=== PATIENT | female | born 1965 | race Caucasian/White ===

== ENCOUNTER 2017-01-20 11:27 | Inpatient (IN) | payer BC, OTHER ==
[2017-01-20] VITALS (28 sets, daily range): BP systolic 124–178; BP diastolic 64–86
[~2017-01-20] VITALS: Ht 157.5 cm; Wt 83.4 kg
[2017-01-20] MEDS: HumaLOG INSULIN (NovoLOG) PER UNIT SC SCH ×2 (12:00→18:02)
[2017-01-20] MEDS ORDERED: NS 1,000 ML IV SCH (12:17)
[2017-01-20] MEDS ORDERED: LABETALOL HCL 100 MG/20 ML VIAL IV STA ×2 (12:17→13:28)
[2017-01-20 12:26] LABS: BASO # 0.1 10^3/uL (0.0-0.2); BASO % 0.6 % (0.0-1.0); EOS % 0.1 % (0.0-3.0); IMMATURE GRANULOCYTE % 1.5 % (0-0); LYMPH # 1.6 10^3/uL (1.5-4.5); MEAN CORPUSCULAR HEMOGLOBIN 17.1 pg (27.0-33.0); MEAN CORPUSCULAR HGB CONC 26.8 g/dl (32.0-36.5); MONO # 1.4 10^3/uL (0.0-0.8); MONO % 9.8 % (0.0-5.0); PLATELET COUNT, AUTOMATED 446 10^3/uL (150-450); RED CELL DISTRIBUTION WIDTH 20.3 % (11.5-14.5); WHITE BLOOD COUNT 14.3 10^3/uL (4.0-10.0)
[2017-01-20 12:29] LABS: CONTROL LINE HCG INT CTR LINE PRESENT
[2017-01-20] MEDS ORDERED: METOCLOPRAMIDE INJ 10MG/2ML VIAL (J2765) IV ONE (12:30)
[2017-01-20 12:44] LABS: ALBUMIN 3.7 GM/DL (3.2-5.2); ALBUMIN/GLOBULIN RATIO 0.97 (1.00-1.93); ALKALINE PHOSPHATASE 171 U/L (45-117); ALT/SGPT 17 U/L (12-78); ANION GAP 9 MEQ/L (8-16); AST/SGOT 9 U/L (7-37); BILIRUBIN,DIRECT 0.1 MG/DL (0.0-0.2); BILIRUBIN,TOTAL 0.5 MG/DL (0.2-1.0); BLOOD UREA NITROGEN 14 MG/DL (7-18); CARBON DIOXIDE LEVEL 25 MEQ/L (21-32); CHLORIDE LEVEL 105 MEQ/L (98-107); CREATININE FOR GFR 0.99 MG/DL (0.55-1.02); GLOMERULAR FILTRATION RATE > 60.0 (>58); GLUCOSE, FASTING 155 MG/DL (70-105); POTASSIUM SERUM 3.7 MEQ/L (3.5-5.1); SODIUM LEVEL 139 MEQ/L (136-145); TOTAL PROTEIN 7.5 GM/DL (6.4-8.2)
[2017-01-20 13:21] LABS: INR 1.03
--- NOTE | 2017-01-20 13:30 | REP ---
CT Head without contrast HISTORY: Altered mental status COMPARISON: 08/20/2007 An acute intraparenchymal hematoma 2 cm in width is present in the left internal capsule and thalamus. A significant amount of surrounding edema is present. There is mass effect with partial effacement of the body of the left lateral and third ventricles with midline shift to the right. A small amount of intraventricular hemorrhage is present. There is minimal dilatation of of the body of the left lateral ventricle consistent with minimal hydrocephalus. There is no extra cerebral collection. There is no fracture. Mucosal thickening is present in the sphenoid sinuses. IMPRESSION: There is an acute 2 cm intraparenchymal hematoma in the left thalamus and internal capsule with mass effect and minimal midline shift to the right. A small amount of intraventricular hemorrhage is present. There is dilatation of the left lateral ventricle consistent with minimal hydrocephalus. Signed by Satinder Olivarez MD 01/20/2017 01:21 P
--- NOTE | 2017-01-20 13:46 | REP ---
Chest two views HISTORY: Altered mental status Comparison: 09/05/2011 The lungs are clear. The heart is normal in size. The pulmonary vasculature is normal in appearance. The bony structure is intact. IMPRESSION: No acute disease. Signed by Satinder Olivarez MD 01/20/2017 01:37 P
[2017-01-20] MEDS ORDERED: ACET50TAOT PO (14:08)
[2017-01-20] MEDS ORDERED: IBUPOTC PO (14:08)
[2017-01-20] MEDS ORDERED: GLUCAGON FOR INJ 1 MG VIAL (J1610) SC PRN (14:15)
[2017-01-20] MEDS ORDERED: GLUCOSE 4 GM CHEW TABLET PO PRN (14:15)
[2017-01-20] MEDS ORDERED: DEXTROSE 50% 50 ML SYRINGE IV PRN (14:15)
--- NOTE | 2017-01-20 15:17 | HPE ---
DATE OF ADMISSION: 01/20/2017 CHIEF COMPLAINT: Altered mental status. History is obtained from the who is at bedside due to the patient being unable to adequately answer questions. The patient's states that they recently traveled to [place] driving through [place]. He states that on the patient took a pretty long nap. Friday afternoon, she napped twice. He noticed that she ate slowly at dinner, and if he asked her any questions, sometimes she would say words that were out of context. On Friday, the patient was mostly alert, though the did notice more words used out of context like they did not belong in the sentences she was trying to articulate. On Friday, they drove home from [place] through [place]. The patient's states that she was complaining of headache and basically slept the entire way. He did, however, notice that last night she was breathing quite rapidly. The last thing she had to eat was yester afternoon. This morning, the patient's states that she was just not herself and brought her to the emergency room. REVIEW OF SYSTEMS: Was unable to be completely taken due to inability of the patient to answer questions. However, according to the , she had been complaining of headache, she was sweating last night, she is having some photophobia, as well as increased fatigue. The patient's denies any nausea, vomiting, diarrhea, constipation, new leg swelling, fever, chills. He is unable to answer any other questions. PAST MEDICAL HISTORY: 1. History of chronic back pain, the patient takes ibuprofen sporadically and really only when it bothers her. 2. History of kidney stones in 2011 requiring lithotripsy and eventually nephrostomy tubes. MEDICATIONS: Ibuprofen as needed for back pain, not scheduled, dose is unknown. PAST SURGICAL HISTORY: 1. Lithotripsy with eventual bilateral nephrostomy tubes in 2011. 2. Ovarian cyst as a teenager, the patient's is unable to provide more details. FAMILY HISTORY: The patient's mother has diabetes and had some type of event that resulted in dementia. The patient's reports that the patient's father is in good health. ALLERGIES: No known drug allergies. SOCIAL HISTORY: The patient does not smoke, does not consume alcohol, does not use drugs. She lives at home with her and two out of three children. All of their children are healthy and they have three cats as pets. PHYSICAL EXAMINATION: VITAL SIGNS: Temperature is 98.9 degrees, pulse is 78, respiratory rate is 16, blood pressure is 175/95 with a mean arterial pressure (MAP) 121, pulse oximetry is 98% on room air. GENERAL: The patient is sleepy. She periodically drifts back into dozing and some snoring in between questioning. She will arouse to speech as well as to touch and the blood pressure cuff. HEENT: Pupils are about 3 mm and reactive minimally but equally to light. There is no tongue deviation. Mucous membranes are moist. The patient has adequate dentition. NECK: Large. No carotid bruits. Supple, nontender. No thyromegaly is appreciated. HEART: Regular rate and rhythm. No murmurs, gallops, or rubs. LUNGS: Clear to auscultation bilaterally. No wheezes, rales, or rhonchi. BACK: No costovertebral angle (CVA) tenderness. There are some small scars from her bilateral nephrostomy tube placements. ABDOMEN: Obese, normoactive bowel sounds. No organomegaly. Nontender to palpation. EXTREMITIES: The patient continually crosses her left leg over her right. There is no swelling. Pulses are equal in the lower extremities. Right masonry supervisor strength is absent, left masonry supervisor strength is normal. SKIN: Normal turgor and perfusion. LABORATORY DATA: CBC: White count 14.3, hemoglobin 9.0, hematocrit 33.6, platelets 446. Differential: Neutrophils 77%, lymphocytes 11%, monocytes 9.8%. Chemistry: Sodium 139, potassium 3.7, chloride 107, carbon dioxide 25, BUN 14, creatinine 0.99, fasting glucose 155, calcium 9.0, total bilirubin 0.5, AST 9, ALT 17, alkaline phosphatase 171, TSH 0.553, test negative, CK-MB 1.0, creatine kinase 59, troponin less than 0.02. Coagulation: PT 13.6, INR 1.03. Toxicology: Salicylates less than 1.7, acetaminophen less than 2.0, ethyl alcohol less than 0.003. IMAGING STUDIES: Chest x-ray: No acute disease. CT head: Acute 2 cm intraparenchymal hematoma in the left thalamus and internal capsule with mass effect and minimal midline shift to the right. A small amount of intraventricular hemorrhage is present. There is dilatation of the left lateral ventricle consistent with minimal hydrocephalus. ASSESSMENT: This is a 51-year-old female presenting with altered mental status to the emergency department. Her initial blood pressure was 187/101. Head CT showed an acute 2 mg intraparenchymal hematoma in the left thalamus and internal capsule with mass effect and minimal midline shift to the right. She will be admitted to the intensive care unit (ICU). PLAN: 1. Control blood pressure. The patient is getting IV labetalol with a goal of systolic to be 140-160. 2. Consult neurosurgery, Dr. Craig is aware. 3. High risk for deep vein thrombosis (DVT). Doppler ultrasound of the lower extremities has been ordered. 4. Chronic back pain. We will await to assess when mental status has returned to normal. Critical Care time spent was 50 minutes. My preceptor for this patient encounter was Dr. Venkat Canales. The preceptor was physically present during the encounter and was fully available as needed. All aspects of the patient interview, examination, medical decision making process, and medical care plan development were reviewed and approved by the preceptor. The preceptor is aware and concurs with the plan as stated in the body of this note and will attest to such by his/her co-signature. I agree with the above, the patient was seen in the ED and is transferred now to the ICU. BP control is good with labetalol, she is febrile but there is no source for infection and the WBC is not up. I spoke with Neurosurgery and with Neurology who have been kind enough to assist with management. There is no immediate need for surgical intervention as there is no sign of elevation in ICP. Likely this is a hypertensive bleed of several days duration, we will repeat a CT in the AM to track for any progression. Her condition is critical, 50 minutes was spent in critical care at the bedside in exclusion of any time spent in the performance of procedures. ARMAAN
[2017-01-20] MEDS: LABETALOL HCL 200 MG in D5W 160 ML IV SCH ×4 (15:37→20:07)
--- NOTE | 2017-01-20 16:21 | REP ---
Clinical: Pain and swelling with high risk factors. Technique: Ramirez scale and color Doppler evaluation using linear high frequency transducer. Findings: Ultrasound examination of the right and left lower extremity deep venous structures from the common femoral vein to the popliteal vein demonstrates normal compressibility flow and wave patterns in response to respiration and augmentation. There is no evidence for deep venous thrombosis. Impression: No evidence for deep venous thrombosis. Signed by Washington Reid MD 01/20/2017 04:12 P
[2017-01-20] MEDS: PANTOPRAZOLE 40MG INJ (PROTONIX) (C9113) IV SCH (17:04)
--- NOTE | 2017-01-20 18:34 | ECGEPIP ---
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
[2017-01-20] MEDS ORDERED: PROHANCE 279.3MG/ML 15ML VIAL (A9576) As Ordered ONE (21:04)
[2017-01-21] VITALS (38 sets, daily range): BP systolic 117–181; BP diastolic 56–94
[2017-01-21] MEDS: HumaLOG INSULIN (NovoLOG) PER UNIT SC SCH ×5 (01:05→23:24)
[2017-01-21] MEDS: CHLORHEXIDINE ORAL RINSE 0.12%/15ML 120ML BOTTLE MT SCH ×3 (01:05→20:23)
[2017-01-21 05:08] LABS: BASO # 0.1 10^3/uL (0.0-0.2); BASO % 0.4 % (0.0-1.0); EOS % 0.1 % (0.0-3.0); IMMATURE GRANULOCYTE % 1.1 % (0-0); LYMPH # 1.8 10^3/uL (1.5-4.5); LYMPH % 14.8 % (24.0-44.0); MEAN CORPUSCULAR HEMOGLOBIN 16.9 pg (27.0-33.0); MEAN CORPUSCULAR HGB CONC 26.4 g/dl (32.0-36.5); MONO # 1.3 10^3/uL (0.0-0.8); MONO % 10.4 % (0.0-5.0); NEUTROPHILS % 73.2 % (36.0-66.0); RED CELL DISTRIBUTION WIDTH 19.5 % (11.5-14.5); WHITE BLOOD COUNT 12.2 10^3/uL (4.0-10.0)
[2017-01-21 05:25] LABS: PLATELET COUNT, AUTOMATED 330 10^3/uL (150-450)
[2017-01-21 05:33] LABS: ALBUMIN 3.1 GM/DL (3.2-5.2); ALBUMIN/GLOBULIN RATIO 0.86 (1.00-1.93); ALKALINE PHOSPHATASE 138 U/L (45-117); ALT/SGPT 15 U/L (12-78); ANION GAP 9 MEQ/L (8-16); AST/SGOT 6 U/L (7-37); BILIRUBIN,TOTAL 0.5 MG/DL (0.2-1.0); BLOOD UREA NITROGEN 17 MG/DL (7-18); CALCIUM LEVEL 8.5 MG/DL (8.5-10.1); CARBON DIOXIDE LEVEL 24 MEQ/L (21-32); CHLORIDE LEVEL 108 MEQ/L (98-107); CHOLESTEROL LEVEL 118 MG/DL (< 200); CREATININE FOR GFR 0.93 MG/DL (0.55-1.02); GLOMERULAR FILTRATION RATE > 60.0 (>58); GLUCOSE, FASTING 154 MG/DL (70-105); PHOSPHORUS LEVEL 3.1 MG/DL (2.5-4.9); POTASSIUM SERUM 3.3 MEQ/L (3.5-5.1); SODIUM LEVEL 141 MEQ/L (136-145); TOTAL PROTEIN 6.7 GM/DL (6.4-8.2); TRIGLYCERIDES LEVEL 114 MG/DL (<150)
--- NOTE | 2017-01-21 07:37 | CR ---
DATE OF CONSULTATION: 01/20/2017 REFERRING PHYSICIAN: Venkat Canales DO REASON FOR CONSULTATION: Left-sided basal ganglia hemorrhage. HISTORY OF PRESENT ILLNESS: Aggie Stone is a 51-year-old woman who was at her baseline state of health until they left for [place] on . They drove very early, around 4:00 a.m. They got there in the evening and she made dinner and went to sleep. Friday afternoon she took naps twice. Her noted that she ate slowly at dinner and when asked questions she would say words which were out of context. She appeared groggy at times. Friday she complained of back pain. Friday noted that she had a limp in her right leg while walking. She had decreased hand and eye coordination. She appeared sleepy and would take frequent naps. They did not seek medical attention in [place]. They drove back home on Friday. She refused to go to urgent care on Friday morning. Her finally brought her to [facility] for [facility]. She denies any headache. She denies any use of blood thinner. Most of the information was obtained from the patient's . The patient has aphasia and has difficulty following commands as well. They denied any head trauma. She does not know if she had high blood pressure in past. Her thinks that this is the first time her blood pressure was found to be high. She has history of intermittent chronic low back pain for which she takes ibuprofen sporadically. PAST MEDICAL HISTORY: Chronic back pain. History of kidney stones, lithotripsy and nephrostomy tube. 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 She denies smoking, alcohol or illicit drugs. They have three children. ALLERGIES: None. FAMILY HISTORY: Mother has diabetes and history of dementia. REVIEW OF SYSTEMS: All systems were reviewed and found to be noncontributory except as mentioned in history present illness. Review of systems was obtained from the patient's . PHYSICAL EXAMINATION: Blood pressure 161/77, pulse 95, respiratory rate 18, 98% saturation on room air, temperature 104.4. HEART: Regular rate and rhythm. LUNGS: Clear to auscultation. No pedal edema. No gross musculoskeletal abnormalities. No rash. The patient is drowsy but arousable. She is oriented to self mostly. She has expressive and receptive aphasia. She is unable to repeat. She has difficulty following two-step commands. She has mild right-sided upper motor neuron type facial weakness. She has right-sided hemiparesis with strength 4/5. She has decreased cold, pinprick, vibration sensation on right side of her body. Right plantar is upgoing. Gait could not be tested. She has right-sided dysmetria. DIAGNOSTIC STUDIES: CT scan of her head was reviewed and showed large right basal ganglia and thalamic hypodensity with 2 cm cerebral hemorrhage with 0.7 cm midline shift. ASSESSMENT: 1. Left basal ganglia and thalamic hemorrhage with 0.7 cm midline shift. 2. There is concern for underlying glioma due to large mass effect and edema. PLAN: 1. MRI brain with and without contrast. 2. MRA brain. 3. Keep systolic blood pressure below 150 and diastolic blood pressure below 90. She is currently on intravenous labetalol. 4. The patient has been evaluated by neurosurgery who did not recommend surgical intervention at this time. 5. Consider Decadron and 3% normal saline infusion based on results of her MRI scan of brain. 6. Physical and occupational therapy. 7. Avoid antiplatelet and anticoagulant agents.
--- NOTE | 2017-01-21 07:43 | REPUSA ---
MRA of the brain Clinical history: bleed. Technique: [id number] MRA images of the brain were obtained without administration of contrast. 3 -D MIP images were also obtained. Findings: The vascular structures extending from the distal carotid and vertebrobasilar arterial syst ems, through the sal[place] of [place], demonstrate normal caliber and contour. There is no evidence of an eurysm, stenosis, or thrombosis. Left basal ganglia mass effect with rightward midline shift is again noted. Impression: Unremarkable MRA examination of the brain.
--- NOTE | 2017-01-21 07:44 | REPUSA ---
MRI of the brain. Clinical history: acute bleeding. Technique: Multiecho multiplanar MRI images of the brain were obtained before and after administratio n of 60 mL of Prohance intravenous gadolinium contrast. Findings: There is a large area of T2 hyperintensity throughout the left cerebral hemisphere, predominately in the left basal ganglia. A focal area of T1 and T2 hyperintensity is seen in the medial aspect of the left basal ganglia, suspicious for a suabacute hemorrhage. Moderate mass effect is noted, with minima l rightward midline shift measuring approximately 5 mm. Restricted diffusion is seen throughout the l eft basal ganglia. Small areas of restricted diffusion are seen in the left parietal lobe. The cervic al cranial junction is intact. The orbits are unremarkable. The visualized paranasal sinuses and mast oid air cells are clear. The osseous structures and superficial soft tissues are unremarkable. The va scular structures demonstrate appropriate flow voids. There are no abnormal areas of enhancement appr eciated. Impression: 1. Findings consistent with a subacute hemorrhage in the left basal ganglia. 2. Moderate mass effect and edema is seen throughout the left cerebral hemisphere, predominant in the left basal ganglia. Minimal rightward midline shift is noted. 3. Acute infarct in the left basal ganglia and in the left parietal lobe are appreciated.
[2017-01-21] MEDS: PANTOPRAZOLE 40MG INJ (PROTONIX) (C9113) IV SCH (09:23)
--- NOTE | 2017-01-21 10:06 | REP ---
CT HEAD WITHOUT CONTRAST: HISTORY: Intraparenchymal hematoma. COMPARISON: 01/20/2017. An acute intraparenchymal hematoma 1.9 cm in width is present in the left internal capsule and thalamus. Surrounding edema is present__. There is mass effect with partial effacement of the body of the left lateral and third ventricles with minimal midline shift to the right. There is minimal dilatation of the body of the left lateral ventricle consistent with minimal hydrocephalus. These findings are unchanged compared to the previous study. There is no extracerebral collection. The visualized sinuses are clear. IMPRESSION: Acute 1.9 cm left internal capsule and thalamic intraparenchymal hematoma with edema and mass effect and midline shift to the right, unchanged compared to the previous study. There is minimal hydrocephalus. Signed by Satinder Olivarez MD 01/21/2017 11:21 A
[2017-01-21] MEDS: KCL 20MEQ in NS 1000ML 1,000 ML IV SCH (10:34)
--- NOTE | 2017-01-21 12:47 | CCN ---
DATE: 01/21/2017 CRITICAL CARE NOTE: This is hospital day #2. The patient is seen in the intensive care unit with intracranial hemorrhage. Last evening, she underwent an MRI scan, which suggested a subacute bleed and area of ischemia. Consultations have been obtained with neurosurgery and neurology. This morning she is somnolent, awakens to command and does follow commands. She is unable to verbalize and is having difficulty with swallowing. At bedside, temperature is 99.8, pulse rate 60, respirations 20, blood pressure 129/58. Intake and output for the past 24 hours 1160 in, 370 out. Since midnight, zero in, 690 out. At bedside, she is ill-appearing, somnolent but arouses to request. Her pupils are small but react. Oral mucosa is pink. There is no meningismus. Heart sounds are regular. Breath sounds are essentially clear to auscultation in all perdomo. Abdomen is soft. Bowel sounds in right lower quadrant. Extremities: Right side flaccid, left side weak. Diagnostic studies: Her sodium is 141, potassium 3.3, chloride 108, CO2 24, BUN 17, creatinine 0.93, glucose 154. White blood cell count is 12.2, hemoglobin 8, hematocrit 30, platelet count 330,000. CT and MRI imaging were reviewed. Impressions are: 1. Intracranial hemorrhage. There does not appear to be any progression in bleeding. Some increase in edema was noted this morning. 2. Hypertension. Blood pressure initially required labetalol drip. She has now been weaned off and her blood pressure is within acceptable range. 3. Hypokalemia. Will initiate intravenous (IV) fluids with supplemental potassium. 4. Deep venous thrombosis (DVT) prophylaxis being addressed with sequential hose. Ulcer prophylaxis being addressed with Protonix and glycemic control with fingerstick blood sugars and coverage. The patient's condition remains critical. Intensive care unit (ICU) care is appropriate. 58 minutes was spent in the provision of bedside critical care and coordination.
[2017-01-21] MEDS ORDERED: LABETALOL HCL 100 MG/20 ML VIAL IV STA ×2 (18:43→20:15)
[2017-01-22] VITALS (54 sets, daily range): BP systolic 76–195; BP diastolic 40–98; O2SAT 100
[2017-01-22] MEDS: KCL 20MEQ in NS 1000ML 1,000 ML IV SCH ×2 (02:10→20:58)
[2017-01-22] MEDS ORDERED: LABETALOL HCL 100 MG/20 ML VIAL IV STA (03:01)
[2017-01-22] MEDS: ACETAMINOPHEN 650 MG SUPP PR PRN ×3 (03:15→15:00)
[2017-01-22] MEDS ORDERED: LABETALOL HCL 100 MG/20 ML VIAL IV ONE (03:30)
[2017-01-22] MEDS: HumaLOG INSULIN (NovoLOG) PER UNIT SC SCH ×3 (05:23→17:46)
[2017-01-22 05:39] LABS: BASO # 0.1 10^3/uL (0.0-0.2); BASO % 0.4 % (0.0-1.0); EOS % 0.4 % (0.0-3.0); IMMATURE GRANULOCYTE % 1.3 % (0-0); LYMPH # 1.3 10^3/uL (1.5-4.5); MEAN CORPUSCULAR HEMOGLOBIN 16.7 pg (27.0-33.0); MEAN CORPUSCULAR HGB CONC 25.9 g/dl (32.0-36.5); MEAN CORPUSCULAR VOLUME 64.2 fl (80.0-96.0); MONO # 1.1 10^3/uL (0.0-0.8); MONO % 9.5 % (0.0-5.0); NEUTROPHILS # 8.5 10^3/uL (1.8-7.7); NEUTROPHILS % 76.4 % (36.0-66.0); PLATELET COUNT, AUTOMATED 338 10^3/uL (150-450); RED CELL DISTRIBUTION WIDTH 19.9 % (11.5-14.5); WHITE BLOOD COUNT 11.1 10^3/uL (4.0-10.0)
[2017-01-22 05:54] LABS: ALBUMIN/GLOBULIN RATIO 0.75 (1.00-1.93); ALKALINE PHOSPHATASE 151 U/L (45-117); ALT/SGPT 16 U/L (12-78); ANION GAP 9 MEQ/L (8-16); AST/SGOT 11 U/L (7-37); BILIRUBIN,TOTAL 0.5 MG/DL (0.2-1.0); BLOOD UREA NITROGEN 16 MG/DL (7-18); CALCIUM LEVEL 8.5 MG/DL (8.5-10.1); CARBON DIOXIDE LEVEL 23 MEQ/L (21-32); CHLORIDE LEVEL 112 MEQ/L (98-107); CHOLESTEROL LEVEL 117 MG/DL (< 200); CREATININE FOR GFR 0.81 MG/DL (0.55-1.02); GLOMERULAR FILTRATION RATE > 60.0 (>58); GLUCOSE, FASTING 158 MG/DL (70-105); POTASSIUM SERUM 3.5 MEQ/L (3.5-5.1); SODIUM LEVEL 144 MEQ/L (136-145); TRIGLYCERIDES LEVEL 110 MG/DL (<150)
[2017-01-22] MEDS: LABETALOL HCL 200 MG in D5W 160 ML IV SCH ×6 (06:50→23:11)
[2017-01-22] MEDS: niCARdipine 20 MG CAP PO SCH ×3 (09:00→20:36)
--- NOTE | 2017-01-22 09:24 | REP ---
CT HEAD WITHOUT CONTRAST: HISTORY: Intracranial hemorrhage. COMPARISON: 01/21/2017. A hypodense lesion with a 1.9 cm hemorrhagic component is present in the left basal ganglia, internal capsule and thalamus. Surrounding edema is present. There is mass effect with partial effacement of the body of the left lateral and third ventricles with minimal midline shift to the right. There is dilatation of the lateral ventricles consistent with minimal hydrocephalus. There is no extracerebral collection. IMPRESSION: 1. There has been no change in the size of the hemorrhagic lesion present in the left basal ganglia and thalamus2. Minimal hydrocephalus. Signed by Satinder Olivarez MD 01/22/2017 09:29 A
[2017-01-22] MEDS: CHLORHEXIDINE ORAL RINSE 0.12%/15ML 120ML BOTTLE MT SCH ×2 (10:40→20:24)
[2017-01-22] MEDS: PANTOPRAZOLE 40MG INJ (PROTONIX) (C9113) IV SCH (10:40)
--- NOTE | 2017-01-22 11:07 | REP ---
DUPLEX CAROTID SONOGRAPHY: HISTORY: Stroke FINDINGS: Antegrade flow is observed in both vertebral arteries. RIGHT CAROTID: The right common carotid artery is unremarkable on two-dimensional scanning. There is minimal mixed plaquing in the bulb and proximal ICA on the right side. Color flow and spectral Doppler interrogation are unremarkable on the right. Velocity Cart Right Carotid: PSV EDV Right CCA 120 cm/s Right ICA 97 cm/s 39 cm/s Right ECA 81 cm/s Right ICA/CCA ratio normal 0.8 IMPRESSION: 0 to 15% category narrowing in the right ICA by Doppler velocity criteria. LEFT CAROTID: The left common carotid artery is unremarkable on two-dimensional scanning. There is minimal mixed plaquing in the bulb and proximal ICA on the left side. Color flow and spectral Doppler interrogation are unremarkable on the left. Velocity Chart Left Carotid: PSV EDV Left CCA 110 cm/s Left ICA 96 cm/s 36 cm/s Left ECA 70 cm/s Left ICA/CCA ratio normal 0.9. IMPRESSION: 0 to 15% category narrowing in the left ICA by Doppler velocity criteria. Signed by Nima Andrews MD 01/22/2017 01:48 P
--- NOTE | 2017-01-22 13:40 | CCN ---
DATE OF SERVICE: 01/22/2017 CRITICAL CARE NOTE The patient is seen in the intensive care unit with intracranial bleed, critically ill. The dose of IV labetalol has been reduced. However, her blood pressure is somewhat variable as is her level of consciousness. She was more awake and interactive last evening, was able to eat a bit and her was present at the time of this interview and indicates that she even moving her right side somewhat. This morning, she is quite somnolent. [place] coma scale calculates at 8. Temperature is 98.3, pulse rate 92, respirations 16 and variable with a variable pattern. Blood pressure is 126/85. HEENT: Her pupils are small but react. Oral mucosa is pink. There is a bite paige on her lip matching her teeth suggesting that she has bitten herself. Neck is supple. There is no meningismus. Heart sounds are regular. Breath sounds clear. No focal adventitial breath sounds appreciated. Chest: Symmetric. Respiratory pattern is irregular as note above. Abdomen is soft. There are bowel sounds in the right lower quadrant. Extremities: Cool. Pulses are palpable. She does withdraw with her left side but not right. DIAGNOSTIC STUDIES: Sodium 144, potassium 3.5, chloride 112, CO2 23, BUN 16, creatinine 0.8, glucose 158, white cell count is 11.1, hemoglobin 8.2, hematocrit 31.6, platelet count 338,000. CT scan of the head was updated this morning and shows no significant change in the amount of bleeding. There may however, be worsening of edema according to the neurosurgeons interpretation. The primary problem requiring critical attention is acute intracranial hemorrhage. There is been no progression of bleeding, however edema may be progressive and her [place] coma scale has dropped to 8 this morning. I have discussed the case with neurosurgery and they will reevaluate her and determine whether the intracranial pressure monitor would be helpful. Ultrasound studies of her carotids are pending. Hypertension. Will start oral Nimodipine to maintain systolic pressures between 140 and 160. Hypokalemia. Potassium is better. Continue monitoring. Non-motor seizure - I have discussed the case with neurology who have been kind enough to follow the patient with me. They agree that an EEG would be appropriate and we will order this and initiate Keppra after the EEG has been completed. DVT prophylaxis is being addressed with sequential hose. Ulcer prophylaxis is being addressed Protonix. Glycemic control is acceptable with fingerstick blood sugars and coverage. I have updated the patient's at bedside who understands the severe nature of this condition and prognosis is guarded. 82 minutes spent in provision of bedside critical care and coordination in excess of any procedure time.
[2017-01-22] MEDS: dexameTHASONE 20 MG/5 ML VIAL (J1100) IV SCH ×2 (14:19→20:24)
[2017-01-22] MEDS: levETIRAcetam INJection 500 MG in D5W MINI-BAG PLUS 100 ML IV SCH (14:19)
--- NOTE | 2017-01-22 14:44 | CR ---
DATE OF CONSULTATION: 01/22/2017 REFERRING PHYSICIAN: Dr. Venkat Canales REASON FOR CONSULTATION: Left sided basal ganglia hemorrhage. HISTORY OF PRESENT ILLNESS: The patient was seen in the intensive care unit (ICU). History was obtained from her family. The patient is stuporous. reports a rather progressive decline in her intellectual functions and weakness, as well as loss of speech for the past several days. No gross seizure activity was noted. Hospital course includes observation in the ICU where she continued to have progressive deterioration in level of consciousness. She has a past medical history of hypertension. She has been pharmacologically treated for that in the ICU. Past medical history according to the patient's family was noted for chronic low back pain, urolithiasis, lithotripsy, nephrostomy tube, and removal of ovarian cyst. Preadmission medications include: - Motrin on an as needed basis In the ICU she is on: - IV Labetalol SOCIAL HISTORY: She is right handed, . The reports a smoking and drinks socially. She has three children. ALLERGIES: None. FAMILY HISTORY: Notable for diabetes and dementia. REVIEW OF SYSTEMS: Discussed. Noncontributory except for what is mentioned in the past medical history. PHYSICAL EXAMINATION: She is found to be stuporous. She resists opening the eyes. Pupils are equal and reactive. Extraocular movements appear to be full. She does not follow any commands. On pain she would moan but would not vocalize or verbalize. She rarely would open her eyes and also would tend to localize on the left. On the right she has minimal movements, but no obvious posturing is noted at this time. The right plantar is upgoing. There is mild right deep tendon reflexes preponderance. 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 ASSESSMENT/IMPRESSION: It appears that she has a neoplasm or a mass lesion in the mid brain extending up to the thalamus and the basal ganglia, the mass is along the lateral wall of the ventricle system. Findings are suggestive of possible lymphoma, though the bleeding is more suggestive of glioma. There is a degree of vasogenic edema as well with midline shift. RECOMMENDATIONS: At this time, would recommend stereotactic biopsy and metastatic workup. If there is any further deterioration in her level of consciousness, I would recommend ventriculostomy. Also would place her on Decadron and may require intermittent Mannitol or hypertonic saline infusion. Case was discussed with Dr. Canales. A family conference was held. Grave outlook was discussed. Thank you very much for asking me to evaluate your patient. Please do not hesitate to call me should you have any questions. Allyn Kaminski MD [facility]
[2017-01-22] MEDS ORDERED: GASTROGRAFIN SOLUTION 30ML PO ONE (15:40)
[2017-01-22] MEDS ORDERED: ISOVUE-370 76% 100ML VIAL (Q9967) As Ordered ONE ×2 (15:46→23:33)
[2017-01-22] MEDS ORDERED: GASTROGRAFIN SOLUTION 30ML (Q9963) PO ONE (16:10)
--- NOTE | 2017-01-22 16:30 | REP ---
Clinical: Lymphoma. Technique: Axial contrast enhanced images from the lung bases to the pubic symphysis using 100 ml Isovue 370 intravenous contrast material with precontrast images of the abdomen as well as coronal and sagittal re-formations. Comparison: 08/26/2011. Findings: Lung bases demonstrate mild dependent changes. Visualized portions of the heart and pericardium are normal. Liver, spleen, pancreas, gallbladder, and bilateral adrenal glands are normal. The kidneys demonstrate cortical scarring/lobulations and bilateral renal cysts along with bilateral intrarenal calculi measuring approximately 18 mm in the right renal pelvis and left lower pole. The enteric system is without obstruction or acute inflammatory process. Colonic diverticula noted without acute diverticulitis. Pelvis demonstrates heterogeneous appearance to the uterus and bilateral adnexal cysts which are nonspecific and possibly physiologic. Alonso catheter in collapsed bladder noted. No ascites. No significant adenopathy. No solitary mass lesion. Abdominal aorta and vasculature appears normal. Surrounding musculoskeletal structures demonstrate age-related degenerative changes and chronic bilateral spondylolysis at L5 without spondylolisthesis. Impression: 1. Kidneys demonstrate bilateral cysts (right greater than left) and nonobstructing calculi measuring up to 18 mm bilaterally. No associated hydroureteronephrosis or perinephric stranding. 2. Few scattered colonic diverticula without acute diverticulitis. 3. Uterus appears mildly prominent/heterogeneous with bilateral ovarian cystic changes likely physiologic. Correlation with pelvic ultrasound may be warranted. 4. Chronic spondylolysis at L5. 5. No ascites, adenopathy, or mass lesion appreciated. Signed by Washington Reid MD 01/22/2017 04:22 P
--- NOTE | 2017-01-22 16:41 | REP ---
Clinical: Solitary brain mass; evaluate for primary occult neoplasm. Technique: Axial contrast enhanced images from the thoracic inlet to the upper abdomen using 100 ml Isovue 370 intravenous contrast material with coronal and sagittal re-formations. Findings: The lung perdomo demonstrate moderate posterior basilar dependent type changes. No acute consolidation, nodule or mass lesion identified. No pleural effusion/reaction or pneumothorax. Tracheobronchial tree is patent. No significant hilar or mediastinal adenopathy. Thoracic aorta, heart and pericardium appear normal. A moderate hiatal hernia is identified at the gastroesophageal junction. A solitary asymmetric prominent lymph node in the right axilla measures 12 mm and is otherwise nonspecific. Surrounding musculoskeletal structures are intact and without focal osseous abnormality. Limited upper abdomen demonstrates renal cortical lobulations and right hypodensities compatible with cysts. Impression: No acute mediastinal or pleuroparenchymal process. Solitary 12 mm asymmetric and lymph node in the left axilla is nonspecific. Incompletely evaluated right renal cysts and renal cortical lobulations. Signed by Washington Reid MD 01/22/2017 04:33 P
--- NOTE | 2017-01-22 17:14 | REP ---
CT NECK WITH CONTRAST: HISTORY: Aspiration. CONTRAST: Isovue-370 100 mL. The examination is limited secondary to motion. There is no definite abnormality of the naso-, helio-, or hypopharynx, larynx, and subglottic trachea. The salivary and thyroid are normal in size and density. Small lymph nodes less than 1 cm in size are present in the internal jugular chains, posterior triangles, and submandibular area. The lung apices are clear. Mucosal thickening is present in the sphenoid and left maxillary sinuses. IMPRESSION: Limited examination demonstrating no definite neck mass or adenopathy. Signed by Satinder Olivarez MD 01/22/2017 05:21 P
[2017-01-22] MEDS ORDERED: PROPOFOL 1,000 MG/100 ML VIAL As Ordered ONE (22:26)
[2017-01-22] MEDS ORDERED: SODIUM CHLORIDE 0.9% 1000 ML IV ONE ×2 (22:45)
[2017-01-22] MEDS ORDERED: MANNITOL 20% 100GM/500 ML BAG IV ONE (23:00)
[2017-01-22 23:12] LABS: ABG BASE EXCESS -3.4 (-2.0-2.0); ABG HCO3 20.5 MEQ/L (22.0-26.0); ABG PARTIAL PRESSURE CO2 32.3 mmHg (35.0-45.0); ABG PARTIAL PRESSURE O2 252.9 mmHg (75.0-100.0); ABG STANDARD HCO3 21.7 MEQ/L (22.0-26.0); ABG TOTAL CO2 21.5 MEQ/L (22.0-29.0); ABG pH (ARTERIAL) 7.421 UNITS (7.350-7.450)
[2017-01-23] VITALS (60 sets, daily range): BP systolic 89–165; BP diastolic 51–88; O2SAT 97
--- NOTE | 2017-01-23 00:30 | REPUSA ---
CLINICAL HISTORY: Increased intracranial pressure. TECHNIQUE: Multiple axial CT images were obtained through brain without and with IV contrast material . COMMENTS: Comparison to prior exam performed on 01/20/2017. 3.1x2.2 cm subacute hemorrhag in the medial/inferior aspect of the left basal ganglia. Significant as sociated edema with compression of the corresponding aspect of the left lateral ventricle. Secondary 5.6 mm midline shift to the right side. Diffuse edema and effacement of the adjacent sulci. Significant compression of the third ventricle lead there is secondary mild hydrocephalus. Hypodense areas are noted in the periventricular white matter probably secondary to transependymal ab sorption of the CSF from hydrocephalus. The study shows normal configuration of sella turcica. Post contrast images demonstrate no evidence for abnormal enhancement. IMPRESSION: Subacute nonenhancing hemorrhage in the medial/anterior aspect of the left basal ganglia. Significant edema with a compression of the corresponding aspect of the left lateral ventricle. Secondary 5.6 mm midline shift to the right side. Diffuse edema of the adjacent sulci. Compression of the left lateral ventricle. Compression of the third ventricle with mild hydrocephalus. Transependymal seepage of the MDS RN and secondary to increased pressure within the ventricular system. Thank you for your kind referral of this patient.
[2017-01-23] MEDS: PROPOFOL 1,000 MG in APPROPRIATE DILUENT 1 EA IV SCH ×3 (00:39→23:06)
[2017-01-23] MEDS: HumaLOG INSULIN (NovoLOG) PER UNIT SC SCH ×5 (00:42→23:46)
[2017-01-23] MEDS ORDERED: LIDOCAINE W/EPINEPHRINE 1% 20ML VIAL As Ordered ONE (01:16)
[2017-01-23] MEDS ORDERED: MIDAZOLAM INJ 2 MG/2 ML VIAL (J2250) As Ordered ONE ×2 (01:20→09:09)
[2017-01-23] MEDS ORDERED: fentaNYL 100 MCG/2 ML INJECTION (J3010) As Ordered ONE (01:20)
[2017-01-23] MEDS ORDERED: ceFAZolin 1GM INJ (J0690 PER 500MG) As Ordered ONE (01:32)
[2017-01-23] MEDS: LABETALOL HCL 200 MG in D5W 160 ML IV SCH ×2 (02:32→05:24)
[2017-01-23 02:44] LABS: CSF MONONUCLEAR CELL % 28.7 % (0-0); CSF POLYMORPHONUCLEAR CELL % 71.3 % (0-0)
[2017-01-23] MEDS ORDERED: MANNITOL 20% 100GM/500 ML BAG IV PRN (02:45)
[2017-01-23 02:46] LABS: APPEARANCE, CSF TURBID (CLEAR); COLOR, CSF PINK (COLORLESS); CSF DIFF IF INDICATED? YES (NO); CSF TUBE# CELL CNT TUBE 1
[2017-01-23] MEDS: levETIRAcetam INJection 500 MG in D5W MINI-BAG PLUS 100 ML IV SCH ×2 (03:44→14:22)
[2017-01-23] MEDS: dexameTHASONE 20 MG/5 ML VIAL (J1100) IV SCH ×4 (03:44→20:11)
[2017-01-23 04:53] LABS: BASO % 0.1 % (0.0-1.0); LYMPH # 0.6 10^3/uL (1.5-4.5); LYMPH % 4.9 % (24.0-44.0); MEAN CORPUSCULAR HEMOGLOBIN 17.2 pg (27.0-33.0); MEAN CORPUSCULAR HGB CONC 26.3 g/dl (32.0-36.5); MEAN CORPUSCULAR VOLUME 65.4 fl (80.0-96.0); MONO # 0.4 10^3/uL (0.0-0.8); MONO % 2.7 % (0.0-5.0); NEUTROPHILS # 12.1 10^3/uL (1.8-7.7); NEUTROPHILS % 91.3 % (36.0-66.0); PLATELET COUNT, AUTOMATED 322 10^3/uL (150-450); RED CELL DISTRIBUTION WIDTH 19.8 % (11.5-14.5); WHITE BLOOD COUNT 13.2 10^3/uL (4.0-10.0)
[2017-01-23 05:18] LABS: ALBUMIN 2.9 GM/DL (3.2-5.2); ALBUMIN/GLOBULIN RATIO 0.83 (1.00-1.93); BILIRUBIN,TOTAL 0.4 MG/DL (0.2-1.0); CALCIUM LEVEL 9.1 MG/DL (8.5-10.1); CREATININE FOR GFR 1.05 MG/DL (0.55-1.02); GLOMERULAR FILTRATION RATE 59.3 (>58); POTASSIUM SERUM 3.8 MEQ/L (3.5-5.1); TOTAL PROTEIN 6.4 GM/DL (6.4-8.2)
[2017-01-23 05:47] LABS: ABG BASE EXCESS -5.2 (-2.0-2.0); ABG HCO3 17.2 MEQ/L (22.0-26.0); ABG PARTIAL PRESSURE CO2 23.3 mmHg (35.0-45.0); ABG PARTIAL PRESSURE O2 130.8 mmHg (75.0-100.0); ABG STANDARD HCO3 20.2 MEQ/L (22.0-26.0); ABG TOTAL CO2 17.9 MEQ/L (22.0-29.0); ABG pH (ARTERIAL) 7.486 UNITS (7.350-7.450)
--- NOTE | 2017-01-23 05:50 | EEG ---
DATE OF PROCEDURE: 01/22/2017 REFERRING PHYSICIAN: Dr. Venkat Canales. DIAGNOSIS: Possible seizure with left-sided basal ganglia hemorrhage. EEG NUMBER: [id number]. HISTORY: The patient is a 51-year-old woman who was admitted at [facility] due to left-sided basal ganglia hemorrhage and had a possible seizure. This EEG was done to rule out epileptic potential. She is currently on labetalol, Protonix, etc.. TECHNICAL DESCRIPTION: This digital EEG was recorded by 21 scalp, ear and two EKG electrodes and was reviewed in bipolar and referential montages following reformatting in 10-20 international electrode placement system. INTERPRETATION: The patient was noted to be in awake and drowsy states during this EEG. Resting awake background rhythm consisted of 4 - 5 Hz theta activity measuring 15 - 50 microvolts in amplitude. Stage I and II sleep were reviewed and were symmetric bilaterally. Hyperventilation was not performed. Photic stimulation remained unremarkable. Left central, parietal and temporal intermittent delta slowing was noted. EKG revealed normal sinus rhythm. No epileptiform abnormalities were seen. No clinical or electrographic seizures were recorded. CONCLUSION: EEG in awake, drowsy states, stage I and II sleep is abnormal due to presence of mild generalized slowing and left central, parietal and temporal intermittent delta slowing consistent with mild generalized nonspecific diffuse cerebral dysfunction such as seen in encephalopathy due to multiple potential causes. Intermittent left central parietal and temporal delta slowing is likely due to focal structural or functional abnormality. No epileptiform abnormalities were seen. Clinical correlation is recommended. MTDD
--- NOTE | 2017-01-23 06:41 | CCN ---
DATE: 01/23/2017 CRITICAL CARE NOTE: I was called back to the intensive care unit to reevaluate this patient for falling oxygen saturations. Earlier today, she developed irregular sonorous respiratory efforts which resolved with placement of the nasal pharyngeal airway. A few minutes ago she began to develop shallow rapid breathing and her saturations fell. Oxygen was applied and despite non-rebreather, her oxygen saturations were just 90. OBJECTIVE: VITAL SIGNS: On my arrival, her temperature is 97, pulse rate 69, respirations 30 and ineffective blood pressure 92/76. HEENT: Her pupils remain sluggish. She is less responsive, withdraws from pain. No spontaneous eye movement. No resistance to eye movement. No phonation. NECK: Remains soft, supple. HEART: Sounds are regular. CHEST: Somewhat distant breath sounds are coarse, clear. Respiratory efforts are labored. ABDOMEN: Soft. EXTREMITIES: Show no edema. Right side is flaccid. Left side resists some. ASSESSMENT: Primary problem requiring critical attention is acute respiratory failure with hypoxemia. Chest x-ray was obtained but is unable to be viewed. I will proceed with intubation to secure her airway in light of her increased coma scale. Her level of consciousness has fallen. I am concerned for increasing intracranial pressure. Will administer mannitol. I have called neurosurgery who have been kind enough to come and evaluate the patient. Will arrange for a stat repeat CT scan. She may require emergent decompression. Blood pressure is now low. She is off antihypertensives. We will administer saline bolus. Pressors may be necessary if her blood pressure does not improve. Condition is critical. Prognosis guarded. One hour and 39 minutes was spent in the provision of bedside critical care and coordination in excess of spent performing procedures.
[2017-01-23] MEDS ORDERED: MANNITOL 20% BAG 125 ML IV PRN (07:15)
[2017-01-23] MEDS ORDERED: LIDOCAINE W/EPINEPHRINE 1% 20ML VIAL ONE (07:17)
--- NOTE | 2017-01-23 07:38 | REP ---
Clinical: Endotracheal tube placement. Comparison: 01/22/2017. Findings: Mediastinum and cardiac silhouette are within normal limits. Endotracheal tube approximately 2.2 cm above the patience. Trace left basilar atelectasis cannot be excluded. No further consolidation, obvious effusion, or pneumothorax. Skeletal structures are intact. Impression: Endotracheal tube approximately 2.2 cm above the patience. Cannot exclude trace left basilar atelectasis. Signed by Washington Reid MD 01/23/2017 07:30 A
[2017-01-23] MEDS: CEFAZOLIN SOD 1 GM in APPROPRIATE DILUENT 1 EA IV SCH ×3 (08:08→20:11)
--- NOTE | 2017-01-23 08:19 | REP ---
Clinical: Status post intubation. Comparison: 01/22/2017 at 10:19 p.m. Findings: Current examination demonstrates right mainstem intubation requires repositioning. Mediastinum and cardiac silhouette are normal. Lung perdomo are symmetric and clear. No consolidation, effusion, or pneumothorax. Skeletal structures intact. Impression: Right mainstem intubation. Signed by Washington Reid MD 01/23/2017 08:10 A
--- NOTE | 2017-01-23 08:23 | REP ---
Clinical: Hypoxia. Comparison: 01/20/2017. Findings: Examination is significantly limited by underpenetration, poor inspiratory effort and portable technique / positioning. Perihilar and lower lobe opacities suggest infiltrates versus pulmonary edema and correlation is recommended. No definite effusion. No pneumothorax. Skeletal structures intact. Mediastinum and cardiac silhouette are stable. Impression: Perihilar and lower lobe opacities suggesting multifocal infiltrates and edema. Signed by Washington Reid MD 01/23/2017 08:14 A
[2017-01-23] MEDS: niCARdipine 20 MG CAP PO SCH ×4 (09:00→21:00)
[2017-01-23] MEDS: PANTOPRAZOLE 40MG INJ (PROTONIX) (C9113) IV SCH (09:00)
[2017-01-23] MEDS: CHLORHEXIDINE ORAL RINSE 0.12%/15ML 120ML BOTTLE MT SCH ×2 (09:00→20:45)
[2017-01-23] MEDS: MIDAZOLAM INJ 2 MG/2 ML VIAL (J2250) IV PRN ×2 (09:12→12:17)
[2017-01-23 09:44] LABS: GLUCOSE CSF 52 MG/DL (40-75)
--- NOTE | 2017-01-23 10:35 | REP ---
CT HEAD WITHOUT CONTRAST: HISTORY: Shunt placement. COMPARISON: 01/22/2017. A hypodense mass with a 1.9 cm hemorrhagic component is present in the left basal ganglia, thalamus and mid brain. The patient is status post ventricular shunt placement. The shunt enters the anterior horn of the left lateral ventricle. The tip of the shunt is present in the region of the left thalamus. Edema is present in the periventricular white matter greater on the left than on the right. There is mass effect with prior effacement of the body of the left lateral and third ventricles with midline shift to the right. This is unchanged compared to the previous study. There is minimal hydrocephalus that is decreased compared to the previous study. There is no extracerebral collection. The visualized sinuses are clear. IMPRESSION: 1. Left basal ganglia , left thalamic and mid brain mass with a small hemorrhagic component with mass effect and midline shift to the right unchanged compared to the previous study. 2. The patient is status post shunt placement. The shunt enters the anterior horn of the left lateral ventricle. The tip of the shunt is present in the region of the left thalamus. There is minimal hydrocephalus that is decreased compared to the previous study. Signed by Satinder Olivarez MD 01/23/2017 11:09 A
--- NOTE | 2017-01-23 10:56 | RO ---
DATE OF PROCEDURE: 01/23/2017 PREPROCEDURE DIAGNOSES: Coma, acute hydrocephalus, left intracerebral bleeding, intracranial hypertension, brain swelling and edema with midline shift. POSTPROCEDURE DIAGNOSES: Coma, acute hydrocephalus, left intracerebral bleeding, intracranial hypertension, brain swelling and edema with midline shift. PROCEDURE: Left frontal ventriculostomy; placement of Lizz intracranial/intraventricular pressure monitoring device. SURGEON: Dr. Allyn Kaminski. DIRECTOR OF COMMUNICATIONS: None. ANESTHESIA: Local with monitored anesthesia care (MAC). FINDINGS: Please see my recent progress note and consultation in the intensive care unit (ICU) for this patient. The patient presented a few days ago in the emergency room with rapid onset of neurologic deficits. Her workup showed small hematoma near the caudate nucleus and the internal capsule. There was a mass which started in the mid brain and extents to the thalamus and into the basal ganglia region with vasogenic edema and shift of midline structures towards the left. MRI did not show convincing evidence of cerebrovascular accident (CVA), though occlusion of dural venous sinuses could be readily excluded. Workup is in progress at this stage. I was called to see this patient earlier today with progressive decline in her neurologic status. On my evaluation in the ICU, she was found to be comatose and on pain and also spontaneously, she would decerebrate on the right and had minimal movement on the left. Pupils, however, remained equal and sluggishly reacting as earlier in the day. A repeat CT scan showed increasing mass effect and ventriculomegaly with acute hydrocephalus. There was midline shift. Grave outlook was discussed with the patient's family again. Various options of management were discussed. The patient's family understood her chances of regaining former central nervous system excellence are slim with and without any surgery. They understood my rationale for recommending ventriculostomy and monitoring of intracranial pressure. The understood that no guarantees of any kind could be given and they understood the risk of surgery include worsening or deepening of coma, increased paralysis, loss of any or other vital bodily functions, seizure disorder, status epilepticus, worsening of intracranial bleeding, infection, bleeding, failure of surgery, need for multiple surgeries and/ora any catastrophic sequela. They wished to proceed with the procedure. DESCRIPTION OF PROCEDURE: Once in the operating room, the area of surgery was prepped and draped in the usual sterile fashion. After adequate prep and drape, a stab incision was given about 2.5 cm from the midline of the coronal suture. A trephine was made in the usual fashion with a small drill bit which was followed by a larger drill bit to accommodate the Haskell ventriculostomy guiding device. The drill was opened and ventriculostomy was performed. The opening pressure was quite high at least 65 mm or more. At this time the Lizz ventriculostomy catheter was left in place and tightened at the skull vault. Attention was now paid to the intracranial monitoring device which was calibrated to 0 and then placed in the ventricle through the ventricular catheter. The intraocular pressure was now at 12 after about 25 mL of spinal fluid was drained. Dermabond was applied at the stab incision site and a sterile dressing was applied. The patient tolerated the procedure well and was transferred to the ICU in stable condition. Operative findings were discussed with the patient's family in the ICU. The blood loss was negligible. Please fax to [phone].
--- NOTE | 2017-01-23 10:56 | RO ---
DATE OF PROCEDURE: 01/23/2017 PREOPERATIVE DIAGNOSIS: Hypoxemia. POSTOPERATIVE DIAGNOSIS: Hypoxemia. PROCEDURE PERFORMED: Endotracheal tube intubation via direct laryngoscopy. SURGEON: Venkat Canales DO CONTAINER FILLER: ANESTHESIA: DESCRIPTION OF PROCEDURE: Patient was seen in the intensive care unit, critically ill, deteriorating with hypoxemia. An 8.5 endotracheal tube was prepared and direct laryngoscopy performed. The vocal cords were visualized. There were dark secretions around the vocal cords. The endotracheal tube was placed through the vocal cords without difficulty to a distance of 23 cm. The balloon was inflated. Good bilateral breath sounds were appreciated, and there were no complications. CO2 was appreciated on the monitor.
[2017-01-23 12:15] LABS: CSF GROUP B STREP NEGATIVE (NEGATIVE); CSF H. INFLUENZA NEGATIVE (NEGATIVE); CSF N MENINGITIDIS ACYW135 NEGATIVE (NEGATIVE); CSF STREP PNUEMO NEGATIVE (NEGATIVE)
[2017-01-23] MEDS: KCL 20MEQ in NS 1000ML 1,000 ML IV SCH (12:18)
[2017-01-23 14:23] LABS: ABG BASE EXCESS -4.9 (-2.0-2.0); ABG HCO3 18.6 MEQ/L (22.0-26.0); ABG PARTIAL PRESSURE O2 83.2 mmHg (75.0-100.0); ABG STANDARD HCO3 20.4 MEQ/L (22.0-26.0); ABG TOTAL CO2 19.5 MEQ/L (22.0-29.0); ABG pH (ARTERIAL) 7.426 UNITS (7.350-7.450)
--- NOTE | 2017-01-23 14:34 | REP ---
PORTABLE CHEST: AP portable view of the chest is performed. Comparison is made with a prior study of the same day. There is somewhat poor ventilation with some mild bibasilar atelectasis/infiltrate. The cardiomediastinal silhouette is unchanged. There has been placement of a right subclavian central venous catheter. The tip crosses the midline and lies within the left brachiocephalic vein. There is no pneumothorax. Endotracheal tube is seen with the tip 1.7 cm above the patience. Nasogastric tube traverses into the stomach. Signed by Junaid Ramirez MD 01/23/2017 04:57 P
--- NOTE | 2017-01-23 15:46 | CCN ---
A.M. CRITICAL CARE NOTE DATE: 01/23/2017 The patient is reevaluated in the intensive care unit, remains intubated, mechanically ventilated, sedate with propofol, spontaneously moving her left side. Intracranial pressure monitoring has been ongoing since return from the operating room last night. Current temperature is 98.8, T-max for the past 24 hours 100.6, pulse rate is 80, respirations 20/20 delivered, blood pressure 103/50, I and O for the past 24 hours 2825 in, 2035 out since midnight 1179 in, 1316 out. She is ill appearing. Her pupils are small and sluggish. There has been no intracranial pressure monitor and her left parietal. Oral endotracheal tube and orogastric tubes in good position. Neck is supple. No meningismus. Heart sounds are regular without appreciable murmur. Breath sounds coarse clear. No focal sounds. Abdomen is soft. Bowel sounds right lower quadrant. No palpable mass. Extremities cool. She is moving her left side spontaneously, right side is showing neglect. DIAGNOSTIC STUDIES: Chest x-ray shows the endotracheal tube in good position. Good bilateral lung inflation, no infiltrates. Formal report is pending. White cell count is up slightly at 13.2, hemoglobin is down at 7.8, hematocrit 29.7 from 8.2 and 31 yesterday, platelet count is 322,000. Differential white cell count shows 91% neutrophils. Sodium is 144, potassium 3.8, chloride 114, CO2 21, BUN 18, creatinine 1.05, glucose 171. Serum osmol is 309, calcium 91, phosphorus 30, AST 13, ALT 19, LDH 832. Her albumin is 2.9. Arterial blood gas showed a pH of 7.48, pCO2 23, pO2 130. Her platelet function evaluation is 138. Urine osmolarity this morning was 571, cerebral spinal fluid sent last evening was described as turbid. White cell count 726, 28% mononuclear cells, 71% neutrophils, protein 395, glucose 52. Cytology is pending. The primary problem requiring critical attention is acute respiratory failure. We will change mechanical ventilatory settings to allow the pCO2 to come up. Her lung compliance is quite good, we are using low pressures in light of the concern regarding intracranial pressure. Intracranial hemorrhage. The patient suffered a bleed into what appears to be on imaging a tumor. There is no further active bleeding on this morning's scan. Increased intracranial pressure. CSF is now being actively drained. Her ICP is much improved. I appreciate the ongoing assistance of neurosurgery. The plan is to replace the intracranial pressure monitor today with one that will be more secure in an attempt to obtain a sample of the tumor at the time of that procedure. Blood pressure control. She has no other requiring antihypertensives. Her cerebral perfusion pressure is adequate off therapy. Fluid volume. Central venous pressure is 8. Urine output is good. Brain tumor. Cytology from the initial fluid is negative. There is a hope to obtain some tissue later today. The CT survey did not reveal any evidence of malignancy in the neck, chest or abdomen. Cystic kidney disease was a known prior issue. Following hemoglobin and hematocrit (H H). The etiology is unclear. There is no evidence of active bleeding. We will type and screen her for red cells and recheck the H H at 6 p.m. Deep venous thrombosis (DVT) prophylaxis is being addressed with sequential hose. Ulcer prophylaxis being addressed with IV Protonix. Nutritional support will be initiated with tube feedings. Glycemic control will be addressed with fingerstick blood sugars and coverage. I have updated the patient's at bedside and have been in ongoing communication with neurosurgery. The patient's condition is critical. Prognosis is guarded. 1 hour and 47 minutes is spent in provision of bedside critical care and coordination exclusive of time spent in the performance of procedures.
--- NOTE | 2017-01-23 16:28 | RO ---
DATE OF PROCEDURE: 01/23/2017 PREOPERATIVE DIAGNOSIS: Hypovolemia. POSTOPERATIVE DIAGNOSIS: Hypovolemia. PROCEDURE PERFORMED: Right subclavian central venous pressure (CVP) placement. SURGEON: Venkat Canales MD SEO ASSOCIATE: ANESTHESIA: PROCEDURE NOTE: The patient was seen in the intensive care unit intubated, mechanically ventilated, critically ill, hypovolemic with insufficient venous access. This procedure was reviewed with the patient's and informed consent conversation was held. The patient was placed in the supine position, 30 degrees elevated. The skin overlying the right subclavian vein was prepped with Chloraprep, draped in sterile fashion and a 25-gauge needle was used to raise the skin with 1% lidocaine. Thereafter a 17-gauge introducer needle was placed in through the skin and into the right subclavian vein. Free return of venous blood was obtained. A vascular tip guidewire was advanced. A small incision was made adjacent to guidewire and a triple-lumen catheter placed over the guidewire to a distance of 18 cm. The catheter was sewn in place. A sterile dressing was applied. Postprocedural chest x-ray is pending. There were no complications.
[2017-01-23 18:35] LABS: ABG BASE EXCESS -5.6 (-2.0-2.0); ABG HCO3 17.7 MEQ/L (22.0-26.0); ABG PARTIAL PRESSURE CO2 26.8 mmHg (35.0-45.0); ABG PARTIAL PRESSURE O2 89.4 mmHg (75.0-100.0); ABG STANDARD HCO3 19.8 MEQ/L (22.0-26.0); ABG TOTAL CO2 18.5 MEQ/L (22.0-29.0); ABG pH (ARTERIAL) 7.437 UNITS (7.350-7.450)
[2017-01-23 18:38] LABS: MEAN CORPUSCULAR HEMOGLOBIN 17.2 pg (27.0-33.0); MEAN CORPUSCULAR HGB CONC 26.3 g/dl (32.0-36.5); MEAN CORPUSCULAR VOLUME 65.2 fl (80.0-96.0); PLATELET COUNT, AUTOMATED 353 10^3/uL (150-450); RED CELL DISTRIBUTION WIDTH 20.2 % (11.5-14.5); WHITE BLOOD COUNT 15.2 10^3/uL (4.0-10.0)
[2017-01-24] VITALS (56 sets, daily range): BP systolic 97–153; BP diastolic 44–92; O2SAT 95
[2017-01-24] MEDS: MIDAZOLAM INJ 2 MG/2 ML VIAL (J2250) IV PRN ×5 (00:20→21:34)
[2017-01-24] MEDS: KCL 20MEQ IN D5/NS 1000ML 1,000 ML IV SCH ×3 (02:10→21:34)
[2017-01-24] MEDS: CEFAZOLIN SOD 1 GM in APPROPRIATE DILUENT 1 EA IV SCH ×4 (02:11→19:35)
[2017-01-24] MEDS: dexameTHASONE 20 MG/5 ML VIAL (J1100) IV SCH ×4 (02:11→19:35)
[2017-01-24] MEDS: levETIRAcetam INJection 500 MG in D5W MINI-BAG PLUS 100 ML IV SCH ×2 (02:12→14:33)
[2017-01-24] MEDS: PROPOFOL 1,000 MG in APPROPRIATE DILUENT 1 EA IV SCH ×7 (02:52→22:35)
[2017-01-24] MEDS: ACETAMINOPHEN 650 MG SUPP PR PRN (04:42)
[2017-01-24] MEDS: HumaLOG INSULIN (NovoLOG) PER UNIT SC SCH ×3 (06:06→17:13)
[2017-01-24 06:17] LABS: IMMATURE GRANULOCYTE % 0.9 % (0-0); LYMPH # 0.4 10^3/uL (1.5-4.5); LYMPH % 3.4 % (24.0-44.0); MEAN CORPUSCULAR HEMOGLOBIN 17.6 pg (27.0-33.0); MEAN CORPUSCULAR HGB CONC 27.2 g/dl (32.0-36.5); MONO # 0.5 10^3/uL (0.0-0.8); MONO % 4.3 % (0.0-5.0); NEUTROPHILS # 10.7 10^3/uL (1.8-7.7); NEUTROPHILS % 91.4 % (36.0-66.0); PLATELET COUNT, AUTOMATED 316 10^3/uL (150-450); RED CELL DISTRIBUTION WIDTH 20.2 % (11.5-14.5); WHITE BLOOD COUNT 11.7 10^3/uL (4.0-10.0)
[2017-01-24 06:19] LABS: ABG BASE EXCESS -4.9 (-2.0-2.0); ABG HCO3 18.7 MEQ/L (22.0-26.0); ABG PARTIAL PRESSURE CO2 28.5 mmHg (35.0-45.0); ABG PARTIAL PRESSURE O2 105.5 mmHg (75.0-100.0); ABG STANDARD HCO3 20.4 MEQ/L (22.0-26.0); ABG TOTAL CO2 19.5 MEQ/L (22.0-29.0); ABG pH (ARTERIAL) 7.434 UNITS (7.350-7.450)
[2017-01-24 06:35] LABS: ALBUMIN 2.6 GM/DL (3.2-5.2); ALBUMIN/GLOBULIN RATIO 0.79 (1.00-1.93); BILIRUBIN,TOTAL 0.2 MG/DL (0.2-1.0); CALCIUM LEVEL 8.6 MG/DL (8.5-10.1); CREATININE FOR GFR 1.08 MG/DL (0.55-1.02); GLOMERULAR FILTRATION RATE 57.4 (>58); TOTAL PROTEIN 5.9 GM/DL (6.4-8.2)
--- NOTE | 2017-01-24 07:48 | REP ---
Clinical: Endotracheal tube. Comparison: 01/23/2017. Findings: Endotracheal tube is approximately 5 mm above the patience. Nasogastric tube courses below left hemidiaphragm. Right subclavian catheter with tip in the left brachial cephalic vein unchanged. Increased pulmonary vasculature and interstitial markings along with bibasilar atelectasis (left greater than right). Impression: 1. Endotracheal tube approaches the patience and should be reevaluated. 2. Cannot exclude mild pulmonary vascular congestion as well as trace basilar atelectasis (left greater than right). Signed by Washington Reid MD 01/24/2017 07:40 A
[2017-01-24] MEDS: niCARdipine 20 MG CAP PO SCH ×3 (08:42→21:33)
[2017-01-24] MEDS: CHLORHEXIDINE ORAL RINSE 0.12%/15ML 120ML BOTTLE MT SCH ×2 (08:42→21:33)
[2017-01-24] MEDS: PANTOPRAZOLE 40MG INJ (PROTONIX) (C9113) IV SCH (08:43)
--- NOTE | 2017-01-24 11:00 | CCN ---
DATE OF VISIT: 01/24/2017 START TIME: 931 STOP TIME: 1010 I attended Aggie Stone in the intensive care unit. The patient has been examined and the chart is reviewed. T-max overnight was 99 degrees. Blood pressure 97 to 150s. Heart rate 70 to the 90s. Respiratory rate 21 to 26. She does over breathe the ventilator. Ins and outs midnight to midnight with 2608 mL in with 1739 mL out. Last CVP is 9. She had a new communal catheter placed last evening by Dr. Kaminski. It is functioning well. ICP is running 9 to 11. Cytology on the first CSF shows no evidence of malignancy and repeat from last evening is pending. Chest x-ray from this morning shows lines and tubes in good position. No new findings. Most recent laboratory show a sodium of 149, potassium 4.0, chloride 119, CO2 21, BUN 27, creatinine 1.08. Osmolality is high at 324. White blood cell count 11.7, hemoglobin down to 6.9 and platelet count 316,000 with 91% segs and 0 bands. Blood gas done this morning on a pressure control mode, rate of 15, pressure of 10, PEEP of 3, has a pH of 7.434, pCO2 28.5 and pO2 of 105.5. No new culture results available. On exam, she is ill appearing. She is sedated. She has the communal intraperitoneal catheter in place. Sedation vacation not done this morning in view of her catheter and the precarious nature of it at this point. Pupils are small. I do believe that they work. Trachea is in the midline. Chest is clear to both auscultation and percussion. Expansion is symmetric. Cardiac exam distant, but regular. Peripheral pulses easily palpable. No edema. Abdomen soft with active bowel sounds. No convincing organomegaly or masses. Extremities show no cyanosis or clubbing. Neurologically, she is sedate. Nutritionally, she is tolerating her enteral feeds. She has not had any stool yet. The nurses report a heavy amount of menstrual bleeding over the last 48 hours. 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 At this point, she is over breathing the ventilator, so short of paralyzing her, it will be difficult for us to get her pCO2 elevated. Her intracranial pressure is quite good. Her blood pressure is under much better control and she has not required either labetalol or nicardipine since 1600 yesterday. She is making reasonable urine. She is on antimicrobials in view of her catheter. As noted above, the cytology from her first CSF is nondiagnostic. Repeat was sent last evening. If this remains nondiagnostic, then a formal brain biopsy will need to be undertaken by Dr. Kaminski. I suspect her anemia is multifactorial. She was mildly anemic on arrival. In between dilution and her heavy menstrual cycle, I believe this is complicating her issues. She will be given blood to maximize her oxygen carrying capacity. I would like her hemoglobin at least over 8. At this point, however, she remains critically ill. Her was updated at the bedside. I left the bedside at 1010 hours. 38 minutes of critical care was delivered at the bedside, not including procedures.
[2017-01-24] MEDS ORDERED: ISOVUE-370 76% 100ML VIAL (Q9967) As Ordered ONE (15:00)
--- NOTE | 2017-01-24 16:47 | REP ---
CT HEAD WITHOUT AND WITH CONTRAST: HISTORY: Postoperative scan. CONTRAST: Isovue-370, 75 mL A hypodense mass with a 1.6 cm hemorrhagic component is present in the left basal ganglia, thalamus and mid brain. Edema is present in the periventricular white matter, greater on the left than on the right. There is mass effect with partial effacement of the body of the left lateral and third ventricles with midline shift to the right that is unchanged compared to the previous study. A shunt is present with its tip in the third ventricle. There is minimal hydrocephalus that is slightly decreased compared to the previous study. There is no extracerebral collection. The visualized sinuses are clear. IMPRESSION: 1. There is a left basal ganglia, thalamic and mid brain mass with a small hemorrhagic component with mass effect and midline shift to the right that is unchanged compared to the previous study. 2. A shunt is present with its tip in the third ventricle. There is minimal hydrocephalus that is slightly decreased compared to the previous study. Signed by Satinder Olivarez MD 01/24/2017 04:49 P
[2017-01-25] VITALS (28 sets, daily range): BP systolic 105–180; BP diastolic 54–91; O2SAT 93–94
[2017-01-25] MEDS: MIDAZOLAM INJ 2 MG/2 ML VIAL (J2250) IV PRN ×4 (00:15→17:53)
[2017-01-25] MEDS: HumaLOG INSULIN (NovoLOG) PER UNIT SC SCH ×5 (00:22→23:59)
[2017-01-25] MEDS: PROPOFOL 1,000 MG in APPROPRIATE DILUENT 1 EA IV SCH ×8 (01:42→22:20)
[2017-01-25] MEDS: dexameTHASONE 20 MG/5 ML VIAL (J1100) IV SCH ×4 (02:37→19:35)
[2017-01-25] MEDS: levETIRAcetam INJection 500 MG in D5W MINI-BAG PLUS 100 ML IV SCH ×2 (02:38→15:02)
[2017-01-25] MEDS: CEFAZOLIN SOD 1 GM in APPROPRIATE DILUENT 1 EA IV SCH ×4 (02:38→19:35)
[2017-01-25 05:46] LABS: BASO % 0.1 % (0.0-1.0); IMMATURE GRANULOCYTE % 2.7 % (0-0); LYMPH # 0.6 10^3/uL (1.5-4.5); LYMPH % 5.5 % (24.0-44.0); MEAN CORPUSCULAR HEMOGLOBIN 19.2 pg (27.0-33.0); MEAN CORPUSCULAR HGB CONC 27.8 g/dl (32.0-36.5); MEAN CORPUSCULAR VOLUME 68.9 fl (80.0-96.0); MONO # 0.6 10^3/uL (0.0-0.8); MONO % 5.1 % (0.0-5.0); NEUTROPHILS # 9.7 10^3/uL (1.8-7.7); NEUTROPHILS % 86.6 % (36.0-66.0); PLATELET COUNT, AUTOMATED 316 10^3/uL (150-450); WHITE BLOOD COUNT 11.2 10^3/uL (4.0-10.0)
[2017-01-25 06:08] LABS: ALBUMIN 2.7 GM/DL (3.2-5.2); ALBUMIN/GLOBULIN RATIO 0.93 (1.00-1.93); ALKALINE PHOSPHATASE 114 U/L (45-117); ALT/SGPT 18 U/L (12-78); ANION GAP 10 MEQ/L (8-16); AST/SGOT 12 U/L (7-37); BILIRUBIN,TOTAL 0.3 MG/DL (0.2-1.0); BLOOD UREA NITROGEN 21 MG/DL (7-18); CALCIUM LEVEL 8.4 MG/DL (8.5-10.1); CARBON DIOXIDE LEVEL 20 MEQ/L (21-32); CHLORIDE LEVEL 118 MEQ/L (98-107); CHOLESTEROL LEVEL 125 MG/DL (< 200); CREATININE FOR GFR 1.02 MG/DL (0.55-1.02); GLOMERULAR FILTRATION RATE > 60.0 (>58); GLUCOSE, FASTING 322 MG/DL (70-105); POTASSIUM SERUM 4.5 MEQ/L (3.5-5.1); SODIUM LEVEL 148 MEQ/L (136-145); TOTAL PROTEIN 5.6 GM/DL (6.4-8.2); TRIGLYCERIDES LEVEL 139 MG/DL (<150)
[2017-01-25 06:19] LABS: ABG HCO3 18.4 MEQ/L (22.0-26.0); ABG PARTIAL PRESSURE CO2 28.8 mmHg (35.0-45.0); ABG STANDARD HCO3 20.3 MEQ/L (22.0-26.0); ABG TOTAL CO2 19.3 MEQ/L (22.0-29.0); ABG pH (ARTERIAL) 7.424 UNITS (7.350-7.450)
[2017-01-25] MEDS: KCL 20MEQ IN D5/NS 1000ML 1,000 ML IV SCH ×2 (07:51→17:54)
[2017-01-25] MEDS: niCARdipine 20 MG CAP PO SCH ×3 (08:26→20:40)
[2017-01-25] MEDS: PANTOPRAZOLE 40MG INJ (PROTONIX) (C9113) IV SCH (08:26)
[2017-01-25] MEDS: CHLORHEXIDINE ORAL RINSE 0.12%/15ML 120ML BOTTLE MT SCH ×2 (10:14→20:39)
--- NOTE | 2017-01-25 14:56 | CCN ---
DATE OF VISIT: 01/25/2017 START TIME: 1005 hours STOP TIME: 1040 hours I again attended Aggie Stone here in the intensive care unit. She is intubated, sedated and mechanically ventilated. Her communal catheter remains in place. ICPs remain approximately 9-11. Last CVP was 9. She has required less drainage of her cerebrospinal fluid (CSF) in the last 24 hours. Maximum temperature (Tmax) overnight 99 degrees. Heart rate 70-80s with a sinus mechanism Blood pressure 100-140 systolic. She has not required restarting of her labetalol. She did get her nicardipine this morning as her blood pressure met parameters. Intakes and outputs last 24 hours ending at midnight 6590 mL in with 2360 mL out. Most recent laboratory show a white blood cell count 11.2, hemoglobin 8.7 (after transfusion), platelet count 316,000, 86% segs, no bands. Sodium of 148, potassium 4.5, chloride of 118, CO2 of 20, BUN 21, creatinine 1.02. Blood gas done this morning on a pressure control mode shows pH 7.42, pCO2 of 7 and saturation 95.5%. Chest x-ray shows no significant change, lines and tubes in good position. CT of the head done yesterday does show improvement in her hydrocephalus but no other new acute findings. Repeat cytology done on her CSF drawn from 01/24/2017 shows no evidence of malignancy. On exam, she is sedate. Her communal is in place. Dressings intact. Pupils do react. Sclerae are clear. Trachea is in the midline. Lines and tubes in good position. Chest shows bilateral air entry, which is symmetric. Some fine crackles dependently. No focal wheeze or rhonchus. Cardiac exam is regular with no gallop. Peripheral pulses easily palpable. No obvious edema. Abdomen obese , soft with active bowel sounds. No convincing organomegaly or masses. Extremities show no cyanosis or clubbing. Neurologically, she is sedate but does over breathe the ventilator and does move extremities to stimuli. The most pressing problems requiring my presence at the bedside: 1. Respiratory failure requiring mechanical ventilatory support. 2. Intracranial hemorrhage, tumor vs hypertensive. 3. Underlying hypertension. 4. Anemia, multifactorial. At this point, we will continue her current level of supportive care pending a definitive diagnosis to be obtained from neurosurgery. CSF times two is negative for malignancy, and given the concerns, apparently a brain biopsy will be necessary according to their notes. I had a long discussion this morning again with her concerning her status. I await Dr. Kaminski's discussion with him. At this point, we will continue her current level of tube feeds, which she is tolerating well. Sedation vacation was not performed in view of her tenuous neurologic status. We will continue her prophylactic antimicrobials. Her underlying respiratory alkalosis is really driven by her and I do not feel at this point that we need to paralyze her for that. Overall she remains critically ill. Prognosis remains guarded at best. I left the bedside at 1040 hours. 35 minutes of critical care was delivered at the bedside, not including procedures. ARMAAN
--- NOTE | 2017-01-25 14:57 | REP ---
CHEST, PORTABLE: AP portable view of the chest is performed and compared to a prior study of 01/24/2017. Endotracheal tube appears unchanged in position. Nasogastric tube traverses into the stomach. Right central venous catheter is unchanged in position. There is mild left basilar atelectasis/infiltrate which appears to be slightly increased since prior study. There is left ventricular prominence. Signed by Junaid Ramirez MD 01/25/2017 04:17 P
[2017-01-26] VITALS (66 sets, daily range): BP systolic 119–163; BP diastolic 57–85; O2SAT 92–94
[2017-01-26] MEDS: LABETALOL HCL 200 MG in D5W 160 ML IV SCH ×3 (00:18→16:00)
[2017-01-26] MEDS: CEFAZOLIN SOD 1 GM in APPROPRIATE DILUENT 1 EA IV SCH ×4 (01:14→19:17)
[2017-01-26] MEDS: PROPOFOL 1,000 MG in APPROPRIATE DILUENT 1 EA IV SCH ×9 (01:14→21:50)
[2017-01-26] MEDS: dexameTHASONE 20 MG/5 ML VIAL (J1100) IV SCH ×3 (01:19→13:50)
[2017-01-26] MEDS: levETIRAcetam INJection 500 MG in D5W MINI-BAG PLUS 100 ML IV SCH ×2 (02:12→14:49)
[2017-01-26] MEDS: KCL 20MEQ IN D5/NS 1000ML 1,000 ML IV SCH (02:13)
[2017-01-26 05:54] LABS: ABG BASE EXCESS -3.5 (-2.0-2.0); ABG HCO3 20.2 MEQ/L (22.0-26.0); ABG PARTIAL PRESSURE CO2 31.6 mmHg (35.0-45.0); ABG PARTIAL PRESSURE O2 82.3 mmHg (75.0-100.0); ABG STANDARD HCO3 21.5 MEQ/L (22.0-26.0); ABG TOTAL CO2 21.1 MEQ/L (22.0-29.0); ABG pH (ARTERIAL) 7.423 UNITS (7.350-7.450)
[2017-01-26] MEDS: HumaLOG INSULIN (NovoLOG) PER UNIT SC SCH ×3 (06:05→18:03)
[2017-01-26] MEDS: niCARdipine 20 MG CAP PO SCH ×3 (08:42→20:18)
[2017-01-26] MEDS: CHLORHEXIDINE ORAL RINSE 0.12%/15ML 120ML BOTTLE MT SCH ×2 (08:43→20:18)
[2017-01-26] MEDS: PANTOPRAZOLE 40MG INJ (PROTONIX) (C9113) IV SCH (08:44)
[2017-01-26 09:37] LABS: BASO % 0.2 % (0.0-1.0); IMMATURE GRANULOCYTE % 3.3 % (0-0); LYMPH # 0.6 10^3/uL (1.5-4.5); LYMPH % 5.7 % (24.0-44.0); MEAN CORPUSCULAR HEMOGLOBIN 19.6 pg (27.0-33.0); MEAN CORPUSCULAR VOLUME 70.2 fl (80.0-96.0); MONO # 0.5 10^3/uL (0.0-0.8); MONO % 4.8 % (0.0-5.0); NEUTROPHILS # 8.5 10^3/uL (1.8-7.7); PLATELET COUNT, AUTOMATED 316 10^3/uL (150-450); RED CELL DISTRIBUTION WIDTH 24.9 % (11.5-14.5); WHITE BLOOD COUNT 9.9 10^3/uL (4.0-10.0)
[2017-01-26 09:55] LABS: ALBUMIN 2.6 GM/DL (3.2-5.2); ALBUMIN/GLOBULIN RATIO 0.81 (1.00-1.93); ALKALINE PHOSPHATASE 128 U/L (45-117); ALT/SGPT 15 U/L (12-78); ANION GAP 9 MEQ/L (8-16); AST/SGOT 6 U/L (7-37); BILIRUBIN,TOTAL 0.2 MG/DL (0.2-1.0); BLOOD UREA NITROGEN 25 MG/DL (7-18); CALCIUM LEVEL 8.7 MG/DL (8.5-10.1); CARBON DIOXIDE LEVEL 22 MEQ/L (21-32); CHLORIDE LEVEL 113 MEQ/L (98-107); CHOLESTEROL LEVEL 128 MG/DL (< 200); GLOMERULAR FILTRATION RATE > 60.0 (>58); POTASSIUM SERUM 4.5 MEQ/L (3.5-5.1); SODIUM LEVEL 144 MEQ/L (136-145); TOTAL PROTEIN 5.8 GM/DL (6.4-8.2); TRIGLYCERIDES LEVEL 166 MG/DL (<150)
[2017-01-26 10:17] LABS: PHOSPHORUS LEVEL 4.3 MG/DL (2.5-4.9)
[2017-01-26 10:19] LABS: GLUCOSE, FASTING 432 MG/DL (70-105)
[2017-01-26] MEDS: BISACODYL 10 MG SUPP PR SCH (11:13)
[2017-01-26] MEDS: D5W/0.45% SODIUM CHLORIDE 1,000 ML IV SCH ×2 (11:31→21:49)
--- NOTE | 2017-01-26 12:25 | REP ---
PORTABLE CHEST: AP portable view of the chest is performed and compared to a prior study of 01/25/2017. Endotracheal tube, nasogastric tube and right central venous catheter have not definitely changed in position. There appears to be slight increase in right basilar atelectasis/infiltrate. Left basilar atelectasis/infiltrate is unchanged. Cardiomediastinal silhouette is unchanged. Signed by Junaid Ramirez MD 01/26/2017 05:35 P
--- NOTE | 2017-01-26 13:28 | CCN ---
DATE: 01/26/2017 START TIME: 0945 hours. STOP TIME: 1039 hours. I again attended Aggie Stone. The patient has been examined. Chart is reviewed. I spoke at length with her at the bedside. Through the night she had an increase in her blood pressure requiring the readdition of a labetalol drip. She remains on nicardipine 20 mg three times a day. Maximum temperature (t-max) overnight 98.1. Heart rate generally in the 50s to 80s with a sinus mechanism. Respiratory rate generally in the 20s. Input and output: 4803 mL in and 4101 mL out. CVP runs between 9 and 11, last ICP was 10. Arterial blood gas obtained on a pressure control, rate of 16, pressure of 10, PEEP of 3, FiO2 of 30% is a pH of 7.423, PCO2 of 31.6 and a PO2 of 82.3. Sodium 144, potassium 4.5, chloride 113, CO2 of 22, BUN 25, creatinine 1, glucose 432 this morning. Albumin 2.6. White blood cell count 9.9, hemoglobin 9.0, and platelet count 316,000, 86% segmented neutrophils, no bands. Chest x-ray shows lines and tubes in good position. No acute findings. PHYSICAL EXAMINATION: She is sedate and critically ill-appearing. Her intracranial monitor remains in place, as does her endotracheal and orogastric tubes. Pupils do react. Trachea is in the midline. Chest shows symmetric expansion, some fine crackles dependently at the bases but fairly clear anteriorly. Cardiac examination is regular, no gallop. Peripheral pulses palpable. Trace edema. Abdomen does show mildly distended, active bowel sounds. Extremities are without cyanosis or clubbing. Neurologically, she is sedate and no vacation given this morning in view of her indwelling intracranial monitor. The most pressing problems requiring my presence at the bedside are respiratory failure requiring mechanical ventilatory support, intracranial hemorrhage, probably secondary to tumor, increased glucose secondary to Decadron, underlying hypertension. At this point, we await the formal brain biopsy. I am told that the plan is hopefully for tomorrow. I had a long discussion at the bedside with the and her daughter regarding her current status. Given the fact that she has required the readdition of labetalol, we will see what the next 24 hours brings. If she is still requiring it, then I will increase her nicardipine, but await her biopsy tomorrow. She continues on Decadron. Her sugars are more elevated. We may actually switch to an insulin drip for a more level coverage. She is tolerating tube feeds, but has not had a bowel movement yet and we will add cathartics today. We will continue her current prophylactic antimicrobials. Ulcer and deep vein thrombosis (DVT) prophylaxis remains in place. Overall, she remains quite critically ill. I left the bedside at 1039 hours. 54 minutes of critical care time was delivered at the bedside, not including procedures.
[2017-01-26] MEDS: dexameTHASONE 4 MG/ML 1ML VIAL (J1100) IV SCH (19:16)
[2017-01-27] VITALS (26 sets, daily range): BP systolic 99–141; BP diastolic 55–85; O2SAT 95–97
[2017-01-27] MEDS: LABETALOL HCL 200 MG in D5W 160 ML IV SCH ×2
[2017-01-27] MEDS: HumaLOG INSULIN (NovoLOG) PER UNIT SC SCH ×2 (00:23→06:31)
[2017-01-27] MEDS: PROPOFOL 1,000 MG in APPROPRIATE DILUENT 1 EA IV SCH ×8 (00:25→22:08)
[2017-01-27] MEDS: CEFAZOLIN SOD 1 GM in APPROPRIATE DILUENT 1 EA IV SCH ×4 (02:05→20:54)
[2017-01-27] MEDS: dexameTHASONE 4 MG/ML 1ML VIAL (J1100) IV SCH ×4 (02:05→20:53)
[2017-01-27] MEDS: levETIRAcetam INJection 500 MG in D5W MINI-BAG PLUS 100 ML IV SCH ×2 (03:00→15:53)
[2017-01-27 05:35] LABS: BASO % 0.1 % (0.0-1.0); IMMATURE GRANULOCYTE % 2.6 % (0-0); LYMPH # 0.7 10^3/uL (1.5-4.5); LYMPH % 5.6 % (24.0-44.0); MEAN CORPUSCULAR HEMOGLOBIN 19.8 pg (27.0-33.0); MEAN CORPUSCULAR HGB CONC 28.7 g/dl (32.0-36.5); MEAN CORPUSCULAR VOLUME 69.1 fl (80.0-96.0); MONO # 1.1 10^3/uL (0.0-0.8); MONO % 8.4 % (0.0-5.0); NEUTROPHILS # 10.9 10^3/uL (1.8-7.7); NEUTROPHILS % 83.3 % (36.0-66.0); PLATELET COUNT, AUTOMATED 326 10^3/uL (150-450); RED CELL DISTRIBUTION WIDTH 25.4 % (11.5-14.5)
[2017-01-27 06:13] LABS: OSMOLALITY SERUM 316 MOSM/KG (275-295)
[2017-01-27 06:20] LABS: ABG BASE EXCESS -2.7 (-2.0-2.0); ABG HCO3 21.2 MEQ/L (22.0-26.0); ABG PARTIAL PRESSURE CO2 33.4 mmHg (35.0-45.0); ABG PARTIAL PRESSURE O2 88.8 mmHg (75.0-100.0); ABG STANDARD HCO3 22.2 MEQ/L (22.0-26.0); ABG TOTAL CO2 22.2 MEQ/L (22.0-29.0)
[2017-01-27 06:24] LABS: ALBUMIN 2.6 GM/DL (3.2-5.2); ALKALINE PHOSPHATASE 135 U/L (45-117); ALT/SGPT 16 U/L (12-78); ANION GAP 9 MEQ/L (8-16); AST/SGOT 8 U/L (7-37); BILIRUBIN,TOTAL 0.3 MG/DL (0.2-1.0); BLOOD UREA NITROGEN 27 MG/DL (7-18); CALCIUM LEVEL 8.5 MG/DL (8.5-10.1); CARBON DIOXIDE LEVEL 22 MEQ/L (21-32); CHLORIDE LEVEL 110 MEQ/L (98-107); CHOLESTEROL LEVEL 141 MG/DL (< 200); CREATININE FOR GFR 0.94 MG/DL (0.55-1.02); GLOMERULAR FILTRATION RATE > 60.0 (>58); GLUCOSE, FASTING 397 MG/DL (70-105); PHOSPHORUS LEVEL 3.9 MG/DL (2.5-4.9); POTASSIUM SERUM 4.5 MEQ/L (3.5-5.1); SODIUM LEVEL 141 MEQ/L (136-145); TOTAL PROTEIN 5.5 GM/DL (6.4-8.2); TRIGLYCERIDES LEVEL 224 MG/DL (<150)
[2017-01-27] MEDS: D5W/0.45% SODIUM CHLORIDE 1,000 ML IV SCH ×2 (06:33→16:42)
--- NOTE | 2017-01-27 08:18 | REP ---
Clinical: Endotracheal tube placement . Comparison: 01/26/2017 at 04:46 a.m. . Findings: Endotracheal tube extends to the patience and warrants reevaluation. Nasogastric tube in satisfactory position. Right-sided subclavian catheter with tip in the left brachiocephalic vein. The mediastinum and cardiac silhouette are stable and within normal limits for portable technique. Left lower lobe/retrocardiac consolidation unchanged. No obvious effusion, or pneumothorax. Skeletal structures are intact. Impression: 1. Endotracheal tube extends to the patience and warrants reevaluation. 2. Left lower lobe/retrocardiac consolidation unchanged. Signed by Washington Reid MD 01/27/2017 08:10 A
[2017-01-27] MEDS: PANTOPRAZOLE 40MG INJ (PROTONIX) (C9113) IV SCH (08:35)
[2017-01-27] MEDS: BISACODYL 10 MG SUPP PR SCH (08:35)
--- NOTE | 2017-01-27 08:46 | RO ---
DATE OF PROCEDURE: 01/23/2017 PREPROCEDURE DIAGNOSES: Coma. Malfunction of intracranial pressure (ICP) monitoring device. POSTPROCEDURE DIAGNOSES: Coma. Malfunction of intracranial pressure (ICP) monitoring device. PROCEDURE: SURGEON: Dr. Allyn Kaminski CAR RACER: ANESTHESIA: DESCRIPTION OF PROCEDURE: The patient had left frontal ventriculostomy and placement of ICP monitoring device on 01/23/2017. The patient was being transferred to the CT scan, the ventriculostomy and the ICP monitoring device was displaced. There had been on changes in her neurologic status. She remained comatose. No posturing on the right, had semipurposeful moment on the left. Would not open eyes to pain only.. Pupils were equal and reacting with occasional skew deviation of the left pupil. The device appeared to have been displaced and was not functioning adequately. Various options of management were discussed with the patient's and after informed consent, her agreed to have the device replaced. He has been aware of all options, risks, scope expected outcome of procedure and complications of the proposed of surgery and understood no guarantees of any kind could be given and that the risk of surgery include further worsening of the coma or the intracranial bleeding, infection, persistence or worsening of symptoms and/or deficits and/or any acute catastrophic sequelae. After informed consent, the patient was prepped and draped in the usual sterile fashion. The previous Lizz ventriculostomy catheter and ICP monitoring device was gently withdrawn from the brain. The left frontal ventriculostomy site was identified a new Lizz catheter was introduced into the ventricle system. About 20 mL of cerebrospinal fluid, (CSF) was again withdrawn. The ICP at this time, was normal around 10. A new ICP monitoring device was calibrated and was gently inserted into the ventricular catheter and as noted, the ICP was at 10 after draining the 20 ml of CSF.. The ventriculotomy catheter was connected to the drainage bag and sterile dressings were applied at the site of the puncture wound at the left coronal suture site. The patient tolerated the procedure well and there was no change in her neurological examination. Operative findings were discussed with the patient's and family. ARMAAN
[2017-01-27] MEDS: niCARdipine 20 MG CAP PO SCH ×3 (08:53→20:52)
[2017-01-27] MEDS: CHLORHEXIDINE ORAL RINSE 0.12%/15ML 120ML BOTTLE MT SCH ×2 (08:54→20:53)
--- NOTE | 2017-01-27 11:01 | CCN ---
DATE OF VISIT: 01/27/2017 START TIME: 0950 STOP TIME: 1031 I again attended Aggie Stone here in the intensive care. The patient remains intubated, sedated, and mechanically ventilated. I have spoken at length with her at the bedside. Maximum temperature (Tmax) overnight 99 degrees. Blood pressure 116-140s. She has been able to be weaned off the labetalol again since about 1700 yesterday. Heart rate remains in the 60s-70s with a sinus mechanism. Respiratory rate 22- 30 without accessory muscle use. Intake and output midnight to midnight 5895 mL in with 5279 mL out. Central venous pressure (CVP) remains 10-12. Intracranial pressure (ICP) 9-11. LABORATORIES: Show a white blood cell count of 13.0, hemoglobin 9.4, platelet count 326,000, 83% segmented neutrophils, no bands. Sodium of 141, potassium of 4.5, chloride 100, CO2 22, BUN 27, creatinine 0.94, glucose 397. Osmolality remains mildly elevated at 316, per neurosurgery. Albumin 2.6. Blood gas done on a pressure control mode, rate of 16, pressure support of 10, PEEP of 3, 40% FIO2, pH 7.420, PCO2 of 33.9, pO2 of 88, saturation 97%. Chest x-ray shows lines and tubes in good position. On examination, she is ill-appearing. Lines, tubes, and her Nutley catheter in place. She does have some conjunctival edema. Trachea is in the midline. Chest is generally clear to auscultation and percussion, is symmetric. No focal adventitious breath sounds are identified. Cardiac examination bradycardic but regular. Peripheral pulses easily palpable. Diffuse edema again noted. Abdomen is soft with active bowel sounds. No convincing organomegaly or mass. Extremities are without cyanosis or clubbing. Neurologically, as outlined above. She remains sedated, especially with her intracranial catheter in place. The most pressing problems requiring my presence at the bedside are: 1. Respiratory failure secondary to intracranial hemorrhage and edema. 2. Intracranial hemorrhage with question of tumor. 3. Hyperglycemia, most likely secondary to Decadron. 4. Anemia, status post transfusion. At this point, it appears she is on the operating room (OR) scheduled for a stereotactic biopsy tomorrow. We will continue her current level of supportive care pending that. She is on empiric antimicrobials. Will be getting insulin drip for her sugars. Electrolytes show a trend in the right direction with her serum sodiums. She is to remain on current prophylaxis for ulcer and deep venous thromboses (DVTs). Her prognosis remains guarded, and long-term outlook is difficult until we know what the driving force behind her original hemorrhage is. I spoke at length with the at the bedside. I left the bedside at 1031 hours. 41 minutes of critical care time was delivered at the bedside, not including procedures. ARMAAN
[2017-01-27] MEDS: INSULIN HUMAN REGULAR 100 UNITS in NS 99 ML IV SCH ×2 (11:45→21:49)
[2017-01-27] MEDS: INSULIN IV RATE CHANGE DOCUMENTATION ML/HR XX SCH ×6 (13:00→23:39)
[2017-01-27] MEDS: MIDAZOLAM INJ 2 MG/2 ML VIAL (J2250) IV PRN (17:43)
[2017-01-28] VITALS (23 sets, daily range): BP systolic 109–142; BP diastolic 61–80; O2SAT 96–98
[2017-01-28] MEDS: dexameTHASONE 4 MG/ML 1ML VIAL (J1100) IV SCH ×4 (01:18→20:45)
[2017-01-28] MEDS: CEFAZOLIN SOD 1 GM in APPROPRIATE DILUENT 1 EA IV SCH ×4 (01:18→20:45)
[2017-01-28] MEDS: PROPOFOL 1,000 MG in APPROPRIATE DILUENT 1 EA IV SCH ×3 (01:18→12:37)
[2017-01-28] MEDS: INSULIN IV RATE CHANGE DOCUMENTATION ML/HR XX SCH ×5 (02:06→22:36)
[2017-01-28] MEDS: levETIRAcetam INJection 500 MG in D5W MINI-BAG PLUS 100 ML IV SCH ×2 (03:05→14:36)
[2017-01-28] MEDS: D5W/0.45% SODIUM CHLORIDE 1,000 ML IV SCH ×3 (03:06→22:32)
[2017-01-28] MEDS: INSULIN HUMAN REGULAR 100 UNITS in NS 99 ML IV SCH ×2 (03:56→22:31)
[2017-01-28 06:08] LABS: BASO % 0.2 % (0.0-1.0); IMMATURE GRANULOCYTE % 2.9 % (0-0); LYMPH # 0.6 10^3/uL (1.5-4.5); LYMPH % 3.8 % (24.0-44.0); MEAN CORPUSCULAR HEMOGLOBIN 19.8 pg (27.0-33.0); MEAN CORPUSCULAR HGB CONC 28.4 g/dl (32.0-36.5); MEAN CORPUSCULAR VOLUME 69.7 fl (80.0-96.0); MONO # 0.9 10^3/uL (0.0-0.8); MONO % 6.3 % (0.0-5.0); NEUTROPHILS # 12.8 10^3/uL (1.8-7.7); NEUTROPHILS % 86.8 % (36.0-66.0); PLATELET COUNT, AUTOMATED 256 10^3/uL (150-450); RED CELL DISTRIBUTION WIDTH 25.3 % (11.5-14.5); WHITE BLOOD COUNT 14.8 10^3/uL (4.0-10.0)
[2017-01-28 06:30] LABS: ALBUMIN 2.5 GM/DL (3.2-5.2); ALBUMIN/GLOBULIN RATIO 0.93 (1.00-1.93); ALKALINE PHOSPHATASE 104 U/L (45-117); ALT/SGPT 20 U/L (12-78); ANION GAP 8 MEQ/L (8-16); AST/SGOT 16 U/L (7-37); BILIRUBIN,TOTAL 0.2 MG/DL (0.2-1.0); BLOOD UREA NITROGEN 25 MG/DL (7-18); CALCIUM LEVEL 8.2 MG/DL (8.5-10.1); CARBON DIOXIDE LEVEL 25 MEQ/L (21-32); CHLORIDE LEVEL 112 MEQ/L (98-107); CHOLESTEROL LEVEL 140 MG/DL (< 200); CREATININE FOR GFR 0.59 MG/DL (0.55-1.02); GLOMERULAR FILTRATION RATE > 60.0 (>58); GLUCOSE, FASTING 128 MG/DL (70-105); PHOSPHORUS LEVEL 3.4 MG/DL (2.5-4.9); POTASSIUM SERUM 3.6 MEQ/L (3.5-5.1); SODIUM LEVEL 145 MEQ/L (136-145); TOTAL PROTEIN 5.2 GM/DL (6.4-8.2); TRIGLYCERIDES LEVEL 178 MG/DL (<150)
[2017-01-28 07:37] LABS: ABG BASE EXCESS -0.1 (-2.0-2.0); ABG HCO3 23.9 MEQ/L (22.0-26.0); ABG PARTIAL PRESSURE CO2 36.4 mmHg (35.0-45.0); ABG PARTIAL PRESSURE O2 70.3 mmHg (75.0-100.0); ABG STANDARD HCO3 24.4 MEQ/L (22.0-26.0); ABG pH (ARTERIAL) 7.435 UNITS (7.350-7.450)
[2017-01-28] MEDS ORDERED: PROHANCE 279.3MG/ML 15ML VIAL (A9576) As Ordered ONE (08:10)
[2017-01-28] MEDS: BISACODYL 10 MG SUPP PR SCH (09:00)
[2017-01-28] MEDS: PANTOPRAZOLE 40MG INJ (PROTONIX) (C9113) IV SCH (09:22)
[2017-01-28] MEDS: CHLORHEXIDINE ORAL RINSE 0.12%/15ML 120ML BOTTLE MT SCH ×2 (09:23→20:45)
[2017-01-28] MEDS: niCARdipine 20 MG CAP PO SCH ×3 (09:29→20:46)
--- NOTE | 2017-01-28 10:05 | CCN ---
DATE: 01/28/2017 START TIME: 1010 hours STOP TIME: 1048 hours I again attended Aggie Stone here in the intensive care unit (ICU). The patient has been examined and chart reviewed. I have spoken at length with her at the bedside. Her ICP bolt is out. Her glucoses have been under better control. With her tube feeds off, her insulin drip is off this morning. Last fingerstick 187. Maximum temperature (t-max) overnight 99.1, blood pressure 109 to 133 systolic. She has not required the readdition of labetalol. Heart rate remains in the 60s with a sinus mechanism. Respiratory rate in the low 20s without accessory muscle use. Input and output midnight to midnight: 5704 mL in with 4545 mL out. Most recent laboratories show a white blood cell count of 14.8, hemoglobin 9.1, platelet count 256,000. 86.8% segmented neutrophils, no bands. Sodium 145, potassium 3.6, chloride 112, CO2 of 25, BUN 25, creatinine 0.59, glucose on her chemistries this morning 128. Arterial blood gas done on a pressure control mode, rate of 16, pressure of 10, PEEP of 3, FiO2 of 40% has a pH of 7.435, PCO2 of 36.4, and a PO2 of 70.3. Chest x-ray yesterday showed no new findings. MRI done this morning of her brain report is pending. On examination, sedation has been lightened with her ICP monitor out. She does move lower extremities appropriately and I do believe follows some commands. Pupils do react. Conjunctival edema unchanged. Trachea is in the midline. Chest shows diminished but symmetric expansion. No convincing rhonchi. There are some fine crackles at the bases. Cardiac exam is regular with no gallop. Peripheral pulses palpable. Edema is unchanged. Abdomen is soft with active bowel sounds. No convincing organomegaly or masses. Extremities show no cyanosis or clubbing. Neurologically, as outlined above. The most pressing problems requiring my presence at the bedside are hypoxemic respiratory failure, still on mechanical ventilatory support, intracranial hemorrhage secondary to probable tumor, biopsy pending, increased serum glucoses secondary to steroids, underlying hypertension. At this point, we will continue her current level of care pending the outcome of a stereotactic brain biopsy later this morning. It is not determined yet whether or not she will have another intracranial monitor placed. If not, then we may be able to lighten her sedation and push more toward weaning, depending upon the outcome of her biopsy. Once she returns, we will restart her enteral feeds. Dose of Decadron as guided by neurosurgery. We will cover her sugars as we need to. She was on prophylactic antimicrobials for her ICP monitor and now is on antibiotics preoperatively for her craniotomy. Overall, she remains critically ill. I left the bedside at 1048 hours. 38 minutes of critical care time was delivered at the bedside, not including procedures.
--- NOTE | 2017-01-28 10:10 | REP ---
MRI brain with IV contrast: Stereotactic treatment planning protocol. The gadolinium enhancement dose is 15 ml of intravenous ProHance. Comparison is made with multiple prior CT and MR studies, the most recent of which is from January 24, 2017 and January 20, 2017. Findings: An extensive heterogeneous mass is seen with predominately peripheral enhancement in the left thalamus. There is ependymal enhancement in the lateral ventricle in this patient with recent history of ventriculostomy catheter. The mass is essentially unchanged. Signed by Nima Andrews MD 01/28/2017 12:38 P
[2017-01-28] MEDS: MIDAZOLAM INJ 2 MG/2 ML VIAL (J2250) IV PRN (13:28)
[2017-01-28] MEDS ORDERED: ROCURONIUM BROMIDE 50 MG/5 ML VIAL As Ordered ONE (13:50)
[2017-01-28] MEDS ORDERED: REMIFENTANIL 1MG 3ML VIAL As Ordered ONE ×2 (13:51→13:58)
[2017-01-28] MEDS ORDERED: LIDOCAINE W/EPINEPHRINE 1% 20ML VIAL As Ordered ONE (14:02)
[2017-01-28] MEDS ORDERED: HYDROmorphone HCL 2 MG/ML 1ML VIAL (J1170) As Ordered ONE (14:02)
[2017-01-28] MEDS ORDERED: THROMBIN SOLN 20,000 UNITS KIT As Ordered ONE (14:03)
[2017-01-28] MEDS ORDERED: fentaNYL 100 MCG/2 ML INJECTION (J3010) As Ordered ONE (15:01)
[2017-01-28] MEDS ORDERED: MIDAZOLAM INJ 2 MG/2 ML VIAL (J2250) As Ordered ONE (15:15)
[2017-01-28 15:20] LABS: ABG BASE EXCESS -0.9 (-2.0-2.0); ABG PARTIAL PRESSURE CO2 41.1 mmHg (35.0-45.0); ABG PARTIAL PRESSURE O2 218.5 mmHg (75.0-100.0); ABG STANDARD HCO3 23.7 MEQ/L (22.0-26.0); ABG TOTAL CO2 25.3 MEQ/L (22.0-29.0); ABG pH (ARTERIAL) 7.385 UNITS (7.350-7.450)
[2017-01-28] MEDS ORDERED: PHENYLEPHRINE INJ 10MG/ML VIAL (J2370) As Ordered ONE (16:36)
[2017-01-28] MEDS ORDERED: ePHEDrine SULFATE 25 MG/5 ML(5MG/ML) SYRINGE As Ordered ONE (16:36)
[2017-01-28] MEDS ORDERED: BACITRACIN OINT 30GM As Ordered ONE (18:48)
[2017-01-28 18:54] LABS: ABG BASE EXCESS -5.3 (-2.0-2.0); ABG HCO3 20.3 MEQ/L (22.0-26.0); ABG PARTIAL PRESSURE CO2 39.6 mmHg (35.0-45.0); ABG PARTIAL PRESSURE O2 113.5 mmHg (75.0-100.0); ABG STANDARD HCO3 20.1 MEQ/L (22.0-26.0); ABG TOTAL CO2 21.5 MEQ/L (22.0-29.0); ABG pH (ARTERIAL) 7.327 UNITS (7.350-7.450)
[2017-01-28] MEDS ORDERED: fentaNYL 100 MCG/2 ML INJECTION (J3010) IV PRN (19:45)
[2017-01-28] MEDS ORDERED: LR 1,000 ML IV SCH (19:45)
[2017-01-28] MEDS ORDERED: ONDANSETRON 4MG/2ML VIAL (J2405) IV PRN (19:45)
[2017-01-29] VITALS (24 sets, daily range): BP systolic 103–184; BP diastolic 57–90; O2SAT 92
[2017-01-29] MEDS: PROPOFOL 1,000 MG in APPROPRIATE DILUENT 1 EA IV SCH ×5 (01:02→17:19)
[2017-01-29] MEDS: INSULIN IV RATE CHANGE DOCUMENTATION ML/HR XX SCH ×10 (02:23→21:11)
[2017-01-29] MEDS: CEFAZOLIN SOD 1 GM in APPROPRIATE DILUENT 1 EA IV SCH ×4 (02:24→20:14)
[2017-01-29] MEDS: levETIRAcetam INJection 500 MG in D5W MINI-BAG PLUS 100 ML IV SCH ×2 (02:24→16:32)
[2017-01-29] MEDS: dexameTHASONE 4 MG/ML 1ML VIAL (J1100) IV SCH ×4 (02:24→20:14)
[2017-01-29 06:04] LABS: BASO % 0.1 % (0.0-1.0); IMMATURE GRANULOCYTE % 2.3 % (0-0); LYMPH # 0.5 10^3/uL (1.5-4.5); MEAN CORPUSCULAR HGB CONC 28.8 g/dl (32.0-36.5); MEAN CORPUSCULAR VOLUME 69.3 fl (80.0-96.0); MONO # 1.2 10^3/uL (0.0-0.8); MONO % 6.6 % (0.0-5.0); NEUTROPHILS # 15.8 10^3/uL (1.8-7.7); PLATELET COUNT, AUTOMATED 268 10^3/uL (150-450); RED CELL DISTRIBUTION WIDTH 25.7 % (11.5-14.5)
[2017-01-29 06:38] LABS: ALBUMIN 2.4 GM/DL (3.2-5.2); ALKALINE PHOSPHATASE 102 U/L (45-117); ALT/SGPT 21 U/L (12-78); ANION GAP 9 MEQ/L (8-16); AST/SGOT 19 U/L (7-37); BILIRUBIN,TOTAL 0.2 MG/DL (0.2-1.0); BLOOD UREA NITROGEN 27 MG/DL (7-18); CALCIUM LEVEL 8.1 MG/DL (8.5-10.1); CARBON DIOXIDE LEVEL 25 MEQ/L (21-32); CHLORIDE LEVEL 108 MEQ/L (98-107); CHOLESTEROL LEVEL 155 MG/DL (< 200); CREATININE FOR GFR 0.66 MG/DL (0.55-1.02); GLOMERULAR FILTRATION RATE > 60.0 (>58); GLUCOSE, FASTING 219 MG/DL (70-105); PHOSPHORUS LEVEL 3.5 MG/DL (2.5-4.9); POTASSIUM SERUM 3.8 MEQ/L (3.5-5.1); SODIUM LEVEL 142 MEQ/L (136-145); TOTAL PROTEIN 5.4 GM/DL (6.4-8.2); TRIGLYCERIDES LEVEL 198 MG/DL (<150)
[2017-01-29] MEDS: D5W/0.45% SODIUM CHLORIDE 1,000 ML IV SCH ×2 (09:17→19:08)
[2017-01-29] MEDS: niCARdipine 20 MG CAP PO SCH ×3 (09:17→20:14)
--- NOTE | 2017-01-29 09:23 | REP ---
Clinical: Respiratory failure. Comparison: 01/27/2017. Findings: The endotracheal tube is approximately 5 mm from the patience and warrants reevaluation. Nasogastric tube courses below left hemidiaphragm. Mediastinum and cardiac silhouette are within normal limits. Lung perdomo cannot exclude left lower lobe/retrocardiac infiltrate/atelectasis and small pleural effusion. No pneumothorax. Skeletal structures intact. Impression: 1. Endotracheal tube appears 5 mm from the patience and requires reevaluation. 2. Trace left lower lobe atelectasis/infiltrate and small pleural effusion. Signed by Washington Reid MD 01/29/2017 09:15 A
[2017-01-29] MEDS: BISACODYL 10 MG SUPP PR SCH (10:17)
[2017-01-29] MEDS: PANTOPRAZOLE 40MG INJ (PROTONIX) (C9113) IV SCH (10:20)
[2017-01-29] MEDS: CHLORHEXIDINE ORAL RINSE 0.12%/15ML 120ML BOTTLE MT SCH ×2 (10:21→20:14)
[2017-01-29] MEDS ORDERED: MORPHINE 2 MG/ML 1ML SYRINGE IV ONE (10:30)
[2017-01-29 10:43] LABS: ABG BASE EXCESS -1.5 (-2.0-2.0); ABG HCO3 21.8 MEQ/L (22.0-26.0); ABG PARTIAL PRESSURE CO2 31.6 mmHg (35.0-45.0); ABG PARTIAL PRESSURE O2 73.4 mmHg (75.0-100.0); ABG STANDARD HCO3 23.2 MEQ/L (22.0-26.0); ABG TOTAL CO2 22.7 MEQ/L (22.0-29.0); ABG pH (ARTERIAL) 7.456 UNITS (7.350-7.450)
--- NOTE | 2017-01-29 11:31 | RO ---
DATE OF PROCEDURE: 01/28/2017 PREOPERATIVE DIAGNOSIS: Coma, secondary to brain mass in the left mid brain, thalamus with ganglia intracranial hemorrhage, and mass with midline shift and vasogenic edema. POSTOPERATIVE DIAGNOSIS: Coma, secondary to brain mass in the left mid brain, thalamus with ganglia intracranial hemorrhage, and mass with midline shift and vasogenic edema. PROCEDURE: Frameless Stealth based computer assisted microsurgical multiple left thalamic biopsies. SURGEON: Allyn Kaminski MD LOCOMOTIVE ELECTRICIAN: None. ANESTHESIA: General. FINDINGS: The patient was seen at the request of Dr. Canales several days ago. On initial evaluation, the patient was comatose and not in pain, would decerebrate on the right and would have semipurposeful or occasionally purposeful movement on the left, which gradually she lost over the period of a few days of observation. She underwent urgent ventriculostomy and she suddenly deteriorated to the above state and she had ventricular drainage for several days until the ICP became normal. During the ventriculostomy, the brain tissue was sent for pathological examination, though it was not conclusive, thus the patient's family understood my rationale for recommending brain biopsy or possible debulking of the mass. The patient's understood the grave outlook and understood this procedure will not curative and they understood the risks of all surgical options, scope, expected outcome, sequelae and complications of the proposed procedure. The patient's understood the risk of surgery includes further worsening of the coma, persistent vegetative state, status epilepticus, loss of any or all vital bodily functions, dependency on life support measures, infection, worsening of bleeding and/or swelling, or herniation across the midline pulmonary embolism (PE), deep vein thrombosis (DVT), myocardial infarction (AK) and/or any catastrophic sequelae. The patient's and the family wished to proceed with the surgery. A contrast enhanced MRI scan was done with the Stealth protocol. The images did not show any significant change in the mass, which has spiked the more prominent marginal enhancement. Also there is some enhancement in the wall of the ventricles, which could be related to the ventriculostomy. Once the patient was in the operating room, the data received from the MRI computer was red into the computer in the operating room, to get live navigation. The patient's had was positioned in a three point skeletal fixation. After general endotracheal anesthesia was introduced by the anesthesia service, via the endotracheal tube already present, the area of surgery was prepped and draped in the usual sterile fashion using live navigation, the previous skull trephine area was used as an entry point. A skin incision was given for about a couple of inches. The pericranium was stripped off the skull and the skull trephine was identified and enlarged via a 14 mm bur hole. The dura was opened and a small costectomy was performed in the trajectory of the stereotactic probe. The stereotactic probe was then introduced into the target site, which was chosen in the thalamus. Multiple biopsies were performed in the thalamus and in the adjoining area and along the trajectory of the biopsy needle. The pathologist called and felt that the lesion is in all probability a lymphoma and he was satisfied with the amount of tissue he had and did not want any further pieces, though we had some small pieces left for permanent section. The patient tolerated the procedure well. The blood loss was negligible, maybe a few mL. The wound was closed in anatomic layers. The patient tolerated the procedure well and was transferred to the recovery room in stable condition. The operative findings and grave outlook was again discussed with the patient's in the waiting room.
--- NOTE | 2017-01-29 11:34 | CCN ---
DATE: 01/29/2017 START TIME: 1012 hours STOP TIME: 1057 hours I again attended Aggie Stone. She remains intubated, sedated, and mechanically ventilated. She had a stereotactic needle biopsy of her thalamic lesion yesterday and the preliminary path is highly suggestive of a lymphoma. I have reviewed Dr. Kaminski's notes. I have spoken at length with the . I have also spoken with radiation oncology and left a message for Dr. Benton for medical oncology to become involved in her care. Maximum temperature (t-max) overnight 98.8, blood pressure 106 to 150s. She has not required the addition of labetalol. Heart rate in the 60s to 70s with sinus mechanism. She does over breathe the vent. Input and output midnight to midnight: 5890 mL in with 4050 mL out. The most recent laboratories show a white blood cell count of 18.0, hemoglobin 9.1, platelet count 268,000, 88% segmented neutrophils, no bands. Sodium 142, potassium 3.8, chloride 108, CO2 of 25, BUN 27, creatinine 0.66, albumin 2.4. Blood gas done now on an SIMV setting of 16, tidal volume 420, PEEP of 3 and pressure support of 15 with a 40% FiO2 has a pH of 7.456, PCO2 of 31.6, and a PO2 of 73.4. Chest x-ray shows good bilateral expansion. No acute infiltrates. Endotracheal tube is just at the level of the patience and is being pulled back. PHYSICAL EXAMINATION: She is sedate, but moves her lower extremities briskly to stimulation. Weaker in the upper extremities, right greater than left. She does have conjunctival edema. Gastric and oroendotracheal tube are again noted. Chest shows symmetric expansion. There are some rhonchi. Some fine dependent crackles. No wheezes or rubs. Peripheral pulses palpable. There is some dependent edema persistent. Abdomen is mildly obese. There are active bowel sounds. No convincing organomegaly or masses. Extremities are without cyanosis or clubbing. Neurologically, as outlined above. The most pressing problems requiring my presence at the bedside: 1. Hypoxic respiratory failure. 2. Hyperglycemia secondary to steroids. 3. 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 At this point, she remains on ulcer and deep vein thrombosis (DVT) prophylaxis. She is at target with her tube feeds. Glucose is under better control with an insulin drip. I had a long discussion with her at the bedside and at this point we will lighten her sedation and begin to wean her as able. I await the formal opinion of both radiation and medical oncology regarding options for treatment for her once the final pathology is back. In the interim, we will continue her current level of intervention. Prognosis remains guarded in view of the above. We await the formal opinion from both departments of oncology. I left the bedside at 1057 hours. 45 minutes of critical care time was delivered at the bedside, not including procedures.
[2017-01-29] MEDS: INSULIN HUMAN REGULAR 100 UNITS in NS 99 ML IV SCH (12:17)
[2017-01-29] MEDS: MIDAZOLAM INJ 2 MG/2 ML VIAL (J2250) IV PRN (23:14)
[2017-01-30] VITALS (13 sets, daily range): BP systolic 118–178; BP diastolic 64–88; O2SAT 97
[2017-01-30] MEDS: CEFAZOLIN SOD 1 GM in APPROPRIATE DILUENT 1 EA IV SCH ×4 (01:05→19:41)
[2017-01-30] MEDS: dexameTHASONE 4 MG/ML 1ML VIAL (J1100) IV SCH ×4 (01:05→20:12)
[2017-01-30] MEDS: INSULIN HUMAN REGULAR 100 UNITS in NS 99 ML IV SCH ×4 (01:07→23:07)
[2017-01-30] MEDS: INSULIN IV RATE CHANGE DOCUMENTATION ML/HR XX SCH ×7 (01:09→18:58)
[2017-01-30] MEDS: PROPOFOL 1,000 MG in APPROPRIATE DILUENT 1 EA IV SCH (01:24)
[2017-01-30] MEDS: levETIRAcetam INJection 500 MG in D5W MINI-BAG PLUS 100 ML IV SCH ×2 (03:10→15:00)
[2017-01-30 05:09] LABS: BASO % 0.1 % (0.0-1.0); EOS % 0.1 % (0.0-3.0); IMMATURE GRANULOCYTE % 3.6 % (0-0); LYMPH # 0.7 10^3/uL (1.5-4.5); LYMPH % 3.9 % (24.0-44.0); MEAN CORPUSCULAR HEMOGLOBIN 19.4 pg (27.0-33.0); MEAN CORPUSCULAR HGB CONC 28.5 g/dl (32.0-36.5); MONO # 1.5 10^3/uL (0.0-0.8); MONO % 8.1 % (0.0-5.0); NEUTROPHILS # 15.2 10^3/uL (1.8-7.7); NEUTROPHILS % 84.2 % (36.0-66.0); PLATELET COUNT, AUTOMATED 248 10^3/uL (150-450); RED CELL DISTRIBUTION WIDTH 26.3 % (11.5-14.5); WHITE BLOOD COUNT 18.1 10^3/uL (4.0-10.0)
[2017-01-30] MEDS: D5W/0.45% SODIUM CHLORIDE 1,000 ML IV SCH (05:15)
[2017-01-30 05:45] LABS: ALBUMIN 2.3 GM/DL (3.2-5.2); ALBUMIN/GLOBULIN RATIO 0.82 (1.00-1.93); ALKALINE PHOSPHATASE 107 U/L (45-117); ALT/SGPT 28 U/L (12-78); ANION GAP 7 MEQ/L (8-16); AST/SGOT 30 U/L (7-37); BILIRUBIN,TOTAL 0.2 MG/DL (0.2-1.0); BLOOD UREA NITROGEN 21 MG/DL (7-18); CARBON DIOXIDE LEVEL 27 MEQ/L (21-32); CHLORIDE LEVEL 110 MEQ/L (98-107); CHOLESTEROL LEVEL 147 MG/DL (< 200); CREATININE FOR GFR 0.59 MG/DL (0.55-1.02); GLOMERULAR FILTRATION RATE > 60.0 (>58); GLUCOSE, FASTING 91 MG/DL (70-105); PHOSPHORUS LEVEL 2.5 MG/DL (2.5-4.9); POTASSIUM SERUM 3.5 MEQ/L (3.5-5.1); SODIUM LEVEL 144 MEQ/L (136-145); TOTAL PROTEIN 5.1 GM/DL (6.4-8.2); TRIGLYCERIDES LEVEL 150 MG/DL (<150)
[2017-01-30] MEDS: NICARDIPINE 30 MG PO SCH ×3 (09:00→20:12)
[2017-01-30] MEDS: PANTOPRAZOLE 40MG INJ (PROTONIX) (C9113) IV SCH (09:21)
[2017-01-30] MEDS: CHLORHEXIDINE ORAL RINSE 0.12%/15ML 120ML BOTTLE MT SCH ×2 (09:21→20:14)
[2017-01-30] MEDS: MORPHINE 2 MG/ML 1ML SYRINGE IV PRN ×2 (09:22→12:27)
[2017-01-30] MEDS: BISACODYL 10 MG SUPP PR SCH (09:22)
--- NOTE | 2017-01-30 10:10 | CCN ---
DATE OF VISIT: 01/30/2017 START TIME: 0848 hours STOP TIME: 0940 hours I again attended Aggie Stone here in the intensive care unit. Patient has been examined and chart reviewed. I have spoken at length with her at the bedside. Maximum temperature (Tmax) overnight 99.8. Blood pressure 120-170s systolic. Heart rate in the 70s-80s with a sinus mechanism. Respiratory rate generally in the 20s without accessory muscle use. Inputs and outputs midnight to midnight: 5315 mL in with 3110 mL out. The patient was presented at the tumor conference yesterday. The current consensus on her pathology is that there is no evidence of tumor. Specimens taken mainly showed necrosis, but again, no obvious tumor. Most recent laboratories show a white blood cell count of 18.1, hemoglobin 9.5, platelet count 248,000, 84% segmented neutrophils, no bands. Sodium 144, potassium 3.5, chloride of 110, CO2 27, BUN 21, creatinine 0.59, Albumin 2.3. On exam, we have lightened her sedation. She does open her eyes to voice. She may track somewhat but does not reliably follow commands. She does move her lower extremities well. Pupils do react. Trachea is in the midline. Chest shows diminished but symmetric expansion. There are some rhonchi that clear actually with cough and suction. There are some dependent opening crackles. Cardiac exam is generally regular with no gallop. Peripheral pulses palpable. Diffuse edema unchanged. Abdomen obese. There are active bowel sounds. No obvious organomegaly or masses. Abdomen is soft. Extremities show no cyanosis or clubbing. Neurologically, as outlined above. The most pressing problems requiring my presence at the bedside: 1. Respiratory failure requiring mechanical ventilatory support. 2. Intracranial hemorrhage. 3. Elevated glucose secondary to steroids. 4. Hypertension. At this point, since there is no obvious discernable tumor, we will try to slowly decrease her steroids, I will drop by 25% today. We will lighten her sedation as able. I will increase her blood pressure control with medications as needed. Since she is on nicardipine, we will increase that agent as needed first. She is meeting her goal on her feeds. I will try to minimize her fluids in view of the above. Overall, however, she does remain critically ill. Her prognosis still remains guarded at best as definitive etiology regarding her intracranial hemorrhage is still somewhat of a conundrum. We will proceed as outlined above. I left the bedside at 0940 hours. 52 minutes of critical care time was delivered at the bedside, not including procedures. ARMAAN
[2017-01-30] MEDS: niCARdipine 20 MG CAP PO SCH (10:58)
[2017-01-31] VITALS (23 sets, daily range): BP systolic 117–176; BP diastolic 65–90
[2017-01-31] MEDS: PROPOFOL 1,000 MG in APPROPRIATE DILUENT 1 EA IV SCH ×2 (00:20→10:24)
[2017-01-31] MEDS: D5W/0.45% SODIUM CHLORIDE 1,000 ML IV SCH (00:21)
[2017-01-31] MEDS: dexameTHASONE 4 MG/ML 1ML VIAL (J1100) IV SCH ×4 (02:11→21:32)
[2017-01-31] MEDS: CEFAZOLIN SOD 1 GM in APPROPRIATE DILUENT 1 EA IV SCH ×4 (02:11→21:33)
[2017-01-31] MEDS: levETIRAcetam INJection 500 MG in D5W MINI-BAG PLUS 100 ML IV SCH ×2 (03:05→15:16)
[2017-01-31 07:59] LABS: MEAN CORPUSCULAR HEMOGLOBIN 20.1 pg (27.0-33.0); MEAN CORPUSCULAR VOLUME 69.5 fl (80.0-96.0); PLATELET COUNT, AUTOMATED 274 10^3/uL (150-450); RED CELL DISTRIBUTION WIDTH 26.7 % (11.5-14.5); WHITE BLOOD COUNT 16.6 10^3/uL (4.0-10.0)
[2017-01-31 08:00] LABS: ADD MANUAL DIFFER YES; DIFF SLIDE NUMBER 15; POS COUNT POS FLAG; POSITIVE MORPH POS FLAG
[2017-01-31 08:25] LABS: ALKALINE PHOSPHATASE 107 U/L (45-117); ALT/SGPT 24 U/L (12-78); ANION GAP 7 MEQ/L (8-16); AST/SGOT 27 U/L (7-37); BLOOD UREA NITROGEN 23 MG/DL (7-18); CARBON DIOXIDE LEVEL 28 MEQ/L (21-32); CHLORIDE LEVEL 108 MEQ/L (98-107); CREATININE FOR GFR 0.56 MG/DL (0.55-1.02); GLOMERULAR FILTRATION RATE > 60.0 (>58); GLUCOSE, FASTING 122 MG/DL (70-105); PHOSPHORUS LEVEL 3.6 MG/DL (2.5-4.9); SODIUM LEVEL 143 MEQ/L (136-145)
[2017-01-31 08:26] LABS: ALBUMIN 2.2 GM/DL (3.2-5.2); ALBUMIN/GLOBULIN RATIO 0.85 (1.00-1.93); BILIRUBIN,TOTAL 0.3 MG/DL (0.2-1.0); CHOLESTEROL LEVEL 146 MG/DL (< 200); TOTAL PROTEIN 4.8 GM/DL (6.4-8.2); TRIGLYCERIDES LEVEL 111 MG/DL (<150)
[2017-01-31] MEDS: BISACODYL 10 MG SUPP PR SCH (09:00)
[2017-01-31] MEDS: PANTOPRAZOLE 40MG INJ (PROTONIX) (C9113) IV SCH (09:37)
[2017-01-31] MEDS: CHLORHEXIDINE ORAL RINSE 0.12%/15ML 120ML BOTTLE MT SCH ×2 (09:37→21:51)
[2017-01-31] MEDS: NICARDIPINE 30 MG PO SCH ×3 (09:38→21:51)
[2017-01-31 09:49] LABS: BANDS 8 % (< 11)
[2017-01-31 09:51] LABS: POIKILOCYTOSIS 1+
[2017-01-31 09:52] LABS: HYPOCHROMASIA 1+; MICROCYTOSIS 2+
[2017-01-31] MEDS: INSULIN IV RATE CHANGE DOCUMENTATION ML/HR XX SCH ×4 (12:33→18:55)
[2017-01-31] MEDS: INSULIN HUMAN REGULAR 100 UNITS in NS 99 ML IV SCH (15:14)
[2017-01-31] MEDS ORDERED: GLUCAGON FOR INJ 1 MG VIAL (J1610) SC PRN (19:30)
[2017-01-31] MEDS ORDERED: GLUCOSE 4 GM CHEW TABLET PO PRN (19:30)
[2017-01-31] MEDS ORDERED: DEXTROSE 50% 50 ML SYRINGE IV PRN (19:30)
[2017-01-31] MEDS ORDERED: PROHANCE 279.3MG/ML 15ML VIAL (A9576) As Ordered ONE (19:30)
--- NOTE | 2017-01-31 21:00 | REPUSA ---
Clinical history: hypertensive emergency. Technique: [id number] MR venogram images of the brain were obtained without administration of con trast. 3-D MIP images were also obtained. Findings: The venous structures demonstrate normal caliber and contour. There is no evidence of aneur ysm, stenosis, or thrombosis. Impression: Unremarkable MRV examination of the brain.
[2017-02-01] VITALS (25 sets, daily range): BP systolic 107–178; BP diastolic 56–98; O2SAT 98
[2017-02-01] MEDS: HumaLOG INSULIN (NovoLOG) PER UNIT SC SCH ×4 (00:27→17:49)
[2017-02-01] MEDS: dexameTHASONE 4 MG/ML 1ML VIAL (J1100) IV SCH ×4 (02:06→20:41)
[2017-02-01] MEDS: CEFAZOLIN SOD 1 GM in APPROPRIATE DILUENT 1 EA IV SCH ×4 (02:06→20:41)
[2017-02-01] MEDS: levETIRAcetam INJection 500 MG in D5W MINI-BAG PLUS 100 ML IV SCH ×2 (02:37→15:47)
[2017-02-01] MEDS: D5W/0.45% SODIUM CHLORIDE 1,000 ML IV SCH (02:37)
--- NOTE | 2017-02-01 04:59 | CCN ---
DATE OF SERVICE: 01/31/2017 NOTE: Ms. Stone remains critically ill with acute respiratory failure leading to mechanical ventilation secondary to intracranial hemorrhage. She has also had difficulties with hypertension. Her medications were increased yesterday and we were able to discontinue the propofol successfully. However, while she had a good cough and gag, she did not effectively spontaneously cough. Her saturations would drift down to 87% and then she would be suctioned and would have a moderate amount of secretions removed and her saturations would jump up to 97%. This repeated itself throughout the course of the day. She is moving her left side spontaneously, but not moving her right side. Her eyes are midline and move to the left, but have not crossed midline in my multiple reevaluations of her today. She is not following any commands. OBJECTIVE: PHYSICAL EXAMINATION: GENERAL: Ms. Stone is lying in bed synchronous with the ventilator. VITAL SIGNS: Temperature 98.6, with a maximum temperature (T-max) of 98.7, pulse 88, respiratory rate 19, blood pressure 134/68 with a MAP of 90, SpO2 is 96% on an FiO2 of 0.4. HEENT: Anicteric. Eyes deviate to the left and would not cross midline. Nares : Patent bilaterally. Oropharynx: OG tube and endotracheal (ET) tube in place. Moist mucosa. NECK: Supple, without jugular venous distention (JVD), thyromegaly or masses. Trachea is midline. LYMPHATICS: Without cervical or supraclavicular lymphadenopathy. LUNGS: Symmetric excursion, good air entry, occasional rhonchi, no crackles. No accessory muscle usage or retractions. Normal I:E. CARDIOVASCULAR: Regular rate and rhythm with a normal S1, S2. No murmur, rub or gallop appreciated. ABDOMEN: Positive bowel sounds, soft, nondistended, nontender, no hepatosplenomegaly or masses appreciated. EXTREMITIES: Without clubbing or cyanosis. Positive edema. LABORATORY DATA: CBC shows a hemoglobin of 9.1, hematocrit of 31.4, platelet count 274,000, white blood cell count 16,600, with a differential of 77% neutrophils, 8% bands, 5% lymphocytes, and 6% monocytes. Chemistry shows sodium 143, potassium 4.0, chloride 108, bicarbonate 28, anion gap 7, BUN 23, creatinine 0.6, glucose 122, calcium 8.0, phosphorus 3.6, total bilirubin 0.3, AST 27, ALT 24, alkaline phosphatase 107, LDH 220, CK 196, total protein 4.8, albumin 2.2. IMPRESSION: 1. Acute respiratory failure secondary to intracranial hemorrhage. 2. Left basal ganglia and thalamic hemorrhage, final pathology pending on brain biopsy, anticipated Friday. 3. Hypertension, controlled on Cardene. 4. Hyperglycemia secondary to significant steroids, steroids being weaned. RECOMMENDATIONS: 1. We will continue to assess to see whether she is weanable. My concern today is that she does not sense when to cough spontaneously even when she becomes hypoxemic and has moderate secretions. I am fearful that if we extubate her that we will not be able to have a good hyperinflation therapy to keep her from a subsequent pneumonic process. 2. However, she is just now off sedation and has been sedated for a while, so I feel it is reasonable that we continue to monitor her. At some point in the near future, however, it does not appear that she is going to be easy to wean, the safest thing to do may be to place a tracheostomy. If a tracheostomy is done, I would not anticipate her needing a mechanical ventilator. 3. She was changed to pressure support of 5/3 and is doing very well on that with spontaneous tidal volumes in the 450-550 range. 4. I spoke to Dr. Kaminski this morning and the plans appear to be to extubate her, get her towards discharge and then consider PET scan as an outpatient. 5. I also asked neurology to reevaluate her now that she is off sedation to help us with her neurologic exam and more importantly her with understanding what he is now seeing and can anticipate in the near and more prolonged future. 6. I also spoke to Dr. Kaminski regarding medical deep venous thrombosis (DVT) prophylaxis. After she has been out of surgery for 1 week, that could be started. 7. Will increase her activity to include moving to a stretcher chair. Critical care time: 55 minutes not including procedure time. ARMAAN
--- NOTE | 2017-02-01 07:51 | REP ---
Clinical: Respiratory failure. Comparison: 01/29/2017. Findings: Endotracheal tube approximately 2.7 cm above the patience. Nasogastric tube courses below left hemidiaphragm. Right subclavian catheter with tip in left brachiocephalic vein remain stable. Mediastinum and cardiac silhouette are within normal limits. Left lower lobe/retrocardiac opacity suggests infiltrate/atelectasis. No definite effusion. No pneumothorax. Skeletal structures intact. Impression: Small area of left lower lobe/retrocardiac atelectasis/infiltrate. Signed by Washington Reid MD 02/01/2017 07:43 A
[2017-02-01 08:13] LABS: MEAN CORPUSCULAR HGB CONC 28.7 g/dl (32.0-36.5); MEAN CORPUSCULAR VOLUME 69.8 fl (80.0-96.0); PLATELET COUNT, AUTOMATED 313 10^3/uL (150-450); RED CELL DISTRIBUTION WIDTH 27.1 % (11.5-14.5); WHITE BLOOD COUNT 17.2 10^3/uL (4.0-10.0)
[2017-02-01 08:14] LABS: POS COUNT POS FLAG; POSITIVE MORPH POS FLAG
[2017-02-01 08:15] LABS: ADD MANUAL DIFFER YES; DIFF SLIDE NUMBER 94
[2017-02-01 08:28] LABS: ALBUMIN 2.2 GM/DL (3.2-5.2); ALBUMIN/GLOBULIN RATIO 0.79 (1.00-1.93); ALKALINE PHOSPHATASE 114 U/L (45-117); ALT/SGPT 23 U/L (12-78); ANION GAP 7 MEQ/L (8-16); AST/SGOT 21 U/L (7-37); BILIRUBIN,TOTAL 0.3 MG/DL (0.2-1.0); BLOOD UREA NITROGEN 26 MG/DL (7-18); CALCIUM LEVEL 8.2 MG/DL (8.5-10.1); CARBON DIOXIDE LEVEL 28 MEQ/L (21-32); CHLORIDE LEVEL 106 MEQ/L (98-107); CHOLESTEROL LEVEL 163 MG/DL (< 200); CREATININE FOR GFR 0.68 MG/DL (0.55-1.02); GLOMERULAR FILTRATION RATE > 60.0 (>58); GLUCOSE, FASTING 206 MG/DL (70-105); PHOSPHORUS LEVEL 3.6 MG/DL (2.5-4.9); SODIUM LEVEL 141 MEQ/L (136-145); TRIGLYCERIDES LEVEL 140 MG/DL (<150)
[2017-02-01 08:32] LABS: ANISOCYTOSIS 4+; EOSINOPHILS 1 % (0-5); MICROCYTOSIS 3+
[2017-02-01 08:33] LABS: HYPOCHROMASIA 2+; POIKILOCYTOSIS 1+
[2017-02-01] MEDS: CHLORHEXIDINE ORAL RINSE 0.12%/15ML 120ML BOTTLE MT SCH ×2 (08:41→20:41)
[2017-02-01] MEDS: PANTOPRAZOLE 40MG INJ (PROTONIX) (C9113) IV SCH (08:42)
[2017-02-01] MEDS: BISACODYL 10 MG SUPP PR SCH (08:42)
[2017-02-01] MEDS: NICARDIPINE 30 MG PO SCH ×3 (08:42→20:42)
--- NOTE | 2017-02-01 11:27 | RADONC ---
RADIATION ONCOLOGY CONSULTATION NOTE DATE: 01/29/2017 CHART NUMBER: [id number] DIAGNOSIS: Brain lesion, unknown type. ECOG PERFORMANCE STATUS: 4. CONSULTATION NOTE: Ms. Stone is a 51-year-old white female who was in the usual state of health until approximately 2 weeks or so ago when she began developing some episodic slurred speech and mental status changes. These became progressive and the patient was found to have a hypertensive event. MRI and CT scans of the head were done on 01/20/2017 which were consistent with what was thought to be subacute hemorrhage in the left basal ganglia. There was mass effect and edema seen throughout the left cerebral hemisphere predominant in the left basal ganglia. The patient continued to deteriorate and neurosurgery was called in. A biopsy was done yesterday on 01/28/2017. Unfortunately, initial pathologic review was nondiagnostic. Further specimens were taken and we await a diagnosis, which hopefully will be available by Friday. At the present time, we do not have any pathologic confirmation of malignancy whatsoever. It is unclear what is going on with this patient, whether it is a lymphoma, a glioma or some other process. The patient has been unresponsive and on a respirator. I have been called in for consultation, but at this time do not have a diagnosis on this unconscious woman on a respirator. PHYSICAL EXAMINATION: Once again, as noted above, I have seen the patient in her room. She is as described above. We are continuing to follow this patient closely. At this time, there is no diagnosis which allows us to even consider radiation. Clearly, it is required that we have some type of diagnosis prior to even considering radiation in a patient such as this. Furthermore, in her present condition, we would be unable to deliver radiation while on a respirator to her head region. It would be very unlikely to be able to align the respiratory apparatus with our immobilization devices and undertake treatment planning. There will be an attempt to wean her off oxygen and obtain a diagnosis. Further recommendations will be made pending that. At this time, however, we will continue to follow her. I have given the patient's family my work number as well as my cell phone number if I could be of any assistance in the meantime.
--- NOTE | 2017-02-01 17:39 | CCN ---
DATE: 02/01/2017 NOTE: Ms. Stone remains critically ill with acute respiratory failure secondary to decreased mental status leading to mechanical ventilation. She has been off sedation over 24 hours. She has remained hemodynamically stable; however, it is not clear if she is following any commands. She does open her eyes, but it is not clear if it is whether to sound or her name. She does not track. She does not follow other commands. Additionally, while she has a good cough when stimulated, and that includes turning, she has not been witnessed to have a good cough when still. This morning, initially she had moderate secretions suctioned. No other events overnight. OBJECTIVE: PHYSICAL EXAMINATION: GENERAL: Ms. Stone is lying in bed synchronous with the ventilator. VITAL SIGNS: Temperature 98.9, pulse 80, respiratory rate 22, blood pressure 108/56 with a mean arterial pressure (MAP) of 73, SpO2 is 95% on an FiO2 of 0.4. HEENT: Anicteric. Pupils equal, round, and reactive to light. Nares: Patent bilaterally. Oropharynx: Endotracheal (ET) tube and orogastric (OG) tube in place. NECK: Supple, without jugular venous distention (JVD), thyromegaly or masses. Trachea is midline. LYMPHATICS: Without cervical or supraclavicular lymphadenopathy. LUNGS: Symmetric excursion, good air entry, no wheeze, crackles or significant rhonchi. Normal inspiratory to expiratory (I:E) ratio. No accessory muscle use or retractions CARDIOVASCULAR: Regular rate and rhythm with a normal S1, S2. No murmur, rub or gallop appreciated. ABDOMEN: Positive bowel sounds, soft, nondistended, no hepatosplenomegaly or masses appreciated. EXTREMITIES: Without clubbing or cyanosis. Decreased edema. Palpable pedal pulses bilaterally. NEUROLOGIC: As per subjective section. LABORATORY DATA: CBC shows a hemoglobin of 9.3, hematocrit of 32.4, platelet count 313,000, white blood cell count 17,200, with a differential of 77% neutrophils, 8% lymphocytes, 11% monocytes. Chemistry shows sodium 141, potassium 4.0, chloride 106, bicarbonate 28, anion gap 7, BUN 26, creatinine 0.7, glucose 206, calcium 8.2, phosphorus 3.6, magnesium 2.0. Total bilirubin 0.3, AST 21, ALT 23, alkaline phosphatase 114, LDH 251, CK 72, total protein 5.0, albumin 2.2. I reviewed her chest x-rays as well as the report from earlier today. That x- ray showed normal-appearing cardiac silhouette and pulmonary vascular shadows, normal mediastinal region. No consolidated region or significant infiltrate. Endotracheal (ET) tube in acceptable position. Brain MRI was read as unremarkable MRV examination of the brain. ASSESSMENT: 1. Acute respiratory failure secondary to intracranial hemorrhage. 2. Left basal ganglia and thalamic hemorrhage, final pathology anticipated on Friday. 3. Hypertension, controlled on Cardene. 4. Hyperglycemia, on sliding scale insulin. RECOMMENDATIONS: 1. At this time, I am still not comfortable with extubating her, as she is not following commands and does not spontaneously cough and, on several occasions, moderate secretions have been found on suctioning. At this point I feel the safer route is to proceed with tracheostomy. 2. Tracheostomy reviewed and questions answered. 3. I have discussed percutaneous tracheostomy with Dr. Sanchez and we have tentatively scheduled it for Friday. 4. I will further discuss this with her and will await the pathology to be returned, which may alter her course and it will give her another 48-72 hours to become more alert. 5. Regardless of the tracheostomy question, I think she needs to go on to a percutaneous endoscopic gastrostomy (PEG) tube, as it would not be anticipated that she would be able to eat for the foreseeable future. This was also discussed with her . 6. I will try to arrange for a percutaneous endoscopic gastrostomy (PEG) tube to be placed at the same time as the percutaneous tracheostomy or shortly thereafter. 7. Her is very concerned about feedings and I told him that one day without nutrition would not be a serious detriment. We also discussed we would place an nasogastric (NG) tube if it was going to be a prolonged period of time between the two procedures. 8. At the present time, we will continue on her current mechanical ventilations settings, which are a pressure 5 over a PEEP of 3. CRITICAL CARE TIME: 35 minutes not including procedure time. [facility] CENTERDebra
[2017-02-01] MEDS: MORPHINE 2 MG/ML 1ML SYRINGE IV PRN (20:44)
[2017-02-02] VITALS (19 sets, daily range): BP systolic 107–146; BP diastolic 63–90; O2SAT 94–97
[2017-02-02] MEDS: HumaLOG INSULIN (NovoLOG) PER UNIT SC SCH ×4 (00:10→17:10)
[2017-02-02] MEDS: levETIRAcetam INJection 500 MG in D5W MINI-BAG PLUS 100 ML IV SCH ×2 (02:47→14:53)
[2017-02-02] MEDS: CEFAZOLIN SOD 1 GM in APPROPRIATE DILUENT 1 EA IV SCH ×4 (02:47→21:00)
[2017-02-02] MEDS: dexameTHASONE 4 MG/ML 1ML VIAL (J1100) IV SCH ×4 (02:47→21:00)
[2017-02-02] MEDS: D5W/0.45% SODIUM CHLORIDE 1,000 ML IV SCH (05:20)
[2017-02-02 05:54] LABS: ADD MANUAL DIFFER YES; DIFF SLIDE NUMBER 64; MEAN CORPUSCULAR HEMOGLOBIN 19.9 pg (27.0-33.0); MEAN CORPUSCULAR VOLUME 68.6 fl (80.0-96.0); PLATELET COUNT, AUTOMATED 314 10^3/uL (150-450); POS COUNT POS FLAG; POSITIVE MORPH POS FLAG; RED CELL DISTRIBUTION WIDTH 27.2 % (11.5-14.5)
[2017-02-02 06:10] LABS: ALBUMIN 2.3 GM/DL (3.2-5.2); ALBUMIN/GLOBULIN RATIO 0.68 (1.00-1.93); ALKALINE PHOSPHATASE 127 U/L (45-117); ALT/SGPT 20 U/L (12-78); ANION GAP 8 MEQ/L (8-16); AST/SGOT 14 U/L (7-37); BILIRUBIN,TOTAL 0.3 MG/DL (0.2-1.0); BLOOD UREA NITROGEN 26 MG/DL (7-18); CALCIUM LEVEL 8.3 MG/DL (8.5-10.1); CARBON DIOXIDE LEVEL 27 MEQ/L (21-32); CHLORIDE LEVEL 104 MEQ/L (98-107); CHOLESTEROL LEVEL 168 MG/DL (< 200); CREATININE FOR GFR 0.64 MG/DL (0.55-1.02); GLOMERULAR FILTRATION RATE > 60.0 (>58); GLUCOSE, FASTING 261 MG/DL (70-105); MAGNESIUM LEVEL 1.9 MG/DL (1.8-2.4); PHOSPHORUS LEVEL 3.7 MG/DL (2.5-4.9); POTASSIUM SERUM 4.4 MEQ/L (3.5-5.1); SODIUM LEVEL 139 MEQ/L (136-145); TOTAL PROTEIN 5.7 GM/DL (6.4-8.2); TRIGLYCERIDES LEVEL 124 MG/DL (<150)
[2017-02-02 06:17] LABS: BANDS 4 % (< 11)
[2017-02-02 06:18] LABS: HYPOCHROMASIA 2+
[2017-02-02 06:19] LABS: ANISOCYTOSIS 1+; MICROCYTOSIS 3+
[2017-02-02] MEDS: CHLORHEXIDINE ORAL RINSE 0.12%/15ML 120ML BOTTLE MT SCH ×2 (08:15→21:00)
[2017-02-02] MEDS: PANTOPRAZOLE 40MG INJ (PROTONIX) (C9113) IV SCH (08:15)
[2017-02-02] MEDS: BISACODYL 10 MG SUPP PR SCH (08:15)
[2017-02-02] MEDS: NICARDIPINE 30 MG PO SCH ×3 (08:27→21:01)
--- NOTE | 2017-02-02 08:31 | REP ---
Clinical: Status post intubation. Comparison: 02/01/2017. Findings: Endotracheal tube is 2.2 cm above the patience. Nasogastric tube courses below left hemidiaphragm. Right subclavian catheter with tip in the left subclavian vein. Mediastinum and cardiac silhouette are stable. Left lower lobe opacities suggesting atelectasis unchanged. No effusion. No pneumothorax. Impression: Endotracheal tube approximately 2.2 cm above the patience. Left lower lobe opacities unchanged from prior examination. Signed by Washington Reid MD 02/02/2017 08:22 A
[2017-02-02] MEDS: ACETAMINOPHEN 650 MG SUPP PR PRN ×2 (11:53→17:11)
--- NOTE | 2017-02-02 15:32 | CCN ---
DATE: 02/02/2017 NOTE: Ms. Stone has acute respiratory failure, but continues to do well on minimal ventilator settings. She has been on pressure support of 5 and a PEEP of 3 for over 48 hours. She has remained hemodynamically stable. She appears more alert this morning. She has reportedly had two coughs spontaneously that were not triggered by agitation or suctioning. She also was reported to have tried to raise her head or nod her head on three separate occasions, but when I saw her, she was sleeping. She has not been reported to clearly follow commands. She may be increasingly making purposeful movements with her left arm. OBJECTIVE: VITAL SIGNS: Temperature 98.7, with a maximum temperature (T-max) of 99.3, pulse 83, respiratory rate 19, blood pressure 134/81, SpO2 97% on an FiO2 of 0.4. HEENT: Anicteric. Pupils 3 mm and reactive. Nares: Patent bilaterally. Oropharynx: Endotracheal tube and orogastric (OG) tube in place. NECK: Supple, without thyromegaly. Trachea is midline. LYMPHATICS: Without cervical or supraclavicular lymphadenopathy. LUNGS: Symmetrical excursion. Good air entry. No wheeze, rhonchi or crackle on tidal excursion. Normal inspiratory to expiratory ratio (I:E). No accessory muscle usage or retractions. CARDIOVASCULAR: Regular rate and rhythm. Normal S1, S2. No murmur, rub or gallop appreciated. ABDOMEN: Normoactive bowel sounds. Soft, but nondistended. No hepatosplenomegaly or masses. EXTREMITIES: Decreased edema. Without clubbing or cyanosis. Palpable pedal pulses bilaterally. LABORATORY DATA: CBC showed a hemoglobin of 9.7, hematocrit of 33.4, platelet count 314,000, white blood cell count 18,000, with a differential of 86% neutrophils, 4% bands, 2% lymphocytes. Chemistry shows sodium 139, potassium 4.4, chloride 104, bicarbonate 27, anion gap 8, BUN 26, creatinine 0.6, glucose 261, calcium 8.3, phosphorus 3.7, magnesium 1.9. Total bilirubin 0.3, AST 14, ALT 20, alkaline phosphatase 127, LDH 229, CK 32, total protein 5.7, albumin 2.3. Yesterday's intake and output (I and O) showed 2780 in and 2540 out, making her positive 2140. Thus far today, 830 in and 1025 out, making her negative 135. I reviewed her chest x-ray and report from earlier today, and x-showed normal-appearing cardiac silhouette and pulmonary vascular shadows. No mediastinal or hilar adenopathy, left lower lobe atelectasis. Endotracheal tube in good position. IMPRESSION: 1. Acute respiratory failure requiring mechanical ventilation secondary to intraventricular hemorrhage. 2. Left basal ganglia and thalamic hemorrhage. Final pathology is anticipated tomorrow. 3. Hypertension. Controlled on Cardene. 4. Hypoglycemia. Insulin sliding scale. 5. Leukocytosis. In large part related to glucocorticoids. RECOMMENDATIONS: 1. At this time, I am still not comfortable with extubating her; however, she is clinically improving and hopefully will continue to do so and that could be considered tomorrow. 2. We will continue to tentatively plan on tracheostomy on Friday, but again, I am hopeful that she will continue to improve and perhaps that procedure could be avoided. 3. Regardless of the status of her tracheostomy, she is going to need percutaneous endoscopic gastrostomy (PEG) tube. 4. I have asked nursing not to routinely suction her today unless she spontaneously coughs up into the tube and it just needs help removing, or if she shows some desaturations that would suggest that she has secretions that she has not removed. If she does well with this plan overnight and with minimal secretions, will likely proceed with extubation. 5. This was discussed with her and he was in agreement with the plan. CRITICAL CARE TIME: 25 minutes, not including procedure time. ARMAAN
[2017-02-03] VITALS (15 sets, daily range): BP systolic 105–164; BP diastolic 64–96; O2SAT 91–97
[2017-02-03] MEDS: HumaLOG INSULIN (NovoLOG) PER UNIT SC SCH ×5 (00:37→23:57)
[2017-02-03] MEDS: CEFAZOLIN SOD 1 GM in APPROPRIATE DILUENT 1 EA IV SCH ×4 (03:02→20:58)
[2017-02-03] MEDS: dexameTHASONE 4 MG/ML 1ML VIAL (J1100) IV SCH ×4 (03:02→20:57)
[2017-02-03] MEDS: levETIRAcetam INJection 500 MG in D5W MINI-BAG PLUS 100 ML IV SCH ×2 (03:03→14:17)
[2017-02-03 04:49] LABS: MEAN CORPUSCULAR HEMOGLOBIN 20.2 pg (27.0-33.0); MEAN CORPUSCULAR HGB CONC 29.1 g/dl (32.0-36.5); MEAN CORPUSCULAR VOLUME 69.3 fl (80.0-96.0); PLATELET COUNT, AUTOMATED 361 10^3/uL (150-450); RED CELL DISTRIBUTION WIDTH 27.7 % (11.5-14.5); WHITE BLOOD COUNT 22.8 10^3/uL (4.0-10.0)
[2017-02-03 04:59] LABS: ADD MANUAL DIFFER YES; DIFF SLIDE NUMBER 65; POS COUNT POS FLAG; POSITIVE MORPH POS FLAG
[2017-02-03 05:30] LABS: ALBUMIN 2.5 GM/DL (3.2-5.2); ALBUMIN/GLOBULIN RATIO 0.69 (1.00-1.93); ALKALINE PHOSPHATASE 143 U/L (45-117); ALT/SGPT 22 U/L (12-78); ANION GAP 8 MEQ/L (8-16); AST/SGOT 15 U/L (7-37); BILIRUBIN,TOTAL 0.3 MG/DL (0.2-1.0); BLOOD UREA NITROGEN 26 MG/DL (7-18); CALCIUM LEVEL 8.6 MG/DL (8.5-10.1); CARBON DIOXIDE LEVEL 27 MEQ/L (21-32); CHLORIDE LEVEL 103 MEQ/L (98-107); CHOLESTEROL LEVEL 187 MG/DL (< 200); GLOMERULAR FILTRATION RATE > 60.0 (>58); GLUCOSE, FASTING 299 MG/DL (70-105); MAGNESIUM LEVEL 1.9 MG/DL (1.8-2.4); PHOSPHORUS LEVEL 3.3 MG/DL (2.5-4.9); POTASSIUM SERUM 4.3 MEQ/L (3.5-5.1); SODIUM LEVEL 138 MEQ/L (136-145); TOTAL PROTEIN 6.1 GM/DL (6.4-8.2); TRIGLYCERIDES LEVEL 106 MG/DL (<150)
[2017-02-03 06:13] LABS: BANDS 1 % (< 11)
[2017-02-03 06:15] LABS: ANISOCYTOSIS 3+
[2017-02-03 06:16] LABS: MICROCYTOSIS 2+
[2017-02-03 06:17] LABS: HYPOCHROMASIA 1+
[2017-02-03] MEDS: D5W/0.45% SODIUM CHLORIDE 1,000 ML IV SCH (07:15)
[2017-02-03] MEDS: PANTOPRAZOLE 40MG INJ (PROTONIX) (C9113) IV SCH (08:22)
[2017-02-03] MEDS: BISACODYL 10 MG SUPP PR SCH (08:22)
[2017-02-03] MEDS: NICARDIPINE 30 MG PO SCH ×3 (08:22→20:56)
[2017-02-03] MEDS: CHLORHEXIDINE ORAL RINSE 0.12%/15ML 120ML BOTTLE MT SCH ×2 (08:22→20:57)
--- NOTE | 2017-02-03 08:26 | REP ---
Clinical: Status post intubation. Comparison: 02/02/2017. Findings: Endotracheal tube is approximately 1.8 cm above the patience. Nasogastric tube courses below the left hemidiaphragm. Right subclavian catheter crosses into the left subclavian vein. Mediastinum and cardiac silhouette are normal. Lung perdomo demonstrate improved aeration with decreased atelectasis in the left lung zone. Linear fibro atelectatic change in the left lower lung zone as likely chronic. No obvious effusion. No pneumothorax. Skeletal structures intact. Impression: Improved aeration. Endotracheal tube approximately 1.8 cm above the patience. Signed by [place] Reid MD 02/03/2017 08:17 A
--- NOTE | 2017-02-03 11:04 | IPN ---
DATE OF SERVICE: 02/03/2017 NOTE: Ms. Stone remains critically ill requiring mechanical ventilation. She still does not have a significant spontaneous cough. We tried to not have her suctioned until she proved she needed it yesterday; and, unfortunately, she did have a slight decrease in her saturation and was suctioned several times; and moderate secretions were removed. She is opening her eyes, though it is not clear that she is truly responding to her name. I have been unable to make her follow any commands. PHYSICAL EXAMINATION: GENERAL: Ms. Stone is lying in bed, synchronous with the ventilator, in no acute distress. She has her eyes opened but does not appear to follow commands. She still does not cross the midline. VITAL SIGNS: Temperature 99 with a maximum temperature (Tmax) of 100.2, pulse 70, respiratory rate 18, blood pressure 105/64, with a mean arterial pressure (MAP) of 78, SpO2 98% on an FIO2 of 0.4. HEENT: Anicteric. Pupils equal, round, and reactive to light and accommodation. Nares: Patent bilaterally. Oropharynx: Endotracheal (ET) tube and orogastric (OG) tube in place. NECK: Supple, without jugular venous distention (JVD), without thyromegaly or masses. Trachea is midline. LYMPHATICS: Without cervical or supraclavicular lymphadenopathy. LUNGS: Symmetric excursion. Good air entry. No significant rhonchi, crackle, or wheeze. Normal inspiratory to expiratory ratio (I:E). No accessory muscle usage or retractions. CARDIOVASCULAR: Regular rate and rhythm with a normal S1, S2. No murmur, rub, or gallop appreciated. ABDOMEN: Positive bowel sounds. Soft, nondistended. No hepatosplenomegaly or masses appreciated. EXTREMITIES: Warm and well perfused without clubbing or cyanosis. Decreased edema. Palpable pedal pulses bilaterally. LABORATORY DATA: CBC showed a hemoglobin of 10.4, hematocrit 35.7, platelet count 361,000, white blood cell count 22,800, with a differential of 92% neutrophils, 1% band, 3% lymphocytes. Chemistry shows sodium 138, potassium 4.3, chloride 103, bicarbonate 27, anion gap 8, BUN 26, creatinine 0.8, glucose 299, calcium 8.6, phosphorus 3.3, magnesium 1.2, total bilirubin 0.3, AST 15, ALT 22, alkaline phosphatase 143, LDH 289, CK 53, total protein 6.1, albumin 2.5. I reviewed her chest x-ray, as well as the results, from earlier today. That x-ray showed normal-appearing cardiac silhouette and pulmonary vascular shadows. ET tube in good position. No significant infiltrates. Yesterday's intake and output (I and O) were 2850 in and 3075 out, making her negative 225. Thus far today, 820 in and 800 out, making her positive 20. Weight 90.5. IMPRESSION: 1. Acute respiratory failure requiring mechanical ventilation secondary to intraventricular hemorrhage. 2. Left basal ganglia and thalamic hemorrhage. Final pathology will hopefully be available today. 3. Hypertension. Controlled on Cardene. 4. Hyperglycemia. On sliding scale insulin. 5. Leukocytosis, felt in large part related to glucocorticosteroids. RECOMMENDATIONS: 1. Unfortunately, Ms. Stone does not appear to have sufficient cough spontaneously. She will cough with agitation, but I do not feel that her cough is at a level that she will be able to effectively clear her secretions, and I feel that this will preclude extubation at this time. 2. Will plan on going ahead with tracheostomy tomorrow. 3. Regardless of the final tracheostomy decision, she will need a percutaneous endoscopic gastrostomy (PEG) tube for nutrition and will contact GI today for tube placement, possibly to follow tracheostomy tomorrow. 4. Will ask neurosurgery regarding recommendations regarding continued tapering of her Decadron. MTDD
[2017-02-03] MEDS ORDERED: SODIUM CHLORIDE 0.9% INJ 10 ML SYR IV PRN (13:45)
[2017-02-03] MEDS: SODIUM CHLORIDE 0.9% INJ 10 ML SYR IV SCH ×2 (14:18→21:01)
[2017-02-03 17:52] LABS: ERYTHROCYTE SEDIMENTATION RATE 9 mm/hr (0-20)
[2017-02-04] VITALS (12 sets, daily range): BP systolic 113–144; BP diastolic 62–97; O2SAT 96
[2017-02-04] MEDS: levETIRAcetam INJection 500 MG in D5W MINI-BAG PLUS 100 ML IV SCH ×2 (03:44→15:36)
[2017-02-04] MEDS: dexameTHASONE 4 MG/ML 1ML VIAL (J1100) IV SCH ×3 (03:45→21:23)
[2017-02-04 05:07] LABS: MEAN CORPUSCULAR HGB CONC 28.8 g/dl (32.0-36.5); MEAN CORPUSCULAR VOLUME 69.5 fl (80.0-96.0); PLATELET COUNT, AUTOMATED 333 10^3/uL (150-450); RED CELL DISTRIBUTION WIDTH 27.9 % (11.5-14.5); WHITE BLOOD COUNT 20.9 10^3/uL (4.0-10.0)
[2017-02-04 05:09] LABS: ADD MANUAL DIFFER YES; DIFF SLIDE NUMBER 48; POS COUNT POS FLAG; POSITIVE MORPH POS FLAG
[2017-02-04 05:30] LABS: ALBUMIN 2.5 GM/DL (3.2-5.2); ALBUMIN/GLOBULIN RATIO 0.74 (1.00-1.93); ALKALINE PHOSPHATASE 134 U/L (45-117); ALT/SGPT 20 U/L (12-78); ANION GAP 6 MEQ/L (8-16); AST/SGOT 13 U/L (7-37); BILIRUBIN,TOTAL 0.3 MG/DL (0.2-1.0); BLOOD UREA NITROGEN 27 MG/DL (7-18); CALCIUM LEVEL 8.9 MG/DL (8.5-10.1); CARBON DIOXIDE LEVEL 28 MEQ/L (21-32); CHLORIDE LEVEL 102 MEQ/L (98-107); CHOLESTEROL LEVEL 180 MG/DL (< 200); CREATININE FOR GFR 0.69 MG/DL (0.55-1.02); GLOMERULAR FILTRATION RATE > 60.0 (>58); GLUCOSE, FASTING 329 MG/DL (70-105); MAGNESIUM LEVEL 2.1 MG/DL (1.8-2.4); PHOSPHORUS LEVEL 3.5 MG/DL (2.5-4.9); POTASSIUM SERUM 4.3 MEQ/L (3.5-5.1); SODIUM LEVEL 136 MEQ/L (136-145); TOTAL PROTEIN 5.9 GM/DL (6.4-8.2); TRIGLYCERIDES LEVEL 126 MG/DL (<150)
--- NOTE | 2017-02-04 05:35 | CR ---
DATE OF CONSULTATION: 02/03/2017 REFERRING PHYSICIAN: Dr. Kaminski. REASON FOR CONSULTATION: Asked to consult by Dr. Kaminski for evaluation of positive cerebrospinal fluid (CSF) culture with Propionibacterium acnes. HISTORY OF PRESENT ILLNESS: Ms. Stone is a 51-year-old female who is currently intubated and the is not at the bedside but the chart has been reviewed. She was admitted on 01/20 with mental status changes. The patient had been sick for about five days prior to admission, was being very groggy, sleepy, confused, difficulty with her gait and weakness. She had decreased hand/eye coordination. The patient was brought into the emergency room after a trip to [place] with her when she was not herself. She has been here since admission in the intensive care unit (ICU) . Initially she had a fever of 104.4 with a white count of 14,000. The fever resolved after 48 hours and she has been afebrile since. She was noted to have a large right basal ganglia hypodensity and a 2 cm cerebral hemorrhage in a basal ganglia, and the patient was treated with steroids. She had ventriculostomy placed on 01/23 for decompression for worsening mental status changes, was intubated, and fluid was sent for cytology. She had two cytology sent which were negative for malignant cells. On 01/23, she was started on cefazolin for perioperative prophylaxis which she has received since then. She is currently day 12 of cefazolin. On 01/29, there was concern of malignancy causing these mental status changes and hemorrhaging inside the malignancy and, therefore, a biopsy was done by Dr. Kaminski which was consistent with gliosis and necrotic tissue, but the pathology was sent to [place] for a second opinion. Her past medical history is significant for chronic back pain for which she takes ibuprofen, kidney stone status post lithotripsy and nephrostomies. Home medication usually is only ibuprofen. She is currently on: - cefazolin 1 gram intravenous (IV) every six hours - nicardipine 30 mg by mouth three times a day - chlorhexidine gluconate twice a day - Decadron 2 mg IV every eight hours - Dulcolax as needed -insulin as needed - Keppra 500 mg IV every 12 hours - morphine 2 mg every 30 minutes as needed for agitation - Protonix 40 mg IV daily - Tylenol as needed for fever p.r.n. fever. ALLERGIES: No known drug allergies. LABORATORY DATA: White count is 22.8, hemoglobin 10.4, hematocrit 35.7, platelets 361, 92% neutrophils, 3% lymphocytes, 2% monocytes. Sodium 138, potassium 4.3, chloride 103, bicarb 27, BUN 26, creatinine 0.8, glucose 299, calcium 8.6, phosphorus 3.3 , magnesium 1.9, AST 15, ALT 122, alk phos 143, LDH 289, CRP 4.56, total protein 6.1, albumin 2.5. MICROBIOLOGY: CSF fluid had Propionibacterium acnes on 01/23, which is from the ventriculostomy tube that was placed. Few red cells and no organisms were seen on Gram stain. The culture did not grow until 02/01 which was nine days later. Viral culture was negative and 01/24 culture was negative. IMAGING: Chest x-ray on 02/03 showed improved aeration with endotracheal tube approximately 1.8 cm above the patiecne. There is some atelectasis but no acute infiltrates. Angiographic MR venogram was negative. MRA was negative, and brain MRI showed an abnormal signal intensity on T2-weighted images and present in the left basal ganglia, thalamus and hypothalamus with a small hemorrhagic component consistent with a neoplasm per Dr. Olivarez who review the MRI findings. Head CT done on 01/24 again showed a left basil ganglia thalamic and mid brain mass was a small hemorrhagic component. A shunt was present with its tip in the third ventricle that the patient has pulled out since then. PHYSICAL EXAMINATION: GENERAL: On physical exam, the patient is lethargic, opens her eyes when I call her name, but otherwise does not follow command. VITAL SIGNS: Temperature 98.6, pulse 91, respirations 20, blood pressure 139/87, O2 saturation 91% on 40% FIO2. HEART: Normal S1, S2 with no murmurs. LUNGS: Clear. No wheezes, rales or rhonchi. ABDOMEN: Soft, nontender. EXTREMITIES: No edema. She has right-sided hemiparesis. Left-sided upper and lower extremity move continuously. HEENT: She has a shaved head with libra in place where the brain biopsy was done. IMPRESSION: This is a 51-year-old female who presented with some mental status changes that had progressed over five days, was noted to have a hypertensive crisis along with an acute hemorrhage and what seems to be a large left cerebral hemisphere basal ganglia, thalamus mid brain and hypothalamus mass. The biopsy so far has been consistent with necrotic tissue, but no formal malignancy diagnosis has been made. The Propionibacterium acnes on culture grew nine days later. This is not a typical pathogen that would cause infection in a normal host and this usually causes infection with hardware such as ventriculoperitoneal ([employer]) shunts or prosthesis. The patient has been on IV cefazolin for the past 12 days. PLAN: Discontinue IV cefazolin. Propionibacterium (P) acnes is a contaminant and not a real infection. The patient has worsening leukocytosis in spite of tapering steroids and, therefore, would obtain blood cultures just to make sure she does not have a line infection. Will continue to monitor off antibiotics. Case has been discussed with Dr. Kaminski. ARMAAN
[2017-02-04] MEDS: HumaLOG INSULIN (NovoLOG) PER UNIT SC SCH ×3 (05:55→17:28)
[2017-02-04] MEDS: SODIUM CHLORIDE 0.9% INJ 10 ML SYR IV SCH ×3 (05:55→21:23)
[2017-02-04 06:32] LABS: BANDS 3 % (< 11)
[2017-02-04 06:33] LABS: ANISOCYTOSIS 3+; HYPOCHROMASIA 2+; POLYCHROMASIA 1+
--- NOTE | 2017-02-04 08:34 | REP ---
Clinical: Status post intubation. Comparison: 02/03/2017. Findings: Endotracheal tube is approximately 18 mm from the patience. Nasogastric tube courses below left hemidiaphragm. Right subclavian catheter courses into the left subclavian vein. Mediastinum and cardiac silhouette are stable. Plate-like atelectasis in the left retrocardiac lower lobe unchanged. No further acute consolidation, obvious effusion or pneumothorax. Skeletal structures intact. Impression: 1. Endotracheal tube approximately 18 mm from the patience. 2. Plate-like atelectasis in the left lower lobe. Signed by [place] Reid MD 02/04/2017 08:26 A
[2017-02-04] MEDS: CHLORHEXIDINE ORAL RINSE 0.12%/15ML 120ML BOTTLE MT SCH ×2 (08:35→21:22)
[2017-02-04] MEDS: PANTOPRAZOLE 40MG INJ (PROTONIX) (C9113) IV SCH (08:36)
[2017-02-04] MEDS: BISACODYL 10 MG SUPP PR SCH (08:36)
[2017-02-04] MEDS: NICARDIPINE 30 MG PO SCH ×3 (08:36→21:23)
--- NOTE | 2017-02-04 08:46 | REP ---
CT Head without contrast HISTORY: Infarction COMPARISON: 01/24/2017 An ill-defined hypodense lesion is present in the left basal ganglia, thalamus and mid brain. There has been resolution of of the small hemorrhagic component. Surrounding edema is present that is decreased compared to the previous study. There is mass effect with partial effacement of of the body of the left lateral and third ventricles with minimal midline shift to the right. The patient is status post ventricular shunt removal. A small area of decreased attenuation is present in the left frontal lobe. This represents encephalomalacia along a ventricular shunt tube tract. Three small radiopaque densities are present in the left frontal lobe. There is dilatation of the ventricular system consistent with minimal hydrocephalus that is decreased compared to the previous study. There is no extra cerebral collection. There is no fracture. The visualized sinuses are clear. IMPRESSION: 1. There has been resolution of the hemorrhagic prominent previously as seen in the left basal ganglia thalamic and mid brain lesion. There has been a decrease in the surrounding edema. 2. The patient is status post ventricular shunt removal. A small area of encephalomalacia is present in the left frontal lobe. Three small radiopaque densities are present in the left frontal lobe. 3. Minimal hydrocephalus decreased compared to the previous study. Signed by Satinder Olivarez MD 02/04/2017 08:37 A
[2017-02-04] MEDS: MORPHINE 2 MG/ML 1ML SYRINGE IV PRN (09:36)
--- NOTE | 2017-02-04 11:32 | CR ---
DATE OF CONSULTATION: 02/04/2017 REASON FOR CONSULTATION: Feeding tube placement. HISTORY OF PRESENT ILLNESS: The patient is a 51-year-old female currently in the intensive care unit (ICU). She was admitted on January 20 due to altered mental status found to have intraparenchymal hematoma versus mass that had resulted in hydrocephalus and some increased intracranial pressure. During her stay, she ended up being intubated due to increased intracranial pressure and currently is still on the ventilator. She is getting a trache placed tomorrow on 02/[address] Sanchez. Her respiratory status as well on her own. However, she is unable to clear her secretions sufficiently. Dr. Kothari feels that this may only be temporary because she has already seen signs of improvement but she is not ready for a complete extubation yet. She does have significant weakness on her right side. Is not really responding to any questions and is not showing any signs of being able tolerate oral diet anytime soon. Therefore they have asked that I evaluate her for peg placement. PAST MEDICAL HISTORY: Chronic back pain. Kidney stones. PAST SURGICAL HISTORY: Nephrostomy tube placement. Ovarian cyst removed as a teenager that was very large and wrapped around loops of bowel. FAMILY HISTORY: Noncontributory. ALLERGIES: None. HOME MEDICATIONS: Please see medical records. SOCIAL HISTORY: Denies drug, alcohol, tobacco abuse. REVIEW OF SYSTEMS: Unable to obtain. PHYSICAL EXAMINATION: General: The patient is lethargic on the ventilator. She opens her eyes but does not follow any commands. Vitals: Temperature 98.5, pulse 88, respirations 20, blood pressure 132/84, pulse ox 91% on ventilator. HEENT: Pupils are equally round and reactive. Heart: S1, S2 regular rate and rhythm. Lungs: Clear to auscultation bilaterally. Abdomen: Soft, nontender, nondistended. Extremities: No clubbing, cyanosis or edema. LABORATORY DATA: White count 20.9, hemoglobin 10, platelets 333. INR was 1.[address] Head CT from this morning shows resolution of hemorrhagic component previously as seen in the left basal ganglia and mid brain lesion. There is also a decrease in the surrounding edema. The patient is status post ventricular shunt removal. Small area of encephalomalacia is present in the left frontal lobe. Three small radiopaque densities are present in the left frontal lobe. Minimal hydrocephalus decreased compared to previous study. 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 Recommendation at this time is to proceed with peg placement due to dysphagia and inability to tolerate oral intake. I have discussed the feeding tube with the including its care, placement and risk and benefits involved. The risks of the placement include but are not limited to bleeding, infection, damage to surrounding structures, possibility of placing the tube through a loop of bowel and possible tube dislodgement. He understands that the tube is not permanent and can be removed after it has been in for least 2 weeks. If she is able to tolerate eat or drink on her own once the trache is placed, then this will not prevent her from doing that. understands and agrees with the tube and will sign consent for me this afternoon.
--- NOTE | 2017-02-04 12:18 | CR ---
DATE OF CONSULTATION: 02/04/2017 The patient is seen at the request of Dr. Kothari for respiratory failure, prolonged intubation and consideration for tracheostomy. HISTORY OF PRESENT ILLNESS: The patient is a 51-year-old white female who was admitted on 01/20/2017 with progressive mental status changes which eventually lead to respiratory failure with intubation. Her CT scan showed potential thalamic bleed and/or infarct. At one time, she underwent a brain biopsy as it was thought this might represent lymphoma. However, final pathology showed just necrotic debris. She has been intubated since that time and is now approaching a risk time of tracheal issues from the endotracheal tube. She is gradually starting to arouse. Nonetheless, she is still essentially, she is still noncommunicative. It is difficult to tell if she actually understands what is happening to her. Most of the history was obtained from the . PAST MEDICAL HISTORY: 1. History of renal stones, status post lithotripsy and nephrostomy tubes. 2. Chronic back pain. HOME MEDICATIONS: Ibuprofen ALLERGIES: None. PAST SURGICAL HISTORY: - Lithotripsy with nephrostomy tube. TRAVEL HISTORY: Was traveling from [place] when the mental status changes happened. EXPOSURES: Three cats at home. FAMILY HISTORY: Mother with diabetes and history of dementia. OCCUPATIONAL HISTORY: Not relevant. REVIEW OF SYSTEMS: Unobtainable as the patient is intubated and not communicative. PHYSICAL EXAMINATION: Vital Signs: Temperature 98.5, heart rate of 88 in sinus rhythm, respiratory rate 20 on spontaneous ventilation with FiO2 of 40% and a PEEP of 3 and a pressure support of 5 with a blood pressure of 132/84. She is 91-97% saturated on the above settings. Well-developed, well nourished white female who is sitting in a cardiac chair and who nodes her head when I ask her if she understands. She is able to follow me with her eyes and continually looks at her . Head is normocephalic. Eyes: Left pupil is dilated to its mid position and does not react. Right pupil is reactive. Extraocular muscles intact. Sclerae anicteric. Nose without deformity. Mouth: The patient is intubated. Lips and commissures without lesions. Neck is supple. There is jugular venous distention. No subcutaneous emphysema. Trachea is midline. There is no thyromegaly or lymphadenopathy. Lungs show weaken breath sounds on either side with occasional rhonchi. The patient does not cough on command. Percussion note is full to the diaphragm. Cardiac exam without murmurs, clicks, gallops or rubs. I cannot feel her point of maximum impulse (PMI). S1, S2 are normal. Abdomen is soft, nontender. Bowel sounds are positive. There is no hepatomegaly. No CVA tenderness. Extremities show trace pretibial edema. No calf tenderness. No differential swelling of the upper extremities that I can elicit. Skin is warm, dry and perfused without cyanosis or mottling including that of the nail beds and knees. Neuro as described above. She moves her extremities and in fact, has mittens as she is always trying to go for the endotracheal tube. Psychiatric as above. INVESTIGATIONS: Her most recent white count today is 20.9 with a hemoglobin and hematocrit of 10.0 and 34.7 and a platelet count of 333. Differential shows 90% neutrophils, 3% bands, 4% lymphocytes, 3% monocytes. There are no toxic granulations recorded. Electrolytes are normal with a BUN and creatinine 27 and 0.69. Glucose 329 with a calcium 8.9, magnesium 2.1 and a phosphorus of 3.5. Albumin is 2.5 with a glucose of 329. Her chest x-ray shows lung fully expanded to the chest wall. Endotracheal tube is 2 cm above the patience. There is some blunting of the left costophrenic angle on portable chest x-ray. IMPRESSION: 1. Thalamic bleed with cerebrovascular accident (CVA). 2. Respiratory failure in need of prolonged intubation. 3. Hypertension. 4. Leukocytosis. PLAN AND DISCUSSION: We will tentatively plan to do a tracheostomy tomorrow morning at bedside. She will also need nutrition and Dr. Kothari is contacting Dr. Collado to also place a percutaneous endoscopic gastrostomy (PEG) tube. I have explained the procedure to her and he understands and is willing to proceed. I plan to put in a #8 Shiley fenestrating tracheostomy tube.
--- NOTE | 2017-02-04 15:07 | CR ---
DATE OF CONSULTATION: 02/04/2017 REQUESTING PHYSICIAN: Dr. Liam Figueroa REASON FOR CONSULTATION: Acute intraparenchymal hematoma in the left thalamus and internal capsule with mass effect with initial concern for malignancy based on a CT of the head. HISTORY OF PRESENT ILLNESS: Aggie Stone is a 51-year-old female who was admitted to [facility], [place] after a progressive decline in her neurological status. She subsequently ended up intubated, which she continues to be due to her inability to follow commands and obtundation. As part of her evaluation upon admission to [facility], [place], she had a CT scan of the head on 01/20/2017 and it revealed an acute 2 cm intraparenchymal hematoma in the left thalamus and internal capsule with mass effect. Minimal midline shift with evidence of intraventricular hemorrhage. Subsequent MRI of the brain on 01/20/2017 confirmed left basal ganglia mass effect. Given concern for malignancy, she underwent stereotactic biopsy of the brain, which revealed reactive gliosis and necrotic tissue but no evidence of tumor. Flow cytometry was sent to [facility], but apparently there is not enough tissue for further testing. CSF cytology was also negative for malignancy. CT scan of the chest, abdomen and pelvis was done on 01/22/[address] of the abdomen and pelvis except for an obstructing calculi. CT of the chest did not show any mediastinal lymph nodes. Nonspecific 1.2 cm left axillary lymph node was noted. No mediastinal lymph nodes. Hematology/oncology was initially consulted given concern for malignancy; however, at this time, final pathology does not reveal any evidence of malignancy. The patient is still intubated with the plan for tracheostomy and percutaneous enteral feeding tube. PAST MEDICAL HISTORY: 1. Nephrolithiasis. 2. Chronic back pain. 3. Status post lithotripsy. 4. Nephrostomy. MEDICATIONS: - cefazolin - nicardipine - ibuprofen as needed - chlorhexidine - Decadron - Dulcolax - insulin - Keppra - as needed morphine - Protonix - Tylenol ALLERGIES: No known drug allergies. SOCIAL HISTORY: She is . is at her bedside. She has teenage children. FAMILY HISTORY: Unremarkable. PHYSICAL EXAMINATION: The patient is lying in bed intubated, sedated. VITAL SIGNS: Blood pressure with a systolic around 110 to 120s and diastolic of 60 to 70s. She is ventilated, FiO2 of 40%. Temperature 98.9. HEART: Regular rate and rhythm. LUNGS: Clear anteriorly. ABDOMEN: Soft and benign. EXTREMITIES: Trace edema bilaterally. LABORATORIES AND STUDIES: As dictated above. IMPRESSION AND RECOMMENDATIONS: The patient was discussed extensively at the multi-departmental tumor conference. Most importantly, at this time is for the patient's acute resolution of acute hemorrhage. So far, biopsies of the brain have been negative for malignancy and there are possibly other etiologies that could have predisposed her acute hemorrhage as from malignancy. Of note she was in hypertensive emergency on admission. At this time, there is no firm diagnosis of malignancy based on biopsy and imaging studies. To that end, would recommend that the patient continues to be monitored expectantly. Upon stability, the patient can be reevaluated with another MRI of the brain vs attempted re-biopsy of any concerning brain lesion after repeat imaging. CARIDADD
[2017-02-05] VITALS (23 sets, daily range): BP systolic 88–153; BP diastolic 53–90
[2017-02-05] MEDS: HumaLOG INSULIN (NovoLOG) PER UNIT SC SCH ×4 (00:15→17:31)
[2017-02-05] MEDS: levETIRAcetam INJection 500 MG in D5W MINI-BAG PLUS 100 ML IV SCH ×2 (03:51→14:50)
[2017-02-05] MEDS: dexameTHASONE 4 MG/ML 1ML VIAL (J1100) IV SCH ×3 (03:51→22:15)
[2017-02-05 05:22] LABS: MEAN CORPUSCULAR HEMOGLOBIN 20.4 pg (27.0-33.0); MEAN CORPUSCULAR HGB CONC 29.5 g/dl (32.0-36.5); MEAN CORPUSCULAR VOLUME 69.1 fl (80.0-96.0); PLATELET COUNT, AUTOMATED 286 10^3/uL (150-450); RED CELL DISTRIBUTION WIDTH 28.1 % (11.5-14.5); WHITE BLOOD COUNT 18.7 10^3/uL (4.0-10.0)
[2017-02-05 05:23] LABS: ADD MANUAL DIFFER YES; DIFF SLIDE NUMBER 27; POS COUNT POS FLAG; POSITIVE MORPH POS FLAG
[2017-02-05 05:39] LABS: ALBUMIN 2.5 GM/DL (3.2-5.2); ALBUMIN/GLOBULIN RATIO 0.71 (1.00-1.93); ALKALINE PHOSPHATASE 150 U/L (45-117); ALT/SGPT 17 U/L (12-78); ANION GAP 7 MEQ/L (8-16); AST/SGOT 10 U/L (7-37); BILIRUBIN,TOTAL 0.3 MG/DL (0.2-1.0); BLOOD UREA NITROGEN 29 MG/DL (7-18); CALCIUM LEVEL 8.4 MG/DL (8.5-10.1); CARBON DIOXIDE LEVEL 27 MEQ/L (21-32); CHLORIDE LEVEL 103 MEQ/L (98-107); CHOLESTEROL LEVEL 170 MG/DL (< 200); CREATININE FOR GFR 0.76 MG/DL (0.55-1.02); GLOMERULAR FILTRATION RATE > 60.0 (>58); GLUCOSE, FASTING 382 MG/DL (70-105); MAGNESIUM LEVEL 1.9 MG/DL (1.8-2.4); PHOSPHORUS LEVEL 3.6 MG/DL (2.5-4.9); POTASSIUM SERUM 4.3 MEQ/L (3.5-5.1); SODIUM LEVEL 137 MEQ/L (136-145); TRIGLYCERIDES LEVEL 119 MG/DL (<150)
[2017-02-05] MEDS: SODIUM CHLORIDE 0.9% INJ 10 ML SYR IV SCH ×3 (06:00→22:16)
[2017-02-05 06:30] LABS: ANISOCYTOSIS 4+
[2017-02-05 06:31] LABS: HYPOCHROMASIA 1+
--- NOTE | 2017-02-05 08:43 | REP ---
Portable chest x-ray: Single view. History: Intubated patient. Comparison study: February 04, 2017. Findings: Endotracheal tube remains in good position. An NG tube enters the left upper quadrant of the abdomen. A right subclavian catheter is seen crossing the midline terminating in the expected location of the brachiocephalic vein as before. There is plate-like atelectasis in the left inferior perihilar region which is unchanged. There is new left lower lobe opacity in the left base on the current film. Today's radiograph is exposed at a somewhat lesser inspiratory level. Nevertheless infiltrate and/or effusion suspected. Impression: New opacity left base, question infiltrate versus effusion. Signed by Nima Andrews MD 02/05/2017 11:18 A
[2017-02-05] MEDS: BISACODYL 10 MG SUPP PR SCH (09:00)
[2017-02-05] MEDS: CHLORHEXIDINE ORAL RINSE 0.12%/15ML 120ML BOTTLE MT SCH ×2 (09:27→22:15)
[2017-02-05] MEDS: PANTOPRAZOLE 40MG INJ (PROTONIX) (C9113) IV SCH (09:28)
[2017-02-05] MEDS: NICARDIPINE 30 MG PO SCH ×3 (09:28→22:15)
[2017-02-05] MEDS ORDERED: LIDOCAINE W/EPINEPHRINE 1% 20ML VIAL As Ordered ONE (11:27)
[2017-02-05] MEDS ORDERED: CETACAINE SPRAY 5GM As Ordered ONE (11:27)
[2017-02-05] MEDS ORDERED: MIDAZOLAM INJ 2 MG/2 ML VIAL (J2250) As Ordered ONE (13:10)
[2017-02-05] MEDS ORDERED: fentaNYL 100 MCG/2 ML INJECTION (J3010) As Ordered ONE (13:10)
[2017-02-05] MEDS ORDERED: PROPOFOL 1,000 MG/100 ML VIAL As Ordered ONE (13:27)
--- NOTE | 2017-02-05 14:49 | REP ---
Clinical: Tracheostomy. Comparison: 02/05/2017. Findings: Status post tracheostomy in satisfactory position. Right subclavian catheter extends to the left subclavian vein. Mediastinum and cardiac silhouette are normal. Right perihilar and left lower lobe/retrocardiac consolidations may be slightly increased when compared to prior examination. No effusion. No pneumothorax. Skeletal structures intact. Impression: 1. Tracheostomy in satisfactory position. 2. Right perihilar and left lower lobe/retrocardiac opacities slightly increased compared to prior exam. Signed by Washington Reid MD 02/05/2017 02:41 P
--- NOTE | 2017-02-05 15:09 | RO ---
DATE OF PROCEDURE: 02/05/2017 PREOPERATIVE DIAGNOSIS: Dysphagia. POSTOPERATIVE DIAGNOSIS: Dysphagia. PROCEDURE: Endoscopic gastroscopy followed by PEG tube placement. SURGEON: Dr. Collado. INSPECTOR TYPE: None. ANESTHESIA: IV sedation with 5 mL of 1% lidocaine local. COMPLICATIONS: None. INDICATIONS FOR PROCEDURE: The patient 51-year-old female presents to the hospital with an acute stroke, currently having difficulty with swallowing and is in need for feeding tube. Recommendation is to place a percutaneous endoscopic gastrostomy (PEG) tube. Informed consent was obtained from the . Risks and benefits of procedure not limited but including bleeding, infection, perforation, damage to surrounding structures, need for further surgery discussed in detail with the . Informed consent was obtained and procedure was planned. PROCEDURE: In the ICU bed the patient's abdomen was sterilely prepped with chlorhexidine. Next a time-out was done to confirm proper patient and procedure. Next the gastroscope was passed through the esophagus into the stomach. The stomach was directly visualized as the abdominal wall was palpated. Once a clear spot was identified lidocaine was injected in the skin and subcutaneous tissue overlying this point. Next a needle was passed through the skin into the stomach with minimal resistance followed by a guidewire. An 11 blade scalpel was then used to make a 1 cm incision at the base the needle, needle was removed and the guidewire was left in place. The snare was passed through the scope and the guidewire was grasped and brought out through the mouth. The 20-[place] feeding tube was then placed over top of the guidewire and brought out through the abdominal wall and the tube was pulled into place. Gastroscope was passed one more time to confirm proper placement. The bumper on the tube was connected along with the ports on the end of the tube. Once this was all completed and the tube was secured in place with supplied fasteners the patient was awakened from anesthesia and left on her trach collar.
[2017-02-05] MEDS: MORPHINE 2 MG/ML 1ML SYRINGE IV PRN ×2 (17:18→23:23)
[2017-02-06] VITALS (8 sets, daily range): BP systolic 117–141; BP diastolic 22–82
[2017-02-06] MEDS: HumaLOG INSULIN (NovoLOG) PER UNIT SC SCH ×4 (00:55→17:19)
[2017-02-06] MEDS: levETIRAcetam INJection 500 MG in D5W MINI-BAG PLUS 100 ML IV SCH ×2 (04:50→15:44)
[2017-02-06] MEDS: dexameTHASONE 4 MG/ML 1ML VIAL (J1100) IV SCH ×3 (04:50→20:45)
[2017-02-06] MEDS: SODIUM CHLORIDE 0.9% INJ 10 ML SYR IV SCH ×3 (05:12→20:45)
[2017-02-06 05:22] LABS: BASO # 0.1 10^3/uL (0.0-0.2); BASO % 0.3 % (0.0-1.0); EOS % 0.1 % (0.0-3.0); LYMPH # 0.6 10^3/uL (1.5-4.5); LYMPH % 3.7 % (24.0-44.0); MEAN CORPUSCULAR HEMOGLOBIN 20.5 pg (27.0-33.0); MEAN CORPUSCULAR HGB CONC 28.8 g/dl (32.0-36.5); MEAN CORPUSCULAR VOLUME 71.1 fl (80.0-96.0); MONO % 6.2 % (0.0-5.0); NEUTROPHILS # 13.5 10^3/uL (1.8-7.7); NEUTROPHILS % 85.7 % (36.0-66.0); PLATELET COUNT, AUTOMATED 241 10^3/uL (150-450); RED CELL DISTRIBUTION WIDTH 28.1 % (11.5-14.5); WHITE BLOOD COUNT 15.8 10^3/uL (4.0-10.0)
[2017-02-06 05:45] LABS: ALBUMIN 2.5 GM/DL (3.2-5.2); ALBUMIN/GLOBULIN RATIO 0.81 (1.00-1.93); ALKALINE PHOSPHATASE 114 U/L (45-117); ALT/SGPT 18 U/L (12-78); ANION GAP 7 MEQ/L (8-16); AST/SGOT 9 U/L (7-37); BILIRUBIN,TOTAL 0.4 MG/DL (0.2-1.0); BLOOD UREA NITROGEN 30 MG/DL (7-18); CALCIUM LEVEL 8.3 MG/DL (8.5-10.1); CARBON DIOXIDE LEVEL 28 MEQ/L (21-32); CHLORIDE LEVEL 107 MEQ/L (98-107); CHOLESTEROL LEVEL 174 MG/DL (< 200); CREATININE FOR GFR 0.68 MG/DL (0.55-1.02); GLOMERULAR FILTRATION RATE > 60.0 (>58); GLUCOSE, FASTING 219 MG/DL (70-105); MAGNESIUM LEVEL 2.1 MG/DL (1.8-2.4); PHOSPHORUS LEVEL 4.2 MG/DL (2.5-4.9); POTASSIUM SERUM 4.5 MEQ/L (3.5-5.1); SODIUM LEVEL 142 MEQ/L (136-145); TOTAL PROTEIN 5.6 GM/DL (6.4-8.2); TRIGLYCERIDES LEVEL 106 MG/DL (<150)
[2017-02-06] MEDS: PANTOPRAZOLE 40MG INJ (PROTONIX) (C9113) IV SCH (08:26)
[2017-02-06] MEDS: BISACODYL 10 MG SUPP PR SCH (08:26)
[2017-02-06] MEDS: NICARDIPINE 30 MG PO SCH ×3 (08:26→20:24)
[2017-02-06] MEDS: CHLORHEXIDINE ORAL RINSE 0.12%/15ML 120ML BOTTLE MT SCH ×2 (08:28→20:22)
[2017-02-06 08:59] LABS: TRIPLE PHOSPHATE CRYSTALS LARGE
--- NOTE | 2017-02-06 09:21 | REP ---
Portable chest x-ray: Semi-erect AP view. History: Intubated patient. Comparison study February 05, 2017. Findings: Tracheostomy tube remains in position. There is a linear density in the left base consistent with discoid atelectasis and/or fibrosis. There is some increased markings or increased density behind the heart in the left lower lobe. Lung perdomo are otherwise clear. A right subclavian catheter is seen in place crossing the midline in the expected location of the brachiocephalic vein. Signed by Nima Andrews MD 02/06/2017 04:06 P
[2017-02-06] MEDS: HEPARIN SOD (PORCINE) 5000 UNITS/ML VIAL SQ SCH ×2 (14:22→20:44)
--- NOTE | 2017-02-06 17:31 | RO ---
DATE OF PROCEDURE: 02/05/2017 PREOPERATIVE DIAGNOSIS: Malclearance of secretions. POSTOPERATIVE DIAGNOSIS: Malclearance of secretions. PROCEDURE: Bronchoscopy. SURGEON: Dr. Kothari ANESTHESIA: DESCRIPTION OF PROCEDURE: Procedure had been explained to her and consent obtained. This procedure was done in conjunction with the placement of percutaneous tracheostomy. [place] procedure was followed. Ms. Stone was intubated, and sedation was controlled by anesthesia for the procedure. She also was preoxygenated with an FiO2 of 1.0. Bronchoscope was then entered into the trachea. Both the left and right lungs were examined. There was a small amount of thick whitish-yellow secretions on both sides that were aspirated. The mucosa in general was friable but not significantly edematous. Normal anatomy. There was a significant amount of secretions lining the endotracheal tube, and some of these were also aspirated to make certain that they did not interfere with the placement of the tracheostomy. Tolerated well. FINDINGS: 1. A small amount of thick whitish-yellow secretions bilaterally, which were aspirated. 2. Friable mucosa but not significant edema. SPECIMENS: None. MTDD
--- NOTE | 2017-02-06 17:55 | RO ---
DATE OF PROCEDURE: 02/05/2017 PREPROCEDURE DIAGNOSIS: Respiratory failure, prolonged intubation. POSTPROCEDURE DIAGNOSIS: Respiratory failure, prolonged intubation. PROCEDURE: Tracheostomy. SURGEON: Dr. Ryan Sanchez BUSINESS TECHNOLOGY ARCHITECT: Dr. Collado PROCEDURE: Under satisfactory general anesthesia and with anesthesia present, patient was prepped and draped in the usual sterile fashion. Just prior to this Dr. Kothari undertook a bronchoscopy which will be dictated in a separate note. The patience was located and the bronchoscope brought back to the tip of the endotracheal tube. The endotracheal tube was gradually removed until I could see the second or third tracheal ring. Neck was infiltrated with 1% Xylocaine and the exploring needle found the midline of the trachea. A large needle was placed and a wire was placed through that larger needle. Incision was made transversely from the wire in both directions and the underlying tissue was spread in the midline with a clamp. The tract was successively dilated first with a small rigid dilator followed by a wide guiding catheter which was then followed by a large rhino horn which had previously been soaked in saline. The rhino horn was removed and a #8 fenestrated [place]iley tracheostomy was then placed. The tracheostomy was connected to the ventilator and was secured with 4-0 silk sutures and then a Velcro strap. Re-bronchoscopy through the still present endotracheal tube showed minimal bleeding with the fenestration in good place and the bronchoscopy via the tracheostomy tube showed it to be within the trachea in good place with minimal bleeding. Patient tolerated the procedure well.
[2017-02-07] VITALS (7 sets, daily range): BP systolic 132–167; BP diastolic 76–93
[2017-02-07] MEDS: HumaLOG INSULIN (NovoLOG) PER UNIT SC SCH ×4 (00:33→18:00)
[2017-02-07] MEDS: dexameTHASONE 4 MG/ML 1ML VIAL (J1100) IV SCH ×3 (03:14→20:56)
[2017-02-07] MEDS: levETIRAcetam INJection 500 MG in D5W MINI-BAG PLUS 100 ML IV SCH ×2 (03:15→14:12)
[2017-02-07 04:51] LABS: BASO # 0.1 10^3/uL (0.0-0.2); BASO % 0.3 % (0.0-1.0); IMMATURE GRANULOCYTE % 2.4 % (0-0); LYMPH # 0.5 10^3/uL (1.5-4.5); LYMPH % 2.5 % (24.0-44.0); MEAN CORPUSCULAR HEMOGLOBIN 20.7 pg (27.0-33.0); MEAN CORPUSCULAR HGB CONC 29.2 g/dl (32.0-36.5); MEAN CORPUSCULAR VOLUME 70.9 fl (80.0-96.0); MONO % 4.9 % (0.0-5.0); NEUTROPHILS # 18.6 10^3/uL (1.8-7.7); NEUTROPHILS % 89.9 % (36.0-66.0); PLATELET COUNT, AUTOMATED 245 10^3/uL (150-450); RED CELL DISTRIBUTION WIDTH 28.8 % (11.5-14.5); WHITE BLOOD COUNT 20.7 10^3/uL (4.0-10.0)
[2017-02-07 05:23] LABS: ALBUMIN 2.6 GM/DL (3.2-5.2); ALBUMIN/GLOBULIN RATIO 0.76 (1.00-1.93); ALKALINE PHOSPHATASE 145 U/L (45-117); ALT/SGPT 36 U/L (12-78); ANION GAP 9 MEQ/L (8-16); AST/SGOT 23 U/L (7-37); BILIRUBIN,TOTAL 0.4 MG/DL (0.2-1.0); BLOOD UREA NITROGEN 33 MG/DL (7-18); CALCIUM LEVEL 8.6 MG/DL (8.5-10.1); CARBON DIOXIDE LEVEL 27 MEQ/L (21-32); CHLORIDE LEVEL 108 MEQ/L (98-107); CHOLESTEROL LEVEL 190 MG/DL (< 200); CREATININE FOR GFR 0.81 MG/DL (0.55-1.02); GLOMERULAR FILTRATION RATE > 60.0 (>58); GLUCOSE, FASTING 322 MG/DL (70-105); MAGNESIUM LEVEL 2.3 MG/DL (1.8-2.4); PHOSPHORUS LEVEL 3.4 MG/DL (2.5-4.9); POTASSIUM SERUM 4.1 MEQ/L (3.5-5.1); SODIUM LEVEL 144 MEQ/L (136-145); TRIGLYCERIDES LEVEL 187 MG/DL (<150)
[2017-02-07] MEDS: HEPARIN SOD (PORCINE) 5000 UNITS/ML VIAL SQ SCH ×3 (05:47→21:44)
[2017-02-07] MEDS: SODIUM CHLORIDE 0.9% INJ 10 ML SYR IV SCH ×3 (05:47→21:44)
[2017-02-07] MEDS: CHLORHEXIDINE ORAL RINSE 0.12%/15ML 120ML BOTTLE MT SCH ×2 (08:15→21:00)
[2017-02-07] MEDS: PANTOPRAZOLE 40MG INJ (PROTONIX) (C9113) IV SCH (08:16)
[2017-02-07] MEDS: BISACODYL 10 MG SUPP PR SCH (08:16)
[2017-02-07] MEDS: NICARDIPINE 30 MG PO SCH ×3 (08:16→21:43)
--- NOTE | 2017-02-07 10:58 | CCN ---
DATE: 02/07/2017 NOTE: Mrs. Stone was sitting upright in chair with her at her bedside. She is nonverbal. She is able to track with her eyes to the left but not to the right. She is able to follow very simple commands, as she was able to squeeze my hand when asked. When we asked her to move her left leg, she delayed but did eventually move her left leg. Her states that there has been no overall change in her status over the left 24 hours. The patient is status post trach and nurses report that they have not needed to suction significant amounts. Overall, the patient appears to be doing well and appears comfortable. She is status post percutaneous endoscopic gastrostomy (PEG) tube and is getting Jevity tube feeds. PHYSICAL EXAMINATION: Vitals: Temperature 97.9, pulse 107, respiratory 18, blood pressure is 142/89, O2 saturation is 97% with trach collar with FiO2 of 35. Telemetry with no recent events. GENERAL: The patient is alert, nonverbal. No acute distress. HEENT: Pupils equal round reactive to light accommodation bilaterally. Trach present. CHEST: Breath sounds clear. No wheezes, rales, rhonchi or crackles. HEART: Regular rate and rhythm. No murmurs. ABDOMEN: PEG tube in place. Positive bowel sounds, soft, nontender. EXTREMITIES: No clubbing, cyanosis or edema. LABORATORY DATA WBC 20.7, hemoglobin 10.8, hematocrit 37.0, platelets 245. Sodium 144, potassium 4.1, chloride 108, carbon dioxide 27, BUN 33, creatinine 0.81, glucose 322, calcium 8.6, phosphorus 3.4, magnesium 2.38, total bilirubin 0.4, AST 23, ALT 36, alkaline phosphatase 145, LD 287, CK 23, total protein 6.0, albumin 2.6, triglycerides 187, cholesterol 190. ASSESSMENT/PLAN: 1. Hyperglycemia. The patient is on sliding-scale insulin. Since her blood sugars have remained high, we will add Levemir 10 units subcutaneous to hold if NPT. 2. Protein calorie malnutrition. The patient is to getting tube feeds through PEG tube. She is on Jevity at 60 mL an hour with 200 of free water every 6 hours. We will increase to Jevity to 70 an hour. Also we will add liquid multivitamin. We will also consult dietary. 3. Hemiparesis. We will get a patient and family services (PFS) consultation to ask for assistance with neuro rehabilitation. 4. Acute intracranial hemorrhage. The patient is being followed by neurosurgery with Dr. Kaminski. There was concern of cause of the hemorrhage, whether the bleed was related to hypertension or mass. Dr. Kaminski plans on repeating a brain MRI in 2-3 weeks per his recent note. 5. Acute respiratory failure. The patient is status post tracheostomy. Dr. Sanchez is following the patient. 6. Hypertension. The patient is on nicardipine. 7. Leukocytosis. The patient is on steroid taper. She is on Decadron, which is likely resulting in elevated WBC. Continue to monitor. 8. Gastrointestinal prophylaxis. The patient is on Protonix. 9. Deep vein thrombosis (DVT) prophylaxis. The patient's was restarted on heparin. 10. The patient will be transferred to the floor. We will change attending to Dr. Henriquez, who I have spoken to about the case. Pulmonary/critical care will continue to follow along.
[2017-02-07] MEDS: MULTIVITAMIN/MINERALS LIQUID 15ML ORAL SYRINGE PO SCH (12:26)
[2017-02-07] MEDS ORDERED: LEVEMIR (INSULIN DETEMIR) 1 UNITS/0.01ML SC SCH (21:00)
[2017-02-08] MEDS: HumaLOG INSULIN (NovoLOG) PER UNIT SC SCH ×4 (00:59→18:25)
[2017-02-08 02:00] VITALS: BP 124/74
[2017-02-08] MEDS: levETIRAcetam INJection 500 MG in D5W MINI-BAG PLUS 100 ML IV SCH ×2 (02:00→14:14)
[2017-02-08] MEDS: MORPHINE 2 MG/ML 1ML SYRINGE IV PRN (02:15)
[2017-02-08] MEDS: dexameTHASONE 4 MG/ML 1ML VIAL (J1100) IV SCH ×3 (04:13→20:49)
[2017-02-08 06:00] VITALS: BP 138/93
[2017-02-08] MEDS: HEPARIN SOD (PORCINE) 5000 UNITS/ML VIAL SQ SCH ×3 (06:00→22:08)
[2017-02-08] MEDS: SODIUM CHLORIDE 0.9% INJ 10 ML SYR IV SCH ×3 (06:00→22:08)
[2017-02-08 07:23] LABS: ALBUMIN 2.4 GM/DL (3.2-5.2); ALBUMIN/GLOBULIN RATIO 0.71 (1.00-1.93); ALKALINE PHOSPHATASE 176 U/L (45-117); ALT/SGPT 50 U/L (12-78); ANION GAP 9 MEQ/L (8-16); AST/SGOT 20 U/L (7-37); BILIRUBIN,TOTAL 0.4 MG/DL (0.2-1.0); BLOOD UREA NITROGEN 31 MG/DL (7-18); CALCIUM LEVEL 8.7 MG/DL (8.5-10.1); CARBON DIOXIDE LEVEL 28 MEQ/L (21-32); CHLORIDE LEVEL 107 MEQ/L (98-107); CHOLESTEROL LEVEL 164 MG/DL (< 200); CREATININE FOR GFR 0.77 MG/DL (0.55-1.02); GLOMERULAR FILTRATION RATE > 60.0 (>58); MAGNESIUM LEVEL 2.2 MG/DL (1.8-2.4); PHOSPHORUS LEVEL 3.8 MG/DL (2.5-4.9); POTASSIUM SERUM 4.5 MEQ/L (3.5-5.1); SODIUM LEVEL 144 MEQ/L (136-145); TOTAL PROTEIN 5.8 GM/DL (6.4-8.2); TRIGLYCERIDES LEVEL 167 MG/DL (<150)
[2017-02-08 07:28] LABS: GLUCOSE, FASTING 423 MG/DL (70-105)
[2017-02-08 07:52] LABS: BASO % 0.2 % (0.0-1.0); IMMATURE GRANULOCYTE % 2.4 % (0-0); LYMPH # 0.4 10^3/uL (1.5-4.5); LYMPH % 2.3 % (24.0-44.0); MEAN CORPUSCULAR HEMOGLOBIN 20.8 pg (27.0-33.0); MEAN CORPUSCULAR VOLUME 71.7 fl (80.0-96.0); MONO # 0.5 10^3/uL (0.0-0.8); MONO % 3.1 % (0.0-5.0); NEUTROPHILS # 16.3 10^3/uL (1.8-7.7); PLATELET COUNT, AUTOMATED 214 10^3/uL (150-450); WHITE BLOOD COUNT 17.7 10^3/uL (4.0-10.0)
[2017-02-08 10:00] VITALS: BP 149/95
[2017-02-08] MEDS: PANTOPRAZOLE 40MG INJ (PROTONIX) (C9113) IV SCH (10:03)
[2017-02-08] MEDS: MULTIVITAMIN/MINERALS LIQUID 15ML ORAL SYRINGE PO SCH (10:03)
[2017-02-08] MEDS: LEVEMIR (INSULIN DETEMIR) 1 UNITS/0.01ML SC SCH ×2 (10:03→21:00)
[2017-02-08] MEDS: NICARDIPINE 30 MG PO SCH ×3 (10:05→22:06)
[2017-02-08] MEDS: BISACODYL 10 MG SUPP PR SCH (10:05)
[2017-02-08] MEDS: CHLORHEXIDINE ORAL RINSE 0.12%/15ML 120ML BOTTLE MT SCH ×2 (10:05→22:08)
[2017-02-08 14:00] VITALS: BP 160/90
[2017-02-08 18:00] VITALS: BP 154/82
[2017-02-08] MEDS: SODIUM CHLORIDE 0.9% INJ 10 ML SYR IV PRN (20:50)
[2017-02-08 22:00] VITALS: BP 130/73
--- NOTE | 2017-02-08 22:40 | IPN ---
DATE: 02/08/2017 SUBJECTIVE: Patient seen and examined in the room today when patient's is present. During encounter, patient remained nonverbal and not able to follow commands. Patient has a percutaneous endoscopic gastrostomy (PEG) and trach. Per , he has not seen significant functional improvement compared to yesterday. OBJECTIVE: VITAL SIGNS: Temperature 97.5, pulse 102, respiration rate 20, blood pressure is 138/93, pulse oximetry 97% with FiO2 of 35% through the tracheostomy. GENERAL: Alert and awake. Not able to follow commands. Nonverbal. HEENT: Trach site is present. No bleeding noted. There are multiple libra on the mid left skull. Libra are examined. No significant swelling, discharge, or bleeding. CARDIOVASCULAR: Regular rate. Positive S1, S2. LUNGS: Clear to auscultation bilaterally. No wheezes or rhonchi. ABDOMEN: A PEG tube in place. PEG tube insertion site examined. No swelling. No foul smelling. No discharge. Bowel sounds present. Abdomen soft, nontender. EXTREMITIES: Mitten located on the left upper extremity. No lower extremity edema appreciated. LABORATORY DATA: WBC is 17.7, hemoglobin 10.3, hematocrit 35.5, platelet count is 214. Sodium 144, potassium 4.5, chloride 107, carbon dioxide 28, BUN 31, creatinine 0.77, GFR greater than 60, fasting glucose 423, calcium 8.7, phosphorus 3.8, magnesium 2.2, total protein 0.4. AST 20, ALT is 50, alkaline phosphatase 176. Lactate dehydrogenase is 315. Total CK is 23, total protein 5.8, albumin 2.4. Triglycerides 167, cholesterol 164. ASSESSMENT AND PLAN: 1. Acute intracranial bleed and this associated with intracranial swelling with midline shift. Patient had a left frontal ventriculostomy and placement of intraventricular pressure monitoring device by Dr. Kaminski on 01/23/2017. There is intracranial pressure monitoring device placement. Due to imaging study, there is a need to differentiate hemorrhage versus tumor. Patient had multiple left thalamic biopsies performed by Dr. Kaminski on 01/28/2017. Neurosurgery, Dr. Kaminski, registered dental assistant rda on the case. Patient has a tracheostomy placed by Dr. Sanchez on 02/06/2017. Patient has a PEG tube placement by Dr. Collado on 02/05/2017. Currently patient is on total parenteral nutrition (TPN). Brain biopsy result came back suggestive of acute hemorrhages. Changes most consistent with infarction. Those reports were from [facility] ([facility]). Oncology, Dr. Benton, was consulted on 02/04/2017. Stated currently there is no confirmed diagnosis of malignancy. Dr. Kaminski recommended to evaluate repeat CT of the brain in a few months. 2. Acute respiratory failure. Patient was intubated previously. Later, patient had tracheostomy performed by Dr. Ryan Sanchez on 02/05/2017. Currently, patient's oxygen remains in the satisfactory range. 3. Intracranial swelling. Currently, patient is on Decadron. 4. Hyperglycemia secondary to current steroid use. Patient is started on sliding scale. Currently is nothing by mouth. Patient is on TPN. Long-acting insulin was started yesterday; however, glucose is not controlled; therefore, the long-acting regimen has been increased. Will continue to adjust the insulin as needed. Patient is currently going through the Decadron taper. 5. Hemiparesis secondary to acute intracranial hemorrhage. Patient may benefit from neurorehabilitation. 6. Hypertension. Currently on nicardipine 30 mg by mouth three times a day. 7. Gastrointestinal (GI) prophylaxis, on intravenous (IV) Protonix. 8. Deep vein thrombosis (DVT) prophylaxis, on heparin.
[2017-02-09] MEDS: HumaLOG INSULIN (NovoLOG) PER UNIT SC SCH ×4 (00:38→17:10)
[2017-02-09 02:00] VITALS: BP 135/82
[2017-02-09] MEDS: levETIRAcetam INJection 500 MG in D5W MINI-BAG PLUS 100 ML IV SCH ×2 (03:33→15:23)
[2017-02-09] MEDS: dexameTHASONE 4 MG/ML 1ML VIAL (J1100) IV SCH ×3 (03:33→21:14)
[2017-02-09] MEDS: SODIUM CHLORIDE 0.9% INJ 10 ML SYR IV SCH ×3 (05:18→21:14)
[2017-02-09] MEDS: HEPARIN SOD (PORCINE) 5000 UNITS/ML VIAL SQ SCH ×3 (05:18→21:14)
[2017-02-09 06:00] VITALS: BP 137/81
[2017-02-09 06:13] LABS: BASO % 0.2 % (0.0-1.0); EOS % 0.1 % (0.0-3.0); IMMATURE GRANULOCYTE % 1.9 % (0-0); LYMPH # 0.5 10^3/uL (1.5-4.5); LYMPH % 2.9 % (24.0-44.0); MEAN CORPUSCULAR HEMOGLOBIN 20.4 pg (27.0-33.0); MEAN CORPUSCULAR HGB CONC 28.6 g/dl (32.0-36.5); MEAN CORPUSCULAR VOLUME 71.5 fl (80.0-96.0); MONO # 0.8 10^3/uL (0.0-0.8); NEUTROPHILS # 15.2 10^3/uL (1.8-7.7); NEUTROPHILS % 89.9 % (36.0-66.0); PLATELET COUNT, AUTOMATED 221 10^3/uL (150-450); RED CELL DISTRIBUTION WIDTH 29.5 % (11.5-14.5); WHITE BLOOD COUNT 16.9 10^3/uL (4.0-10.0)
[2017-02-09 06:39] LABS: ALBUMIN 2.5 GM/DL (3.2-5.2); ALBUMIN/GLOBULIN RATIO 0.71 (1.00-1.93); ALKALINE PHOSPHATASE 177 U/L (45-117); ALT/SGPT 43 U/L (12-78); ANION GAP 10 MEQ/L (8-16); AST/SGOT 11 U/L (7-37); BILIRUBIN,TOTAL 0.3 MG/DL (0.2-1.0); BLOOD UREA NITROGEN 33 MG/DL (7-18); CALCIUM LEVEL 8.7 MG/DL (8.5-10.1); CARBON DIOXIDE LEVEL 28 MEQ/L (21-32); CHLORIDE LEVEL 110 MEQ/L (98-107); CHOLESTEROL LEVEL 170 MG/DL (< 200); CREATININE FOR GFR 0.76 MG/DL (0.55-1.02); GLOMERULAR FILTRATION RATE > 60.0 (>58); GLUCOSE, FASTING 387 MG/DL (70-105); MAGNESIUM LEVEL 2.3 MG/DL (1.8-2.4); PHOSPHORUS LEVEL 3.6 MG/DL (2.5-4.9); POTASSIUM SERUM 4.3 MEQ/L (3.5-5.1); SODIUM LEVEL 148 MEQ/L (136-145); TRIGLYCERIDES LEVEL 159 MG/DL (<150)
[2017-02-09] MEDS: LEVEMIR (INSULIN DETEMIR) 1 UNITS/0.01ML SC SCH ×2 (09:00→21:15)
[2017-02-09 10:00] VITALS: BP 145/92
[2017-02-09] MEDS: MULTIVITAMIN/MINERALS LIQUID 15ML ORAL SYRINGE PO SCH (10:01)
[2017-02-09] MEDS: PANTOPRAZOLE 40MG INJ (PROTONIX) (C9113) IV SCH (10:01)
[2017-02-09] MEDS: NICARDIPINE 30 MG PO SCH ×3 (10:04→21:13)
[2017-02-09] MEDS: BISACODYL 10 MG SUPP PR SCH (10:05)
[2017-02-09] MEDS: CHLORHEXIDINE ORAL RINSE 0.12%/15ML 120ML BOTTLE MT SCH ×2 (10:05→21:14)
--- NOTE | 2017-02-09 14:44 | IPNPDOC ---
Text Note Date of Service The patient was seen on 02/09/17. NOTE Subjective: Patient is a 51-year-old female with a past medical history of chronic back pain and history of kidney stones. He presented to the ER with complaints of AMS. She received a CT in the ER that revealed several intracranial bleeds. She was admitted to intensivists service with Dr. Kaminski on consult. She was intubated initially. On 01/23, she received a left frontal ventriculostomy and placement of a [place] pressure monitor, and was corrected because of misplacement on 01/26. On 01/28 she received multiple thalamic biopsies. She received trach and PEG then subsequently extubated and downgraded to hospitalist service. Patient was seen and examined at the bedside. She does not appear to be verbal. Her is at her bedside. Objective: Vitals (See below) General: Lying in bed, no acute distress, comfortable, Awake + alert, non-verbal HEENT: NC, AT, +Trach CVS: RRR, +S1S2 Lungs: Fair air entry b/l, -w/r/r Abdomen: Soft, ND, NT, +PEG Extremities: - Edema, - Calf tenderness Assessment and plan: AMS - likely 2/2 Acute intracranial bleed - 2/2 intraparenchymal hematoma in L thalamus and IC with mass effect and minimal midline shift - s/p left frontal ventriculostomy and placement of a [place] pressure monitor on 01/23, corrected 01/26 - Physical with hemiparesis on right side - 01/28 Received multiple thalamic biopsies; pathology negative for malignancy - Neurology recommends repeat imaging in few months - c/w Dexamethasone taper - c/w Keppra IV s/p Acute respiratory failure; now trach dependent - s/p Trach 02/[address] Sanchez Nutrition - s/p PEG 02/[address] Collado Hyperglycemia - likely 2/2 corticosteroids - c/w ISS and Levemir HTN - c/w Nicardippine GI prophylaxis - c/w Protonix DVT prophylaxis - c/w Heparin VS,Fishbone, I+O VS, Fishbone, I+O Laboratory Tests 02/09/17 05:42 Red Blood Count 5.19, Mean Corpuscular Volume 71.5 L, Mean Corpuscular Hemoglobin 20.4 L, Mean Corpuscular Hemoglobin Concent 28.6 L, Red Cell Distribution Width 29.5 H, Neutrophils (%) (Auto) 89.9 H, Lymphocytes (%) (Auto ) 2.9 L, Monocytes (%) (Auto) 5.0, Eosinophils (%) (Auto) 0.1, Basophils (%) ( Auto) 0.2, Neutrophils # (Auto) 15.2 H, Lymphocytes # (Auto) 0.5 L, Monocytes # (Auto) 0.8, Eosinophils # (Auto) 0.0, Basophils # (Auto) 0.0, Calcium Level 8.7 , Phosphorus Level 3.6, Aspartate Amino Transf (AST/SGOT) 11, Alanine Aminotransferase (ALT/SGPT) 43, Lactate Dehydrogenase 262 H, Total Creatine Kinase 24 L, Alkaline Phosphatase 177 H, Total Bilirubin 0.3, Triglycerides Level 159 H, Cholesterol Level 170, Total Protein 6.0 L, Albumin 2.5 L Vital Signs Date Time Temp Pulse Resp B/P (MAP) Pulse Ox O2 Delivery O2 Flow Rate FiO2 02/09/17 10:04 170/97 02/09/17 10:00 Trach Collar 10.0 35 02/09/17 10:00 97.3 109 18 96 GUCCI SERNA MD Feb 09, 2017 14:44
[2017-02-09] MEDS: SODIUM CHLORIDE 0.9% INJ 10 ML SYR IV PRN (15:22)
[2017-02-09 22:00] VITALS: BP 141/83
[2017-02-10] MEDS: HumaLOG INSULIN (NovoLOG) PER UNIT SC SCH ×4 (00:16→17:10)
[2017-02-10 02:00] VITALS: BP_SYST 140; BP_SYST 150; BP_DIAS 66; BP_DIAS 72
[2017-02-10] MEDS: SODIUM CHLORIDE 0.9% INJ 10 ML SYR IV PRN ×2 (03:44→09:51)
[2017-02-10] MEDS: dexameTHASONE 4 MG/ML 1ML VIAL (J1100) IV SCH ×3 (03:44→19:45)
[2017-02-10] MEDS: levETIRAcetam INJection 500 MG in D5W MINI-BAG PLUS 100 ML IV SCH ×2 (03:44→17:04)
[2017-02-10 06:00] VITALS: BP 141/85
[2017-02-10] MEDS: SODIUM CHLORIDE 0.9% INJ 10 ML SYR IV SCH (06:10)
[2017-02-10] MEDS: HEPARIN SOD (PORCINE) 5000 UNITS/ML VIAL SQ SCH ×3 (06:10→22:21)
[2017-02-10 08:48] LABS: BASO # 0.1 10^3/uL (0.0-0.2); BASO % 0.3 % (0.0-1.0); EOS % 0.1 % (0.0-3.0); IMMATURE GRANULOCYTE % 2.5 % (0-0); LYMPH # 0.8 10^3/uL (1.5-4.5); LYMPH % 4.6 % (24.0-44.0); MEAN CORPUSCULAR HEMOGLOBIN 20.7 pg (27.0-33.0); MEAN CORPUSCULAR HGB CONC 28.4 g/dl (32.0-36.5); MONO # 0.9 10^3/uL (0.0-0.8); MONO % 5.5 % (0.0-5.0); NEUTROPHILS # 14.2 10^3/uL (1.8-7.7); PLATELET COUNT, AUTOMATED 237 10^3/uL (150-450); RED CELL DISTRIBUTION WIDTH 29.7 % (11.5-14.5); WHITE BLOOD COUNT 16.3 10^3/uL (4.0-10.0)
[2017-02-10 09:09] LABS: ALBUMIN 2.6 GM/DL (3.2-5.2); ALKALINE PHOSPHATASE 187 U/L (45-117); ALT/SGPT 36 U/L (12-78); ANION GAP 9 MEQ/L (8-16); AST/SGOT 14 U/L (7-37); BILIRUBIN,TOTAL 0.3 MG/DL (0.2-1.0); BLOOD UREA NITROGEN 36 MG/DL (7-18); CALCIUM LEVEL 8.9 MG/DL (8.5-10.1); CARBON DIOXIDE LEVEL 29 MEQ/L (21-32); CHLORIDE LEVEL 109 MEQ/L (98-107); CREATININE FOR GFR 0.91 MG/DL (0.55-1.02); GLOMERULAR FILTRATION RATE > 60.0 (>58); MAGNESIUM LEVEL 2.3 MG/DL (1.8-2.4); POTASSIUM SERUM 4.7 MEQ/L (3.5-5.1); SODIUM LEVEL 147 MEQ/L (136-145); TOTAL PROTEIN 6.3 GM/DL (6.4-8.2)
[2017-02-10 09:29] LABS: GLUCOSE, FASTING 405 MG/DL (70-105)
[2017-02-10] MEDS: BISACODYL 10 MG SUPP PR SCH (09:34)
[2017-02-10] MEDS: PANTOPRAZOLE 40MG INJ (PROTONIX) (C9113) IV SCH (09:34)
[2017-02-10] MEDS: LEVEMIR (INSULIN DETEMIR) 1 UNITS/0.01ML SC SCH (09:35)
[2017-02-10] MEDS: NICARDIPINE 30 MG PO SCH ×3 (09:38→22:21)
[2017-02-10] MEDS: CHLORHEXIDINE ORAL RINSE 0.12%/15ML 120ML BOTTLE MT SCH ×2 (09:40→22:22)
[2017-02-10 10:00] VITALS: BP 142/82
[2017-02-10] MEDS ORDERED: D5W/0.45% SODIUM CHLORIDE 1,000 ML IV SCH (11:00)
[2017-02-10] MEDS: MULTIVITAMIN/MINERALS LIQUID 15ML ORAL SYRINGE PO SCH (11:17)
--- NOTE | 2017-02-10 11:18 | IPNPDOC ---
Text Note Date of Service The patient was seen on 02/10/17. NOTE Subjective: Patient is a 51-year-old female with a past medical history of chronic back pain and history of kidney stones. He presented to the ER with complaints of AMS. She received a CT in the ER that revealed several intracranial bleeds. She was admitted to intensivists service with Dr. Kaminski on consult. She was intubated initially. On 01/23, she received a left frontal ventriculostomy and placement of a [place] pressure monitor, and was corrected because of misplacement on 01/26. On 01/28 she received multiple thalamic biopsies. She received trach and PEG then subsequently extubated and downgraded to hospitalist service. Patient was seen and examined at the bedside. Patient is awake and alert but appears to remain nonverbal. She is responsive to painful stimuli. Is in no acute distress at this time. Her is present at the bedside and I have addressed all his concerns. Objective: Vitals (See below) General: Lying in bed, no acute distress, comfortable, Awake + alert, non-verbal HEENT: NC, AT, +Trach CVS: RRR, +S1S2 Lungs: Fair air entry b/l, -w/r/r Abdomen: Soft, ND, NT, +PEG Extremities: - Edema, - Calf tenderness Assessment and plan: AMS - likely 2/2 Acute intracranial bleed - 2/2 intraparenchymal hematoma in L thalamus and IC with mass effect and minimal midline shift - s/p left frontal ventriculostomy and placement of a [place] pressure monitor on 01/23, corrected 01/26 - Physical with hemiparesis on right side - 01/28 Received multiple thalamic biopsies; pathology negative for malignancy - Neurology recommends repeat imaging in few months - c/w Dexamethasone taper - c/w Keppra IV - Repeat PT / OT assessment; will likely need placement at laboratory manager facility; but will go based on their recommendations s/p Acute respiratory failure; now trach dependent - s/p Trach 02/[address] Sanchez Nutrition - s/p PEG 02/[address] Collado Leukocytosis - possibly 2/2 corticosteroids, possibly 2/2 infection - Leukocytosis improving on its own; trending down - Remains afebrile - Wound culture 02/09: MSSA; Urine culture 02/06: Proteus Hauseri - Will remove central line and replace with peripheral IV - Will start TMP-SMX via PEG Hypernatremia - Will adjust fluids to D5 1/2 NS Hyperglycemia - likely 2/2 corticosteroids - c/w ISS and Levemir - Will increase dose of Levemir BID Microcytic anemia - Hg appears to be stable - Will check iron panel and reticulocyte count HTN - c/w Nicardipine GI prophylaxis - c/w Protonix DVT prophylaxis - c/w Heparin VS,Fishbone, I+O VS, Fishbone, I+O Laboratory Tests 02/10/17 08:19 Red Blood Count 5.40, Mean Corpuscular Volume 73.0 L, Mean Corpuscular Hemoglobin 20.7 L, Mean Corpuscular Hemoglobin Concent 28.4 L, Red Cell Distribution Width 29.7 H, Neutrophils (%) (Auto) 87.0 H, Lymphocytes (%) (Auto ) 4.6 L, Monocytes (%) (Auto) 5.5 H, Eosinophils (%) (Auto) 0.1, Basophils (%) ( Auto) 0.3, Neutrophils # (Auto) 14.2 H, Lymphocytes # (Auto) 0.8 L, Monocytes # (Auto) 0.9 H, Eosinophils # (Auto) 0.0, Basophils # (Auto) 0.1, Calcium Level 8.9, Aspartate Amino Transf (AST/SGOT) 14, Alanine Aminotransferase (ALT/SGPT) 36, Alkaline Phosphatase 187 H, Total Bilirubin 0.3, Total Protein 6.3 L, Albumin 2.6 L Vital Signs Date Time Temp Pulse Resp B/P (MAP) Pulse Ox O2 Delivery O2 Flow Rate FiO2 02/10/17 09:38 132/89 02/10/17 08:00 Trach Collar 10.0 35 02/10/17 06:00 98.6 111 16 97 GUCCI SERNA MD Feb 10, 2017 11:18
[2017-02-10] MEDS ORDERED: LEVEMIR (INSULIN DETEMIR) 1 UNITS/0.01ML SC ONE (11:30)
[2017-02-10] MEDS ORDERED: NS 0.45% 1,000 ML IV SCH (11:30)
[2017-02-10] MEDS: BACTRIM SUSP 160MG/800MG PER 20ML ORAL SYRINGE PO SCH ×2 (11:55→22:21)
[2017-02-10 12:45] LABS: RETIC HEMOGLOBIN EQUIVALENT 27.6 pg (24-36)
[2017-02-10 12:54] LABS: FERRITIN 76 NG/ML (8-252); PERCENT SATURATION 13.2 % (13.2-45.0); TOTAL IRON BINDING CAPACITY 266 UG/DL (250-450)
[2017-02-10 14:00] VITALS: BP 143/73
[2017-02-10 18:00] VITALS: BP 142/82
[2017-02-10] MEDS ORDERED: LEVEMIR (INSULIN DETEMIR) 1 UNITS/0.01ML SC SCH (21:00)
[2017-02-10 22:00] VITALS: BP 160/92
[2017-02-11] VITALS (8 sets, daily range): BP systolic 134–162; BP diastolic 82–98
[2017-02-11] MEDS: HumaLOG INSULIN (NovoLOG) PER UNIT SC SCH ×4 (00:11→18:02)
[2017-02-11] MEDS: levETIRAcetam INJection 500 MG in D5W MINI-BAG PLUS 100 ML IV SCH ×2 (03:18→15:50)
[2017-02-11] MEDS: dexameTHASONE 4 MG/ML 1ML VIAL (J1100) IV SCH ×3 (03:18→20:37)
[2017-02-11] MEDS: HEPARIN SOD (PORCINE) 5000 UNITS/ML VIAL SQ SCH ×3 (05:57→21:29)
[2017-02-11 06:23] LABS: BASO # 0.1 10^3/uL (0.0-0.2); BASO % 0.4 % (0.0-1.0); EOS % 0.2 % (0.0-3.0); IMMATURE GRANULOCYTE % 4.9 % (0-0); LYMPH % 7.2 % (24.0-44.0); MEAN CORPUSCULAR HGB CONC 28.9 g/dl (32.0-36.5); MEAN CORPUSCULAR VOLUME 72.8 fl (80.0-96.0); MONO # 0.8 10^3/uL (0.0-0.8); MONO % 6.2 % (0.0-5.0); NEUTROPHILS # 10.8 10^3/uL (1.8-7.7); NEUTROPHILS % 81.1 % (36.0-66.0); PLATELET COUNT, AUTOMATED 219 10^3/uL (150-450); RED CELL DISTRIBUTION WIDTH 29.3 % (11.5-14.5); WHITE BLOOD COUNT 13.3 10^3/uL (4.0-10.0)
[2017-02-11 06:42] LABS: ALBUMIN 2.4 GM/DL (3.2-5.2); ALBUMIN/GLOBULIN RATIO 0.63 (1.00-1.93); ALKALINE PHOSPHATASE 176 U/L (45-117); ALT/SGPT 36 U/L (12-78); ANION GAP 7 MEQ/L (8-16); AST/SGOT 14 U/L (7-37); BILIRUBIN,TOTAL 0.3 MG/DL (0.2-1.0); BLOOD UREA NITROGEN 33 MG/DL (7-18); CALCIUM LEVEL 8.8 MG/DL (8.5-10.1); CARBON DIOXIDE LEVEL 29 MEQ/L (21-32); CHLORIDE LEVEL 106 MEQ/L (98-107); CREATININE FOR GFR 0.87 MG/DL (0.55-1.02); GLOMERULAR FILTRATION RATE > 60.0 (>58); GLUCOSE, FASTING 326 MG/DL (70-105); MAGNESIUM LEVEL 2.4 MG/DL (1.8-2.4); POTASSIUM SERUM 4.4 MEQ/L (3.5-5.1); SODIUM LEVEL 142 MEQ/L (136-145); TOTAL PROTEIN 6.2 GM/DL (6.4-8.2)
[2017-02-11] MEDS: PANTOPRAZOLE 40MG INJ (PROTONIX) (C9113) IV SCH (10:04)
[2017-02-11] MEDS: LEVEMIR (INSULIN DETEMIR) 1 UNITS/0.01ML SC SCH ×2 (10:05→21:00)
[2017-02-11] MEDS: CHLORHEXIDINE ORAL RINSE 0.12%/15ML 120ML BOTTLE MT SCH ×2 (10:10→21:31)
[2017-02-11] MEDS: BISACODYL 10 MG SUPP PR SCH (10:11)
[2017-02-11] MEDS: BACTRIM SUSP 160MG/800MG PER 20ML ORAL SYRINGE PO SCH ×2 (10:11→21:27)
[2017-02-11] MEDS: MULTIVITAMIN/MINERALS LIQUID 15ML ORAL SYRINGE PO SCH (10:11)
[2017-02-11] MEDS: NICARDIPINE 30 MG PO SCH ×3 (10:11→21:26)
--- NOTE | 2017-02-11 10:34 | IPN ---
DATE: 02/11/2017 Ms. Stone is seen at bedside directly after her physical therapy session. She is currently nonverbal. She is able to track with her eyes to the left but not to the right. She is able to squeeze my fingers with her left hand and push down on my hand with her left foot but not her right. Per physical therapy, she was able to follow simple commands for 10 minutes prior to becoming fatigued. Nursing states that they have not had to suction significant amounts overnight. The patient is able to smile today. Overall, she appears to be doing well and appears comfortable. She is currently receiving Jevity tube feeds through a percutaneous endoscopic gastrostomy (PEG) tube and is status post tracheostomy. Respiratory therapy will be assisting nursing today with tracheostomy care. PHYSICAL EXAMINATION: VITAL SIGNS: Temperature 100.6, pulse 96, respiratory rate 18, blood pressure 136/88 with a MAP of 104, pulse oximetry is 97% with trach collar and oxygen flow rate of 10 with an FiO2 of 35. GENERAL: Aggie is resting comfortably in bed. No acute distress. She is able to smile at me today. NECK: Tracheostomy site is clean. There is some erythema along the area where the left suture holding the tracheostomy is sutured to the patient's skin, however there is no oozing. LUNGS: Clear to auscultation bilaterally. No rales, rhonchi or wheezes are noted. Inspiration phase is equal to expiration phase. There is no dullness to percussion. There are no retractions. There is no accessory muscle use. HEART: Regular rate and rhythm. No murmurs, gallops or rubs. EXTREMITIES: There is no cyanosis or pitting edema noted. Strong pulses are noted bilaterally. NEUROLOGIC: The patient responds to verbal stimuli. She is able to follow simple commands. She is able to smile today. LABORATORY DATA: White blood cells 13.3, hemoglobin 10.6, hematocrit 36.7, platelets 219, neutrophils 81%, lymphocytes 7.2%, monocytes 6.2%, eosinophils 0.2%, basophils 0.4%, immature granulocytes 4.9%. Chemistry: Sodium 142, potassium 4.4, chloride 106, carbon dioxide 29, anion gap 7, BUN 33, creatinine 0.87, fasting glucose 326, calcium 8.8, magnesium 2.4, total bilirubin 0.3, AST 14, ALT 36, alkaline phosphatase 176, total protein 6.2 , albumin 2.4. IMPRESSION: Mrs. Stone is a 51-year-old female status post tracheostomy and PEG tube placement secondary to intraventricular hemorrhage. She is recovering well. 1. Tracheostomy care. We replaced her fenestrated cannula at bedside today. As she is starting to follow simple commands more, I have ordered a Passe Padmini. If she does well with the Passe [place], we may try to cap her trach to see if she can speak and breathe without the tracheostomy. Hopefully she will progress enough so the tracheostomy will be able to be removed eventually. My faculty preceptor for this patient encounter was physically present during the encounter and was fully available. All aspects of the patient interview, examination, medical decision making process, and medical care plan development were reviewed and approved by the faculty preceptor. The faculty preceptor is aware and concurs with the plan as stated in the body of this note and will attest to such by his/her co-signature. ARMAAN
--- NOTE | 2017-02-11 12:35 | IPNPDOC ---
Text Note Date of Service The patient was seen on 02/11/17. NOTE Subjective: Patient is a 51-year-old female with a past medical history of chronic back pain and history of kidney stones. He presented to the ER with complaints of AMS. She received a CT in the ER that revealed several intracranial bleeds. She was admitted to intensivists service with Dr. Kaminski on consult. She was intubated initially. On 01/23, she received a left frontal ventriculostomy and placement of a Lucas pressure monitor, and was corrected because of misplacement on 01/26. On 01/28 she received multiple thalamic biopsies. She received trach and PEG then subsequently extubated and downgraded to hospitalist service. Patient was seen and examined at the bedside. Patient is awake and alert, but is not responsive to any questioning. Patient will have tracheostomy site evaluated by pulmonary. Currently there have been no acute events overnight. Objective: Vitals (See below) General: Lying in bed, no acute distress, comfortable, Awake + alert, non-verbal HEENT: NC, AT, +Trach CVS: RRR, +S1S2 Lungs: Fair air entry b/l, -w/r/r Abdomen: Soft, ND, NT, +PEG Extremities: - Edema, - Calf tenderness Assessment and plan: AMS - likely 2/2 Acute intracranial bleed - 2/2 intraparenchymal hematoma in L thalamus and IC with mass effect and minimal midline shift - s/p left frontal ventriculostomy and placement of a Lucas pressure monitor on 01/23, corrected 01/26 - Physical with hemiparesis on right side - 01/28 Received multiple thalamic biopsies; pathology negative for malignancy - Neurology recommends repeat imaging in few months - c/w Dexamethasone; frequency was changed to every 12 hours today - c/w Keppra IV - Repeat PT / OT assessment will begin today; will likely need placement at care home facility; but will go based on their recommendations s/p Acute respiratory failure; now trach dependent - s/p Trach 02/[address] Sanchez - Dr. Bingham to evaluate trach today Nutrition - s/p PEG 02/[address] Collado Leukocytosis - possibly 2/2 corticosteroids, possibly 2/2 infection - WBC count continues to trend down - Remains afebrile - Wound culture 02/09: MSSA; Urine culture 02/06: Proteus Hauseri - s/p Central line - c/w TMP-SMX (Day #2) via PEG Hypernatremia - s/p D5 1/2 NS - c/w Free water via PEG Hyperglycemia - likely 2/2 corticosteroids - c/w ISS and Levemir - will again increase levemir; 35 to 45 BID Microcytic anemia - consistent with ESTHER - Hg appears to be stable - Will start iron supplementation HTN - c/w Nicardipine GI prophylaxis - c/w Protonix DVT prophylaxis - c/w Heparin VS,Fishbone, I+O VS, Fishbone, I+O Laboratory Tests 02/11/17 05:58 Red Blood Count 5.04, Mean Corpuscular Volume 72.8 L, Mean Corpuscular Hemoglobin 21.0 L, Mean Corpuscular Hemoglobin Concent 28.9 L, Red Cell Distribution Width 29.3 H, Neutrophils (%) (Auto) 81.1 H, Lymphocytes (%) (Auto ) 7.2 L, Monocytes (%) (Auto) 6.2 H, Eosinophils (%) (Auto) 0.2, Basophils (%) ( Auto) 0.4, Neutrophils # (Auto) 10.8 H, Lymphocytes # (Auto) 1.0 L, Monocytes # (Auto) 0.8, Eosinophils # (Auto) 0.0, Basophils # (Auto) 0.1, Calcium Level 8.8 , Aspartate Amino Transf (AST/SGOT) 14, Alanine Aminotransferase (ALT/SGPT) 36, Alkaline Phosphatase 176 H, Total Bilirubin 0.3, Total Protein 6.2 L, Albumin 2.4 L Vital Signs Date Time Temp Pulse Resp B/P (MAP) Pulse Ox O2 Delivery O2 Flow Rate FiO2 02/11/17 11:48 Trach Collar 10.0 35 02/11/17 10:11 136/88 02/11/17 09:32 100.6 96 18 97 I&O- Last 24 Hours up to 6 AM 02/12/17 06:00 Intake Total 90 ml Balance 90 ml GUCCI SERNA MD Feb 11, 2017 12:35
[2017-02-11] MEDS: FERROUS GLUCONATE 324 MG TAB PO SCH ×2 (12:47→21:26)
[2017-02-12] VITALS (7 sets, daily range): BP systolic 135–156; BP diastolic 86–98
[2017-02-12] MEDS: HumaLOG INSULIN (NovoLOG) PER UNIT SC SCH ×4 (00:33→17:29)
[2017-02-12] MEDS: levETIRAcetam INJection 500 MG in D5W MINI-BAG PLUS 100 ML IV SCH ×2 (03:29→15:09)
[2017-02-12] MEDS: HEPARIN SOD (PORCINE) 5000 UNITS/ML VIAL SQ SCH ×3 (06:07→21:54)
[2017-02-12 06:36] LABS: MEAN CORPUSCULAR HEMOGLOBIN 20.9 pg (27.0-33.0); MEAN CORPUSCULAR HGB CONC 28.9 g/dl (32.0-36.5); MEAN CORPUSCULAR VOLUME 72.2 fl (80.0-96.0); PLATELET COUNT, AUTOMATED 228 10^3/uL (150-450); RED CELL DISTRIBUTION WIDTH 29.8 % (11.5-14.5); WHITE BLOOD COUNT 11.7 10^3/uL (4.0-10.0)
[2017-02-12 06:44] LABS: ADD MANUAL DIFFER YES; DIFF SLIDE NUMBER 55; POS COUNT POS FLAG; POSITIVE MORPH POS FLAG
[2017-02-12 06:57] LABS: ALBUMIN 2.6 GM/DL (3.2-5.2); ALBUMIN/GLOBULIN RATIO 0.67 (1.00-1.93); ALKALINE PHOSPHATASE 180 U/L (45-117); ALT/SGPT 36 U/L (12-78); ANION GAP 9 MEQ/L (8-16); AST/SGOT 12 U/L (7-37); BILIRUBIN,TOTAL 0.3 MG/DL (0.2-1.0); BLOOD UREA NITROGEN 33 MG/DL (7-18); CALCIUM LEVEL 8.7 MG/DL (8.5-10.1); CARBON DIOXIDE LEVEL 27 MEQ/L (21-32); CHLORIDE LEVEL 106 MEQ/L (98-107); CREATININE FOR GFR 0.98 MG/DL (0.55-1.02); GLOMERULAR FILTRATION RATE > 60.0 (>58); GLUCOSE, FASTING 356 MG/DL (70-105); MAGNESIUM LEVEL 2.2 MG/DL (1.8-2.4); POTASSIUM SERUM 4.7 MEQ/L (3.5-5.1); SODIUM LEVEL 142 MEQ/L (136-145); TOTAL PROTEIN 6.5 GM/DL (6.4-8.2)
[2017-02-12 08:31] LABS: EOSINOPHILS 2 % (0-5)
[2017-02-12 08:32] LABS: POLYCHROMASIA 1+
[2017-02-12] MEDS: BACTRIM SUSP 160MG/800MG PER 20ML ORAL SYRINGE PO SCH ×2 (08:34→21:55)
[2017-02-12] MEDS: PANTOPRAZOLE 40MG INJ (PROTONIX) (C9113) IV SCH (08:34)
[2017-02-12] MEDS: MULTIVITAMIN/MINERALS LIQUID 15ML ORAL SYRINGE PO SCH (08:34)
[2017-02-12] MEDS: dexameTHASONE 4 MG/ML 1ML VIAL (J1100) IV SCH ×2 (08:34→21:54)
[2017-02-12] MEDS: CHLORHEXIDINE ORAL RINSE 0.12%/15ML 120ML BOTTLE MT SCH ×2 (08:34→21:56)
[2017-02-12] MEDS: FERROUS GLUCONATE 324 MG TAB PO SCH ×2 (08:35→21:55)
[2017-02-12] MEDS: BISACODYL 10 MG SUPP PR SCH (08:35)
[2017-02-12] MEDS: NICARDIPINE 30 MG PO SCH ×3 (08:35→21:56)
[2017-02-12] MEDS: LEVEMIR (INSULIN DETEMIR) 1 UNITS/0.01ML SC SCH ×2 (08:38→21:55)
--- NOTE | 2017-02-12 11:06 | IPNPDOC ---
Text Note Date of Service The patient was seen on 02/12/17. NOTE Subjective: Patient is a 51-year-old female with a past medical history of chronic back pain and history of kidney stones. He presented to the ER with complaints of AMS. She received a CT in the ER that revealed several intracranial bleeds. She was admitted to intensivists service with Dr. Kaminski on consult. She was intubated initially. On 01/23, she received a left frontal ventriculostomy and placement of a Swengel pressure monitor, and was corrected because of misplacement on 01/26. On 01/28 she received multiple thalamic biopsies. She received trach and PEG then subsequently extubated and downgraded to hospitalist service. Patient was seen and examined at the bedside. She is awake and alert, she is able to follow simple commands. He is able to squeeze her hand and wiggle her toes when asked. Denies any pain. Objective: Vitals (See below) General: Lying in bed, no acute distress, comfortable, Awake + alert, non-verbal HEENT: NC, AT, +Trach CVS: RRR, +S1S2 Lungs: Fair air entry b/l, -w/r/r Abdomen: Soft, ND, NT, +PEG Extremities: - Edema, - Calf tenderness Assessment and plan: AMS - likely 2/2 Acute intracranial bleed - 2/2 intraparenchymal hematoma in L thalamus and IC with mass effect and minimal midline shift - s/p left frontal ventriculostomy and placement of a Swengel pressure monitor on 01/23, corrected 01/26 - Physical with hemiparesis on right side - 01/28 Received multiple thalamic biopsies; pathology negative for malignancy - Neurology recommends repeat imaging in few months - Will continue to taper down dose of dexamethasone - c/w Keppra IV - c/w PT/OT; looking into placement options s/p Acute respiratory failure; now trach dependent - s/p Trach 02/[address] Daniel Campoverde [place] valve has been placed yesterday Nutrition - s/p PEG 02/[address] Collado Leukocytosis - possibly 2/2 corticosteroids, possibly 2/2 infection - WBC count continues to trend down - Remains afebrile - Wound culture 02/09: MSSA, Strep (multiple species); Urine culture 02/06: Proteus Hauseri - s/p Central line - c/w TMP-SMX (Day #3) via PEG s/p Hypernatremia - s/p D5 1/2 NS - c/w Free water via PEG Hyperglycemia - likely 2/2 corticosteroids - c/w ISS and Levemir - Will again increase Levemir; 45 to 55 BID Microcytic anemia - consistent with ESTHER - Hg appears to be stable - c/w iron supplementation HTN - c/w Nicardipine GI prophylaxis - c/w Protonix DVT prophylaxis - c/w Heparin Disposition: - c/w PT / OT; will determine placement based on requirement VS,Fishbone, I+O VS, Fishbone, I+O Laboratory Tests 02/12/17 06:09 Red Blood Count 5.26, Mean Corpuscular Volume 72.2 L, Mean Corpuscular Hemoglobin 20.9 L, Mean Corpuscular Hemoglobin Concent 28.9 L, Red Cell Distribution Width 29.8 H, Calcium Level 8.7, Aspartate Amino Transf (AST/SGOT) 12, Alanine Aminotransferase (ALT/SGPT) 36, Alkaline Phosphatase 180 H, Total Bilirubin 0.3, Total Protein 6.5, Albumin 2.6 L Vital Signs Date Time Temp Pulse Resp B/P (MAP) Pulse Ox O2 Delivery O2 Flow Rate FiO2 02/12/17 10:40 98.7 113 20 152/86 (108) 93 Trach Collar 5.0 28 GUCCI SERNA MD Feb 12, 2017 11:06
--- NOTE | 2017-02-12 11:15 | CCN ---
DATE OF SERVICE: 02/12/2017 NOTE: Mrs. Stone is seen today on the floor. She is sitting up in her bed working with physical therapy. The patient is nonverbal, but almost sounded like she grunted. She does have a Pass[place] in but could not be persuaded to try to speak. She is able to continue to track with her eyes to the left but not to the right. She has been working with physical therapy and has been weightbearing. She is currently receiving Jevity tube feeds. PHYSICAL EXAMINATION: Vitals: Temperature 98.7. Pulse 113. Respiratory rate 20, blood pressure is 152/86, pulse ox 93% with trache collar with oxygen flow rate of 5 and FiO2 of 28. REVIEW OF SYSTEMS: General: The patient is alert. She is nonverbal. Neck: Tracheostomy site is clean. The patient has a Passy[place] in. Chest: Clear to auscultation bilaterally. No rales, rhonchi, wheezes or crackles. No accessory muscle use. Heart: Regular rate and rhythm. No murmurs. Abdomen: Soft, nontender. Extremities: No edema. LABORATORY DATA: WBC 11.7, hemoglobin 11.0, hematocrit 38.0, platelets 228. Sodium 142, potassium 4.7, chloride is 106, carbon dioxide is 27, BUN 33, creatinine 0.98, glucose 356, calcium 8.7, magnesium 2.2, total bilirubin 0.34, AST is 12, ALT is 36, alk phos is 180, total protein is 6.5, albumin is 2.6. ASSESSMENT/PLAN: Status post tracheostomy. The patient is status post tracheostomy and percutaneous endoscopic gastrostomy (PEG) tube placement secondary to intraventricular hemorrhage. She has a Passy-[place] in place. Plan is that if she does well with the Passy-Padmini, we may try to cap her trache to see if she can speak and breathe without the tracheostomy. Continue tracheostomy care at present.
[2017-02-12] MEDS: ACETAMINOPHEN 650 MG SUPP PR PRN (13:59)
[2017-02-12] MEDS: MIRALAX *UNIT DOSE* 17GM PACKET PO SCH (17:30)
[2017-02-13] VITALS (7 sets, daily range): BP systolic 130–143; BP diastolic 81–98
[2017-02-13] MEDS: MIRALAX *UNIT DOSE* 17GM PACKET PO SCH ×5 (00:21→23:53)
[2017-02-13] MEDS: HumaLOG INSULIN (NovoLOG) PER UNIT SC SCH ×5 (00:21→23:53)
[2017-02-13] MEDS: levETIRAcetam INJection 500 MG in D5W MINI-BAG PLUS 100 ML IV SCH ×2 (02:22→15:29)
[2017-02-13] MEDS: HEPARIN SOD (PORCINE) 5000 UNITS/ML VIAL SQ SCH ×3 (06:10→21:42)
[2017-02-13 07:31] LABS: MEAN CORPUSCULAR HEMOGLOBIN 20.9 pg (27.0-33.0); MEAN CORPUSCULAR VOLUME 72.1 fl (80.0-96.0); PLATELET COUNT, AUTOMATED 262 10^3/uL (150-450); RED CELL DISTRIBUTION WIDTH 30.3 % (11.5-14.5); WHITE BLOOD COUNT 12.4 10^3/uL (4.0-10.0)
[2017-02-13 07:36] LABS: POS COUNT POS FLAG; POSITIVE MORPH POS FLAG
[2017-02-13 07:37] LABS: ADD MANUAL DIFFER YES; DIFF SLIDE NUMBER 44
[2017-02-13 07:48] LABS: ALBUMIN 2.7 GM/DL (3.2-5.2); ALBUMIN/GLOBULIN RATIO 0.68 (1.00-1.93); BILIRUBIN,TOTAL 0.3 MG/DL (0.2-1.0); CALCIUM LEVEL 8.9 MG/DL (8.5-10.1); CREATININE FOR GFR 1.05 MG/DL (0.55-1.02); GLOMERULAR FILTRATION RATE 59.3 (>58); MAGNESIUM LEVEL 2.5 MG/DL (1.8-2.4); POTASSIUM SERUM 4.3 MEQ/L (3.5-5.1); TOTAL PROTEIN 6.7 GM/DL (6.4-8.2)
[2017-02-13] MEDS: PANTOPRAZOLE 40MG INJ (PROTONIX) (C9113) IV SCH (08:22)
[2017-02-13] MEDS: dexameTHASONE 4 MG/ML 1ML VIAL (J1100) IV SCH ×2 (08:22→21:42)
[2017-02-13 08:23] LABS: ANISOCYTOSIS 2+; BANDS 1 % (< 11); EOSINOPHILS 1 % (0-5); HYPOCHROMASIA 1+; MICROCYTOSIS 1+; POIKILOCYTOSIS 1+
[2017-02-13] MEDS: BACTRIM SUSP 160MG/800MG PER 20ML ORAL SYRINGE PO SCH ×2 (08:51→21:42)
[2017-02-13] MEDS: BISACODYL 10 MG SUPP PR SCH (08:51)
[2017-02-13] MEDS: LEVEMIR (INSULIN DETEMIR) 1 UNITS/0.01ML SC SCH ×2 (08:51→21:00)
[2017-02-13] MEDS: MULTIVITAMIN/MINERALS LIQUID 15ML ORAL SYRINGE PO SCH (08:51)
[2017-02-13] MEDS: NICARDIPINE 30 MG PO SCH ×3 (08:52→21:41)
[2017-02-13] MEDS: FERROUS GLUCONATE 324 MG TAB PO SCH ×2 (08:52→21:41)
[2017-02-13] MEDS: CHLORHEXIDINE ORAL RINSE 0.12%/15ML 120ML BOTTLE MT SCH ×2 (08:52→21:00)
[2017-02-13] MEDS: NS 1,000 ML IV SCH ×2 (10:14→21:43)
--- NOTE | 2017-02-13 12:35 | IPNPDOC ---
Text Note Date of Service The patient was seen on 02/13/17. NOTE Subjective: Patient is a 51-year-old female with a past medical history of chronic back pain and history of kidney stones. He presented to the ER with complaints of AMS. She received a CT in the ER that revealed several intracranial bleeds. She was admitted to intensivists service with Dr. Kaminski on consult. She was intubated initially. On 01/23, she received a left frontal ventriculostomy and placement of a Campbell pressure monitor, and was corrected because of misplacement on 01/26. On 01/28 she received multiple thalamic biopsies. She received trach and PEG then subsequently extubated and downgraded to hospitalist service. Patient was seen and examined at the bedside. Opens her eyes, follows basic commands. Working with physical and occupational therapy. Objective: Vitals (See below) General: Lying in bed, no acute distress, comfortable, Awake + alert, non-verbal HEENT: NC, AT, +Trach CVS: RRR, +S1S2 Lungs: Fair air entry b/l, -w/r/r Abdomen: Soft, ND, NT, +PEG Extremities: - Edema, - Calf tenderness Assessment and plan: AMS - likely 2/2 Acute intracranial bleed - 2/2 intraparenchymal hematoma in L thalamus and IC with mass effect and minimal midline shift - s/p left frontal ventriculostomy and placement of a Campbell pressure monitor on 01/23, corrected 01/26 - Physical with hemiparesis on right side; able to move left side; follows instructions - 01/28 Received multiple thalamic biopsies; pathology negative for malignancy - Neurology recommends repeat imaging in few months - c/w Dexamethasone; on tapering schedule - c/w Keppra IV - c/w PT/OT; looking into placement options s/p Acute respiratory failure; now trach dependent - s/p Trach 02/[address] Sanchez - s/p Passe [place] valve 02/12; will re-evaluate today Nutrition - s/p PEG 02/[address] Collado Leukocytosis - possibly 2/2 corticosteroids, possibly 2/2 infection - WBC count stable; no febrile episodes noted - Wound culture 02/09: MSSA, Strep (multiple species); Urine culture 02/06: Proteus Hauseri - s/p Central line - No issues with PEG tube or Trach - c/w TMP-SMX (Day #4) via PEG s/p Hypernatremia - s/p D5 1/2 NS - c/w Free water via PEG Mild elevation in Cr - will give gentle IV fluid hydration with NS Hyperglycemia - likely 2/2 corticosteroids - c/w ISS and Levemir 55 BID - Will continue to monitor glucose levels; will keep on current dosage Microcytic anemia - consistent with ESTHER - Hg appears to be stable - c/w iron supplementation HTN - c/w Nicardipine GI prophylaxis - c/w Protonix DVT prophylaxis - c/w Heparin Disposition: - c/w PT / OT; will determine placement based on requirement VS,Fishbone, I+O VS, Fishbone, I+O Laboratory Tests 02/13/17 07:10 Red Blood Count 5.55 H, Mean Corpuscular Volume 72.1 L, Mean Corpuscular Hemoglobin 20.9 L, Mean Corpuscular Hemoglobin Concent 29.0 L, Red Cell Distribution Width 30.3 H, Calcium Level 8.9, Aspartate Amino Transf (AST/SGOT) 10, Alanine Aminotransferase (ALT/SGPT) 35, Alkaline Phosphatase 182 H, Total Bilirubin 0.3, Total Protein 6.7, Albumin 2.7 L Vital Signs Date Time Temp Pulse Resp B/P (MAP) Pulse Ox O2 Delivery O2 Flow Rate FiO2 02/13/17 11:00 Trach Collar 5.0 28 02/13/17 08:52 138/98 02/13/17 08:30 104 02/13/17 06:00 98.2 20 96 I&O- Last 24 Hours up to 6 AM 02/14/17 06:00 Intake Total 120 ml Balance 120 ml GUCCI SERNA MD Feb 13, 2017 12:35
--- NOTE | 2017-02-13 12:54 | IPN ---
DATE: 02/13/2017 Ms. Stone is seen at bedside. She has just been moved via the nursing staff. She is still nonverbal, but according to nursing was more alert yesterday afternoon. She does have a Passy-[place] in place but could not be persuaded to speak. She is able to track with her eyes to the left but not to the right. She is currently receiving Jevity tube feeds through a percutaneous endoscopic gastrostomy (PEG) tube. She is able to squeeze my hand with her left and able to push down on my hand with her toes on the left. PHYSICAL EXAMINATION: VITAL SIGNS: Temperature is 98.2, pulse is 104, respiratory rate is 20, blood pressure is 138/98, pulse oximetry is 96% with trach collar and oxygen flow rate of 5.0 with an FiO2 of 28. GENERAL: Aggie is laying in bed. She does open her eyes to command. She does track my movements with her eyes; however, she seems sleepy this morning. HEENT: Pupils are equal, round and reactive to light, sclerae are clear. Mucous membranes are moist. NECK: Mild erythema around the left suture site. Otherwise, tracheostomy site is clean. LUNGS: Clear to auscultation bilaterally. No rales, rhonchi, wheezes or crackles. No accessory muscle use. There are no retractions. Inspiratory phase is equal to expiratory phase. HEART: Regular rate and rhythm. No murmurs, gallops or rubs. ABDOMEN: Normoactive bowel sounds. Soft, nontender to palpation. EXTREMITIES: No edema, cyanosis, or clubbing. Pedal pulses are equal bilaterally. LABORATORY DATA: CBC: White blood cells 12.4, hemoglobin 11.6, hematocrit 40, platelets 262, neutrophils 81, band neutrophils 1, lymphocytes 10, monocytes 4, eosinophils 1, metamyelocytes 2, myelocytes 1. Chemistry: Sodium 143, potassium 4.3, chloride 108, carbon dioxide 24, anion gap 11, BUN 35, creatinine 1.05, fasting 376. Calcium 8.9, magnesium 2.5, total bilirubin 0.3, AST 10, ALT 35, alkaline phosphatase 182, total protein 6.7, albumin 2.7. Wound culture from around her PEG tube grew Staphylococcus aureus, Streptococcus agalactiae, Streptococcus anginosus, and Streptococcus intermedius. No new imaging. IMPRESSION: Ms. Stone is a 51-year-old female status post tracheostomy and PEG tube placement secondary to intraventricular hemorrhage. She is recovering well. Nursing reports that she is more active with physical therapy (PT), she has not tried to speak yet, and they do not have to suction her tracheostomy as much. The most recent suctioning this morning only revealed thin mucus. She is currently on antibiotics per the hospitalist team for purulent drainage from her PEG tube. 1. Tracheostomy care. Less suctioning has been required from nursing as the patient is clearing her own secretions. She does have a cough. Continue current tracheostomy care at present. 2. Intraventricular hemorrhage. The patient is still not trying to speak. I have ordered a speech therapy evaluation to help her begin her words. Hopefully , they will also be able to help her use the Passy-[place]. My faculty preceptor for this patient encounter was physically present during the encounter and was fully available. All aspects of the patient interview, examination, medical decision making process, and medical care plan development were reviewed and approved by the faculty preceptor. The faculty preceptor is aware and concurs with the plan as stated in the body of this note and will attest to such by his/her co-signature. ARMAAN
[2017-02-14 02:00] VITALS: BP 142/77
[2017-02-14] MEDS: levETIRAcetam INJection 500 MG in D5W MINI-BAG PLUS 100 ML IV SCH ×2 (02:09→15:00)
[2017-02-14 06:00] VITALS: BP 139/84
[2017-02-14] MEDS: HumaLOG INSULIN (NovoLOG) PER UNIT SC SCH ×3 (06:00→17:52)
[2017-02-14 06:01] LABS: MEAN CORPUSCULAR HEMOGLOBIN 21.2 pg (27.0-33.0); MEAN CORPUSCULAR HGB CONC 29.4 g/dl (32.0-36.5); MEAN CORPUSCULAR VOLUME 72.3 fl (80.0-96.0); PLATELET COUNT, AUTOMATED 243 10^3/uL (150-450); WHITE BLOOD COUNT 13.2 10^3/uL (4.0-10.0)
[2017-02-14 06:08] LABS: ADD MANUAL DIFFER YES; DIFF SLIDE NUMBER 26; POS COUNT POS FLAG; POSITIVE MORPH POS FLAG
[2017-02-14] MEDS: MIRALAX *UNIT DOSE* 17GM PACKET PO SCH ×3 (06:12→17:52)
[2017-02-14] MEDS: HEPARIN SOD (PORCINE) 5000 UNITS/ML VIAL SQ SCH ×3 (06:12→21:20)
[2017-02-14 06:17] LABS: ALBUMIN 2.7 GM/DL (3.2-5.2); ALBUMIN/GLOBULIN RATIO 0.79 (1.00-1.93); ALKALINE PHOSPHATASE 170 U/L (45-117); ALT/SGPT 40 U/L (12-78); ANION GAP 12 MEQ/L (8-16); AST/SGOT 17 U/L (7-37); BILIRUBIN,TOTAL 0.3 MG/DL (0.2-1.0); BLOOD UREA NITROGEN 33 MG/DL (7-18); CALCIUM LEVEL 8.9 MG/DL (8.5-10.1); CARBON DIOXIDE LEVEL 22 MEQ/L (21-32); CHLORIDE LEVEL 105 MEQ/L (98-107); CREATININE FOR GFR 0.84 MG/DL (0.55-1.02); GLOMERULAR FILTRATION RATE > 60.0 (>58); GLUCOSE, FASTING 343 MG/DL (70-105); MAGNESIUM LEVEL 2.3 MG/DL (1.8-2.4); SODIUM LEVEL 139 MEQ/L (136-145); TOTAL PROTEIN 6.1 GM/DL (6.4-8.2)
[2017-02-14 06:30] LABS: BANDS 4 % (< 11)
[2017-02-14 06:34] LABS: ANISOCYTOSIS 3+; HYPOCHROMASIA 2+; MICROCYTOSIS 2+
[2017-02-14] MEDS: FERROUS GLUCONATE 324 MG TAB PO SCH ×2 (08:40→21:18)
[2017-02-14] MEDS: NICARDIPINE 30 MG PO SCH ×3 (08:40→21:19)
[2017-02-14] MEDS: dexameTHASONE 4 MG/ML 1ML VIAL (J1100) IV SCH ×2 (08:40→21:20)
[2017-02-14] MEDS: LEVEMIR (INSULIN DETEMIR) 1 UNITS/0.01ML SC SCH ×2 (08:40→21:00)
[2017-02-14] MEDS: PANTOPRAZOLE 40MG INJ (PROTONIX) (C9113) IV SCH (08:40)
[2017-02-14] MEDS: BISACODYL 10 MG SUPP PR SCH (08:40)
[2017-02-14] MEDS: BACTRIM SUSP 160MG/800MG PER 20ML ORAL SYRINGE PO SCH ×2 (08:41→21:18)
[2017-02-14] MEDS: MULTIVITAMIN/MINERALS LIQUID 15ML ORAL SYRINGE PO SCH (08:41)
[2017-02-14] MEDS: CHLORHEXIDINE ORAL RINSE 0.12%/15ML 120ML BOTTLE MT SCH ×2 (08:42→21:00)
[2017-02-14 10:00] VITALS: BP 144/78
[2017-02-14] MEDS: NS 1,000 ML IV SCH (10:30)
--- NOTE | 2017-02-14 13:55 | IPNPDOC ---
Text Note Date of Service The patient was seen on 02/14/17. NOTE Subjective: Patient is a 51-year-old female with a past medical history of chronic back pain and history of kidney stones. He presented to the ER with complaints of AMS. She received a CT in the ER that revealed several intracranial bleeds. She was admitted to intensivists service with Dr. Kaminski on consult. She was intubated initially. On 01/23, she received a left frontal ventriculostomy and placement of a [place] pressure monitor, and was corrected because of misplacement on 01/26. On 01/28 she received multiple thalamic biopsies. She received trach and PEG then subsequently extubated and downgraded to hospitalist service. Patient was seen and examined at the bedside. She was seen working with physical therapy. Follows simple commands. Still remains non-verbal. Denies any pain. Objective: Vitals (See below) General: Lying in bed, no acute distress, comfortable, Awake + alert, non-verbal HEENT: NC, AT, +Trach CVS: RRR, +S1S2 Lungs: Fair air entry b/l, -w/r/r Abdomen: Soft, ND, NT, +PEG Extremities: - Edema, - Calf tenderness Assessment and plan: AMS - likely 2/2 Acute intracranial bleed - 2/2 intraparenchymal hematoma in L thalamus and IC with mass effect and minimal midline shift - s/p left frontal ventriculostomy and placement of a Bradford pressure monitor on 01/23, corrected 01/26 - Physical with hemiparesis on right side; able to move left side; follows simple instructino - Was working with physical therapy this morning; sitting up in bed - 01/28 Received multiple thalamic biopsies; pathology negative for malignancy - Neurology recommends repeat imaging in few months - c/w Dexamethasone; on tapering schedule - c/w Keppra IV - c/w PT/OT - Will get Psychiatric evaluation to evaluate competence; to assist with establishing transition to outpatient setting s/p Acute respiratory failure; now trach dependent - s/p Trach 02/[address] Sanchez - s/p Passe Padmini valve 02/12 - Will re-attempt again with speech therapy Nutrition - s/p PEG 02/[address] Collado Leukocytosis - possibly 2/2 corticosteroids, possibly 2/2 infection - WBC has shown slight increase - will continue to follow; no febrile episodes noted - Wound culture 02/09: MSSA, Strep (multiple species); Urine culture 02/06: Proteus Hauseri - s/p Central line - No issues with PEG tube or Trach - c/w TMP-SMX (Day #5) via PEG s/p Hypernatremia - s/p D5 1/2 NS - c/w Free water via PEG s/p Mild elevation in Cr - s/p IV fluid hydration Hyperglycemia - likely 2/2 corticosteroids - c/w ISS and Levemir 55 BID - Increase Levemir from 55 to 65 BID - c/w Steroid taper Microcytic anemia - consistent with ESTHER - Hg appears to be stable - c/w iron supplementation HTN - c/w Nicardipine GI prophylaxis - c/w Protonix DVT prophylaxis - c/w Heparin Disposition: - c/w PT / OT; will determine placement based on requirement - Psych evaluation to evaluate capacity VS,Fishbone, I+O VS, Fishbone, I+O Laboratory Tests 02/14/17 05:46 Calcium Level 8.9, Aspartate Amino Transf (AST/SGOT) 17, Alanine Aminotransferase (ALT/SGPT) 40, Alkaline Phosphatase 170 H, Total Bilirubin 0.3 , Total Protein 6.1 L, Albumin 2.7 L 02/14/17 05:47 Red Blood Count 5.13, Mean Corpuscular Volume 72.3 L, Mean Corpuscular Hemoglobin 21.2 L, Mean Corpuscular Hemoglobin Concent 29.4 L, Red Cell Distribution Width 30.0 H Vital Signs Date Time Temp Pulse Resp B/P (MAP) Pulse Ox O2 Delivery O2 Flow Rate FiO2 02/14/17 10:00 98.0 95 20 144/78 (100) 98 Trach Collar 02/14/17 09:00 5.0 28 GUCCI SERNA MD Feb 14, 2017 13:55
[2017-02-14 14:00] VITALS: BP 137/81
--- NOTE | 2017-02-14 14:54 | MHCRPDOC ---
[facility] Consultation Consultation DATE OF CONSULTATION: 02/14/17 CONSULTATION REQUESTED BY: Dr. Gamble REASON FOR CONSULTATION: Capacity RELEVANT HISTORY: 51-year-old F, PMH of chronic back pain and kidney stones, presented to the ER with AMS. Psychiatry was consulted for capacity assessment. As per Dr. Gamble's 02/14/17 note: :She received a CT in the ER that revealed several intracranial bleeds. She was admitted to intensivists service with Dr. Kaminski on consult. She was intubated initially. On 01/23, she received a left frontal ventriculostomy and placement of a [employer]i pressure monitor, and was corrected because of misplacement on 01/26. On 01/28 she received multiple thalamic biopsies. She received trach and PEG then subsequently extubated and downgraded to hospitalist service." On exam, the patient was drowsy, awakened by voice. Can direct eyes to sound and motion but unable to sustain eye contact. Patient was unable to follow simple commands during this exam, including the command to nod or to smile. Patient did not demonstrate comprehension of what was said, unable to communicate anything to this provider. PAST PSYCHIATRIC HISTORY: Unable to obtain history from patient, but did not find any psych history in chart review PAST MEDICAL HISTORY: chronic back pain and kidney stones FAMILY HISTORY: unable to obtain psych family history PERSONAL AND SOCIAL HISTORY: As per Dr. Dueñas's 01/20/17 note: "She lives at home with her and two out of three children. All of their children are healthy and they have three cats as pets." SUBSTANCE ABUSE HISTORY: As per Dr. Dueñas's 01/20/17 note: "The patient does not smoke, does not consume alcohol, does not use drugs." LEGAL HISTORY: unable to obtain MENTAL STATUS EXAMINATION: Appearance: lying in bed, eyes closed Behavior: drowsy Speech nonverbal Thought processes including: unable to assess Thought content: unable to assess Judgment: completely impaired Insight: completely impaired Orientation to sound, motion Recent and remote memory: completely impaired Attention span and concentration: impaired Mood: unable to assess Affect: unable to assess. DIAGNOSIS: 1. AMS (likely delirium from medical etiology - ICH) Assessment: The patient lacks capacity. She is unable to understand what is said and unable to state her decision. Vital Signs Vital Signs Date Time Temp Pulse Resp B/P (MAP) Pulse Ox O2 Delivery O2 Flow Rate FiO2 02/14/17 10:00 98.0 95 20 144/78 (100) 98 Trach Collar 02/14/17 09:00 5.0 28 Laboratory Data 24H Labs Laboratory Tests 2 02/13/17 17:33: Bedside Glucose (Misc Panel) 287H 02/13/17 23:42: Bedside Glucose (Misc Panel) 225H 02/14/17 05:46: Anion Gap 12, Glomerular Filtration Rate > 60.0, Blood Urea Nitrogen 33H, Creatinine 0.84, Sodium Level 139, Potassium Level 5.0, Chloride Level 105, Carbon Dioxide Level 22, Calcium Level 8.9, Aspartate Amino Transf (AST/SGOT) 17 , Alanine Aminotransferase (ALT/SGPT) 40, Alkaline Phosphatase 170H, Total Bilirubin 0.3, Total Protein 6.1L, Albumin 2.7L, Magnesium Level 2.3, Albumin/ Globulin Ratio 0.79L 02/14/17 05:47: Immature Granulocyte % (Auto) , Nucleated Red Blood Cells % (auto) 0.2H, Neutrophils 84H, Band Neutrophils 4, Lymphocytes (Manual) 3L, Monocytes (Manual ) 4, Metamyelocytes 2H, Myelocytes 1H, Promyelocytes 1H, Atypical Lymphocytes 1 , Platelet Estimate NORMAL, Hypochromasia 2+, Anisocytosis 3+, Microcytosis 2+ 02/14/17 05:58: Bedside Glucose (Misc Panel) 324H 02/14/17 11:57: Bedside Glucose (Misc Panel) 341H Home Medications Current Medications Current Medications Acetaminophen (Tylenol Suppository) 650 mg Q6HP PRN AK PAIN / FEVER Last administered on 02/12/17 13:59; Start 01/22/17 at 03:15; Stop 02/21/17 at 03: 14 Bisacodyl (Dulcolax Suppository) 10 mg DAILY AK Last administered on 02/14/17 08:40; Start 01/26/17 at 09:00; Stop 02/25/17 at 08:59 Cefazolin Sodium 1 gm/IV Miscellaneous Supplies 10 ml @ 20 mls/hr Q6H IV Last administered on 02/03/17 20:58; Start 01/23/17 at 08:00; Stop 02/03/17 at 22 :55; Status DC Chlorhexidine Gluconate (Chlorhexidine Gluconate) SWAB/BRUSH ORAL CAVITY BID MT Last administered on 02/14/17 08:42; Start 01/20/17 at 21:00; Stop at 20:59 Dexamethasone (Decadron) 1 mg Q12H IV Last administered on 02/14/17 08:40; Start 02/12/17 at 08:00; Stop 02/15/17 at 22:00 Dexamethasone (Decadron) 1 mg Q24H IV ; Start 02/16/17 at 20:00; Stop at 22:00 Dexamethasone (Decadron) 1 mg Q8H IV Last administered on 02/11/17 20:37; Start 02/08/17 at 04:00; Stop 02/11/17 at 22:00; Status DC Dexamethasone (Decadron) 2 mg Q6H IV Last administered on 02/03/17 20:57; Start 01/31/17 at 14:00; Stop 02/03/17 at 20:01; Status DC Dexamethasone (Decadron) 2 mg Q8H IV Last administered on 02/07/17 20:56; Start 02/04/17 at 04:00; Stop 02/07/17 at 22:00; Status DC Dexamethasone (Decadron) 3 mg Q6H IV Last administered on 01/31/17 08:53; Start 01/30/17 at 14:00; Stop 01/31/17 at 10:06; Status DC Dexamethasone (Decadron) 4 mg Q6H IV Last administered on 01/30/17 09:21; Start 01/26/17 at 20:00; Stop 01/30/17 at 09:39; Status DC Dexamethasone (Decadron) 10 mg Q6H IV Last administered on 01/26/17 13:50; Start 01/22/17 at 14:00; Stop 01/26/17 at 17:01; Status DC Dextrose (Dextrose 50%) 25 ml ASDIRECTED PRN IV SEE LABEL COMMENTS; Start at 14:15; Stop 01/31/17 at 19:21; Status DC Dextrose (Dextrose 50%) 25 ml ASDIRECTED PRN IV SEE LABEL COMMENTS; Start at 19:30; Stop 03/02/17 at 19:29 Dextrose/Sodium Chloride 1,000 ml @ 25 mls/hr Q24H IV Last administered on 07:15; Start 01/26/17 at 11:30; Stop 02/03/17 at 08:04; Status DC Dextrose/Sodium Chloride 1,000 ml @ 80 mls/hr [id number] IV ; Start 02/10/17 at 11 :00; Stop 02/10/17 at 11:34; Status DC Fentanyl Citrate (Sublimaze) 25 mcg Q5MP PRN IV MODERATE PAIN (PS 4-7); Start 01/28/17 at 19:45; Stop 01/28/17 at 21:45; Status DC Ferrous Gluconate (Fergon) 324 mg BID PO Last administered on 02/14/17 08:40; Start 02/11/17 at 09:00; Stop 03/13/17 at 08:59 Glucagon (Glucagon) 1 mg ASDIRECTED PRN SC SEE LABEL COMMENTS; Start 01/20/17 at 14:15; Stop 01/31/17 at 19:21; Status DC Glucagon (Glucagon) 1 mg ASDIRECTED PRN SC SEE LABEL COMMENTS; Start 01/31/17 at 19:30; Stop 03/02/17 at 19:29 Glucose (Glucose) 16 GM ASDIRECTED PRN PO SEE LABEL COMMENTS; Start 01/20/17 at 14:15; Stop 01/31/17 at 19:22; Status DC Glucose (Glucose) 16 GM ASDIRECTED PRN PO SEE LABEL COMMENTS; Start 01/31/17 at 19:30; Stop 03/02/17 at 19:29 Heparin Sodium (Heparin Lock Flush 10units/ml) 10 units ASDIRECTED PRN IV SEE LABEL COMMENTS Last administered on 02/10/17 09:51; Start 02/08/17 at 13:45; Stop 02/10/17 at 16:33; Status DC Heparin Sodium (Heparin Lock Flush 10units/ml) 10 units HLF IV Last administered on 02/10/17 06:10; Start 02/08/17 at 14:00; Stop 02/10/17 at 16:33 ; Status DC Heparin Sodium (Porcine) (Heparin) 5,000 units Q8H SQ Last administered on 02/14 13:11; Start 02/06/17 at 14:00; Stop 02/19/17 at 13:59 Home Med (Med Rec Complete!) ASDIRECTED XX ; Start 01/20/17 at 14:15; Stop at 14:15; Status DC Insulin Detemir (Levemir Insulin) 10 units QHS SC Last administered on 21:00; Start 02/07/17 at 21:00; Stop 02/08/17 at 07:48; Status DC Insulin Detemir (Levemir Insulin) 20 units BID SC Last administered on 21:00; Start 02/08/17 at 09:00; Stop 02/09/17 at 07:24; Status DC Insulin Detemir (Levemir Insulin) 25 units BID SC Last administered on 09:35; Start 02/09/17 at 09:00; Stop 02/10/17 at 10:34; Status DC Insulin Detemir (Levemir Insulin) 35 units BID SC Last administered on 22:22; Start 02/10/17 at 21:00; Stop 02/11/17 at 07:43; Status DC Insulin Detemir (Levemir Insulin) 45 units BID SC Last administered on 21:00; Start 02/11/17 at 09:00; Stop 02/12/17 at 07:19; Status DC Insulin Detemir (Levemir Insulin) 55 units BID SC Last administered on 08:40; Start 02/12/17 at 09:00; Stop 02/14/17 at 13:55; Status DC Insulin Detemir (Levemir Insulin) 65 units BID SC ; Start 02/14/17 at 21:00; Stop 03/16/17 at 20:59 Insulin Human Lispro (HumaLOG INSULIN) SEE PROTOCOL TABLE Q6H SC Last administered on 01/27/17 06:31; Start 01/20/17 at 12:00; Stop 01/27/17 at 11 :49; Status DC Insulin Human Lispro (HumaLOG INSULIN) SEE PROTOCOL TABLE Q6H SC Last administered on 02/14/17 12:00; Start 02/01/17 at 00:00; Stop 03/03/17 at 00: 00 Insulin Human Regular 100 units/ Sodium Chloride 100 ml @ 1 mls/hr Q24H IV Last administered on 01/28/17 22:31; Start 01/27/17 at 11:00; Stop 01/29/17 at 13:00; Status DC Insulin Human Regular 100 units/ Sodium Chloride 100 ml @ 6 mls/hr [id number] IV Last administered on 01/31/17 15:14; Start 01/29/17 at 13:00; Stop 01/31/17 at 19:15; Status DC Labetalol HCl (Normodyne, Trandate) 20 mg STAT STAT IV Last administered on 12:43; Start 01/20/17 at 12:17; Stop 01/20/17 at 12:19; Status DC Labetalol HCl (Normodyne, Trandate) 20 mg STAT STAT IV Last administered on 13:33; Start 01/20/17 at 13:28; Stop 01/20/17 at 13:29; Status DC Labetalol HCl (Normodyne, Trandate) 20 mg STAT STAT IV Last administered on 19:27; Start 01/21/17 at 18:43; Stop 01/21/17 at 18:46; Status DC Labetalol HCl (Normodyne, Trandate) 20 mg STAT STAT IV Last administered on 20:23; Start 01/21/17 at 20:15; Stop 01/21/17 at 20:19; Status DC Labetalol HCl (Normodyne, Trandate) 20 mg STAT STAT IV Last administered on 03:15; Start 01/22/17 at 03:01; Stop 01/22/17 at 03:05; Status DC Labetalol HCl 200 mg/Dextrose 200 ml @ 25 mls/hr Q8H IV Last administered on 01/26/17 08:44; Start 01/26/17 at 00:00; Stop 01/31/17 at 16:01; Status DC Labetalol HCl 200 mg/Dextrose 200 ml @ 60 mls/hr Q3H20M IV Last administered on 01/20/17 20:07; Start 01/20/17 at 14:00; Stop 01/22/17 at 06:10; Status DC Labetalol HCl 200 mg/Dextrose 200 ml @ 60 mls/hr Q3H20M IV Last administered on 01/22/17 20:58; Start 01/22/17 at 06:15; Stop 01/25/17 at 23:44; Status DC Lactated Ringer's 1,000 ml @ 70 mls/hr [id number] IV ; Start 01/28/17 at 19:45; Stop 01/28/17 at 21:45; Status DC Levetiracetam 500 mg/Dextrose 105 ml @ 420 mls/hr Q12H IV Last administered on 02/14/17 02:09; Start 01/22/17 at 15:00; Stop 02/21/17 at 14:59 Mannitol 125 ml @ 250 mls/hr ASDIRECTED PRN IV IF ICP >25 & SERUM OSMO< 305 Last administered on 01/24/17 00:37; Start 01/23/17 at 07:15; Stop 01/31/17 at 11:38; Status DC Mannitol (Mannitol 20% Bag) 25 gm Q4HP PRN IV SEE PROTOCOL; Start 01/23/17 at 02:45; Stop 01/23/17 at 07:09; Status DC Midazolam HCl (Versed) 2 mg Q15MP PRN IV AGITATION Last administered on 23:14; Start 01/23/17 at 09:15; Stop 02/17/17 at 09:14 Morphine Sulfate (Morphine Sulfate Inj) 2 mg Q30MP PRN IV SEVERE PAIN (PS 8-10 ) Last administered on 02/08/17 02:15; Start 01/29/17 at 11:30; Stop at 11:29 Multivitamins/ Minerals Therapeutic (Certavite Liquid) 15 ml DAILY PO Last administered on 02/14/17 08:41; Start 02/07/17 at 09:00; Stop 03/09/17 at 08: 59 Nicardipine HCl (Cardene) 20 mg TID PO Last administered on 01/29/17 20:14; Start 01/22/17 at 09:00; Stop 01/30/17 at 09:14; Status DC Nicardipine HCl (Cardene) 30 mg TID PO Last administered on 02/14/17 08:40; Start 01/30/17 at 09:00; Stop 03/01/17 at 08:59 Non-Formulary Medication (Insulin Iv Rate Change Documentation ml/ Hr) ASDIRECTED XX Last administered on 01/31/17 18:55; Start 01/27/17 at 10:30; Stop 01/31/17 at 19:22; Status DC Ondansetron HCl (ZOFRAN INJection) 4 mg Q4HP PRN IV NAUSEA OR VOMITING; Start 01/28/17 at 19:45; Stop 01/28/17 at 21:45; Status DC Pantoprazole Sodium (Protonix) 40 mg DAILY IV Last administered on 02/14/17 08 :40; Start 01/20/17 at 09:00; Stop 02/19/17 at 08:59 Polyethylene Glycol (Miralax) 0.5 pkt Q6H PO Last administered on 02/14/17 13: 11; Start 02/12/17 at 18:00; Stop 03/14/17 at 17:59 Potassium Chloride/Dextrose/ Sod Cl 1,000 ml @ 100 mls/hr Q10H IV Last administered on 01/26/17 02:13; Start 01/24/17 at 01:45; Stop 01/26/17 at 11 :25; Status DC Potassium Chloride/Sodium Chloride 1,000 ml @ 100 mls/hr Q10H IV Last administered on 01/23/17 12:18; Start 01/21/17 at 10:15; Stop 01/24/17 at 01 :44; Status DC Propofol 1000 mg/ IV Miscellaneous Supplies 100 ml @ 5.35 mls/hr [id number] IV Last administered on 01/31/17 10:24; Start 01/23/17 at 00:30; Stop 01/31/17 at 16:32; Status DC Sodium Chloride 1,000 ml @ 80 mls/hr [id number] IV Last administered on 11:56; Start 02/10/17 at 11:30; Stop 02/10/17 at 23:59; Status DC Sodium Chloride 1,000 ml @ 80 mls/hr [id number] IV Last administered on 10:14; Start 02/13/17 at 09:30; Stop 03/15/17 at 09:29 Sodium Chloride 1,000 ml @ 100 mls/hr Q10H IV Last administered on 01/20/17 12:43; Start 01/20/17 at 12:17; Stop 01/20/17 at 15:55; Status DC Sodium Chloride (Saline Lock Flush) 10 ml ASDIRECTED PRN IV SEE LABEL COMMENTS ; Start 02/03/17 at 13:45; Stop 02/08/17 at 13:37; Status DC Sodium Chloride (Saline Lock Flush) 10 ml ASDIRECTED PRN IV SEE LABEL COMMENTS Last administered on 02/10/17 09:51; Start 02/08/17 at 13:45; Stop 02/10/17 at 16:33; Status DC Sodium Chloride (Saline Lock Flush) 10 ml SLF IV Last administered on 06:00; Start 02/03/17 at 14:00; Stop 02/08/17 at 13:37; Status DC Sodium Chloride (Saline Lock Flush) 10 ml SLF IV Last administered on 06:10; Start 02/08/17 at 14:00; Stop 02/10/17 at 16:33; Status DC Trimethoprim/ Sulfamethoxazole (Bactrim, Septra 160mg/800mg Per 20ml) 20 ml BID PO Last administered on 02/14/17 08:41; Start 02/10/17 at 09:00; Stop at 08:59 Scheduled PRN Acetaminophen (Acetaminophen) 500 Mg Tab, 500 MG PO for PAIN, (Reported) Ibuprofen (Ibuprofen) 200 Mg Tab, 400 MG PO for PAIN, (Reported) Allergies Coded Allergies: No Known Drug Allergy (Verified Allergy, Mild, 06/08/12) JUVE PINEDA MD Feb 14, 2017 14:54
[2017-02-14 22:00] VITALS: BP 143/98
[2017-02-15 02:00] VITALS: BP 142/91
[2017-02-15] MEDS: levETIRAcetam INJection 500 MG in D5W MINI-BAG PLUS 100 ML IV SCH ×2 (03:00→15:36)
[2017-02-15] MEDS: MIRALAX *UNIT DOSE* 17GM PACKET PO SCH ×5 (05:57→23:24)
[2017-02-15] MEDS: HEPARIN SOD (PORCINE) 5000 UNITS/ML VIAL SQ SCH ×3 (05:57→22:52)
[2017-02-15] MEDS: HumaLOG INSULIN (NovoLOG) PER UNIT SC SCH ×5 (05:57→23:24)
[2017-02-15 06:00] VITALS: BP 132/78
[2017-02-15 06:46] LABS: MEAN CORPUSCULAR HEMOGLOBIN 21.2 pg (27.0-33.0); MEAN CORPUSCULAR HGB CONC 29.4 g/dl (32.0-36.5); MEAN CORPUSCULAR VOLUME 72.1 fl (80.0-96.0); PLATELET COUNT, AUTOMATED 236 10^3/uL (150-450); RED CELL DISTRIBUTION WIDTH 29.8 % (11.5-14.5); WHITE BLOOD COUNT 13.3 10^3/uL (4.0-10.0)
[2017-02-15 06:49] LABS: ADD MANUAL DIFFER YES; ALBUMIN 2.5 GM/DL (3.2-5.2); ALBUMIN/GLOBULIN RATIO 0.71 (1.00-1.93); ALKALINE PHOSPHATASE 176 U/L (45-117); ALT/SGPT 42 U/L (12-78); ANION GAP 8 MEQ/L (8-16); AST/SGOT 15 U/L (7-37); BILIRUBIN,TOTAL 0.3 MG/DL (0.2-1.0); BLOOD UREA NITROGEN 36 MG/DL (7-18); CARBON DIOXIDE LEVEL 25 MEQ/L (21-32); CHLORIDE LEVEL 100 MEQ/L (98-107); CREATININE FOR GFR 0.81 MG/DL (0.55-1.02); DIFF SLIDE NUMBER 14; GLOMERULAR FILTRATION RATE > 60.0 (>58); GLUCOSE, FASTING 382 MG/DL (70-105); MAGNESIUM LEVEL 2.2 MG/DL (1.8-2.4); POS COUNT POS FLAG; POSITIVE MORPH POS FLAG; POTASSIUM SERUM 4.9 MEQ/L (3.5-5.1); SODIUM LEVEL 133 MEQ/L (136-145)
[2017-02-15 07:13] LABS: HYPOCHROMASIA 2+
[2017-02-15 07:14] LABS: ANISOCYTOSIS 4+; MICROCYTOSIS 2+
[2017-02-15] MEDS: BACTRIM SUSP 160MG/800MG PER 20ML ORAL SYRINGE PO SCH ×2 (09:07→20:11)
[2017-02-15] MEDS: BISACODYL 10 MG SUPP PR SCH (09:07)
[2017-02-15] MEDS: MULTIVITAMIN/MINERALS LIQUID 15ML ORAL SYRINGE PO SCH (09:07)
[2017-02-15] MEDS: ACETAMINOPHEN 650 MG SUPP PR PRN (09:08)
[2017-02-15] MEDS: NICARDIPINE 30 MG PO SCH ×3 (09:10→20:03)
[2017-02-15] MEDS: PANTOPRAZOLE 40MG INJ (PROTONIX) (C9113) IV SCH (09:11)
[2017-02-15] MEDS: dexameTHASONE 4 MG/ML 1ML VIAL (J1100) IV SCH ×2 (09:11→20:03)
[2017-02-15] MEDS: LEVEMIR (INSULIN DETEMIR) 1 UNITS/0.01ML SC SCH ×2 (09:12→20:04)
[2017-02-15] MEDS: FERROUS GLUCONATE 324 MG TAB PO SCH ×2 (09:13→20:03)
[2017-02-15] MEDS: CHLORHEXIDINE ORAL RINSE 0.12%/15ML 120ML BOTTLE MT SCH ×2 (09:21→20:11)
[2017-02-15 10:00] VITALS: BP 156/83
--- NOTE | 2017-02-15 12:02 | IPNPDOC ---
Text Note Date of Service The patient was seen on 02/15/17. NOTE Subjective: Patient is a 51-year-old female with a past medical history of chronic back pain and history of kidney stones. He presented to the ER with complaints of AMS. She received a CT in the ER that revealed several intracranial bleeds. She was admitted to intensivists service with Dr. Kaminski on consult. She was intubated initially. On 01/23, she received a left frontal ventriculostomy and placement of a Interior pressure monitor, and was corrected because of misplacement on 01/26. On 01/28 she received multiple thalamic biopsies. She received trach and PEG then subsequently extubated and downgraded to hospitalist service. Patient was seen and examined at the bedside. She is sitting up. Remains non- verbal. Appears to have no signs of distress. is present at the bedside. Objective: Vitals (See below) General: Lying in bed, no acute distress, comfortable, Awake + alert, non-verbal HEENT: NC, AT, +Trach CVS: RRR, +S1S2 Lungs: Fair air entry b/l, -w/r/r Abdomen: Soft, ND, NT, +PEG Extremities: - Edema, - Calf tenderness Assessment and plan: AMS - likely 2/2 Acute intracranial bleed - 2/2 intraparenchymal hematoma in L thalamus and IC with mass effect and minimal midline shift - s/p left frontal ventriculostomy and placement of a Interior pressure monitor on 01/23, corrected 01/26 - 01/28 Received multiple thalamic biopsies; pathology negative for malignancy - Will have outpatient imaging to re-evaluate - Clinically seems to be making progress; follows simple commands - c/w Dexamethasone; on tapering schedule; Keppra IV - c/w PT/OT and Speech therapy - Psychiatry has established that the patient lacks capacity to make decisions s/p Acute respiratory failure; now trach dependent - s/p Trach 02/[address] Sanchez - c/w trial of Passe [place] valve Nutrition - s/p PEG 02/[address] Collado Leukocytosis - possibly 2/2 corticosteroids, possibly 2/2 infection - WBC remains stable; no febrile episodes - Wound culture 02/09: MSSA, Strep (multiple species); Urine culture 02/06: Proteus Hauseri - s/p Central line - No issues with PEG tube or Trach - c/w TMP-SMX (Day #6) via PEG Hyponatremia - s/p D5 1/2 NS - Will reduce Free water via PEG s/p Mild elevation in Cr - s/p IV fluid hydration Hyperglycemia - likely 2/2 corticosteroids - c/w ISS and Levemir 65 BID - c/w Steroid taper Microcytic anemia - consistent with ESTHER - Hg appears to be stable - c/w iron supplementation HTN - c/w Nicardipine GI prophylaxis - c/w Protonix DVT prophylaxis - c/w Heparin Disposition: - Lacks capacity to make decisions; Medicare setup - Looking into placement options VS,Fishbone, I+O VS, Fishbone, I+O Laboratory Tests 02/15/17 06:12 Red Blood Count 4.91, Mean Corpuscular Volume 72.1 L, Mean Corpuscular Hemoglobin 21.2 L, Mean Corpuscular Hemoglobin Concent 29.4 L, Red Cell Distribution Width 29.8 H, Calcium Level 9.0, Aspartate Amino Transf (AST/SGOT) 15, Alanine Aminotransferase (ALT/SGPT) 42, Alkaline Phosphatase 176 H, Total Bilirubin 0.3, Total Protein 6.0 L, Albumin 2.5 L Vital Signs Date Time Temp Pulse Resp B/P (MAP) Pulse Ox O2 Delivery O2 Flow Rate FiO2 02/15/17 09:10 143/92 02/15/17 06:00 97.1 79 19 97 Trach Collar 02/14/17 21:00 5.0 28 GUCCI SERNA MD Feb 15, 2017 12:01
[2017-02-15 14:00] VITALS: BP 131/81
[2017-02-15 18:00] VITALS: BP 131/84
[2017-02-15 22:00] VITALS: BP 129/71
[2017-02-16 02:00] VITALS: BP 133/89
[2017-02-16] MEDS: levETIRAcetam INJection 500 MG in D5W MINI-BAG PLUS 100 ML IV SCH ×2 (03:09→14:08)
[2017-02-16] MEDS: MIRALAX *UNIT DOSE* 17GM PACKET PO SCH (05:54)
[2017-02-16] MEDS: HEPARIN SOD (PORCINE) 5000 UNITS/ML VIAL SQ SCH ×3 (05:55→22:11)
[2017-02-16] MEDS: HumaLOG INSULIN (NovoLOG) PER UNIT SC SCH ×3 (05:55→17:45)
[2017-02-16 06:00] VITALS: BP 125/79
[2017-02-16 06:23] LABS: ADD MANUAL DIFFER YES; DIFF SLIDE NUMBER 7; MEAN CORPUSCULAR HEMOGLOBIN 21.7 pg (27.0-33.0); MEAN CORPUSCULAR VOLUME 72.4 fl (80.0-96.0); PLATELET COUNT, AUTOMATED 238 10^3/uL (150-450); POS COUNT POS FLAG; POSITIVE MORPH POS FLAG; RED CELL DISTRIBUTION WIDTH 29.8 % (11.5-14.5); WHITE BLOOD COUNT 10.8 10^3/uL (4.0-10.0)
[2017-02-16 06:42] LABS: ALBUMIN 2.6 GM/DL (3.2-5.2); ALBUMIN/GLOBULIN RATIO 0.79 (1.00-1.93); ALKALINE PHOSPHATASE 160 U/L (45-117); ALT/SGPT 40 U/L (12-78); ANION GAP 11 MEQ/L (8-16); AST/SGOT 16 U/L (7-37); BILIRUBIN,TOTAL 0.2 MG/DL (0.2-1.0); BLOOD UREA NITROGEN 33 MG/DL (7-18); CALCIUM LEVEL 8.9 MG/DL (8.5-10.1); CARBON DIOXIDE LEVEL 24 MEQ/L (21-32); CHLORIDE LEVEL 101 MEQ/L (98-107); CREATININE FOR GFR 0.89 MG/DL (0.55-1.02); GLOMERULAR FILTRATION RATE > 60.0 (>58); GLUCOSE, FASTING 308 MG/DL (70-105); MAGNESIUM LEVEL 2.2 MG/DL (1.8-2.4); POTASSIUM SERUM 4.4 MEQ/L (3.5-5.1); SODIUM LEVEL 136 MEQ/L (136-145); TOTAL PROTEIN 5.9 GM/DL (6.4-8.2)
[2017-02-16 06:47] LABS: ANISOCYTOSIS 4+; BANDS 1 % (< 11)
[2017-02-16 06:49] LABS: HYPOCHROMASIA 2+
[2017-02-16 06:50] LABS: MICROCYTOSIS 2+
[2017-02-16] MEDS ORDERED: FERROUS GLUCONATE 324 MG TAB PEG SCH (09:00)
[2017-02-16] MEDS: BACTRIM SUSP 160MG/800MG PER 20ML ORAL SYRINGE PEG SCH ×2 (09:54→20:24)
[2017-02-16] MEDS: FERROUS SULFATE 300MG/5ML UDC LIQUID PEG SCH ×2 (09:54→20:26)
[2017-02-16] MEDS: LEVEMIR (INSULIN DETEMIR) 1 UNITS/0.01ML SC SCH ×2 (09:54→20:28)
[2017-02-16] MEDS: MULTIVITAMIN/MINERALS LIQUID 15ML ORAL SYRINGE PEG SCH (09:54)
[2017-02-16] MEDS: CHLORHEXIDINE ORAL RINSE 0.12%/15ML 120ML BOTTLE MT SCH ×2 (09:55→20:24)
[2017-02-16] MEDS: NICARDIPINE 30 MG PEG SCH ×3 (10:06→20:26)
[2017-02-16] MEDS: PANTOPRAZOLE 40MG INJ (PROTONIX) (C9113) IV SCH (10:07)
[2017-02-16] MEDS: BISACODYL 10 MG SUPP PR SCH (10:07)
--- NOTE | 2017-02-16 12:04 | IPNPDOC ---
Text Note Date of Service The patient was seen on 02/16/17. NOTE Subjective: Patient is a 51-year-old female with a past medical history of chronic back pain and history of kidney stones. He presented to the ER with complaints of AMS. She received a CT in the ER that revealed several intracranial bleeds. She was admitted to intensivists service with Dr. Kaminski on consult. She was intubated initially. On 01/23, she received a left frontal ventriculostomy and placement of a Lizz pressure monitor, and was corrected because of misplacement on 01/26. On 01/28 she received multiple thalamic biopsies. She received trach and PEG then subsequently extubated and downgraded to hospitalist service. Patient was seen and examined at the bedside. Lying in bed, awake and alert. Remains non-verbal. Appears to be nodding to certain questions, but not answering appropriately. Objective: Vitals (See below) General: Lying in bed, no acute distress, comfortable, Awake + alert, non-verbal HEENT: NC, AT, +Trach CVS: RRR, +S1S2 Lungs: Fair air entry b/l, -w/r/r Abdomen: Soft, ND, NT, +PEG Extremities: - Edema, - Calf tenderness Assessment and plan: AMS - likely 2/2 Acute intracranial bleed - 2/2 intraparenchymal hematoma in L thalamus and IC with mass effect and minimal midline shift - s/p left frontal ventriculostomy and placement of a [place] pressure monitor on 01/23, corrected 01/26 - Thalamic biopsies 01/28; pathology negative for malignancy - Follows simple commands and is working with PT / OT and speech therapy - Outpatient imaging to re-evaluate change - c/w Dexamethasone; on tapering schedule; Keppra IV - Establishing outpatient transition of care s/p Acute respiratory failure; now trach dependent - s/p Trach 02/[address] Sanchez - c/w trial of Passe [place] valve Nutrition - s/p PEG 02/[address] Collado Leukocytosis - possibly 2/2 corticosteroids, possibly 2/2 infection - WBC improvign; no febrile episodes - Wound culture 02/09: MSSA, Strep (multiple species); Urine culture 02/06: Proteus Hauseri - s/p Central line - No issues with PEG tube or Trach - c/w TMP-SMX (Day #7) via PEG s/p Hyponatremia - s/p D5 1/2 NS s/p Mild elevation in Cr - s/p IV fluid hydration Hyperglycemia - likely 2/2 corticosteroids - c/w ISS and Levemir 65 BID - c/w Steroid taper Microcytic anemia - consistent with ESTHER - Hg appears to be stable - c/w iron supplementation HTN - c/w Nicardipine GI prophylaxis - c/w Protonix DVT prophylaxis - c/w Heparin Disposition: - Establishing outpatient transition of care; looking into facilities that can provide care VSKev, I+O VSKev I+O Laboratory Tests 02/16/17 06:09 Red Blood Count 4.74, Mean Corpuscular Volume 72.4 L, Mean Corpuscular Hemoglobin 21.7 L, Mean Corpuscular Hemoglobin Concent 30.0 L, Red Cell Distribution Width 29.8 H, Calcium Level 8.9, Aspartate Amino Transf (AST/SGOT) 16, Alanine Aminotransferase (ALT/SGPT) 40, Alkaline Phosphatase 160 H, Total Bilirubin 0.2, Total Protein 5.9 L, Albumin 2.6 L Vital Signs Date Time Temp Pulse Resp B/P (MAP) Pulse Ox O2 Delivery O2 Flow Rate FiO2 02/16/17 11:00 Trach Collar 5.0 28 02/16/17 10:06 142/90 02/16/17 06:00 97.0 79 19 98 I&O- Last 24 Hours up to 6 AM 02/17/17 06:00 Intake Total 0 ml Balance 0 ml GUCCI SERNA MD Feb 16, 2017 12:04
[2017-02-16] MEDS: MIRALAX *UNIT DOSE* 17GM PACKET PEG SCH ×3 (12:08→23:59)
[2017-02-16 14:00] VITALS: BP 124/77
[2017-02-16] MEDS: ACETAMINOPHEN 650 MG SUPP PR PRN (16:28)
[2017-02-16 18:00] VITALS: BP 120/66
[2017-02-16] MEDS: dexameTHASONE 4 MG/ML 1ML VIAL (J1100) IV SCH (20:23)
[2017-02-16] MEDS ORDERED: FERROUS SULFATE 300MG/5ML UDC LIQUID PEG SCH (21:00)
[2017-02-16 22:00] VITALS: BP 128/72
[2017-02-17 02:00] VITALS: BP 121/80
[2017-02-17] MEDS: levETIRAcetam INJection 500 MG in D5W MINI-BAG PLUS 100 ML IV SCH ×2 (03:27→14:29)
[2017-02-17] MEDS: MIRALAX *UNIT DOSE* 17GM PACKET PEG SCH ×3 (05:54→17:44)
[2017-02-17 05:55] LABS: MEAN CORPUSCULAR HEMOGLOBIN 21.6 pg (27.0-33.0); MEAN CORPUSCULAR HGB CONC 29.6 g/dl (32.0-36.5); MEAN CORPUSCULAR VOLUME 72.9 fl (80.0-96.0); PLATELET COUNT, AUTOMATED 242 10^3/uL (150-450); RED CELL DISTRIBUTION WIDTH 30.2 % (11.5-14.5); WHITE BLOOD COUNT 8.9 10^3/uL (4.0-10.0)
[2017-02-17] MEDS: HEPARIN SOD (PORCINE) 5000 UNITS/ML VIAL SQ SCH ×3 (05:55→14:29)
[2017-02-17] MEDS: HumaLOG INSULIN (NovoLOG) PER UNIT SC SCH ×4 (05:55→18:04)
[2017-02-17 05:56] LABS: LEFT SHIFT POS FLAG; POS COUNT POS FLAG; POSITIVE MORPH POS FLAG
[2017-02-17 05:57] LABS: ADD MANUAL DIFFER YES; DIFF SLIDE NUMBER 5; PLT DIST POS FLAG
[2017-02-17 06:00] VITALS: BP 130/89
[2017-02-17 06:17] LABS: ALBUMIN 2.6 GM/DL (3.2-5.2); ALBUMIN/GLOBULIN RATIO 0.79 (1.00-1.93); ALKALINE PHOSPHATASE 143 U/L (45-117); ALT/SGPT 41 U/L (12-78); ANION GAP 10 MEQ/L (8-16); AST/SGOT 22 U/L (7-37); BILIRUBIN,TOTAL 0.3 MG/DL (0.2-1.0); BLOOD UREA NITROGEN 31 MG/DL (7-18); CALCIUM LEVEL 9.1 MG/DL (8.5-10.1); CARBON DIOXIDE LEVEL 26 MEQ/L (21-32); CHLORIDE LEVEL 103 MEQ/L (98-107); CREATININE FOR GFR 0.73 MG/DL (0.55-1.02); GLOMERULAR FILTRATION RATE > 60.0 (>58); GLUCOSE, FASTING 145 MG/DL (70-105); MAGNESIUM LEVEL 2.3 MG/DL (1.8-2.4); POTASSIUM SERUM 4.3 MEQ/L (3.5-5.1); SODIUM LEVEL 139 MEQ/L (136-145); TOTAL PROTEIN 5.9 GM/DL (6.4-8.2)
[2017-02-17 06:45] LABS: ANISOCYTOSIS 2+; BANDS 3 % (< 11); EOSINOPHILS 2 % (0-5); POIKILOCYTOSIS 1+
[2017-02-17] MEDS: FERROUS SULFATE 300MG/5ML UDC LIQUID PEG SCH ×2 (09:55→22:18)
[2017-02-17] MEDS: BACTRIM SUSP 160MG/800MG PER 20ML ORAL SYRINGE PEG SCH ×2 (09:55→22:17)
[2017-02-17] MEDS: PANTOPRAZOLE 40MG INJ (PROTONIX) (C9113) IV SCH (09:55)
[2017-02-17] MEDS: CHLORHEXIDINE ORAL RINSE 0.12%/15ML 120ML BOTTLE MT SCH ×2 (09:56→22:17)
[2017-02-17] MEDS: MULTIVITAMIN/MINERALS LIQUID 15ML ORAL SYRINGE PEG SCH (09:56)
[2017-02-17 10:00] VITALS: BP 136/87
[2017-02-17] MEDS: BISACODYL 10 MG SUPP PR SCH (10:04)
[2017-02-17] MEDS: LEVEMIR (INSULIN DETEMIR) 1 UNITS/0.01ML SC SCH ×2 (10:05→10:19)
[2017-02-17] MEDS: NICARDIPINE 30 MG PEG SCH ×3 (10:05→22:18)
--- NOTE | 2017-02-17 12:01 | IPNPDOC ---
Text Note Date of Service The patient was seen on 02/17/17. NOTE Subjective: Patient is a 51-year-old female with a past medical history of chronic back pain and history of kidney stones. He presented to the ER with complaints of AMS. She received a CT in the ER that revealed several intracranial bleeds. She was admitted to intensivists service with Dr. Kaminski on consult. She was intubated initially. On 01/23, she received a left frontal ventriculostomy and placement of a Lizz pressure monitor, and was corrected because of misplacement on 01/26. On 01/28 she received multiple thalamic biopsies. She received trach and PEG then subsequently extubated and downgraded to hospitalist service. Patient was seen and examined at the bedside. Sitting up in bed. Awake and alert. Is able to follow simple commands; like "squeeze my hand" and "move your toes". She does not report any pain. Objective: Vitals (See below) General: Lying in bed, no acute distress, comfortable, Awake + alert, non-verbal HEENT: NC, AT, +Trach CVS: RRR, +S1S2 Lungs: Fair air entry b/l, -w/r/r Abdomen: Soft, ND, NT, +PEG Extremities: - Edema, - Calf tenderness Assessment and plan: AMS - likely 2/2 Acute intracranial bleed - 2/2 intraparenchymal hematoma in L thalamus and IC with mass effect and minimal midline shift - s/p left frontal ventriculostomy and placement of a Lizz pressure monitor on 01/23, corrected 01/26 - Thalamic biopsies 01/28; pathology negative for malignancy - Follows simple commands and is working with PT / OT and speech therapy - Outpatient imaging to re-evaluate change - c/w Dexamethasone; on tapering schedule; Keppra IV s/p Acute respiratory failure; now trach dependent - s/p Trach 02/[address] Sanchez - c/w trial of Passe [place] valve Nutrition - s/p PEG 02/[address] Collado s/p Leukocytosis - possibly 2/2 corticosteroids, possibly 2/2 infection - WBC resolved; no febrile episodes - Wound culture 02/09: MSSA, Strep (multiple species); Urine culture 02/06: Proteus Hauseri - s/p Central line - No issues with PEG tube or Trach - c/w TMP-SMX (Day #8 of 10) via PEG s/p Hyponatremia - s/p D5 1/2 NS s/p Mild elevation in Cr - s/p IV fluid hydration Hyperglycemia - likely 2/2 corticosteroids - c/w ISS - Will reduce levemir to 25 BID from 65 - re: reduced dose of steroids - c/w Steroid taper Microcytic anemia - consistent with ESTHER - Hg appears to be stable - c/w iron supplementation HTN - c/w Nicardipine GI prophylaxis - c/w Protonix DVT prophylaxis - c/w Heparin Disposition: - Establishing outpatient transition of care; looking into facilities that can provide care VS,Kev, I+O VS, Kev, I+O Laboratory Tests 02/17/17 05:22 Red Blood Count 4.95, Mean Corpuscular Volume 72.9 L, Mean Corpuscular Hemoglobin 21.6 L, Mean Corpuscular Hemoglobin Concent 29.6 L, Red Cell Distribution Width 30.2 H, Calcium Level 9.1, Aspartate Amino Transf (AST/SGOT) 22, Alanine Aminotransferase (ALT/SGPT) 41, Alkaline Phosphatase 143 H, Total Bilirubin 0.3, Total Protein 5.9 L, Albumin 2.6 L Vital Signs Date Time Temp Pulse Resp B/P (MAP) Pulse Ox O2 Delivery O2 Flow Rate FiO2 02/17/17 10:05 135/92 02/17/17 06:00 98.0 88 18 99 Trach Collar 02/16/17 21:00 5.0 28 I&O- Last 24 Hours up to 6 AM 02/18/17 06:00 Intake Total 560 ml Balance 560 ml GUCCI SERNA MD Feb 17, 2017 12:01
[2017-02-17 14:00] VITALS: BP 156/82
[2017-02-17 18:00] VITALS: BP 131/79
[2017-02-17] MEDS: ACETAMINOPHEN 650 MG SUPP PR PRN (18:04)
[2017-02-17 22:00] VITALS: BP 144/87
[2017-02-17] MEDS: dexameTHASONE 4 MG/ML 1ML VIAL (J1100) IV SCH (22:17)
[2017-02-18] MEDS: HumaLOG INSULIN (NovoLOG) PER UNIT SC SCH ×5 (00:08→23:49)
[2017-02-18] MEDS: ACETAMINOPHEN 650 MG SUPP PR PRN ×2 (00:09→21:06)
[2017-02-18 02:00] VITALS: BP 137/78
[2017-02-18] MEDS: levETIRAcetam INJection 500 MG in D5W MINI-BAG PLUS 100 ML IV SCH ×2 (02:44→15:39)
[2017-02-18 06:00] VITALS: BP 133/86
[2017-02-18] MEDS: MIRALAX *UNIT DOSE* 17GM PACKET PEG SCH ×5 (06:15→23:49)
[2017-02-18] MEDS: HEPARIN SOD (PORCINE) 5000 UNITS/ML VIAL SQ SCH ×3 (06:15→21:00)
[2017-02-18] MEDS: BISACODYL 10 MG SUPP PR SCH (09:00)
[2017-02-18] MEDS: PANTOPRAZOLE 40MG INJ (PROTONIX) (C9113) IV SCH (09:10)
[2017-02-18] MEDS: LEVEMIR (INSULIN DETEMIR) 1 UNITS/0.01ML SC SCH ×2 (09:10→21:00)
[2017-02-18] MEDS: FERROUS SULFATE 300MG/5ML UDC LIQUID PEG SCH ×2 (09:10→20:59)
[2017-02-18] MEDS: BACTRIM SUSP 160MG/800MG PER 20ML ORAL SYRINGE PEG SCH ×2 (09:11→21:00)
[2017-02-18] MEDS: CHLORHEXIDINE ORAL RINSE 0.12%/15ML 120ML BOTTLE MT SCH ×2 (09:11→21:01)
[2017-02-18] MEDS: MULTIVITAMIN/MINERALS LIQUID 15ML ORAL SYRINGE PEG SCH (09:11)
[2017-02-18] MEDS: NICARDIPINE 30 MG PEG SCH ×3 (09:11→20:59)
[2017-02-18 14:00] VITALS: BP 127/82
--- NOTE | 2017-02-18 15:02 | IPNPDOC ---
Text Note Date of Service The patient was seen on 02/18/17. NOTE Subjective: Pt nonverbal. Appears comfortable. Follows simple commands. Objective: Vitals: (see below) General: No acute distress, laying comfortably in bed. HEENT: Moist mucous membranes. Trach intact. No bleeding/signs of infection. Neck: No JVD or lymphadenopathy Cardiac: RRR, No murmurs Pulm: Clear to auscultation b/l. No wheezing, rhonchi Abd: NT/ND + BS Ext: No edema or cyanosis Neuro: Strength 0/5 Right side and L side 2-3/5, although difficult to assess. CN 2-12 - unable to fully assess as pt not cooperating Alert following simple commands Labs (see below) Images: Assessment/Plan 1. S/p Intracranial bleed. Intraparenchymal hematoma in L thalamus with mass effect and minimal midline shift. S/p left frontal ventriculostomy and placement of a [place] pressure monitor on 01/23, corrected 01/26. S/p Thalamic biopsies 01/28; pathology negative for malignancyOn Bryce/Keshruthira. PT/OT. Outpt f/u with neurosurg and repeat imaging. 2. S/p acute Resp failure - s/p trach now. Trial of passe liza valve 3. Nutrition - s/p peg tube 02/05. cont tube feeding 4. Leukocytosis - likely 2/2 steroids, although does have + wound and urine cx, on bactrim Day 11/17 5. Hyponatremia resovled s/p D51/2NS 6. IDDM - on levemir/SSI 7. Microcytic anemia secondary to iron deficiency anemia on iron supplementation. Hemoglobin stable. Continue to monitor 8. Hypertension continue home meds DVT prophy: Subcutaneous Dispo: Pending placement. Mild improvement with physical therapy. VS,Fishbone, I+O VS, Fishbone, I+O Vital Signs Date Time Temp Pulse Resp B/P (MAP) Pulse Ox O2 Delivery O2 Flow Rate FiO2 02/18/17 09:11 133/86 02/18/17 09:00 Trach Collar 5.0 28 02/18/17 06:00 97.1 87 17 94 I&O- Last 24 Hours up to 6 AM 02/19/17 06:00 Intake Total 0 ml Balance 0 ml CHARITY GRIFFITH MD Feb 18, 2017 15:02
[2017-02-18] MEDS: dexameTHASONE 4 MG/ML 1ML VIAL (J1100) IV SCH (20:59)
[2017-02-18 22:00] VITALS: BP 140/86
[2017-02-19 02:00] VITALS: BP 123/69
[2017-02-19] MEDS: levETIRAcetam INJection 500 MG in D5W MINI-BAG PLUS 100 ML IV SCH ×2 (03:35→15:26)
[2017-02-19 06:00] VITALS: BP 138/68
[2017-02-19] MEDS: MIRALAX *UNIT DOSE* 17GM PACKET PEG SCH ×2 (06:00→11:51)
[2017-02-19] MEDS: HEPARIN SOD (PORCINE) 5000 UNITS/ML VIAL SQ SCH (06:01)
[2017-02-19] MEDS: HumaLOG INSULIN (NovoLOG) PER UNIT SC SCH ×3 (06:02→18:00)
[2017-02-19] MEDS: BISACODYL 10 MG SUPP PR SCH (09:00)
[2017-02-19] MEDS: PANTOPRAZOLE 40MG INJ (PROTONIX) (C9113) IV SCH ×2 (09:28→20:06)
[2017-02-19] MEDS: FERROUS SULFATE 300MG/5ML UDC LIQUID PEG SCH ×2 (09:28→20:05)
[2017-02-19] MEDS: NICARDIPINE 30 MG PEG SCH ×3 (09:28→20:06)
[2017-02-19] MEDS: MULTIVITAMIN/MINERALS LIQUID 15ML ORAL SYRINGE PEG SCH (09:29)
[2017-02-19] MEDS: BACTRIM SUSP 160MG/800MG PER 20ML ORAL SYRINGE PEG SCH ×2 (09:29→20:05)
[2017-02-19] MEDS: LEVEMIR (INSULIN DETEMIR) 1 UNITS/0.01ML SC SCH ×2 (09:29→22:45)
[2017-02-19] MEDS: CHLORHEXIDINE ORAL RINSE 0.12%/15ML 120ML BOTTLE MT SCH ×2 (09:30→20:08)
[2017-02-19 14:00] VITALS: BP 131/87
[2017-02-19 14:30] LABS: MEAN CORPUSCULAR HEMOGLOBIN 21.6 pg (27.0-33.0); MEAN CORPUSCULAR HGB CONC 29.6 g/dl (32.0-36.5); PLATELET COUNT, AUTOMATED 207 10^3/uL (150-450); WHITE BLOOD COUNT 9.8 10^3/uL (4.0-10.0)
--- NOTE | 2017-02-19 14:30 | IPNPDOC ---
Text Note Date of Service The patient was seen on 02/19/17. NOTE Subjective: Pt nonverbal. Appears comfortable. Follows simple commands. Objective: Vitals: (see below) General: No acute distress, laying comfortably in bed. HEENT: Moist mucous membranes. Trach intact. No bleeding/signs of infection. Neck: No JVD or lymphadenopathy Cardiac: RRR, No murmurs Pulm: Clear to auscultation b/l. No wheezing, rhonchi Abd: NT/ND + BS Ext: No edema or cyanosis Neuro: Strength 0/5 Right side and L side 2-3/5, although difficult to assess. CN 2-12 - unable to fully assess as pt not cooperating Alert following simple commands Labs (see below) Images: Assessment/Plan 1. BRBPR - hold tube feeding for now. Protonix IV twice a day. CBC every 6 hours. Hemodynamically stable. Discontinue heparin subcutaneous 2. S/p Intracranial bleed. Intraparenchymal hematoma in L thalamus with mass effect and minimal midline shift. S/p left frontal ventriculostomy and placement of a [place] pressure monitor on 01/23, corrected 01/26. S/p Thalamic biopsies 01/28; pathology negative for malignancyOn Decadron/Keppra. PT/OT. Outpt f/u with neurosurg and repeat imaging. 3. S/p acute Resp failure - s/p trach now. Trial of passe liza valve 4. Leukocytosis - likely 2/2 steroids, although does have + wound and urine cx, on bactrim Day 11/17 5. Hyponatremia resovled s/p D51/2NS 6. IDDM - on levemir/SSI 7. Microcytic anemia secondary to iron deficiency anemia on iron supplementation. Hemoglobin stable. Continue to monitor 8. Hypertension continue home meds 9. Nutrition - s/p peg tube 02/05. Hold tube feeding for now given BRBPR DVT prophy: SCDs Dispo: Pending placement. Cont PT physical therapy. VS,Fishbone, I+O VS, Fishbone, I+O Vital Signs Date Time Temp Pulse Resp B/P (MAP) Pulse Ox O2 Delivery O2 Flow Rate FiO2 02/19/17 09:30 Trach Collar 5.0 28 02/19/17 09:28 142/89 02/19/17 06:00 97.0 90 26 95 I&O- Last 24 Hours up to 6 AM 02/20/17 06:00 Intake Total 0 ml Output Total 0 ml Balance 0 ml CHARITY GRIFFITH MD Feb 19, 2017 14:30
[2017-02-19 18:00] VITALS: BP 129/88
[2017-02-19 20:05] LABS: MEAN CORPUSCULAR HEMOGLOBIN 21.9 pg (27.0-33.0); MEAN CORPUSCULAR HGB CONC 29.6 g/dl (32.0-36.5); PLATELET COUNT, AUTOMATED 234 10^3/uL (150-450); RED CELL DISTRIBUTION WIDTH 30.5 % (11.5-14.5); WHITE BLOOD COUNT 10.8 10^3/uL (4.0-10.0)
[2017-02-19] MEDS: traMADol 50 MG TAB PEG PRN (20:07)
[2017-02-19 20:08] LABS: PLT DIST POS FLAG
[2017-02-19 22:00] VITALS: BP 135/95
[2017-02-20] MEDS: HumaLOG INSULIN (NovoLOG) PER UNIT SC SCH ×4 (00:13→18:40)
[2017-02-20 02:00] VITALS: BP 131/85
[2017-02-20 02:07] LABS: MEAN CORPUSCULAR HEMOGLOBIN 21.9 pg (27.0-33.0); MEAN CORPUSCULAR HGB CONC 29.6 g/dl (32.0-36.5); MEAN CORPUSCULAR VOLUME 74.1 fl (80.0-96.0); PLATELET COUNT, AUTOMATED 206 10^3/uL (150-450); RED CELL DISTRIBUTION WIDTH 30.3 % (11.5-14.5); WHITE BLOOD COUNT 9.3 10^3/uL (4.0-10.0)
[2017-02-20] MEDS: levETIRAcetam INJection 500 MG in D5W MINI-BAG PLUS 100 ML IV SCH (02:43)
[2017-02-20 06:00] VITALS: BP 116/82
[2017-02-20 08:12] LABS: MEAN CORPUSCULAR HGB CONC 29.8 g/dl (32.0-36.5); MEAN CORPUSCULAR VOLUME 73.8 fl (80.0-96.0); PLATELET COUNT, AUTOMATED 208 10^3/uL (150-450)
[2017-02-20] MEDS: PANTOPRAZOLE 40MG INJ (PROTONIX) (C9113) IV SCH (09:42)
[2017-02-20] MEDS: MULTIVITAMIN/MINERALS LIQUID 15ML ORAL SYRINGE PEG SCH (09:42)
[2017-02-20] MEDS: CHLORHEXIDINE ORAL RINSE 0.12%/15ML 120ML BOTTLE MT SCH ×2 (09:42→22:14)
[2017-02-20] MEDS: LEVEMIR (INSULIN DETEMIR) 1 UNITS/0.01ML SC SCH ×2 (09:43→22:15)
[2017-02-20] MEDS: BISACODYL 10 MG SUPP PR SCH (09:43)
[2017-02-20] MEDS: FERROUS SULFATE 300MG/5ML UDC LIQUID PEG SCH ×2 (09:43→22:13)
[2017-02-20] MEDS: NICARDIPINE 30 MG PEG SCH ×3 (09:47→22:13)
[2017-02-20] MEDS: ACETAMINOPHEN 650 MG SUPP PR PRN (12:06)
[2017-02-20 14:00] VITALS: BP 118/77
--- NOTE | 2017-02-20 14:01 | IPNPDOC ---
Text Note Date of Service The patient was seen on 02/20/17. NOTE Subjective: Pt nonverbal. Appears comfortable. Follows simple commands. Participating more with PT. Objective: Vitals: (see below) General: No acute distress, laying comfortably in bed. HEENT: Moist mucous membranes. Trach intact. No bleeding/signs of infection. Neck: No JVD or lymphadenopathy Cardiac: RRR, No murmurs Pulm: Clear to auscultation b/l. No wheezing, rhonchi Abd: NT/ND + BS Ext: No edema or cyanosis Neuro: Strength 0/5 Right side and L side 2-3/5, although difficult to assess. CN 2-12 - unable to fully assess as pt not cooperating Alert following simple commands Labs (see below) Images: Assessment/Plan 1. BRBPR -reslved. Hb stable. No need for transfusion. Restart tube feeding. Protonix IV twice a day. Hemodynamically stable. Discontinue heparin subcutaneous. Will need outpt EGD. 2. S/p Intracranial bleed. Intraparenchymal hematoma in L thalamus with mass effect and minimal midline shift. S/p left frontal ventriculostomy and placement of a [place] pressure monitor on 01/23, corrected 01/26. S/p Thalamic biopsies 01/28; pathology negative for malignancy.On Decadron/Keppra. PT/OT. Outpt f/u with neurosurg and repeat imaging. Participating more with PT. 3. S/p acute Resp failure - s/p trach now. Trial of passe liza valve 4. Leukocytosis - likely 2/2 steroids, although does have + wound and urine cx, on bactrim Day 11/17 5. Hyponatremia resovled s/p D51/2NS 6. IDDM - on levemir/SSI 7. Microcytic anemia secondary to iron deficiency anemia on iron supplementation. Hemoglobin stable. Continue to monitor 8. Hypertension continue home meds 9. Nutrition - s/p peg tube 02/05. On tube feeding DVT prophy: SCDs Dispo: Pending placement. Cont PT physical therapy. VS,Fishbone, I+O VS, Fishbone, I+O Laboratory Tests 02/19/17 14:20 Red Blood Count 5.19, Mean Corpuscular Volume 73.0 L, Mean Corpuscular Hemoglobin 21.6 L, Mean Corpuscular Hemoglobin Concent 29.6 L, Red Cell Distribution Width 02/19/17 19:57 Red Blood Count 5.38, Mean Corpuscular Volume 74.0 L, Mean Corpuscular Hemoglobin 21.9 L, Mean Corpuscular Hemoglobin Concent 29.6 L, Red Cell Distribution Width 30.5 H 02/20/17 01:52 Red Blood Count 5.25, Mean Corpuscular Volume 74.1 L, Mean Corpuscular Hemoglobin 21.9 L, Mean Corpuscular Hemoglobin Concent 29.6 L, Red Cell Distribution Width 30.3 H 02/20/17 07:59 Red Blood Count 5.42 H, Mean Corpuscular Volume 73.8 L, Mean Corpuscular Hemoglobin 22.0 L, Mean Corpuscular Hemoglobin Concent 29.8 L, Red Cell Distribution Width Vital Signs Date Time Temp Pulse Resp B/P (MAP) Pulse Ox O2 Delivery O2 Flow Rate FiO2 02/20/17 09:47 130/86 02/20/17 06:00 96.8 74 19 99 Trach Collar 5.0 02/19/17 22:55 28 I&O- Last 24 Hours up to 6 AM 02/21/17 06:00 Intake Total 0 ml Output Total 0 ml Balance 0 ml CHARITY GRIFFITH MD Feb 20, 2017 14:01
[2017-02-20] MEDS ORDERED: levETIRAcetam ORAL SOLUTION 500 MG/5 ML UDC PEG ONE (15:00)
[2017-02-20] MEDS ORDERED: BISACODYL 10 MG SUPP PR PRN (17:30)
[2017-02-20 18:00] VITALS: BP 122/82
[2017-02-20] MEDS ORDERED: GASTROGRAFIN SOLUTION 30ML PO ONE (18:45)
[2017-02-20] MEDS ORDERED: GASTROGRAFIN SOLUTION 30ML (Q9963) PO ONE (19:15)
[2017-02-20] MEDS ORDERED: methylPREDNISolone SUSP 40 MG/ML (DEPO-medrol) VIAL (J1030) IM ONE (20:00)
[2017-02-20] MEDS ORDERED: ISOVUE-370 76% 100ML VIAL (Q9967) As Ordered ONE (20:58)
--- NOTE | 2017-02-20 21:50 | REPUSA ---
CT of the abdomen and pelvis with contrast Clinical statement: Hematochezia. Technique: Multiple axial CT images were obtained from the base of the lungs through the floor of the pelvis utilizing 5 mm axial slices after administration of oral and nonionic intravenous contrast. C oronal and sagittal reconstructions were also obtained. No comparison is available. Findings: Chest: The visualized lung bases demonstrate minimal bilateral lower lobe atelectasis. Abdomen: The liver, spleen, pancreas, gallbladder, and adrenal glands are unremarkable. There are angelica ateral simple renal cysts. There is no evidence of hydronephrosis. The aorta is within normal limits. There is no evidence of abdominal lymphadenopathy or ascites. The percutaneous gastrostomy tube is i n place. Pelvis: The bowel is unremarkable, with no obstructive or inflammatory changes. The urinary bladder i s within normal limits. The other pelvic structures appear grossly intact. There is no evidence of pe lvic lymphadenopathy or ascites. Bones: There are no suspicious osseous abnormalities seen. There is minimal degenerative disc disease at L5/S1. Impression: 1. No obstructive or inflammatory bowel changes. 2. Minimal atelectasis in the lung bases bilaterally. 3. Bilateral simple renal cysts. 4. Minimal degenerative disc disease at L5/S1.
[2017-02-20 22:00] VITALS: BP 128/76
[2017-02-20] MEDS: levETIRAcetam ORAL SOLUTION 500 MG/5 ML UDC PEG SCH (22:12)
[2017-02-21] MEDS: HumaLOG INSULIN (NovoLOG) PER UNIT SC SCH ×5 (00:04→23:59)
[2017-02-21 02:00] VITALS: BP 117/75
[2017-02-21 06:00] VITALS: BP 116/77
[2017-02-21 06:38] LABS: MEAN CORPUSCULAR HGB CONC 29.9 g/dl (32.0-36.5); MEAN CORPUSCULAR VOLUME 73.5 fl (80.0-96.0); PLATELET COUNT, AUTOMATED 192 10^3/uL (150-450)
[2017-02-21 06:53] LABS: ANION GAP 11 MEQ/L (8-16); BLOOD UREA NITROGEN 29 MG/DL (7-18); CALCIUM LEVEL 8.8 MG/DL (8.5-10.1); CARBON DIOXIDE LEVEL 25 MEQ/L (21-32); CHLORIDE LEVEL 103 MEQ/L (98-107); CREATININE FOR GFR 0.73 MG/DL (0.55-1.02); GLOMERULAR FILTRATION RATE > 60.0 (>58); GLUCOSE, FASTING 238 MG/DL (70-105); POTASSIUM SERUM 4.2 MEQ/L (3.5-5.1); SODIUM LEVEL 139 MEQ/L (136-145)
[2017-02-21] MEDS: LANSOPRAZOLE SUSPENSION 30 MG/10 ML ORAL SYRINGE (FIRST-LANSOPRAZOLE) GT SCH (09:44)
[2017-02-21] MEDS: levETIRAcetam ORAL SOLUTION 500 MG/5 ML UDC PEG SCH ×2 (09:44→21:20)
[2017-02-21] MEDS: FERROUS SULFATE 300MG/5ML UDC LIQUID PEG SCH ×2 (09:44→21:20)
[2017-02-21] MEDS: MULTIVITAMIN/MINERALS LIQUID 15ML ORAL SYRINGE PEG SCH (09:44)
[2017-02-21] MEDS: traMADol 50 MG TAB PEG PRN ×2 (09:52→17:53)
[2017-02-21] MEDS: NICARDIPINE 30 MG PEG SCH ×3 (09:55→21:20)
[2017-02-21] MEDS: LEVEMIR (INSULIN DETEMIR) 1 UNITS/0.01ML SC SCH ×2 (09:56→21:20)
[2017-02-21] MEDS: CHLORHEXIDINE ORAL RINSE 0.12%/15ML 120ML BOTTLE MT SCH ×2 (10:15→21:19)
[2017-02-21 14:00] VITALS: BP 122/72
--- NOTE | 2017-02-21 15:00 | IPNPDOC ---
Text Note Date of Service The patient was seen on 02/21/17. NOTE Subjective: Pt nonverbal. Appears comfortable. Follows simple commands. Had blood clot in stool yesterday, which has resolved. Objective: Vitals: (see below) General: No acute distress, laying comfortably in bed. HEENT: Moist mucous membranes. Trach intact. No bleeding/signs of infection. Neck: No JVD or lymphadenopathy Cardiac: RRR, No murmurs Pulm: Clear to auscultation b/l. No wheezing, rhonchi Abd: NT/ND + BS Ext: No edema or cyanosis Neuro: Strength 0/5 Right side and L side 2-3/5, although difficult to assess. CN 2-12 - unable to fully assess as pt not cooperating Alert following simple commands Labs (see below) Images: Assessment/Plan 1. BRBPR -resolved. Hb stable. No need for transfusion. Restart tube feeding. Protonix IV twice a day. Hemodynamically stable. Discontinue heparin subcutaneous. Will need outpt EGD. Discussed with Dr. Collado, will observe with TF on. If continues, may need inpatient vs outpt endoscopy, depending if Hb drops. 2. S/p Intracranial bleed. Intraparenchymal hematoma in L thalamus with mass effect and minimal midline shift. S/p left frontal ventriculostomy and placement of a [place] pressure monitor on 01/23, corrected 01/26. S/p Thalamic biopsies 01/28; pathology negative for malignancy.On Decadron/Keppra. PT/OT. Outpt f/u with neurosurg and repeat imaging. Participating more with PT. 3. S/p acute Resp failure - s/p trach now. Trial of passe liza valve 4. Leukocytosis - likely 2/2 steroids, although does have + wound and urine cx, on bactrim Day 11/17 5. Hyponatremia resovled s/p D51/2NS 6. IDDM - on levemir/SSI 7. Microcytic anemia secondary to iron deficiency anemia on iron supplementation. Hemoglobin stable. Continue to monitor 8. Hypertension continue home meds 9. Nutrition - s/p peg tube 02/05. On tube feeding DVT prophy: SCDs Dispo: Pending placement. Cont PT physical therapy. VS,Fishbone, I+O VS, Fishbone, I+O Laboratory Tests 02/21/17 06:10 Red Blood Count 5.09, Mean Corpuscular Volume 73.5 L, Mean Corpuscular Hemoglobin 22.0 L, Mean Corpuscular Hemoglobin Concent 29.9 L, Red Cell Distribution Width , Calcium Level 8.8 Vital Signs Date Time Temp Pulse Resp B/P (MAP) Pulse Ox O2 Delivery O2 Flow Rate FiO2 02/21/17 10:22 16 02/21/17 09:55 126/83 02/21/17 06:00 96.1 91 100 Trach Collar 5.0 02/20/17 21:00 28 I&O- Last 24 Hours up to 6 AM 02/22/17 06:00 Intake Total 0 ml Output Total 0 ml Balance 0 ml CHARITY GRIFFITH MD Feb 21, 2017 15:00
[2017-02-21 18:00] VITALS: BP 129/77
[2017-02-21 22:00] VITALS: BP 124/82
[2017-02-22 02:00] VITALS: BP 127/83
[2017-02-22] MEDS: traMADol 50 MG TAB PEG PRN ×3 (02:05→23:58)
[2017-02-22 06:00] VITALS: BP 132/83
[2017-02-22] MEDS: HumaLOG INSULIN (NovoLOG) PER UNIT SC SCH ×4 (06:52→23:57)
[2017-02-22] MEDS: LEVEMIR (INSULIN DETEMIR) 1 UNITS/0.01ML SC SCH ×2 (09:00→20:52)
[2017-02-22 10:00] VITALS: BP 136/80
[2017-02-22 10:55] LABS: ANION GAP 7 MEQ/L (8-16); BLOOD UREA NITROGEN 26 MG/DL (7-18); CALCIUM LEVEL 8.7 MG/DL (8.5-10.1); CARBON DIOXIDE LEVEL 27 MEQ/L (21-32); CHLORIDE LEVEL 104 MEQ/L (98-107); CREATININE FOR GFR 0.51 MG/DL (0.55-1.02); GLOMERULAR FILTRATION RATE > 60.0 (>58); GLUCOSE, FASTING 176 MG/DL (70-105); POTASSIUM SERUM 4.2 MEQ/L (3.5-5.1); SODIUM LEVEL 138 MEQ/L (136-145)
[2017-02-22] MEDS: levETIRAcetam ORAL SOLUTION 500 MG/5 ML UDC PEG SCH ×2 (10:59→20:50)
[2017-02-22] MEDS: MULTIVITAMIN/MINERALS LIQUID 15ML ORAL SYRINGE PEG SCH (10:59)
[2017-02-22] MEDS: LANSOPRAZOLE SUSPENSION 30 MG/10 ML ORAL SYRINGE (FIRST-LANSOPRAZOLE) GT SCH (10:59)
[2017-02-22] MEDS: FERROUS SULFATE 300MG/5ML UDC LIQUID PEG SCH ×2 (10:59→20:50)
[2017-02-22] MEDS: NICARDIPINE 30 MG PEG SCH ×3 (11:01→20:51)
[2017-02-22] MEDS: CHLORHEXIDINE ORAL RINSE 0.12%/15ML 120ML BOTTLE MT SCH ×2 (11:01→20:52)
--- NOTE | 2017-02-22 11:03 | IPNPDOC ---
Text Note Date of Service The patient was seen on 02/22/17. NOTE Subjective: Pt nonverbal. Appears comfortable. Follows simple commands. No additional bloody bowel movements. Updated at bedside on patient's progress. Objective: Vitals: (see below) General: No acute distress, laying comfortably in bed. HEENT: Moist mucous membranes. Trach intact. No bleeding/signs of infection. Neck: No JVD or lymphadenopathy Cardiac: RRR, No murmurs Pulm: Clear to auscultation b/l. No wheezing, rhonchi Abd: NT/ND + BS Ext: No edema or cyanosis Neuro: Strength 0/5 Right side and L side 2-3/5, although difficult to assess. CN 2-12 - unable to fully assess as pt not cooperating Alert following simple commands Labs (see below) Images: Assessment/Plan 1. BRBPR -resolved. Hb stable. No need for transfusion. Restart tube feeding. Protonix IV twice a day. Hemodynamically stable. Discontinue heparin subcutaneous. Will need outpt EGD. Discussed with Dr. Collado, will observe with TF on. If continues, may need inpatient vs outpt endoscopy, depending if Hb drops. 2. S/p Intracranial bleed. Intraparenchymal hematoma in L thalamus with mass effect and minimal midline shift. S/p left frontal ventriculostomy and placement of a [place] pressure monitor on 01/23, corrected 01/26. S/p Thalamic biopsies 01/28; pathology negative for malignancy.On Decadron/Keppra. PT/OT. Outpt f/u with neurosurg and repeat imaging. Participating more with PT. 3. S/p acute Resp failure - s/p trach now. Trial of passe liza valve 4. Leukocytosis - likely 2/2 steroids, although does have + wound and urine cx, on bactrim Day 11/17 5. Hyponatremia resovled s/p D51/2NS 6. IDDM - on levemir/SSI 7. Microcytic anemia secondary to iron deficiency anemia on iron supplementation. Hemoglobin stable. Continue to monitor 8. Hypertension continue home meds 9. Nutrition - s/p peg tube 02/05. On tube feeding DVT prophy: SCDs Dispo: Pending placement. Cont PT physical therapy. VS,Fishbone, I+O VS, Fishbone, I+O Laboratory Tests 02/22/17 10:14 Calcium Level 8.7 Vital Signs Date Time Temp Pulse Resp B/P (MAP) Pulse Ox O2 Delivery O2 Flow Rate FiO2 02/22/17 11:01 144/90 02/22/17 06:00 98.1 87 18 98 Trach Collar 3.0 02/21/17 21:00 28 CHARITY GRIFFITH MD Feb 22, 2017 11:03
[2017-02-22 11:06] LABS: PLATELET COUNT, AUTOMATED 174 10^3/uL (150-450); WHITE BLOOD COUNT 8.2 10^3/uL (4.0-10.0)
[2017-02-22 14:00] VITALS: BP 133/78
[2017-02-22 18:00] VITALS: BP 137/69
[2017-02-22 18:13] LABS: MEAN CORPUSCULAR HEMOGLOBIN 22.3 pg (27.0-33.0); MEAN CORPUSCULAR HGB CONC 29.9 g/dl (32.0-36.5); MEAN CORPUSCULAR VOLUME 74.7 fl (80.0-96.0); PLATELET COUNT, AUTOMATED 173 10^3/uL (150-450); WHITE BLOOD COUNT 9.7 10^3/uL (4.0-10.0)
[2017-02-22 22:00] VITALS: BP 141/71
[2017-02-23 02:00] VITALS: BP 126/75
[2017-02-23 06:00] VITALS: BP 129/68
[2017-02-23] MEDS: HumaLOG INSULIN (NovoLOG) PER UNIT SC SCH ×3 (07:02→17:37)
[2017-02-23 08:31] LABS: MEAN CORPUSCULAR HGB CONC 29.5 g/dl (32.0-36.5); MEAN CORPUSCULAR VOLUME 74.7 fl (80.0-96.0); WHITE BLOOD COUNT 9.2 10^3/uL (4.0-10.0)
[2017-02-23 08:33] LABS: PLT DIST POS FLAG; SUSPECT SAMPLE POS FLAG
[2017-02-23 08:42] LABS: PLATELET COUNT, AUTOMATED 173 10^3/uL (150-450)
[2017-02-23 08:48] LABS: ANION GAP 10 MEQ/L (8-16); BLOOD UREA NITROGEN 20 MG/DL (7-18); CALCIUM LEVEL 8.3 MG/DL (8.5-10.1); CARBON DIOXIDE LEVEL 28 MEQ/L (21-32); CHLORIDE LEVEL 105 MEQ/L (98-107); GLOMERULAR FILTRATION RATE > 60.0 (>58); GLUCOSE, FASTING 237 MG/DL (70-105); POTASSIUM SERUM 3.8 MEQ/L (3.5-5.1); SODIUM LEVEL 143 MEQ/L (136-145)
[2017-02-23] MEDS: LANSOPRAZOLE SUSPENSION 30 MG/10 ML ORAL SYRINGE (FIRST-LANSOPRAZOLE) GT SCH (09:57)
[2017-02-23] MEDS: MULTIVITAMIN/MINERALS LIQUID 15ML ORAL SYRINGE PEG SCH (09:57)
[2017-02-23] MEDS: NICARDIPINE 30 MG PEG SCH ×3 (09:57→21:00)
[2017-02-23] MEDS: LEVEMIR (INSULIN DETEMIR) 1 UNITS/0.01ML SC SCH ×2 (09:57→21:00)
[2017-02-23] MEDS: FERROUS SULFATE 300MG/5ML UDC LIQUID PEG SCH ×2 (09:58→22:04)
[2017-02-23] MEDS: levETIRAcetam ORAL SOLUTION 500 MG/5 ML UDC PEG SCH ×2 (09:58→22:05)
[2017-02-23] MEDS: CHLORHEXIDINE ORAL RINSE 0.12%/15ML 120ML BOTTLE MT SCH ×2 (09:58→22:04)
[2017-02-23 10:00] VITALS: BP 129/65
--- NOTE | 2017-02-23 11:35 | IPNPDOC ---
Text Note Date of Service The patient was seen on 02/23/17. NOTE Subjective: Pt nonverbal. Appears comfortable. Had melanotic BM since yesterday. Objective: Vitals: (see below) General: No acute distress, laying comfortably in bed. HEENT: Moist mucous membranes. Trach intact. No bleeding/signs of infection. Neck: No JVD or lymphadenopathy Cardiac: RRR, No murmurs Pulm: Clear to auscultation b/l. No wheezing, rhonchi Abd: NT/ND + BS Ext: No edema or cyanosis Neuro: Strength 0/5 Right side and L side 2-3/5, although difficult to assess. CN 2-12 - unable to fully assess as pt not cooperating Alert following simple commands Labs (see below) Images: Assessment/Plan 1. BRBPR -resolved. Hb stable. No need for transfusion. Restart tube feeding. Protonix IV twice a day. Hemodynamically stable. Discontinue heparin subcutaneous. Discussed with Dr. Collado, will observe with TF on. If continues , may need inpatient vs outpt endoscopy, depending if Hb drops. Discussed with surg - possible endoscopy tomorrow. 2. S/p Intracranial bleed. Intraparenchymal hematoma in L thalamus with mass effect and minimal midline shift. S/p left frontal ventriculostomy and placement of a [place] pressure monitor on 01/23, corrected 01/26. S/p Thalamic biopsies 01/28; pathology negative for malignancy.On Decadron/Keppra. PT/OT. Outpt f/u with neurosurg and repeat imaging. Participating more with PT. 3. S/p acute Resp failure - s/p trach now. Trial of passe liza valve 4. Leukocytosis - likely 2/2 steroids, although does have + wound and urine cx, on bactrim Day 11/17 5. Hyponatremia resovled s/p D51/2NS 6. IDDM - on levemir/SSI 7. Microcytic anemia secondary to iron deficiency anemia on iron supplementation. Hemoglobin stable. Continue to monitor 8. Hypertension continue home meds 9. Nutrition - s/p peg tube 02/05. On tube feeding DVT prophy: SCDs Dispo: Pending placement. Cont PT physical therapy. VS,Fishbone, I+O VS, Fishbone, I+O Laboratory Tests 02/22/17 18:02 Red Blood Count 4.79, Mean Corpuscular Volume 74.7 L, Mean Corpuscular Hemoglobin 22.3 L, Mean Corpuscular Hemoglobin Concent 29.9 L, Red Cell Distribution Width 02/23/17 08:17 Red Blood Count 4.54, Mean Corpuscular Volume 74.7 L, Mean Corpuscular Hemoglobin 22.0 L, Mean Corpuscular Hemoglobin Concent 29.5 L, Red Cell Distribution Width , Calcium Level 8.3 L Vital Signs Date Time Temp Pulse Resp B/P (MAP) Pulse Ox O2 Delivery O2 Flow Rate FiO2 02/23/17 10:43 Trach Collar 5.0 28 02/23/17 10:00 97.7 102 17 129/65 (86) 96 I&O- Last 24 Hours up to 6 AM 02/24/17 06:00 Intake Total 0 ml Balance 0 ml CHARITY GRIFFITH MD Feb 23, 2017 11:35
[2017-02-23 14:00] VITALS: BP 136/82
[2017-02-23] MEDS: traMADol 50 MG TAB PEG PRN (14:05)
[2017-02-23 18:00] VITALS: BP 133/80
[2017-02-23] MEDS ORDERED: GOLYTELY SOLN 4000 ML BTL PO ONE (18:00)
[2017-02-23 22:00] VITALS: BP 132/78
[2017-02-24] VITALS (9 sets, daily range): BP systolic 117–142; BP diastolic 64–87
[2017-02-24] MEDS: HumaLOG INSULIN (NovoLOG) PER UNIT SC SCH ×4 (00:52→16:50)
[2017-02-24] MEDS ORDERED: GOLYTELY SOLN 4000 ML BTL PO ONE (05:00)
[2017-02-24 08:18] LABS: MEAN CORPUSCULAR HEMOGLOBIN 22.3 pg (27.0-33.0); MEAN CORPUSCULAR HGB CONC 29.5 g/dl (32.0-36.5); MEAN CORPUSCULAR VOLUME 75.5 fl (80.0-96.0); PLATELET COUNT, AUTOMATED 158 10^3/uL (150-450); WHITE BLOOD COUNT 7.2 10^3/uL (4.0-10.0)
[2017-02-24] MEDS ORDERED: LIDOCAINE 2% INJ 100 MG/5 ML SDV (FOR ANES.) As Ordered ONE (08:32)
[2017-02-24] MEDS ORDERED: PROPOFOL 200 MG/20 ML VIAL As Ordered ONE (08:32)
[2017-02-24 08:40] LABS: ANION GAP 10 MEQ/L (8-16); BLOOD UREA NITROGEN 15 MG/DL (7-18); CALCIUM LEVEL 8.8 MG/DL (8.5-10.1); CARBON DIOXIDE LEVEL 30 MEQ/L (21-32); CHLORIDE LEVEL 106 MEQ/L (98-107); CREATININE FOR GFR 0.42 MG/DL (0.55-1.02); GLOMERULAR FILTRATION RATE > 60.0 (>58); GLUCOSE, FASTING 117 MG/DL (70-105); POTASSIUM SERUM 3.9 MEQ/L (3.5-5.1); SODIUM LEVEL 146 MEQ/L (136-145)
[2017-02-24] MEDS: levETIRAcetam ORAL SOLUTION 500 MG/5 ML UDC PEG SCH ×3 (08:41→22:24)
[2017-02-24] MEDS ORDERED: NYSTATIN 100,000 UNITS/GM TOPICAL PWD 15 GM TOP PRN (10:15)
[2017-02-24] MEDS ORDERED: ONDANSETRON 4MG/2ML VIAL (J2405) IV PRN (11:00)
[2017-02-24] MEDS ORDERED: LR 1,000 ML IV SCH (11:00)
[2017-02-24] MEDS: MULTIVITAMIN/MINERALS LIQUID 15ML ORAL SYRINGE PEG SCH (12:26)
[2017-02-24] MEDS: FERROUS SULFATE 300MG/5ML UDC LIQUID PEG SCH ×2 (12:27→22:24)
[2017-02-24] MEDS: NICARDIPINE 30 MG PEG SCH ×3 (12:27→22:25)
[2017-02-24] MEDS: LANSOPRAZOLE SUSPENSION 30 MG/10 ML ORAL SYRINGE (FIRST-LANSOPRAZOLE) GT SCH (12:27)
[2017-02-24] MEDS: LEVEMIR (INSULIN DETEMIR) 1 UNITS/0.01ML SC SCH ×2 (12:28→21:00)
[2017-02-24] MEDS: CHLORHEXIDINE ORAL RINSE 0.12%/15ML 120ML BOTTLE MT SCH ×2 (12:28→22:24)
--- NOTE | 2017-02-24 13:58 | IPNPDOC ---
Text Note Date of Service The patient was seen on 02/24/17. NOTE Subjective: Pt nonverbal. Appears comfortable. Had melanotic BM this weekend. Returned from EGD/Coloscopy. Objective: Vitals: (see below) General: No acute distress, laying comfortably in bed. HEENT: Moist mucous membranes. Trach intact. No bleeding/signs of infection. Neck: No JVD or lymphadenopathy Cardiac: RRR, No murmurs Pulm: Clear to auscultation b/l. No wheezing, rhonchi Abd: NT/ND + BS Ext: No edema or cyanosis Neuro: Strength 0/5 Right side and L side 2-3/5, although difficult to assess. CN 2-12 - unable to fully assess as pt not cooperating Alert following simple commands Labs (see below) Images: Assessment/Plan 1. BRBPR Hb stable. No need for transfusion. Restart tube feeding. Protonix twice a day. Hemodynamically stable. Discontinue heparin subcutaneous. S/p EGD /Coloscopy 02/24 - diverticulosis with clot, AVM oozing, cauterized. Appreciate Dr. Collado's assistance. 2. S/p Intracranial bleed. Intraparenchymal hematoma in L thalamus with mass effect and minimal midline shift. S/p left frontal ventriculostomy and placement of a [place] pressure monitor on 01/23, corrected 01/26. S/p Thalamic biopsies 01/28; pathology negative for malignancy.On Decadron/Keppra. PT/OT. Outpt f/u with neurosurg and repeat imaging. Participating more with PT. 3. S/p acute Resp failure - s/p trach now. Trial of passe liza valve 4. Leukocytosis - likely 2/2 steroids, although does have + wound and urine cx, on bactrim Day 11/17 5. Hyponatremia resovled s/p D51/2NS 6. IDDM - on levemir/SSI 7. Microcytic anemia secondary to iron deficiency anemia on iron supplementation. Hemoglobin stable. Continue to monitor 8. Hypertension continue home meds 9. Nutrition - s/p peg tube 02/05. On tube feeding DVT prophy: SCDs Dispo: Pending placement. Cont PT physical therapy. Called and updated . VS,Fishbone, I+O VS, Fishbone, I+O Laboratory Tests 02/24/17 08:06 Red Blood Count 4.58, Mean Corpuscular Volume 75.5 L, Mean Corpuscular Hemoglobin 22.3 L, Mean Corpuscular Hemoglobin Concent 29.5 L, Red Cell Distribution Width , Calcium Level 8.8 Vital Signs Date Time Temp Pulse Resp B/P (MAP) Pulse Ox O2 Delivery O2 Flow Rate FiO2 02/24/17 11:15 96.9 64 20 142/98 (113) 100 Trach Collar 10 02/24/17 08:15 28 I&O- Last 24 Hours up to 6 AM 02/25/17 06:00 Intake Total 450 ml Output Total 0 ml Balance 450 ml CHARITY GRIFFITH MD Feb 24, 2017 13:58
[2017-02-25 06:00] VITALS: BP 137/78
[2017-02-25] MEDS: HumaLOG INSULIN (NovoLOG) PER UNIT SC SCH ×4 (06:00→18:26)
[2017-02-25 06:05] LABS: MEAN CORPUSCULAR HEMOGLOBIN 22.4 pg (27.0-33.0); MEAN CORPUSCULAR HGB CONC 29.3 g/dl (32.0-36.5); MEAN CORPUSCULAR VOLUME 76.6 fl (80.0-96.0); PLATELET COUNT, AUTOMATED 152 10^3/uL (150-450); WHITE BLOOD COUNT 5.9 10^3/uL (4.0-10.0)
[2017-02-25 06:26] LABS: ANION GAP 10 MEQ/L (8-16); BLOOD UREA NITROGEN 17 MG/DL (7-18); CALCIUM LEVEL 8.8 MG/DL (8.5-10.1); CARBON DIOXIDE LEVEL 29 MEQ/L (21-32); CHLORIDE LEVEL 105 MEQ/L (98-107); CREATININE FOR GFR 0.68 MG/DL (0.55-1.02); GLUCOSE, FASTING 214 MG/DL (70-105); MAGNESIUM LEVEL 1.9 MG/DL (1.8-2.4); POTASSIUM SERUM 3.2 MEQ/L (3.5-5.1); SODIUM LEVEL 144 MEQ/L (136-145)
[2017-02-25 06:27] LABS: GLOMERULAR FILTRATION RATE > 60.0 (>58)
--- NOTE | 2017-02-25 07:44 | RO ---
DATE OF PROCEDURE: 02/24/2017 PREOPERATIVE DIAGNOSIS: Anemia secondary to GI bleed. POSTOPERATIVE DIAGNOSES: Gastritis and diverticulosis, signs of a diverticular bleed and cecal arteriovenous malformations (AVMs). PROCEDURE: Esophagogastroduodenoscopy (EGD), colonoscopy with cauterization of cecal AVMs. SURGEON: Dr. Junaid Collado [employer]CH[employer]IC [employer]INE: None. ANESTHESIA: IV sedation. COMPLICATIONS: None. ESTIMATED BLOOD LOSS: Minimal INDICATION: The patient is a 51-year-old female currently here status post stroke. Currently receiving tube feeds through a percutaneous endoscopic gastrostomy (PEG) tube. Has started to have some melanotic stools and anemia. Recommendation to proceed with upper and lower endoscopy. Risks and benefits of the procedure not limited but including bleeding, infection, perforation, need for further procedure were discussed in detail with the . Informed was obtained. DESCRIPTION OF PROCEDURE: Patient was brought back to operating room 8. After sufficient sedation was placed in the left lateral decubitus position. Next, starting with the upper endoscopy, the scope was passed through the oropharynx down through the esophagus into the stomach. The PEG tube bumper was in place without any signs of inflammation or bleeding around it. There is a mild amount of gastritis in the prepyloric area. No signs of any active bleeding. The scope was advanced into the first portion of the duodenum. Again no signs of any inflammation or bleeding. Scope was then removed. Next, the colonoscope was inserted through the rectum all way to the level of the cecum. Once the cecum was reached. There were three AVMs on the wall the cecum that were actively oozing. These were all cauterized using the tip of hot biopsy forceps. Once this was completed, the scope was slowly withdrawn back through the colon. There was some mild sigmoid diverticulosis. There was also a large blood clot in the sigmoid next to one of the diverticula. There was concern for possible diverticular bleed at some point. The scope was removed the rest of the way. No signs of any hemorrhoids and no signs of any other masses or lesions throughout the rest of the colon The patient tolerated procedure well and was awakened from anesthesia and sent to the postanesthesia care unit (PACU) in stable condition.
[2017-02-25] MEDS ORDERED: POTASSIUM CHLORIDE 10% LIQ 20 MEQ/15 ML UDC PO ONE (08:00)
[2017-02-25] MEDS: ESCITALOPRAM OXALATE 10 MG TAB (LEXAPRO) PO SCH (09:00)
[2017-02-25] MEDS: LANSOPRAZOLE SUSPENSION 30 MG/10 ML ORAL SYRINGE (FIRST-LANSOPRAZOLE) GT SCH (09:46)
[2017-02-25] MEDS: LEVEMIR (INSULIN DETEMIR) 1 UNITS/0.01ML SC SCH ×2 (09:46→21:00)
[2017-02-25] MEDS: MULTIVITAMIN/MINERALS LIQUID 15ML ORAL SYRINGE PEG SCH (09:47)
[2017-02-25] MEDS: FERROUS SULFATE 300MG/5ML UDC LIQUID PEG SCH ×2 (09:47→21:58)
[2017-02-25] MEDS: NICARDIPINE 30 MG PEG SCH ×3 (09:48→21:58)
[2017-02-25] MEDS: CHLORHEXIDINE ORAL RINSE 0.12%/15ML 120ML BOTTLE MT SCH ×2 (09:50→21:58)
[2017-02-25 14:00] VITALS: BP 131/76
--- NOTE | 2017-02-25 15:09 | IPN ---
DATE: 02/25/2017 Time patient was seen was at 1:30 p.m. Patient has been seen and examined at bedside. No acute events overnight. Patient appeared to be comfortable; however, she was nonverbal and does not really follow complicated command. She was able to blink her eye and was able to squeeze finger when asked to; however, she does not, for example, open her mouth on command and does not move her lower extremities on command. It appears that patient may not be understanding of the command as well. PHYSICAL EXAM: VITAL SIGNS: Temperature was 97.8, pulse 96, respirations 18, blood pressure 137/78, oxygen saturating at 95% on 5 liters of flow rate, FiO2 of 28 with a tracheostomy collar. Patient's total input yesterday was 890. Total output does not appear to have been recorded. Patient does receive tube feed, roughly 440 mL yesterday. Patient had three incontinent voids and three bowel movements. GENERAL: Patient is a middle-aged female who looked older than her biological age, who was alert, awake, however, was nonverbal. Does not really follow command. Patient was able to open her eyes; however, on verbal stimulation, was able to squeeze finger, however, does not follow all other commands. The patient does not seem to understand most of the questions either. HEENT: Patient does have an incision on the forehead which was dry, clean, and intact. Mucosal membranes moist. Neck supple. No apparent neck lymphadenopathy. Pupils were equal, round, reactive to light. Extraocular motor could not be tested due to patient does not follow finger. Tracheostomy in place. Incision site was dry, clean, and intact with a tracheostomy collar on top of it. There were slight rhonchi at the neck, which can be heard. LUNGS: With slight diffuse rhonchi. Otherwise, patient has good air entrance bilaterally. There was no wheezing. No rales. CARDIOVASCULAR: Tachycardic. Normal S1, S2. ABDOMEN: Positive bowel sounds. Soft. Nontender, nondistended. No peritoneal signs. No ecchymosis. EXTREMITIES: No edema, clubbing, or cyanosis. SKIN: Warm and dry. NEUROLOGICAL: Could not be assessed due to patient does not follow commands. LABS: WBC 5.9, hemoglobin 9.9, hematocrit 33.8 with a platelet count of 153 and MCV of 76.6. Sodium 144, potassium was low 3.2, chloride 105, bicarbonate 29, BUN was 17, creatinine 0.68, GFR greater than 60, fasting glucose 214, calcium 8.8, magnesium 1.9. Patient had an occult stool from 3 days ago, which was positive, and the patient also had occult blood from the stool 6 days ago, was positive as well. Patient had wound culture from abdomen, shows Staphylococcus aureus, streptococcus agalactiae, streptococcus anginosus, and also streptococcus intermedius. Urine culture from 20 days ago showed Proteus. Patient had CT of abdomen and pelvis 5 days ago, shows no obstructive inflammatory bowel changes, minimal atelectasis at the lung bases bilaterally, bilateral simple renal cyst, minimal degenerative disc at L5 to S1. 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 Collado. CURRENT MEDICATIONS: Include; - Lexapro 10 mg by mouth daily - nystatin topically to perineal area topically daily - Levemir 20 units subcutaneously twice a day - lansoprazole 30 mg through gastric tube daily - Keppra 500 mg one tablet twice a day through percutaneous endoscopic gastrostomy (PEG) tube - Dulcolax suppository 10 mg per rectum daily as needed - dexamethasone 1 mg by mouth every 48 hours - Ultram 12.5 mg through PEG tube every 6 hours as needed - multivitamin through PEG tube daily - nicardipine 30 mg through PEG tube three times a day - ferrous sulfate 300 mg through PEG tube twice a day - insulin sliding scale every 6 hours - Tylenol suppository 650 mg per rectum every 6 hours as needed - chlorhexidine mouthwash twice a day ASSESSMENT/PLAN: 51-year-old female status post respiratory failure due to intracranial bleed with intraparenchymal hematoma and midline shift, received tracheostomy tube placement with Dr. Sanchez on 02/05/2017 due to respiratory failure and prolonged intubation and was assisted by Dr. Collado. Pulmonary was initially involved as well. Patient has been mostly stable tracheostomy collar on regular floor. We have recommended to do a trial of capping the tracheostomy tube for 24 hours. If successful, will try to take the tracheostomy tube out. If unsuccessful, will consider downsizing patient's tracheostomy tube to a size 6 and continue patient on nasal cannula oxygen in the meanwhile and keep saturation above 92%. Patient has been discussed with attending doctor, Dr. Kothari. My faculty preceptor for this patient encounter was physically present in the building during the encounter and was fully available, as needed. All aspects of the patient interview, examination, medical decision making process, and medical care plan development were reviewed and approved by the faculty preceptor. The faculty preceptor is aware and concurs with the plan as stated in the body of this note and will attest to such by his/her cosignature.
--- NOTE | 2017-02-25 15:54 | IPNPDOC ---
Text Note Date of Service The patient was seen on 02/25/17. NOTE Subjective: Patient is a 51-year-old female with a past medical history of chronic back pain and history of kidney stones. He presented to the ER with complaints of AMS. She received a CT in the ER that revealed several intracranial bleeds. She was admitted to intensivists service with Dr. Kaminski on consult. She was intubated initially. On 01/23, she received a left frontal ventriculostomy and placement of a Lizz pressure monitor, and was corrected because of misplacement on 01/26. On 01/28 she received multiple thalamic biopsies. She received trach and PEG then subsequently extubated and downgraded to hospitalist service. Patient was seen and examined at the bedside. She is sitting up in bed and is awake and alert, however still non-verbal. Denies any pain. Objective: Vitals (See below) General: Lying in bed, no acute distress, comfortable, Awake + alert, non-verbal HEENT: NC, AT, +Trach CVS: RRR, +S1S2 Lungs: Fair air entry b/l, -w/r/r Abdomen: Soft, ND, NT, +PEG Extremities: - Edema, - Calf tenderness Assessment and plan: Rectal bleeding - likely 2/2 diverticulosis and AVM - Hemodynamically stable - Hg stable; has not required transfusions - s/p EGD and Colonoscopy 02/[address] Collado; Diverticulosis with clot, Cecum with AVM - s/p cauterization - Will continue to follow H&H - c/w Lansoprazole; s/p Protonix IV BID Acute intracranial bleed - 2/2 intraparenchymal hematoma in L thalamus and IC with mass effect and minimal midline shift - s/p left frontal ventriculostomy and placement of a Lizz pressure monitor on 01/23, corrected 01/26 - Thalamic biopsies 01/28; pathology negative for malignancy - Outpatient imaging to re-evaluate change - c/w Dexamethasone at reduced dose; c/w Keppra; - c/w PT / OT and speech therapy s/p Acute respiratory failure; now trach dependent - s/p Trach 02/[address] Sanchez - c/w trial of Passe Padmini valve - Dr. Kothari following; appreciate their input Nutrition - s/p PEG 02/[address] Collado s/p Leukocytosis - possibly 2/2 corticosteroids, possibly 2/2 infection - Wound culture 02/09: MSSA, Strep (multiple species); Urine culture 02/06: Proteus Hauseri - s/p Central line - No issues with PEG tube or Trach - s/p TMP-SMX (10 day course) s/p Hyponatremia - s/p D5 1/2 NS s/p Mild elevation in Cr - s/p IV fluid hydration Hyperglycemia - likely 2/2 corticosteroids - c/w ISS - Will reduce levemir to 25 BID from 65 - re: reduced dose of steroids - c/w Steroid taper Microcytic anemia - consistent with ESTHER - Hg appears to be stable - c/w iron supplementation HTN - c/w Nicardipine GI prophylaxis - c/w Protonix DVT prophylaxis - c/w Heparin Disposition: - Likely to be transitioned to outpatient facility tomorrow VS,Kev, I+O VS, Kev, I+O Laboratory Tests 02/25/17 05:52 Red Blood Count 4.41, Mean Corpuscular Volume 76.6 L, Mean Corpuscular Hemoglobin 22.4 L, Mean Corpuscular Hemoglobin Concent 29.3 L, Red Cell Distribution Width , Calcium Level 8.8 Vital Signs Date Time Temp Pulse Resp B/P (MAP) Pulse Ox O2 Delivery O2 Flow Rate FiO2 02/25/17 14:00 97.3 107 28 131/76 (94) 95 Trach Collar 5.0 02/25/17 11:57 28 I&O- Last 24 Hours up to 6 AM 02/26/17 06:00 Intake Total 0 ml Output Total 0 ml Balance 0 ml GUCCI SERNA MD Feb 25, 2017 15:54
[2017-02-25 18:00] VITALS: BP 141/62
[2017-02-25] MEDS: levETIRAcetam ORAL SOLUTION 500 MG/5 ML UDC PEG SCH (21:58)
[2017-02-25 22:00] VITALS: BP 143/90
[2017-02-25] MEDS ORDERED: diazePAM 2 MG TAB GT ONE (22:30)
[2017-02-26] MEDS: HumaLOG INSULIN (NovoLOG) PER UNIT SC SCH ×2 (00:21→06:25)
[2017-02-26 06:00] VITALS: BP 162/96
[2017-02-26 06:36] LABS: MEAN CORPUSCULAR HEMOGLOBIN 22.8 pg (27.0-33.0); MEAN CORPUSCULAR HGB CONC 30.3 g/dl (32.0-36.5); MEAN CORPUSCULAR VOLUME 75.2 fl (80.0-96.0); PLATELET COUNT, AUTOMATED 178 10^3/uL (150-450); WHITE BLOOD COUNT 5.4 10^3/uL (4.0-10.0)
[2017-02-26 06:40] LABS: ANION GAP 8 MEQ/L (8-16); BLOOD UREA NITROGEN 18 MG/DL (7-18); CALCIUM LEVEL 8.7 MG/DL (8.5-10.1); CARBON DIOXIDE LEVEL 30 MEQ/L (21-32); CHLORIDE LEVEL 109 MEQ/L (98-107); CREATININE FOR GFR 0.51 MG/DL (0.55-1.02); GLOMERULAR FILTRATION RATE > 60.0 (>58); GLUCOSE, FASTING 203 MG/DL (70-105); MAGNESIUM LEVEL 2.2 MG/DL (1.8-2.4); POTASSIUM SERUM 3.6 MEQ/L (3.5-5.1); SODIUM LEVEL 147 MEQ/L (136-145)
[2017-02-26] MEDS ORDERED: ESCI10TA2 PO (07:51)
[2017-02-26] MEDS ORDERED: LEVE500UDC PEG (07:51)
[2017-02-26] MEDS ORDERED: [UNRECOGNIZED DRUG - CODE] PEG (07:51)
[2017-02-26] MEDS ORDERED: [UNRECOGNIZED DRUG - CODE] PEG (07:51)
[2017-02-26] MEDS ORDERED: INSUHUMDS SC (07:51)
[2017-02-26] MEDS ORDERED: ACET65SU PR (07:51)
[2017-02-26] MEDS ORDERED: FIRS3SUS GT (07:51)
[2017-02-26] MEDS ORDERED: FERR5MLUD PEG (07:51)
[2017-02-26] MEDS ORDERED: INSUDET SC (07:51)
[2017-02-26] MEDS ORDERED: BISA10SU PR (07:51)
[2017-02-26] MEDS ORDERED: NYST10PW TOP (07:51)
[2017-02-26] MEDS ORDERED: PERI12LIQ MT (07:51)
[2017-02-26] MEDS: LANSOPRAZOLE SUSPENSION 30 MG/10 ML ORAL SYRINGE (FIRST-LANSOPRAZOLE) GT SCH (09:31)
[2017-02-26] MEDS: FERROUS SULFATE 300MG/5ML UDC LIQUID PEG SCH (09:31)
[2017-02-26] MEDS: MULTIVITAMIN/MINERALS LIQUID 15ML ORAL SYRINGE PEG SCH (09:31)
[2017-02-26] MEDS: levETIRAcetam ORAL SOLUTION 500 MG/5 ML UDC PEG SCH (09:31)
[2017-02-26] MEDS: CHLORHEXIDINE ORAL RINSE 0.12%/15ML 120ML BOTTLE MT SCH (09:31)
[2017-02-26 09:32] VITALS: BP 162/96
[2017-02-26] MEDS: LEVEMIR (INSULIN DETEMIR) 1 UNITS/0.01ML SC SCH (09:32)
[2017-02-26] MEDS: ESCITALOPRAM OXALATE 10 MG TAB (LEXAPRO) PO SCH (09:32)
[2017-02-26] MEDS: NICARDIPINE 30 MG PEG SCH (09:32)
[2017-02-26 10:00] VITALS: BP 138/92
--- NOTE | 2017-02-26 12:28 | DSES ---
DATE OF ADMISSION: 01/20/2017 DATE OF DISCHARGE: 02/26/2017 ATTENDING PHYSICIAN: MD Venkat Chow, MD London Brizuela MD Yu Sung, MD Kareem Abed, MD DICTATED BY: Misty Gamble MD PRIMARY CARE PHYSICIAN: To be established. REFERRING PHYSICIAN: None. CONSULTING PHYSICIAN: Dr. Benton, Dr. Sanchez, Dr. Collado, Dr. River, Dr. Kaminski, Dr. Barron, Dr. Canales. PROCEDURES: 1. Endotracheal tube intubation done on 01/22/2017. 2. Left frontal ventriculotomy. 3. Placement of [place] intracranial/intraventricular pressure monitoring device done on 01/23/2017. 4. Right subclavian central venous pressure placement 01/23/2017. 5. Malfunctioning intracranial pressure monitoring device done on 01/23/2017. 6. Stealth-based computer assisted microsurgical multiple left thalamic biopsies done on 01/28/2017. 7. Percutaneous endoscopic gastrostomy (PEG) tube placement done on 02/05/2017. 8. Bronchoscopy done on 02/05/2017. 9. Tracheotomy done on 02/05/2017. 10. Esophagogastroduodenoscopy (EGD) and colonoscopy with cauterization of thecal AVM done on 02/24/2017. HISTORY OF PRESENT ILLNESS: The patient is a 51-year-old female with a past medical history of chronic back pain, history of kidney stones, presented to the emergency room with complaints of altered mental status. She received a CT scan in the emergency room that revealed several intracranial bleeds. She was admitted to the apns service of Dr. Kaminski on consult. She was intubated initially. On 01/23/2017, she received a left frontal ventriculostomy and placement of Lizz pressure monitoring device and it was corrected because of misplacement on 01/26/2017. On 01/28/2017 she received multiple thalamic biopsies and she received a tracheotomy and PEG subsequently and was extubated and admitted to the hospitalist service. HOSPITAL COURSE: 1. Rectal bleeding. Likely secondary to diverticulosis and AVM at the cecum. She remained hemodynamically stable. Hemoglobin remained stable. She did not require any transfusion. EGD and colonoscopy on 02/24/[address] Collado, which revealed diverticulosis of the cecal and AVM. She is status post cauterization. Hemoglobin and hematocrit remained stable. She is status post Protonix twice a day and is continued with lansoprazole. 2. Acute intracranial bleed, likely secondary to intraparenchymal hematoma in the thalamus and intracerebral with mass effect and minimal midline shift. Left frontal ventriculostomy and placement of [place] pressure monitoring device on 01/23/2017, corrected on 01/25/2017. Thalamic biopsies on 01/28/2017 pathology has been negative for any malignancies. Outpatient imaging to reevaluate change. We will continue dexamethasone at a reduced dose while inpatient and has been discontinued as an outpatient. He was on Keppra initially and has been continued currently. Continue physical therapy (PT) and occupational therapy (OT) and speech therapy. 3. Status post acute respiratory failure. Now trach dependent. Status post trach on 02/06/[address] Sanchez. She has been on a trial of a Passy-Padmini device. Dr. Kothari has been following. 4. Nutrition, status post PEG on 02/05/[address] Collado. 5. Status post leukocytosis, possibly secondary to corticosteroids, possibly secondary to infection. Wound culture on 02/09 was positive for methicillin sensitive Staphylococcus aureus (MSSA). Wound culture was acquired from around her PEG tube site and positive for Streptococcus as well with multiple species. Urine culture was positive for Proteus hauseri on 02/06. She is status post central line. No issues with PEG were noted, or trach. She is status post Bactrim for a 10-day course. 6. Status post hyponatremia. 7. Status post mild elevation in creatinine. 8. Hyperglycemia, likely secondary to corticosteroids. Continue with sliding scale. She has been continued with Levemir and continue with dexamethasone taper. 9. Microcytic anemia with iron deficiency anemia. Hemoglobin and hematocrit are stable. Continue with iron supplementation. 10. Hypertension. Continue nicardipine. 11. Gastrointestinal prophylaxis. Continue with Protonix. 12. Deep vein thrombosis (DVT) prophylaxis. Continue with heparin. DISCHARGE MEDICATIONS: The patient is being discharged home on the following medication list: - acetaminophen 650 mg per rectum every 6 hours as needed for pain - Bisacodyl 20 mg per rectum daily as needed - chlorhexidine gluconate by mouth twice a day - citalopram 10 mg by mouth daily - ferrous sulfate 300 mg per PEG twice a day - lansoprazole 30 mg per PEG tube daily - Levemir 20 units subcutaneous twice a day - Lispro to be taken every 6 hours on a sliding scale - Keppra 500 mg twice a day - multivitamin 50 mg daily - nicardipine 30 mg per PEG three times a day - nystatin topically twice a day as needed for rash DISCHARGE INSTRUCTIONS: The patient has been advised to followup with primary care provider, as well as Dr. Benton, Dr. Sanchez, Dr. Collado, Dr. River, and Dr. Kaminski. Followup with Dr. Barron within the next 7 days. She has been advised to remain compliant with treatment plan and recommendations and return to the emergency room if she experiences any problems. Time spent on discharge: Greater than 35 minutes.
--- NOTE | 2017-02-26 17:59 | REP ---
DUPLEX DOPPLER VENOUS ULTRASOUND LEFT UPPER EXTREMITY: Real-time compression and duplex Doppler interrogation of the left upper extremity deep vein system performed. Left jugular, subclavian, axillary and brachial veins are fully compressible with transducer pressure and demonstrate normal spontaneous and phasic flow without evidence of deep venous thrombosis. There is thrombus noted in the distal cephalic vein. Signed by Junaid Ramirez MD 02/27/2017 08:25 P
== END 2017-02-26 11:23 | disposition home or self-care (01) | DRG 21 ==
LOC: M ED 11:27 → M ED INP 13:46 → M ICU 15:28 → M MSPAV 02-07 14:40
PROVIDERS: ADMIT Internal Medicine Pulmonary Disease; ATTEND Internal Medicine
PROC: 009600Z Drainage of Cerebral Ventricle with Drainage Device, Open Approach (ICD-10-PCS; 2017-01-23)
PROC: 009600Z Drainage of Cerebral Ventricle with Drainage Device, Open Approach (ICD-10-PCS; 2017-01-23)
PROC: 02HV33Z Insertion of Infusion Device into Superior Vena Cava, Percutaneous Approach (ICD-10-PCS; 2017-01-23)
PROC: 0BH18EZ Insertion of Endotracheal Airway into Trachea, Via Natural or Artificial Opening Endoscopic (ICD-10-PCS; principal; 2017-01-23 00:43)
PROC: 30233N1 Transfusion of Nonautologous Red Blood Cells into Peripheral Vein, Percutaneous Approach (ICD-10-PCS; 2017-01-24)
PROC: 00B00ZX Excision of Brain, Open Approach, Diagnostic (ICD-10-PCS; 2017-01-28)
PROC: 0DH64UZ Insertion of Feeding Device into Stomach, Percutaneous Endoscopic Approach (ICD-10-PCS; 2017-02-05)
PROC: 0BJ08ZZ Inspection of Tracheobronchial Tree, Via Natural or Artificial Opening Endoscopic (ICD-10-PCS; 2017-02-05)
PROC: 0B113Z4 Bypass Trachea to Cutaneous, Percutaneous Approach (ICD-10-PCS; 2017-02-05)
PROC: 0DJ08ZZ Inspection of Upper Intestinal Tract, Via Natural or Artificial Opening Endoscopic (ICD-10-PCS; 2017-02-24)
PROC: 0D5E8ZZ Destruction of Large Intestine, Via Natural or Artificial Opening Endoscopic (ICD-10-PCS; 2017-02-24)
DX: I61.8 Other nontraumatic intracerebral hemorrhage (principal); J96.01 Acute respiratory failure with hypoxia; G93.6 Cerebral edema; G91.9 Hydrocephalus, unspecified; E87.0 Hyperosmolality and hypernatremia; K57.91 Diverticulosis of intestine, part unspecified, without perforation or abscess with bleeding; R40.20 Unspecified coma; R13.10 Dysphagia, unspecified; E46 Unspecified protein-calorie malnutrition; Q43.9 Congenital malformation of intestine, unspecified; E87.1 Hypo-osmolality and hyponatremia; G81.90 Hemiplegia, unspecified affecting unspecified side; E11.65 Type 2 diabetes mellitus with hyperglycemia; I10 Essential (primary) hypertension; Z79.899 Other long term (current) drug therapy; M54.5 Low back pain; E87.6 Hypokalemia; G93.2 Benign intracranial hypertension; D50.9 Iron deficiency anemia, unspecified; D72.829 Elevated white blood cell count, unspecified; T85.620A Displacement of cranial or spinal infusion catheter, initial encounter; Y83.8 Other surgical procedures as the cause of abnormal reaction of the patient, or of later complication, without mention of misadventure at the time of the procedure

== ENCOUNTER 2017-05-05 14:09 | Outpatient (RCR) | payer OTHER | END 2017-05-07 | LOC: M ST 14:09 | DX: Z51.89 Encounter for other specified aftercare (principal); R47.01 Aphasia; R10.13 Epigastric pain | CPT/HCPCS: 92523 ==

== ENCOUNTER 2017-05-08 10:11 | Outpatient (RCR) | payer OTHER | END 2017-06-07 | LOC: M ST 05-12 10:30 → M OT 06-02 08:45 → M ST 10:11 → M OT 06-02 08:45 → M ST 06-04 08:05 → M OT 06-02 08:45 → M ST 06-04 08:05 | DX: Z51.89 Encounter for other specified aftercare (principal); G81.90 Hemiplegia, unspecified affecting unspecified side; R47.01 Aphasia | CPT/HCPCS: 97110 ==

== ENCOUNTER → 2017-05-21 | Outpatient (REF) | payer OTHER | LOC: M SFHCLERA 14:06 | DX: E55.9 Vitamin D deficiency, unspecified (principal); E11.8 Type 2 diabetes mellitus with unspecified complications; D50.0 Iron deficiency anemia secondary to blood loss (chronic); Z53.9 Procedure and treatment not carried out, unspecified reason ==

== ENCOUNTER → 2017-06-03 | Outpatient (REF) | payer OTHER ==
[2017-06-03 20:51] LABS: BASO # 0.1 10^3/uL (0.0-0.2); BASO % 0.6 % (0.0-1.0); EOS # 0.3 10^3/uL (0.0-0.50); EOS % 3.5 % (0.0-3.0); HEMATOCRIT 43.4 % (36.0-47.0); HEMOGLOBIN 13.6 g/dl (12.0-16.0); IMMATURE GRANULOCYTE % 1.4 % (0-3.0); LYMPH # 2.2 10^3/uL (1.5-4.5); LYMPH % 27.4 % (24.0-44.0); MEAN CORPUSCULAR HEMOGLOBIN 26.5 pg (27.0-33.0); MEAN CORPUSCULAR HGB CONC 31.3 g/dl (32.0-36.5); MEAN CORPUSCULAR VOLUME 84.6 fl (80.0-96.0); MONO # 0.6 10^3/uL (0.0-0.8); MONO % 7.8 % (0.0-5.0); NEUTROPHILS # 4.7 10^3/uL (1.8-7.7); NEUTROPHILS % 59.3 % (36.0-66.0); PLATELET COUNT, AUTOMATED 393 10^3/uL (150-450); RED BLOOD COUNT 5.13 10^6/uL (4.00-5.40); RED CELL DISTRIBUTION WIDTH 13.8 % (11.5-14.5); WHITE BLOOD COUNT 7.9 10^3/uL (4.0-10.0)
[2017-06-03 21:01] LABS: ESTIMATED AVERAGE GLUCOSE 134 MG/DL (60-110); HEMOGLOBIN A1c 6.3 %
[2017-06-03 21:02] LABS: ALBUMIN 3.6 GM/DL (3.2-5.2); ALBUMIN/GLOBULIN RATIO 1.03 (1.00-1.93); ALKALINE PHOSPHATASE 203 U/L (45-117); ALT/SGPT 20 U/L (12-78); ANION GAP 6 MEQ/L (8-16); AST/SGOT 17 U/L (7-37); BILIRUBIN,TOTAL 0.1 MG/DL (0.2-1.0); BLOOD UREA NITROGEN 15 MG/DL (7-18); CALCIUM LEVEL 9.2 MG/DL (8.5-10.1); CARBON DIOXIDE LEVEL 29 MEQ/L (21-32); CHLORIDE LEVEL 111 MEQ/L (98-107); CHOLESTEROL LEVEL 177 MG/DL (<200); CHOLESTEROL RISK RATIO 5.057 (<5); CREATININE FOR GFR 1.05 MG/DL (0.55-1.30); GLOMERULAR FILTRATION RATE 59.3 (>58); GLUCOSE, FASTING 131 MG/DL (70-100); HDL CHOLESTEROL 35 MG/DL (>40); IRON (FE) 88 UG/DL (50-170); LDL CHOLESTEROL 87.8 MG/DL (<100); NON-HDL-C 142 MG/DL; PERCENT SATURATION 28.7 % (13.2-45.0); POTASSIUM SERUM 4.1 MEQ/L (3.5-5.1); SODIUM LEVEL 146 MEQ/L (136-145); TOTAL IRON BINDING CAPACITY 307 UG/DL (250-450); TOTAL PROTEIN 7.1 GM/DL (6.4-8.2); TRIGLYCERIDES LEVEL 271 MG/DL (<150)
[2017-06-03 21:14] LABS: TOTAL 25(OH) VITAMIN D 46.4 NG/ML (30.0-100.0)
== END ==
LOC: M SFHCLERA 16:32
DX: E11.8 Type 2 diabetes mellitus with unspecified complications (principal); E55.9 Vitamin D deficiency, unspecified; D50.0 Iron deficiency anemia secondary to blood loss (chronic)

== ENCOUNTER → 2017-06-05 | Outpatient (REF) | payer OTHER ==
[2017-06-06 10:45] LABS: MAU/CREAT RATIO 379.1 MCG/MG (0.0-30.0)
== END ==
LOC: M SFHCLERA 09:19
DX: E11.8 Type 2 diabetes mellitus with unspecified complications (principal); E55.9 Vitamin D deficiency, unspecified; D50.0 Iron deficiency anemia secondary to blood loss (chronic)
CPT/HCPCS: 82043

== ENCOUNTER 2017-06-10 11:11 | Outpatient (RCR) | payer OTHER | END 2017-07-07 | LOC: M ST 11:11 → M PT 06-12 08:22 → M ST 06-17 09:18 → M PT 06-19 08:20 → M OT 06-25 08:26 → M ST 11:11 → M PT 06-12 08:22 → M ST 06-17 09:18 → M PT 06-19 08:20 → M OT 06-25 08:26 → M PT 06-12 08:22 → M ST 06-17 09:18 → M PT 06-19 08:20 → M OT 06-25 08:26 | DX: Z51.89 Encounter for other specified aftercare (principal); G81.90 Hemiplegia, unspecified affecting unspecified side | CPT/HCPCS: 97110 ==

== ENCOUNTER → 2017-06-24 | Outpatient (REF) | payer OTHER ==
[2017-06-24 18:19] LABS: BASO # 0.1 10^3/uL (0.0-0.2); BASO % 0.8 % (0.0-1.0); EOS # 0.2 10^3/uL (0.0-0.50); EOS % 1.7 % (0.0-3.0); HEMATOCRIT 43.3 % (36.0-47.0); HEMOGLOBIN 13.7 g/dl (12.0-15.5); IMMATURE GRANULOCYTE % 1.3 % (0-3.0); LYMPH % 22.2 % (24.0-44.0); MEAN CORPUSCULAR HEMOGLOBIN 26.9 pg (27.0-33.0); MEAN CORPUSCULAR HGB CONC 31.6 g/dl (32.0-36.5); MEAN CORPUSCULAR VOLUME 85.1 fl (80.0-96.0); MONO # 0.7 10^3/uL (0.0-0.8); MONO % 7.9 % (0.0-5.0); NEUTROPHILS # 5.9 10^3/uL (1.8-7.7); NEUTROPHILS % 66.1 % (36.0-66.0); PLATELET COUNT, AUTOMATED 332 10^3/uL (150-450); RED BLOOD COUNT 5.09 10^6/uL (4.00-5.40); RED CELL DISTRIBUTION WIDTH 14.8 % (11.5-14.5)
[2017-06-24 18:30] LABS: ALBUMIN 3.7 GM/DL (3.2-5.2); ALBUMIN/GLOBULIN RATIO 1.06 (1.00-1.93); ALKALINE PHOSPHATASE 200 U/L (45-117); ALT/SGPT 24 U/L (12-78); ANION GAP 7 MEQ/L (8-16); AST/SGOT 18 U/L (7-37); BILIRUBIN,TOTAL 0.2 MG/DL (0.2-1.0); BLOOD UREA NITROGEN 15 MG/DL (7-18); CARBON DIOXIDE LEVEL 28 MEQ/L (21-32); CHLORIDE LEVEL 108 MEQ/L (98-107); CREATININE FOR GFR 0.85 MG/DL (0.55-1.30); GLOMERULAR FILTRATION RATE > 60.0 (>58); GLUCOSE, FASTING 90 MG/DL (70-100); SODIUM LEVEL 143 MEQ/L (136-145); TOTAL PROTEIN 7.2 GM/DL (6.4-8.2)
[2017-06-27 10:15] LABS: LEVETIRACETAM (KEPPRA) 39.8 ug/mL (10.0-40.0)
== END ==
LOC: M LABNEURO 13:47
DX: I63.9 Cerebral infarction, unspecified (principal); R56.9 Unspecified convulsions
CPT/HCPCS: 80053

== ENCOUNTER 2017-07-08 07:53 | Outpatient (RCR) | payer OTHER | END 2017-08-07 | LOC: M OT 07-10 07:57 → M ST 07-14 09:32 → M OT 07-23 08:42 → M ST 07-28 08:38 → M OT 07-30 08:41 → M ST 08-07 08:50 → M OT 07:53 → M ST 07-28 08:38 → M OT 08-05 08:44 | DX: Z51.89 Encounter for other specified aftercare (principal); G81.90 Hemiplegia, unspecified affecting unspecified side ==

== ENCOUNTER 2017-08-13 08:19 | Outpatient (RCR) | payer OTHER | END 2017-09-06 | LOC: M OT 08:19 → M ST 08-19 08:34 → M OT 08:19 → M ST 08-19 08:34 | DX: Z51.89 Encounter for other specified aftercare (principal); I63.9 Cerebral infarction, unspecified; I69.320 Aphasia following cerebral infarction; R13.10 Dysphagia, unspecified; G81.90 Hemiplegia, unspecified affecting unspecified side | CPT/HCPCS: 97110 ==

== ENCOUNTER 2017-09-07 23:05 | Emergency (ER) | payer OTHER ==
[2017-09-08] MEDS: CARBAMIDE PEROXIDE 6.5% OTIC SOLN 15ML AS (03:25)
== END 2017-09-08 03:50 | disposition home or self-care (01) ==
LOC: M ED 23:05
DX: H61.21 Impacted cerumen, right ear (principal); E10.9 Type 1 diabetes mellitus without complications; I10 Essential (primary) hypertension; Z86.73 Personal history of transient ischemic attack (TIA), and cerebral infarction without residual deficits; Z79.4 Long term (current) use of insulin; Z79.899 Other long term (current) drug therapy
CPT/HCPCS: 69210

== ENCOUNTER 2017-09-09 08:38 | Outpatient (RCR) | payer OTHER | END 2017-10-07 | LOC: M ST 09-15 09:30 | DX: Z51.89 Encounter for other specified aftercare (principal); G81.90 Hemiplegia, unspecified affecting unspecified side ==

== ENCOUNTER → 2017-10-01 | Outpatient (REF) | payer OTHER ==
[2017-10-01 17:37] LABS: BASO # 0.1 10^3/uL (0.0-0.2); BASO % 0.8 % (0.0-1.0); EOS # 0.2 10^3/uL (0.0-0.50); EOS % 1.7 % (0.0-3.0); HEMATOCRIT 39.3 % (36.0-47.0); HEMOGLOBIN 12.8 g/dl (12.0-15.5); IMMATURE GRANULOCYTE % 1.7 % (0-3.0); LYMPH % 23.5 % (24.0-44.0); MEAN CORPUSCULAR HEMOGLOBIN 28.4 pg (27.0-33.0); MEAN CORPUSCULAR HGB CONC 32.6 g/dl (32.0-36.5); MEAN CORPUSCULAR VOLUME 87.1 fl (80.0-96.0); MONO # 0.8 10^3/uL (0.0-0.8); MONO % 9.1 % (0.0-5.0); NEUTROPHILS # 5.4 10^3/uL (1.8-7.7); NEUTROPHILS % 63.2 % (36.0-66.0); PLATELET COUNT, AUTOMATED 343 10^3/uL (150-450); RED BLOOD COUNT 4.51 10^6/uL (4.00-5.40); RED CELL DISTRIBUTION WIDTH 13.7 % (11.5-14.5); WHITE BLOOD COUNT 8.6 10^3/uL (4.0-10.0)
[2017-10-01 17:54] LABS: ALBUMIN 3.4 GM/DL (3.2-5.2); ALBUMIN/GLOBULIN RATIO 1.13 (1.00-1.93); ALKALINE PHOSPHATASE 171 U/L (45-117); ALT/SGPT 21 U/L (12-78); ANION GAP 8 MEQ/L (8-16); AST/SGOT 7 U/L (7-37); BILIRUBIN,TOTAL 0.2 MG/DL (0.2-1.0); BLOOD UREA NITROGEN 14 MG/DL (7-18); CALCIUM LEVEL 8.8 MG/DL (8.5-10.1); CARBON DIOXIDE LEVEL 29 MEQ/L (21-32); CHLORIDE LEVEL 108 MEQ/L (98-107); CHOLESTEROL LEVEL 175 MG/DL (<200); CHOLESTEROL RISK RATIO 4.166 (<5); CREATININE FOR GFR 0.88 MG/DL (0.55-1.30); GAMMA GLUTAMYLTRANSPEPTIDASE 16 U/L (5-55); GLOMERULAR FILTRATION RATE > 60.0 (>58); GLUCOSE, FASTING 106 MG/DL (70-100); HDL CHOLESTEROL 42 MG/DL (>40); NON-HDL-C 133 MG/DL; POTASSIUM SERUM 4.1 MEQ/L (3.5-5.1); SODIUM LEVEL 145 MEQ/L (136-145); TOTAL PROTEIN 6.4 GM/DL (6.4-8.2); TRIGLYCERIDES LEVEL 175 MG/DL (<150)
[2017-10-01 18:00] LABS: ESTIMATED AVERAGE GLUCOSE 131 MG/DL (60-110); HEMOGLOBIN A1c 6.2 %
[2017-10-01 20:56] LABS: MAU/CREAT RATIO 182.2 MCG/MG (0.0-30.0)
== END ==
LOC: M SFHCLERA 13:55
DX: E11.8 Type 2 diabetes mellitus with unspecified complications (principal); R74.8 Abnormal levels of other serum enzymes

== ENCOUNTER → 2017-11-18 | Outpatient (CLI) | payer OTHER | LOC: M WHC 13:50 | DX: Z12.31 Encounter for screening mammogram for malignant neoplasm of breast (principal); R74.8 Abnormal levels of other serum enzymes | CPT/HCPCS: 77067 ==

== ENCOUNTER → 2017-12-31 | Outpatient (REF) | payer OTHER ==
[2017-12-31 18:30] LABS: ALBUMIN 3.6 GM/DL (3.2-5.2); ALKALINE PHOSPHATASE 192 U/L (45-117); ALT/SGPT 18 U/L (12-78); ANION GAP 7 MEQ/L (8-16); AST/SGOT 9 U/L (7-37); BILIRUBIN,TOTAL 0.2 MG/DL (0.2-1.0); BLOOD UREA NITROGEN 14 MG/DL (7-18); CALCIUM LEVEL 9.3 MG/DL (8.5-10.1); CARBON DIOXIDE LEVEL 30 MEQ/L (21-32); CHLORIDE LEVEL 109 MEQ/L (98-107); CREATININE FOR GFR 0.87 MG/DL (0.55-1.30); GLOMERULAR FILTRATION RATE > 60.0 (>51); GLUCOSE, FASTING 95 MG/DL (70-100); POTASSIUM SERUM 4.2 MEQ/L (3.5-5.1); SODIUM LEVEL 146 MEQ/L (136-145); TOTAL PROTEIN 6.6 GM/DL (6.4-8.2)
[2017-12-31 18:38] LABS: PTH INTACT 64.4 PG/ML (18.5-88.0)
== END ==
LOC: M SFHCLERA 14:57
DX: R74.8 Abnormal levels of other serum enzymes (principal)

== ENCOUNTER → 2018-01-20 | Outpatient (CLI) | payer OTHER ==
[2018-01-20 21:28] LABS: ALKALINE PHOSPHATASE 177 U/L (45-117); GAMMA GLUTAMYLTRANSPEPTIDASE 12 U/L (5-55)
[2018-01-20 22:51] LABS: LABILE ALKPHOS 140 U/L; STABLE ALKPHOS 37 U/L
[2018-01-20 22:52] LABS: % LABILE ALKALINE PHOSPHATASE 79.1 %
== END ==
LOC: M LRY 15:52
DX: R74.8 Abnormal levels of other serum enzymes (principal)
CPT/HCPCS: 84078

== ENCOUNTER → 2018-02-05 | Outpatient (CLI) | payer OTHER | LOC: M LRY 15:52 | DX: R74.8 Abnormal levels of other serum enzymes (principal) | CPT/HCPCS: 84075 ==

== ENCOUNTER → 2018-02-09 | Outpatient (REF) | payer OTHER ==
[2018-02-13 00:30] LABS: CREATININE URINE 100.1 mg/dL (Not Estab.); N-TELO CREAT RATIO 38 (0-89); N-TELOPEPTIDE LEVEL 337 nmol BCE (Not Estab.)
== END ==
LOC: M LAB REF 12:11
DX: R74.8 Abnormal levels of other serum enzymes (principal)

== ENCOUNTER → 2018-02-27 | Outpatient (REF) | payer OTHER ==
[~2018-02-27] MED LIST: ACET500T15 PO; ACET65SU PR; BISA10SU PR; CENTCHW4 PO; ESCI10TA2 PO; FERR5MLUD PEG; FIRS3SUS GT; IBUPOTC PO; INSUDET SC; INSUHUMDS SC; KEPP10002 PO; LANTINJ4; LEVE500UDC PEG; LISI-542 PO; METF500T13 PO; NYST10PW TOP; PERI12LIQ MT; SERT-155; SERT50TA PO; [UNRECOGNIZED DRUG - CODE] PEG; [UNRECOGNIZED DRUG - CODE] PEG; [UNRECOGNIZED DRUG - CODE] PO
[2018-03-06 14:14] LABS: HPV HYBRID CAPTURE II Negative (Negative)
== END ==
LOC: M SFHCWAGY 15:18
PROVIDERS: ATTEND Nurse Practitioner Women's Health
DX: Z12.4 Encounter for screening for malignant neoplasm of cervix (principal)

== ENCOUNTER → 2018-04-02 | Outpatient (REF) | payer OTHER ==
[2018-04-02 20:27] LABS: BASO # 0.1 10^3/uL (0.0-0.2); BASO % 0.7 % (0.0-1.0); EOS # 0.2 10^3/uL (0.0-0.50); EOS % 2.2 % (0.0-3.0); HEMOGLOBIN 13.5 g/dl (12.0-15.5); LYMPH # 2.4 10^3/uL (1.5-4.5); LYMPH % 22.7 % (24.0-44.0); MEAN CORPUSCULAR HEMOGLOBIN 28.7 pg (27.0-33.0); MEAN CORPUSCULAR HGB CONC 32.1 g/dl (32.0-36.5); MEAN CORPUSCULAR VOLUME 89.2 fl (80.0-96.0); MONO # 0.9 10^3/uL (0.0-0.8); MONO % 8.3 % (0.0-5.0); NEUTROPHILS # 6.7 10^3/uL (1.8-7.7); PLATELET COUNT, AUTOMATED 352 10^3/uL (150-450); RED BLOOD COUNT 4.71 10^6/uL (4.00-5.40); WHITE BLOOD COUNT 10.3 10^3/uL (4.0-10.0)
[2018-04-02 20:45] LABS: ALBUMIN 3.5 GM/DL (3.2-5.2); BILIRUBIN,TOTAL 0.2 MG/DL (0.2-1.0); CALCIUM LEVEL 8.8 MG/DL (8.5-10.1); CHOLESTEROL RISK RATIO 3.068 (<5); CREATININE FOR GFR 1.05 MG/DL (0.55-1.30); GLOMERULAR FILTRATION RATE 59.1 (>51); THYROID STIMULATING HORMONE 1.56 uIU/ML (0.358-3.740); TOTAL PROTEIN 6.8 GM/DL (6.4-8.2)
[2018-04-02 20:52] LABS: CREATININE, URINE 81.4 MG/DL; HEMOGLOBIN A1c 6.3 %; MAU/CREAT RATIO 216.2 MCG/MG (0.0-30.0)
== END ==
LOC: M SFHCLERA 15:38
PROVIDERS: ATTEND Family Medicine
DX: E11.8 Type 2 diabetes mellitus with unspecified complications (principal)

== ENCOUNTER → 2018-09-14 | Outpatient (REF) | payer OTHER ==
[~2018-09-14] MED LIST changes: +LEVE15SO PEG; -LEVE500UDC PEG; +NYST-15 TOP; -NYST10PW TOP; +SERT-141 PO; -SERT50TA PO
[2018-09-14 20:51] LABS: BLOOD UREA NITROGEN 12 MG/DL (7-18); CALCIUM LEVEL 9.3 MG/DL (8.5-10.1); CARBON DIOXIDE LEVEL 26 MEQ/L (21-32); CHLORIDE LEVEL 109 MEQ/L (98-107); CREATININE FOR GFR 0.92 MG/DL (0.55-1.30); GLOMERULAR FILTRATION RATE > 60.0 (>51); GLUCOSE, FASTING 87 MG/DL (70-100); POTASSIUM SERUM 4.2 MEQ/L (3.5-5.1); SODIUM LEVEL 142 MEQ/L (136-145)
[2018-09-14 21:11] LABS: HEMOGLOBIN A1c 6.6 %
[2018-09-14 21:13] LABS: MAU/CREAT RATIO 254.8 MCG/MG (0.0-30.0)
== END ==
LOC: M SFHCLERA 15:43
PROVIDERS: ATTEND Family Medicine
DX: E11.8 Type 2 diabetes mellitus with unspecified complications (principal)

== ENCOUNTER → 2019-03-17 | Outpatient (REF) | payer OTHER ==
[~2019-03-17] MED LIST changes: -SERT-155; +SERT50TA29
[2019-03-17 20:19] LABS: BLOOD UREA NITROGEN 14 MG/DL (7-18); CALCIUM LEVEL 9.4 MG/DL (8.5-10.1); CARBON DIOXIDE LEVEL 27 MEQ/L (21-32); CHLORIDE LEVEL 107 MEQ/L (98-107); CHOLESTEROL LEVEL 120 MG/DL (<200); CREATININE FOR GFR 1.02 MG/DL (0.55-1.30); GLOMERULAR FILTRATION RATE > 60.0 (>51); GLUCOSE, FASTING 88 MG/DL (70-100); HDL CHOLESTEROL 50 MG/DL (>40); LDL CHOLESTEROL 49 MG/DL (<100); NON-HDL-C 70 MG/DL; POTASSIUM SERUM 4.1 MEQ/L (3.5-5.1); SODIUM LEVEL 142 MEQ/L (136-145); TRIGLYCERIDES LEVEL 106 MG/DL (<150)
[2019-03-17 20:30] LABS: HEMOGLOBIN A1c 6.6 %
== END ==
LOC: M SFHCLERA 16:27
PROVIDERS: ATTEND Family Medicine
DX: E11.8 Type 2 diabetes mellitus with unspecified complications (principal); E78.5 Hyperlipidemia, unspecified

== ENCOUNTER → 2020-08-31 | Outpatient (CLI) | payer OTHER ==
[~2020-08-31] MED LIST changes: +ESCI10TA16 PO; -ESCI10TA2 PO; -LISI-542 PO; +LISI-898 PO
--- NOTE | 2020-08-31 16:39 | REPMRS ---
Patient History The patient states she had a clinical breast exam in August 2020. No known family history of cancer. No breast complaints today 1st covid vaccine 07/26/20-left arm-Moderna 2nd covid vaccine 08/23/20-left arm Priors on PACS Patient Identification Verified Patient denied Digital Woman Screen Mammo: August 31, 2020 - Exam #: [id number] Bilateral CC and MLO view(s) were taken. Technologist: Stephanie Fagan, Technologist Prior study comparison: November 18, 2017, bilateral digital woman screen mammo performed at [facility]. October 03, 2011, bilateral digital mammo screening bilat, performed at [facility]. FINDINGS: There are scattered fibroglandular densities. The Volpara volumetric breast density category is:B. There has been no change in the appearance of the mammogram from the prior studies. There is a mild amount of scattered fibroglandular density which is fairly symmetric. There is no interval development of dominant mass, architectural distortion, or grouped microcalcification suggestive of malignancy. 3-D tomosynthesis shows no additional findings. Assessment: BI-RADS/ACR category 1 mammogram. Negative Mammogram. Recommendation Routine screening mammogram of both breasts in 1 year (for women over age 40). This patient's [facility] Lifetime Breast Cancer Risk is estimated at 8.6 %. This mammogram was interpreted with the aid of an FDA-approved computer-aided dectection system. Electronically Signed By: Vin Andrews MD 08/31/20 [id number]
== END ==
LOC: M WHC 15:19
PROVIDERS: ATTEND Nurse Practitioner Women's Health
DX: Z12.31 Encounter for screening mammogram for malignant neoplasm of breast (principal)

== ENCOUNTER → 2020-08-31 | Outpatient (REF) | payer OTHER | LOC: M SFHCWAGY 17:18 | PROVIDERS: ATTEND Nurse Practitioner Women's Health | DX: Z12.4 Encounter for screening for malignant neoplasm of cervix (principal) ==

== ENCOUNTER 2022-02-26 09:18 | Emergency (ER) | payer BC, OTHER ==
[~2022-02-26] VITALS: Ht 157.5 cm; Wt 81.7 kg
[~2022-02-26 09:18] MED LIST changes: +AMLO1TAB25; +ATOR1TAB19; +D 1010004; +DONE10TA90; +FERR1TAB8; -LISI-898 PO; +LISI10TA22 PO; +LISI5TAB11 PO
[2022-02-26 09:49] LABS: BASO # 0.1 10^3/uL (0.0-0.2); BASO % 0.6 % (0.0-1.0); EOS # 0.2 10^3/uL (0.0-0.5); EOS % 1.3 % (0.0-3.0); HEMATOCRIT 31.2 % (36.0-47.0); HEMOGLOBIN 8.2 g/dl (12.0-15.5); LYMPH # 3.3 10^3/uL (1.5-5.0); LYMPH % 26.6 % (24.0-44.0); MEAN CORPUSCULAR HEMOGLOBIN 17.4 pg (27.0-33.0); MEAN CORPUSCULAR HGB CONC 26.3 g/dl (32.0-36.5); MEAN CORPUSCULAR VOLUME 66.4 fl (80.0-96.0); MONO # 0.9 10^3/uL (0.0-0.8); MONO % 7.3 % (2.0-8.0); NEUTROPHILS # 7.7 10^3/uL (1.5-8.5); NEUTROPHILS % 62.7 % (36.0-66.0); PLATELET COUNT, AUTOMATED 583 10^3/uL (150-450); WHITE BLOOD COUNT 12.4 10^3/uL (4.0-10.0)
[2022-02-26] MEDS ORDERED: ONDANSETRON 4MG 2ML VIAL IV ONE (09:50)
[2022-02-26 10:17] LABS: BLOOD UREA NITROGEN 9 MG/DL (9-23); CALCIUM LEVEL 7.5 MG/DL (8.5-10.1); CARBON DIOXIDE LEVEL 19 MMOL/L (20-31); CHLORIDE LEVEL 112 MMOL/L (98-107); CREATININE FOR GFR 0.83 MG/DL (0.55-1.30); GLOMERULAR FILTRATION RATE > 60.0 (>51); GLUCOSE, FASTING 178 MG/DL (60-100); POTASSIUM SERUM 3.3 MMOL/L (3.5-5.1); SODIUM LEVEL 142 MMOL/L (136-145)
[2022-02-26 10:24] LABS: THYROID STIMULATING HORMONE 1.749 uIU/ML (0.55-4.78)
[2022-02-26 10:58] LABS: IRON (FE) 16 UG/DL (50-170); PERCENT SATURATION 4.8 % (13.2-45.0); TOTAL IRON BINDING CAPACITY 332 UG/DL (250-425)
[2022-02-26 11:01] LABS: FERRITIN 9.7 NG/ML (7.3-270.7); FOLATE 13.4 NG/ML (>5.4); VITAMIN B12 LEVEL 395 PG/ML (211-911)
[2022-02-26] MEDS ORDERED: levETIRAcetam INJection 500 MG in D5W MINI-BAG PLUS 100 ML IV ONE (11:10)
[2022-02-26 11:45] VITALS: BP 110/61
== END 2022-02-26 12:03 | disposition home or self-care (01) ==
LOC: M ED 09:18
DX: G40.209 Localization-related (focal) (partial) symptomatic epilepsy and epileptic syndromes with complex partial seizures, not intractable, without status epilepticus (principal); E11.9 Type 2 diabetes mellitus without complications; I10 Essential (primary) hypertension; Z86.73 Personal history of transient ischemic attack (TIA), and cerebral infarction without residual deficits; Z79.4 Long term (current) use of insulin; Z79.811 Long term (current) use of aromatase inhibitors; Z79.899 Other long term (current) drug therapy
CPT/HCPCS: 70450; 80048; 82607; 82728; 82746; 83550; 84443; 85025; 93005; 93041; 94760; 96374; 96375; 99285; J1953; J2405

== ENCOUNTER 2023-06-06 12:54 | Outpatient (CLI) | payer BC ==
[~2023-06-06] VITALS: Ht 157.5 cm; Wt 77.2 kg
[~2023-06-06 12:54] MED LIST changes: +ALCOPAD25 TOP; -AMLO1TAB25; +AMLO1TAB25 PO; -ATOR1TAB19; +ATOR1TAB19 PO; +BLOOKIT21 XX; +CEFD300CAP PO; -DONE10TA90; +DONE10TA90 PO; -FERR1TAB8; +FERR1TAB8 PO; +GLOB31MI SC; +GLUC1TES2 XX; +INSU100I48 SQ; +JANU100T PO; +KEPP1TAB2 PO; +LANC30MI XX; +LEVE500T5; +LISI2.5T9 PO; +METF-877 PO; +PANT40TA29 PO; +PRED10TA2 PO
[2023-06-06 13:07] VITALS: BP 161/81; O2SAT 100
[2023-06-06] MEDS: ACETAMINOPHEN TAB 650MG DOSE (2X325MG) PO ONE (13:22)
[2023-06-06] MEDS: diphenhydrAMINE 25MG CAP PO ONE (13:22)
[2023-06-06] MEDS: FERROUS GLUCONATE 125 MG in NS 100 ML IV ONE (13:50)
[2023-06-06 15:20] VITALS: BP 162/78; O2SAT 100
== END 2023-06-06 15:20 | disposition home or self-care (01) ==
LOC: M INFU 12:54
PROVIDERS: ATTEND Internal Medicine Medical Oncology
DX: D50.9 Iron deficiency anemia, unspecified (principal); Z88.8 Allergy status to other drugs, medicaments and biological substances
CPT/HCPCS: 96365; J2916

== ENCOUNTER 2023-06-13 13:25 | Outpatient (CLI) | payer BC ==
[2023-06-13 13:25] VITALS: BP 143/67; O2SAT 100
[2023-06-13] MEDS: diphenhydrAMINE 25MG CAP PO ONE (13:46)
[2023-06-13] MEDS: ACETAMINOPHEN TAB 650MG DOSE (2X325MG) PO ONE (13:46)
[2023-06-13] MEDS: FERROUS GLUCONATE 125 MG in NS 100 ML IV ONE (13:48)
[2023-06-13 14:55] VITALS: BP 139/84; O2SAT 99
== END 2023-06-13 14:55 ==
LOC: M INFU 13:25
PROVIDERS: ATTEND Internal Medicine Medical Oncology
DX: D50.9 Iron deficiency anemia, unspecified (principal); Z88.8 Allergy status to other drugs, medicaments and biological substances
CPT/HCPCS: 96365; J2916

== ENCOUNTER 2023-10-24 12:19 | Day surgery (SDC) | payer BC, MEDICARE ==
[~2023-10-24] VITALS: Ht 152.4 cm; Wt 85.6 kg
[~2023-10-24 12:19] MED LIST changes: +JARD1TAB3 PO; +VITA200012 PO
[2023-10-24] MEDS: NS 1,000 ML IV ONE (13:47)
[2023-10-24] MEDS ORDERED: MIDAZOLAM INJ 2MG/2ML VIAL As Ordered ONE (15:34)
[2023-10-24] MEDS ORDERED: fentaNYL 100 MCG/2 ML INJECTION As Ordered ONE (15:37)
[2023-10-24 15:53] VITALS: TEMP 97.6
[2023-10-24 16:16] VITALS: BP 125/80; O2SAT 93
== END 2023-10-24 16:23 | disposition home or self-care (01) ==
LOC: M OPP 12:19
PROVIDERS: ATTEND Internal Medicine Gastroenterology
DX: D12.5 Benign neoplasm of sigmoid colon (principal); K64.8 Other hemorrhoids; K57.30 Diverticulosis of large intestine without perforation or abscess without bleeding; Z98.890 Other specified postprocedural states; D50.9 Iron deficiency anemia, unspecified; Z87.891 Personal history of nicotine dependence; Z87.798 Personal history of other (corrected) congenital malformations; E11.9 Type 2 diabetes mellitus without complications; Z79.02 Long term (current) use of antithrombotics/antiplatelets; Z79.4 Long term (current) use of insulin; Z86.73 Personal history of transient ischemic attack (TIA), and cerebral infarction without residual deficits; Z79.899 Other long term (current) drug therapy; Z88.8 Allergy status to other drugs, medicaments and biological substances
CPT/HCPCS: 43239; 45385; 88305; J2250; J3010

== ENCOUNTER → 2023-11-07 | Outpatient (CLI) | payer BC, MEDICARE ==
[~2023-11-07] MED LIST changes: +E-Z-GAS II EFFERVESCENT PACKET (SODIUM BICARB./CITRIC ACID/SIMETHICONE) As Ordered ONE; +E-Z-HD 98% w/w 340GM SUSP BTL As Ordered ONE; +E-Z-PAQUE 96% w/w SUSP 176GM BTL As Ordered ONE
== END ==
LOC: M RAD 08:01
PROVIDERS: ATTEND Physician Assistant Medical
DX: D50.9 Iron deficiency anemia, unspecified (principal)

== ENCOUNTER → 2024-01-15 | Outpatient (CLI) | payer BC, MEDICARE ==
[~2024-01-15] MED LIST changes: -E-Z-GAS II EFFERVESCENT PACKET (SODIUM BICARB./CITRIC ACID/SIMETHICONE) As Ordered ONE; -E-Z-HD 98% w/w 340GM SUSP BTL As Ordered ONE; -E-Z-PAQUE 96% w/w SUSP 176GM BTL As Ordered ONE
[2024-01-15 08:37] LABS: BASO # 0.1 10^3/uL (0.0-0.2); BASO % 1.1 % (0.0-1.0); EOS # 0.2 10^3/uL (0.0-0.5); EOS % 2.8 % (0.0-3.0); HEMATOCRIT 46.5 % (36.0-47.0); HEMOGLOBIN 14.7 g/dl (12.0-15.5); LYMPH # 1.8 10^3/uL (1.5-5.0); LYMPH % 25.3 % (24.0-44.0); MEAN CORPUSCULAR HEMOGLOBIN 26.9 pg (27.0-33.0); MEAN CORPUSCULAR HGB CONC 31.6 g/dl (32.0-36.5); MEAN CORPUSCULAR VOLUME 85.2 fl (80.0-96.0); MONO # 0.6 10^3/uL (0.0-0.8); MONO % 8.4 % (2.0-8.0); NEUTROPHILS # 4.3 10^3/uL (1.5-8.5); PLATELET COUNT, AUTOMATED 235 10^3/uL (150-450); RED BLOOD COUNT 5.46 10^6/uL (4.00-5.40); WHITE BLOOD COUNT 7.2 10^3/uL (4.0-10.0)
[2024-01-15 09:09] LABS: ALBUMIN 3.6 G/DL (3.2-5.2); ALKALINE PHOSPHATASE 199 U/L (35-104); ALT/SGPT 14 U/L (7.0-40); AST/SGOT < 8 U/L (<34); BILIRUBIN,TOTAL 0.4 MG/DL (0.3-1.2); BLOOD UREA NITROGEN 19 MG/DL (9-23); CALCIUM LEVEL 9.8 MG/DL (8.5-10.1); CARBON DIOXIDE LEVEL 27 MMOL/L (20-31); CHLORIDE LEVEL 108 MMOL/L (98-107); CREATININE FOR GFR 1.17 MG/DL (0.55-1.30); GLOMERULAR FILTRATION RATE 50.9 (>51); GLUCOSE, FASTING 166 MG/DL (60-100); IRON (FE) 71 UG/DL (50-170); PERCENT SATURATION 26.6 % (13.2-45.0); POTASSIUM SERUM 4.4 MMOL/L (3.5-5.1); SODIUM LEVEL 143 MMOL/L (136-145); TOTAL IRON BINDING CAPACITY 267 UG/DL (250-425); TOTAL PROTEIN 7.1 G/DL (5.7-8.2)
[2024-01-15 09:13] LABS: FERRITIN 130.9 NG/ML (7.3-270.7)
== END ==
LOC: M LAB 08:05
PROVIDERS: ATTEND Specialist
DX: D50.9 Iron deficiency anemia, unspecified (principal)